=== PATIENT | male | born 1960 | race Caucasian/White ===

== ENCOUNTER 2020-08-15 12:29 | Day surgery (SDC) | payer MEDICAID ==
[2020-08-15] VITALS (11 sets, daily range): BP systolic 134–165; BP diastolic 75–98
[~2020-08-15] VITALS: Ht 177.8 cm; Wt 88.6 kg
[~2020-08-15 12:29] MED LIST: ASPI-612 PO; ATEN-169 PO; IND25C PO; LEVA15HF4 IH; LISI40TA4 PO; OMEP-84 PO; SERT-153 PO
[2020-08-15] MEDS ORDERED: nitroGLYCERIN 0.4mg SUBLingual tab SL PRN (13:05)
[2020-08-15] MEDS ORDERED: LORazepam 0.5 MG tablet PO PRN (13:05)
[2020-08-15] MEDS ORDERED: diphenhydrAMINE 25mg capsule PO PRN (13:05)
[2020-08-15] MEDS ORDERED: LOSA100T57 PO (13:10)
[2020-08-15] MEDS ORDERED: UMEC1DIS INH (13:10)
[2020-08-15] MEDS ORDERED: MELO-102 PO (13:10)
[2020-08-15] MEDS ORDERED: ATOR20TA PO (13:11)
[2020-08-15] MEDS ORDERED: AMLO10TA PO (13:11)
[2020-08-15] MEDS ORDERED: TIOT18CA3 PO (13:11)
[2020-08-15] MEDS ORDERED: ERGO500056 PO (13:14)
[2020-08-15] MEDS ORDERED: GABA300T25 PO (13:14)
[2020-08-15 13:41] LABS: BASOPHILS # (AUTO) 0.1 X10'3 (0-0.2); EOSINOPHILS % (AUTO) 0.7 % (0-6); HEMATOCRIT 46.6 % (42.0-52.0); HEMOGLOBIN 15.7 g/dl (14.0-17.9); LYMPHOCYTES # (AUTO) 1.3 X10'3 (1.1-4.8); LYMPHOCYTES % (AUTO) 21.6 % (21-51); MEAN CORPUSCULAR HEMOGLOBIN 30.8 PG (27.0-31.0); MEAN CORPUSCULAR HGB CONC 33.6 g/dL (33.0-36.5); MEAN CORPUSCULAR VOLUME 91.8 FL (78-98); MONOCYTES # (AUTO) 0.4 X10'3 (0-0.9); MONOCYTES % (AUTO) 6.9 % (2-12); NEUTROPHILS # (AUTO) 4.3 X10'3 (1.8-7.7); NEUTROPHILS % (AUTO) 69.8 % (42-75); PLATELET COUNT 137 X10'3 (140-440); RED BLOOD COUNT 5.08 X10'6 (4.70-6.10); RED CELL DISTRIBUTION WIDTH 16.7 % (11.5-14.5); WHITE BLOOD COUNT 6.1 X10'3 (4.5-11.0)
[2020-08-15 13:49] LABS: ANION GAP 11 (8-16); BLOOD UREA NITROGEN 19 MG/DL (7-18); BUN/CREATININE RATIO 16.2 (5.4-32.0); CALCIUM 9.2 MG/DL (8.5-10.1); CHLORIDE 101 MMOL/L (99-107); CREATININE 1.17 MG/DL (0.60-1.10); GLUCOSE 98 MG/DL (70-104); SODIUM 137 MMOL/L (135-145); TOTAL CARBON DIOXIDE 24.8 MMOL/L (24-32); eGFR 64 ML/MIN
[2020-08-15 13:50] LABS: POTASSIUM 4.6 MMOL/L (3.5-5.1)
[2020-08-15 13:53] LABS: PARTIAL THROMBOPLASTIN TIME 26 SECONDS (22-32)
[2020-08-15] MEDS ORDERED: midazolam 2 mg/2 ml injection ONE ×3 (17:48→18:06)
[2020-08-15] MEDS ORDERED: fentaNYL/PF 50MCG/1 ML 2ML syringe ONE ×2 (17:48→18:07)
[2020-08-15] MEDS ORDERED: iohexol 350MG/ML 100ml bottle IV ONE (17:48)
[2020-08-15] MEDS ORDERED: LIDOcaine 1% (10mg/ml)w/preservative injection 20ml MDV ONE (17:48)
[2020-08-15] MEDS ORDERED: iohexol 350 MG/ML 50ML vial IV ONE (17:48)
--- NOTE | 2020-08-15 17:50 | NUR ---
Problems reprioritized. Patient report given, questions answered & plan of care reviewed with Joslyn BOYCE. Addendum: 08/16/20 at 1034 by Korin Silva RN late entry
[2020-08-15] MEDS ORDERED: proCHLORperazine 10 MG/2 ml inj ONE (18:06)
[2020-08-15] MEDS ORDERED: hydrALAZINE 20mg/ml inj. IV ONE (18:19)
--- NOTE | 2020-08-15 20:50 | NUR ---
Patient in room . I have received report from CARLI Jorgensen and had the opportunity to ask questions and assume patient care.
[2020-08-15] MEDS ORDERED: HYDROcodone/acetaminophen 10/325mg tab PO PRN (20:55)
[2020-08-15] MEDS ORDERED: OXAZEpam 15mg capsule PO PRN (20:55)
[2020-08-15] MEDS ORDERED: ondansetron/PF 4mg/2ml inj IV PRN (20:55)
[2020-08-15] MEDS ORDERED: proCHLORperazine 10 MG/2 ml inj IV PRN (20:55)
[2020-08-15] MEDS ORDERED: HYDROcodone/acetaminophen 5mg/325mg tablet PO PRN (20:55)
--- NOTE | 2020-08-15 20:56 | NUR ---
Joslyn states sister Terrell is unable to pick patient up until AM. Will place diet order and fax med orders to pharmacy. Came back from equipment operator/laborer at 1830, has angioseal on right groin, no complaints of pain, must lay flat until midnight. Patient is currently sleeping and has eaten a half a sandwhich.
[2020-08-15] MEDS ORDERED: atorvastatin 20mg tablet PO SCH (21:00)
[2020-08-15] MEDS: normal saline 1,000 ML IV SCH ×2 (21:36→23:05)
[2020-08-16 01:49] VITALS: BP 176/98
[2020-08-16 01:50] VITALS: BP 176/98
--- NOTE | 2020-08-16 01:50 | NUR ---
Patient anxious and BP 176/98. Will administer anxiety medications and reassess.
[2020-08-16 02:55] VITALS: BP 158/58
[2020-08-16] MEDS: ipratropium 0.5 MG/2.5ML nebule IH SCH ×2 (03:00→08:34)
--- NOTE | 2020-08-16 06:37 | NUR ---
Problems reprioritized. Patient report given, questions answered & plan of care reviewed with CARLI Liu.
[2020-08-16 07:00] VITALS: BP 165/109
[2020-08-16] MEDS ORDERED: pantoprazole 40mg Tablet.DR PO SCH (07:30)
[2020-08-16 07:36] VITALS: BP_SYST 165
[2020-08-16] MEDS ORDERED: gabapentin 300mg capsule PO SCH (08:00)
[2020-08-16] MEDS ORDERED: aspirin 81mg tablet.DR PO SCH (08:00)
[2020-08-16] MEDS ORDERED: amLODIPine 5mg tablet PO SCH (08:00)
[2020-08-16] MEDS ORDERED: losartan 50mg tablet PO SCH (08:00)
[2020-08-16] MEDS ORDERED: sertraline 50mg tablet PO SCH (08:00)
[2020-08-19] MEDS ORDERED: ALBU18HF2 INH (13:03)
[2020-09-08] MEDS ORDERED: ergocalciferol (vit D) capsule 1,250 MCG (50,000 UNITS) CAPSULE PO SCH (08:00)
== END 2020-08-16 10:36 | disposition home or self-care (01) ==
LOC: SSTAY O 12:29 → UNDOADMOB 21:46 → PCU 3S 21:46 → UNDODISOB 08-16 10:36 → SSTAY O 08-16 10:36
PROVIDERS: ATTEND Internal Medicine Cardiovascular Disease
DX: I25.119 Atherosclerotic heart disease of native coronary artery with unspecified angina pectoris (principal); R06.09 Other forms of dyspnea; I10 Essential (primary) hypertension; I45.10 Unspecified right bundle-branch block; F32.9 Major depressive disorder, single episode, unspecified; J44.9 Chronic obstructive pulmonary disease, unspecified; F17.210 Nicotine dependence, cigarettes, uncomplicated; Z79.01 Long term (current) use of anticoagulants; Z79.899 Other long term (current) drug therapy; Z72.89 Other problems related to lifestyle; Z79.82 Long term (current) use of aspirin
CPT/HCPCS: 36415; 71046; 80048; 85025; 85610; 85730; 93005; 93458; 94640; 94760; 99152; 99153; C1760; C1769; J0360; J0780; J1644; J2001; J2250; J3010; J7030; Q0163; Q9967; A4620; A6258

== ENCOUNTER 2020-08-22 10:30 | Inpatient (IN) | payer MEDICAID ==
[2020-08-19 12:22] LABS: BASOPHILS # (AUTO) 0.1 X10'3 (0-0.2); BASOPHILS % (AUTO) 0.7 % (0-1); EOSINOPHILS # (AUTO) 0.1 X10'3 (0-0.9); EOSINOPHILS % (AUTO) 0.6 % (0-6); LYMPHOCYTES # (AUTO) 1.4 X10'3 (1.1-4.8); LYMPHOCYTES % (AUTO) 15.7 % (21-51); MEAN CORPUSCULAR HEMOGLOBIN 31.2 PG (27.0-31.0); MEAN CORPUSCULAR HGB CONC 33.9 g/dL (33.0-36.5); MEAN CORPUSCULAR VOLUME 91.8 FL (78-98); MEAN PLATELET VOLUME 8.5 FL (7.4-10.4); MONOCYTES # (AUTO) 0.8 X10'3 (0-0.9); MONOCYTES % (AUTO) 9.8 % (2-12); NEUTROPHILS # (AUTO) 6.3 X10'3 (1.8-7.7); NEUTROPHILS % (AUTO) 73.2 % (42-75); PRE OP HEMATOCRIT 47.1 % (42.0-52.0); PRE OP PLATELET COUNT 139 X10'3 (140-440); RED BLOOD COUNT 5.14 X10'6 (4.70-6.10); RED CELL DISTRIBUTION WIDTH 17.4 % (11.5-14.5)
[2020-08-19 12:39] LABS: PRE OP PROTIME 10.7 SECONDS (9.0-12.0)
[2020-08-19 12:41] LABS: ALBUMIN 3.9 G/DL (3.4-5.0); ALBUMIN/GLOBULIN RATIO 0.9 (1.1-1.5); ALKALINE PHOSPHATASE 115 IU/L (46-116); BLOOD UREA NITROGEN 15 MG/DL (7-18); BUN/CREATININE RATIO 12.6 (5.4-32.0); CALCIUM 8.9 MG/DL (8.5-10.1); CHLORIDE 103 MMOL/L (99-107); CREATININE 1.19 MG/DL (0.60-1.10); PRE OP ALT 28 U/L (30-65); PRE OP ANION GAP 9 (8-16); PRE OP AST 21 U/L (10-37); PRE OP BILIRUB, TOTAL 0.7 MG/DL (0.0-1.0); PRE OP GLUCOSE 104 MG/DL (70-104); PRE OP POTASSIUM 5.4 MMOL/L (3.4-5.1); PRE OP SODIUM 138 MMOL/L (135-145); TOTAL CARBON DIOXIDE 26.4 MMOL/L (24-32); TOTAL PROTEIN 8.1 G/DL (6.4-8.2); eGFR 63 ML/MIN
[~2020-08-22] VITALS: Ht 177.8 cm; Wt 89.7 kg
[~2020-08-22 10:30] MED LIST changes: +ALBU18HF2 INH; -ATEN-169 PO; +ATOR20TA PO; -IND25C PO; -LEVA15HF4 IH; -LISI40TA4 PO; +LOSA100T57 PO; +MELO-102 PO; +TIOT18CA3 PO; +UMEC1DIS INH; +albuterol 2.5 MG/3 ML nebule NEB ONE; +ceFAZolin 2gm in dextrose, iso 50 ML IV ONE; +famotidine 20mg tablet PO ONE; +ringers solution, lacted 1,000 ML IV SCH
[2020-08-22 12:10] VITALS: BP 181/109
[2020-08-22] MEDS ORDERED: meperidine/PF 25mg/ml syringe IV ONE (13:35)
[2020-08-22] MEDS ORDERED: diazepam 5mg tablet PO ONE (13:35)
[2020-08-22] MEDS ORDERED: LIDOcaine 1% (10mg/ml) 2ml vial ONE (15:49)
[2020-08-22] MEDS ORDERED: labetalol 20mg/4ml (5mg/ml) syringe IV PRN (16:30)
[2020-08-22] MEDS ORDERED: morphine 4 MG/ML inj SYRINge IV PRN (16:30)
[2020-08-22] MEDS ORDERED: ringers solution, lacted 1,000 ML IV SCH ×3 (16:30→22:05)
[2020-08-22] MEDS ORDERED: fentaNYL/PF 50MCG/1 ML 2ML syringe IV PRN ×2 (16:30)
[2020-08-22] MEDS ORDERED: ondansetron/PF 4mg/2ml inj IV PRN ×2 (16:30→22:05)
[2020-08-22] MEDS ORDERED: morphine 2 MG/ML inj. syringe IV PRN (16:30)
[2020-08-22] MEDS ORDERED: hydrALAZINE 20mg/ml inj. IV PRN (16:30)
[2020-08-22] MEDS ORDERED: MIDAZolam 5mg/5ml vial ONE ×2 (16:35→21:59)
[2020-08-22] MEDS ORDERED: fentaNYL /PF 50mcg/ml 5ml ampule ONE (16:35)
[2020-08-22] MEDS ORDERED: rocuronium 10mg/ml inj IV ONE ×5 (16:38→22:43)
[2020-08-22] MEDS ORDERED: ondansetron/PF 4mg/2ml inj ONE (16:38)
[2020-08-22] MEDS ORDERED: LIDOcaine 2% (20mg/ml) 5ml vial ONE (16:38)
[2020-08-22] MEDS ORDERED: propofol inj 20 ML IV ONE (16:38)
[2020-08-22 17:03] LABS: ISTAT ANION GAP 11 (8-12); ISTAT BUN 9 mg/dL (6-19); ISTAT CL 102 mmol/L (99-107); ISTAT CREATININE 0.8 mg/dL (0.8-1.3); ISTAT GLUCOSE 84 mg/dL (70-104); ISTAT Hct 47 %PCV (42-52); ISTAT IONIZED CALCIUM 1.16 mmol/L (1.03-1.32); ISTAT K 4.2 mmol/L (3.5-5.1); ISTAT NA 136 mmol/L (135-145); ISTAT TOTAL CO2 23 mmol/L (24-32); ISTAT eGFR > 90 ML/MIN; POC BUN/CREATININE RATIO 11.3 (5.4-32.0)
[2020-08-22] MEDS ORDERED: albumin (Human) 5% 250ml 250 ML IV ONE ×14 (18:27→22:13)
[2020-08-22] MEDS ORDERED: sugammadex 200mg/2ml injection IV ONE (18:49)
[2020-08-22] MEDS ORDERED: fentaNYL/PF 50MCG/1 ML 2ML syringe ONE ×3 (19:22→23:38)
[2020-08-22] MEDS ORDERED: ePHEDrine 50MG/ML INJ. ONE (19:30)
[2020-08-22] MEDS ORDERED: albumin (Human) 5% 250ml 750 ML IV ONE (20:35)
[2020-08-22 23:14] LABS: ISTAT ANION GAP 9 (8-12); ISTAT BUN 8 mg/dL (6-19); ISTAT CL 107 mmol/L (99-107); ISTAT CREATININE 0.8 mg/dL (0.8-1.3); ISTAT GLUCOSE 149 mg/dL (70-104); ISTAT HGB 10.2 g/dl (14.0-18.0); ISTAT Hct 30 %PCV (42-52); ISTAT IONIZED CALCIUM 0.99 mmol/L (1.03-1.32); ISTAT K 4.1 mmol/L (3.5-5.1); ISTAT NA 137 mmol/L (135-145); ISTAT TOTAL CO2 21 mmol/L (24-32); ISTAT eGFR > 90 ML/MIN
[2020-08-23] VITALS (23 sets, daily range): BP systolic 90–211; BP diastolic 53–109
[2020-08-23] MEDS ORDERED: rocuronium 10mg/ml inj IV ONE ×2 (01:12→03:16)
[2020-08-23] MEDS ORDERED: phenylephrine 10mg/ml inj. ONE (01:18)
[2020-08-23] MEDS ORDERED: fentaNYL/PF 50MCG/1 ML 2ML syringe ONE ×2 (02:28→03:06)
[2020-08-23] MEDS ORDERED: ceFAZolin 1000mg inj ONE ×2 (02:52)
--- NOTE | 2020-08-23 03:54 | NUR ---
Patient arrived to unit from OR at 0354 with SUPERINTENDENT MENAGERIE and anesthesia MD. Patient arrived via BVM with ETT 7.5 (25 at lip). Patient placed on ventilator SIMV, 60% FIO2, TV 500, RR 20, PEEP 5. Strict orders to not suction patient beyond end of ETT as patient has anastamosis site. Patient on levophed drip at 0.15 mcg/kg/min. Patient has chest tube x 2 to right mid axillary x 2 that are y sited to water seal per order with air leak noted with 200 mL of blood in chamber. Patient is diaphoretic upon arrival. Patient BP is 240/110. Levophed stopped and patient given 100 mcg Fentanyl bolus per Dr. Bell order followed by a 10 mg Morphine IV push along with a Fentanyl drip, Versed drip. Patient goal SBP to be 120-140, no less than 100-[address] Bell. Patient has a right radial arterial line, a right IJ triple lumen with CVP reading, and a temperature latham in place. Patient two person skin assessment deferred at this time due to instability post-op. 0500 -- Currently patient is able to open his eyes. Updated that he is in the ICU. Fentanyl is running at 100 mcg, Versed at 4 mg, and Levo at 0.15 mcg. Chest tube current has 450 mL of blood in the chamber. Air leak still noted. Patient remains diaphoretic. Calcium low and replaced, Mg to be replaced.
[2020-08-23] MEDS ORDERED: morphine 4 MG/ML inj SYRINge IV PRN ×3 (04:00→04:55)
[2020-08-23] MEDS ORDERED: HYDROcodone/acetaminophen 10/325mg tab PO PRN ×2 (04:00)
[2020-08-23] MEDS ORDERED: ondansetron/PF 4mg/2ml inj IV PRN ×2 (04:00→04:55)
[2020-08-23] MEDS: potassium Cl 20mEq in D5-NS 1,000 ML IV SCH ×2 (04:00→16:30)
[2020-08-23] MEDS ORDERED: naloxone 0.4 mg/ml inj IV PRN (04:00)
[2020-08-23] MEDS ORDERED: CADD PCA waste documentation MC PRN (04:00)
[2020-08-23] MEDS ORDERED: albuterol 2.5 MG/3 ML nebule NEB PRN (04:00)
[2020-08-23] MEDS ORDERED: metoclopramide 5 mg/ml inj IV PRN (04:00)
--- NOTE | 2020-08-23 04:00 | NUR ---
Received from OR TO ROOM 2035 via ICU BED, accompanied by Anesthesiologist and report given by Anesthesiolgist. PT INTUBATED AND PLACED ON VENT AND MONITOR, S/P THORASCOPIC ATTEMPTED WEDGE RESECTION, RIGHT UPPER LOBECTOMY, PULMONARY ARTERY REPAIR, RIGHT MAIN STEM BRONCHUS REPAIR AND OMENTAL PATCH, CHEST TUBES, FONTENOT, RIGHT WRIST ARTLINE, RIGHT NECK CVL, GENERAL ANESTH, VERSED AND FENTANYL DRIPS STARTED, NOREPI TURNED OFF , PT IS DIAPHORETIC, HYPERTENSIVE, RIGHT CHEST DRESSINGS WITH 2 CHEST TUBE EXIT SITES CDI, ATRIUM HAS 300CC PINK SEROUS FLUID PRESENT, RT IN TO CLARIFY SUCTION ORDERS, WILL CONTINUE TO ASSESS, PT'S AWESOME NURSE HIRO AT BEDSIDE.
[2020-08-23] MEDS ORDERED: morphine 4 MG/ML inj SYRINge ONE (04:09)
[2020-08-23] MEDS ORDERED: morphine 10mg/ml inj. IV ONE (04:15)
[2020-08-23 04:25] LABS: ABG BASE EXCESS -9.2 mmol/L (-2.0-2.0); ABG HCO3 18.2 mmol/L (22.0-26.0); ABG PCO2 (T) 45.3 mmHg (35.0-48.0); ABG PO2 (T) 94.4 mmHg (75.0-100.0); FCOHb 0.8 % (0.0-3.9); FMetHb 0.2 % (0.0-1.5); PEEP 5 cm H2O; RESPIRATORY RATE 16 b/min; TIDAL VOLUME 500 mL; TOTAL HEMOGLOBIN 11.9 G/dl (14.0-18.0)
[2020-08-23 04:32] LABS: BASOPHILS # (AUTO) 0.1 X10'3 (0-0.2); BASOPHILS % (AUTO) 0.7 % (0-1); EOSINOPHILS % (AUTO) 0.1 % (0-6); HEMATOCRIT 34.4 % (42.0-52.0); HEMOGLOBIN 11.5 g/dl (14.0-17.9); LYMPHOCYTES # (AUTO) 1.4 X10'3 (1.1-4.8); LYMPHOCYTES % (AUTO) 8.1 % (21-51); MEAN CORPUSCULAR HEMOGLOBIN 30.8 PG (27.0-31.0); MEAN CORPUSCULAR HGB CONC 33.4 g/dL (33.0-36.5); MEAN CORPUSCULAR VOLUME 92.2 FL (78-98); MEAN PLATELET VOLUME 8.9 FL (7.4-10.4); MONOCYTES # (AUTO) 1.8 X10'3 (0-0.9); MONOCYTES % (AUTO) 10.3 % (2-12); NEUTROPHILS % (AUTO) 80.8 % (42-75); PLATELET COUNT 206 X10'3 (140-440); RED BLOOD COUNT 3.73 X10'6 (4.70-6.10); RED CELL DISTRIBUTION WIDTH 16.6 % (11.5-14.5); WHITE BLOOD COUNT 17.3 X10'3 (4.5-11.0)
[2020-08-23 04:44] LABS: ALBUMIN 4.2 G/DL (3.4-5.0); ANION GAP 7 (8-16); BLOOD UREA NITROGEN 9 MG/DL (7-18); BUN/CREATININE RATIO 8.1 (5.4-32.0); CALCIUM 6.8 MG/DL (8.5-10.1); CHLORIDE 103 MMOL/L (99-107); CREATININE 1.11 MG/DL (0.60-1.10); GLUCOSE 198 MG/DL (70-104); MAGNESIUM 1.4 MG/DL (1.5-2.4); SODIUM 134 MMOL/L (135-145); TOTAL CARBON DIOXIDE 24.4 MMOL/L (24-32); eGFR 68 ML/MIN
--- NOTE | 2020-08-23 04:45 | NUR ---
PT APPEARS CALM, RESPONDING TO VERBAL STIMULI, BELONGINGS IN PTS ROOM, PT'S RN AT BEDSIDE WITH LOADING MANAGER, PT STABLE AT THIS TIME.
[2020-08-23 04:46] LABS: POTASSIUM 6.2 MMOL/L (3.5-5.1)
[2020-08-23] MEDS ORDERED: ipratropium/albuterol 3ml nebule NEB PRN (04:55)
[2020-08-23] MEDS ORDERED: midazolam 100mg in NS 100ml 100 ML IV PRN (04:55)
[2020-08-23] MEDS ORDERED: FENTANYL-0.9 % NACL/PF 100 ML IV PRN (04:55)
[2020-08-23] MEDS ORDERED: morphine 2 MG/ML inj. syringe IV PRN (04:55)
[2020-08-23] MEDS ORDERED: normal saline 1000ml 1,000 ML IV SCH (04:55)
[2020-08-23] MEDS ORDERED: potassium Cl 20 mEq SR tablet PO PRN ×2 (04:55)
[2020-08-23] MEDS ORDERED: LIDOcaine 2% 10ml TOPICAL JELLY (Urojet) TP ONE (04:55)
[2020-08-23] MEDS: K, MAG and/or Phos replacement - Verify level? MC SCH ×2 (04:55→08:00)
[2020-08-23] MEDS ORDERED: acetaminophen 325mg tablet PO PRN ×2 (04:55)
[2020-08-23] MEDS ORDERED: calcium chloride 100 MG/1 ML inj IV ONE ×2 (05:02→05:10)
[2020-08-23] MEDS ORDERED: insulin Lispro (HumaLOG) vial - multi-dose SQ SCH (05:10)
[2020-08-23] MEDS ORDERED: dextrose 50%-water 50ml dispensing syringe IV PRN ×2 (05:10)
[2020-08-23] MEDS ORDERED: MESSAGE TO PHARMACY PO ONE (05:10)
[2020-08-23] MEDS ORDERED: dextrose ORAL solution 15 GM/59 ML bottle PO PRN ×2 (05:10)
[2020-08-23] MEDS ORDERED: glucagon, human recombinant 1mg kit SUBCUT PRN (05:10)
[2020-08-23] MEDS: midazolam 100mg in NS 100ml 100 ML IV SCH ×2 (05:14→19:14)
[2020-08-23] MEDS: NORepinephrine 8mg/ 250ml NS 250 ML IV SCH ×4 (05:15→23:19)
[2020-08-23] MEDS: FENTANYL-0.9 % NACL/PF 100 ML IV PRN ×5 (05:28→22:32)
[2020-08-23] MEDS: magnesium 4gm in 100ml NS 100 ML IV PRN (05:40)
[2020-08-23 05:42] LABS: HEMOGLOBIN A1C 5.5 % (4.5-6.2)
[2020-08-23] MEDS ORDERED: vancomycin/NS 1 GM ADD-VANTAGE 250 ML IV ONE (07:20)
[2020-08-23] MEDS ORDERED: albuterol 2.5 MG/3 ML nebule CONTNEB ONE (07:20)
[2020-08-23] MEDS ORDERED: sodium bicarbonate (8.4%) inj. 150 MEQ in dextrose 5%-water 1,000 ML IV SCH (07:20)
[2020-08-23] MEDS ORDERED: insulin regular, human 10 units/0.1 ml syringe IV ONE (07:20)
[2020-08-23] MEDS ORDERED: dextrose 50%-water 50ml dispensing syringe IV ONE (07:20)
[2020-08-23 07:42] LABS: HEMATOCRIT 32.1 % (42.0-52.0); HEMOGLOBIN 10.8 g/dl (14.0-17.9); MEAN CORPUSCULAR HEMOGLOBIN 31.3 PG (27.0-31.0); MEAN CORPUSCULAR HGB CONC 33.8 g/dL (33.0-36.5); MEAN CORPUSCULAR VOLUME 92.7 FL (78-98); MEAN PLATELET VOLUME 8.7 FL (7.4-10.4); PLATELET COUNT 264 X10'3 (140-440); RED BLOOD COUNT 3.46 X10'6 (4.70-6.10); RED CELL DISTRIBUTION WIDTH 16.5 % (11.5-14.5); WHITE BLOOD COUNT 23.5 X10'3 (4.5-11.0)
[2020-08-23 07:54] LABS: PARTIAL THROMBOPLASTIN TIME 31 SECONDS (22-32)
[2020-08-23] MEDS ORDERED: ceFAZolin/D5W- 1GM premix 50 ML IV SCH (08:00)
[2020-08-23] MEDS: gabapentin 300mg capsule PO SCH ×2 (08:00→20:00)
--- NOTE | 2020-08-23 08:00 | NUR ---
update dr coronel with increasing levophed demand, cvp, current labs, and chest tube output. ordered to give 500cc 5% albumin and repeat x1 if CVP below 10 and wean fio2 as tolerated
[2020-08-23] MEDS ORDERED: albumin (Human) 5% 250ml 250 ML IV ONE ×5 (08:05→15:50)
[2020-08-23] MEDS ORDERED: albumin (Human) 5% 250ml 500 ML IV ONE (08:08)
[2020-08-23] MEDS: vancomycin/NS 1 GM ADD-VANTAGE 250 ML IV SCH ×2 (09:01→20:41)
[2020-08-23] MEDS: piperacillin/tazo 3.375gm/50ml 50 ML IV SCH ×2 (10:12→16:32)
[2020-08-23] MEDS: pantoprazole 40 MG vial IV SCH (10:17)
--- NOTE | 2020-08-23 11:23 | NUR ---
Initial: Patient is intubated with acute respiratory failure, and sedated s/p right lung mass resection, has right chest tube. NPO and has no OG tube. Will monitor for placement of OG tube and possible TF during intubation if consult received. Recommend: 1. TF if prolonged intubation 2. When extubated, advance diet as medically indicated to regular 3. Weight per rx Addendum: 08/23/20 at [address] Amended: Links added.
[2020-08-23 11:34] LABS: ANION GAP 11 (8-16); BLOOD UREA NITROGEN 11 MG/DL (7-18); BUN/CREATININE RATIO 8.6 (5.4-32.0); CALCIUM 7.3 MG/DL (8.5-10.1); CHLORIDE 109 MMOL/L (99-107); CREATININE 1.28 MG/DL (0.60-1.10); GLUCOSE 200 MG/DL (70-104); PHOSPHORUS 3.4 MG/DL (2.3-4.5); POTASSIUM 4.4 MMOL/L (3.5-5.1); SODIUM 140 MMOL/L (135-145); TOTAL CARBON DIOXIDE 20.2 MMOL/L (24-32); eGFR 58 ML/MIN
--- NOTE | 2020-08-23 13:00 | NUR ---
turned pt with left side down, dropped BP 63/41 (NIBP corrated) all other VS same. increased levophed and turned NS to 1200cc/hr for approx. 10 minutes, placed on back with legs elevated head flat. slow return of BP to over 120 systolic (approx 9 mins when reviewing monitor data)
--- NOTE | 2020-08-23 13:30 | NUR ---
dr coronel at bedside updated.
[2020-08-23 13:34] LABS: HEMATOCRIT 23.7 % (42.0-52.0); HEMOGLOBIN 7.9 g/dl (14.0-17.9); MEAN CORPUSCULAR HEMOGLOBIN 30.9 PG (27.0-31.0); MEAN CORPUSCULAR HGB CONC 33.2 g/dL (33.0-36.5); MEAN PLATELET VOLUME 8.6 FL (7.4-10.4); PLATELET COUNT 172 X10'3 (140-440); RED BLOOD COUNT 2.55 X10'6 (4.70-6.10); RED CELL DISTRIBUTION WIDTH 16.4 % (11.5-14.5); WHITE BLOOD COUNT 13.9 X10'3 (4.5-11.0)
--- NOTE | 2020-08-23 13:51 | NUR ---
dr coronel notified of drop in hemogram, order to recheck in 4 hours
[2020-08-23 14:44] LABS: ABG BASE EXCESS -9.5 mmol/L (-2.0-2.0); ABG HCO3 16.9 mmol/L (22.0-26.0); ABG OXYGEN SATURATION 96.1 % (94-97); ABG PCO2 (T) 38.9 mmHg (35.0-48.0); ABG PO2 (T) 102.7 mmHg (75.0-100.0); FCOHb 0.8 % (0.0-3.9); FMetHb 0.4 % (0.0-1.5); FO2Hb 94.9 % (94-97); PEEP 5 cm H2O; RESPIRATORY RATE 20 b/min; TIDAL VOLUME 500 mL; TOTAL HEMOGLOBIN 7.7 G/dl (14.0-18.0)
--- NOTE | 2020-08-23 15:00 | NUR ---
DROPPED BP AGAIN LOW [address] BRAMBILA NOTIFIED AND RETURNED TO BEDSIDE 500CC 5% ALBUMIN, CXR, 2U PRBC, TROP, AND FLOWTRAK ORDERED
[2020-08-23 15:07] LABS: TROPONIN I 0.09 NG/ML (0.0-0.05)
[2020-08-23] MEDS ORDERED: iohexol 300mg/ml 100ml inj. ONE (17:40)
[2020-08-23 20:00] LABS: HEMATOCRIT 28.8 % (42.0-52.0); HEMOGLOBIN 9.9 g/dl (14.0-17.9); MEAN CORPUSCULAR HEMOGLOBIN 31.6 PG (27.0-31.0); MEAN CORPUSCULAR HGB CONC 34.4 g/dL (33.0-36.5); MEAN PLATELET VOLUME 8.5 FL (7.4-10.4); PLATELET COUNT 102 X10'3 (140-440); RED BLOOD COUNT 3.13 X10'6 (4.70-6.10); RED CELL DISTRIBUTION WIDTH 15.5 % (11.5-14.5); WHITE BLOOD COUNT 10.3 X10'3 (4.5-11.0)
[2020-08-23] MEDS: sodium bicarbonate (8.4%) inj. 150 MEQ in dextrose 5%-water 1,000 ML IV SCH (20:07)
[2020-08-23] MEDS: vasopressin inj. 40 UNIT in normal saline 50ml IV soln 38 ML IV SCH (20:09)
[2020-08-23] MEDS: insulin glargine (Lantus) pen - multi-dose SQ SCH (20:45)
--- NOTE | 2020-08-23 21:04 | NUR ---
RN came onto shift and patient assessment performed. Patient BP extremely labile. Patient is awake, able to follow commands, and very tense (legs are extended). Patient versed drip increased to 6 mg/hr at this time and RN will reassess. Patient updated on plan of care. Patient abdomen is much more distended and firm compared to when patient arrived from OR this AM. Patient urine output is good at this time. 2044 -- RN spoke with Dr. Darden. Patient BP was 130 SBP and then dropped to 70's with no notice. Patient levophed increased to 0.65 at this time and RN had to continue to climb. SVV noted to be [address] Bell notified of updated labs Hgb 9.9, platelets 102, lactic acid 0.9. Orders to give additional 2 units PRBC, 1 10 pack of platelets, CT Chest, Abd/pelvis with and without contrast when patient stable. Rectal tylenol ordered for temperature of 38 as well as jung cultures. RN to update Dr. Bell when CT results come back. Currently patient BP 113/61. Patient HR remains 74 throughout
[2020-08-23] MEDS ORDERED: iohexol 350MG/ML 100ml bottle IV ONE (21:21)
[2020-08-23] MEDS: acetaminophen 650mg rectal suppository RC PRN (21:42)
[2020-08-23 22:08] LABS: BASOPHILS # (AUTO) 0.1 X10'3 (0-0.2); BASOPHILS % (AUTO) 0.5 % (0-1); EOSINOPHILS % (AUTO) 0.2 % (0-6); HEMATOCRIT 29.2 % (42.0-52.0); HEMOGLOBIN 9.7 g/dl (14.0-17.9); LYMPHOCYTES # (AUTO) 1.7 X10'3 (1.1-4.8); LYMPHOCYTES % (AUTO) 14.5 % (21-51); MEAN CORPUSCULAR HGB CONC 33.4 g/dL (33.0-36.5); MEAN CORPUSCULAR VOLUME 92.8 FL (78-98); MEAN PLATELET VOLUME 8.9 FL (7.4-10.4); MONOCYTES # (AUTO) 1.3 X10'3 (0-0.9); MONOCYTES % (AUTO) 11.2 % (2-12); NEUTROPHILS # (AUTO) 8.5 X10'3 (1.8-7.7); NEUTROPHILS % (AUTO) 73.6 % (42-75); PLATELET COUNT 105 X10'3 (140-440); RED BLOOD COUNT 3.14 X10'6 (4.70-6.10); WHITE BLOOD COUNT 11.6 X10'3 (4.5-11.0)
[2020-08-23 22:08] LABS: CLARITY,URINE CLEAR (Clear); COLOR,URINE YELLOW (Yellow); GLUCOSE, URINE NEGATIVE (Neg); KETONES,URINE NEGATIVE (Neg); LEUKOCYTE ESTERASE ,URINE TRACE (Neg); NITRITES, URINE NEGATIVE (Neg); OCCULT BLOOD,URINE MODERATE (Neg); PROTEIN,URINE NEGATIVE (Neg); UROBILINOGEN,URINE 0.2 E.U/dL (0.2-1.0)
[2020-08-23 22:11] LABS: UA COLLECTION TYPE FOLEY CATH
[2020-08-23 22:21] LABS: BACTERIA,URINE FEW /HPF (Neg); WBC,URINE 0-4 /HPF (0-4)
[2020-08-23 22:24] LABS: SQUAMOUS EPITHELIAL CELL,UR FEW /LPF (FEW)
--- NOTE | 2020-08-23 23:44 | NUR ---
Patient remains critically unstable at this time. RN increased patient sedation for CT and movement as patient seems to do better with BP when sedated. Patient BP is very labile with any movement. patient chest tube output has been monitored every hour. Chest tube atrium changed this shift and air leak still noted. Levo has been titrated to maintain SBP 120-140 although difficult at times. Patient finishing up 2 units of PRBC and 1 ten pack of [address]. CT notified approximately 15 minutes. Patient tolerated transfusions well. Patient abdomen remains round, distended, and firm. patient has distal pulses to all four peripheral extemities 2+ and palpable.
[2020-08-23] MEDS ORDERED: epiNEPHrine 0.1mg/ml 10ml syringe ONE (23:50)
[2020-08-24] VITALS (25 sets, daily range): BP systolic 91–142; BP diastolic 56–76
[2020-08-24] MEDS: midazolam 100mg in NS 100ml 100 ML IV SCH ×5 (01:05→23:25)
--- NOTE | 2020-08-24 01:08 | NUR ---
Patient returned to ICU from CT. Patient tolerated transport well. Patient currently on 250 mcg of Fentanyl, 18 mg of Versed, and 0.5 mcg of Levo.
[2020-08-24] MEDS: piperacillin/tazo 3.375gm/50ml 50 ML IV SCH ×4 (01:12→23:52)
[2020-08-24] MEDS: FENTANYL-0.9 % NACL/PF 100 ML IV PRN ×6 (02:24→21:43)
[2020-08-24 02:38] LABS: ABG BASE EXCESS -6.6 mmol/L (-2.0-2.0); ABG HCO3 19.5 mmol/L (22.0-26.0); ABG OXYGEN SATURATION 95.4 % (94-97); ABG PCO2 (T) 41.9 mmHg (35.0-48.0); ABG PO2 (T) 86.3 mmHg (75.0-100.0); FCOHb 0.5 % (0.0-3.9); FMetHb 0.2 % (0.0-1.5); FO2Hb 94.7 % (94-97); PATIENT TEMPERATURE 37.4; PEEP 5 cm H2O; RESPIRATORY RATE 20 b/min; TIDAL VOLUME 500 mL; TOTAL HEMOGLOBIN 11.5 G/dl (14.0-18.0)
[2020-08-24 03:13] LABS: MEAN PLATELET VOLUME 8.7 FL (7.4-10.4); MONOCYTES # (AUTO) 0.6 X10'3 (0-0.9); MONOCYTES % (AUTO) 10.4 % (2-12); PLATELET COUNT 87 X10'3 (140-440)
[2020-08-24 03:17] LABS: BASOPHILS % (AUTO) 0.4 % (0-1); EOSINOPHILS % (AUTO) 0.3 % (0-6); HEMATOCRIT 31.6 % (42.0-52.0); HEMOGLOBIN 10.8 g/dl (14.0-17.9); LYMPHOCYTES # (AUTO) 0.8 X10'3 (1.1-4.8); MEAN CORPUSCULAR HEMOGLOBIN 31.5 PG (27.0-31.0); MEAN CORPUSCULAR HGB CONC 34.2 g/dL (33.0-36.5); MEAN CORPUSCULAR VOLUME 91.9 FL (78-98); NEUTROPHILS # (AUTO) 4.8 X10'3 (1.8-7.7); NEUTROPHILS % (AUTO) 76.9 % (42-75); RED BLOOD COUNT 3.44 X10'6 (4.70-6.10); RED CELL DISTRIBUTION WIDTH 16.1 % (11.5-14.5); WHITE BLOOD COUNT 6.2 X10'3 (4.5-11.0)
[2020-08-24 03:27] LABS: ALANINE AMINOTRANSFERASE 37 U/L (12-78); ALBUMIN 3.4 G/DL (3.4-5.0); ALBUMIN/GLOBULIN RATIO 1.8 (1.1-1.5); ALKALINE PHOSPHATASE 41 IU/L (46-116); ANION GAP 8 (8-16); ASPARTATE AMINO TRANSFERASE 90 U/L (10-37); BILIRUBIN,TOTAL 0.9 MG/DL (0.1-1.0); BLOOD UREA NITROGEN 10 MG/DL (7-18); BUN/CREATININE RATIO 10.3 (5.4-32.0); CALCIUM 7.3 MG/DL (8.5-10.1); CHLORIDE 109 MMOL/L (99-107); CREATININE 0.97 MG/DL (0.60-1.10); GLUCOSE 139 MG/DL (70-104); PHOSPHORUS 2.8 MG/DL (2.3-4.5); POTASSIUM 4.4 MMOL/L (3.5-5.1); SODIUM 140 MMOL/L (135-145); TOTAL CARBON DIOXIDE 23.1 MMOL/L (24-32); TOTAL PROTEIN 5.3 G/DL (6.4-8.2); eGFR 79 ML/MIN
[2020-08-24] MEDS: NORepinephrine 8mg/ 250ml NS 250 ML IV SCH ×3 (04:23→23:48)
[2020-08-24] MEDS: potassium Cl 20mEq in D5-NS 1,000 ML IV SCH ×2 (05:00→17:13)
--- NOTE | 2020-08-24 06:30 | NUR ---
Received patient report from CARLI Camarillo and assumed pt care. Pt in bed, opens eyes to voice, able to nod head for simple yes and no questions. All VS WNL, no apparent distress noted. Will continue to monitor.
[2020-08-24] MEDS: pantoprazole 40 MG vial IV SCH (07:06)
[2020-08-24] MEDS: nicotine 14mg patch - 24hr TD SCH ×3 (07:06→10:55)
[2020-08-24] MEDS: vancomycin/NS 1 GM ADD-VANTAGE 250 ML IV SCH ×2 (07:06→20:19)
[2020-08-24] MEDS: K, MAG and/or Phos replacement - Verify level? MC SCH (08:00)
[2020-08-24] MEDS: gabapentin 300mg capsule PO SCH ×2 (08:00→20:00)
[2020-08-24 09:35] LABS: BASOPHILS # (AUTO) 0.1 X10'3 (0-0.2); BASOPHILS % (AUTO) 0.9 % (0-1); EOSINOPHILS # (AUTO) 0.1 X10'3 (0-0.9); EOSINOPHILS % (AUTO) 0.7 % (0-6); HEMATOCRIT 31.2 % (42.0-52.0); HEMOGLOBIN 10.7 g/dl (14.0-17.9); LYMPHOCYTES # (AUTO) 0.5 X10'3 (1.1-4.8); LYMPHOCYTES % (AUTO) 5.7 % (21-51); MEAN CORPUSCULAR HEMOGLOBIN 31.2 PG (27.0-31.0); MEAN CORPUSCULAR HGB CONC 34.3 g/dL (33.0-36.5); MEAN PLATELET VOLUME 8.7 FL (7.4-10.4); MONOCYTES # (AUTO) 0.8 X10'3 (0-0.9); MONOCYTES % (AUTO) 9.2 % (2-12); NEUTROPHILS % (AUTO) 83.5 % (42-75); PLATELET COUNT 98 X10'3 (140-440); RED BLOOD COUNT 3.43 X10'6 (4.70-6.10); RED CELL DISTRIBUTION WIDTH 16.2 % (11.5-14.5); WHITE BLOOD COUNT 8.4 X10'3 (4.5-11.0)
[2020-08-24] MEDS: vasopressin inj. 40 UNIT in normal saline 50ml IV soln 38 ML IV SCH (09:41)
[2020-08-24] MEDS: mineral oil/petrolatum ophthal oint EACHEYE SCH ×3 (09:44→20:39)
--- NOTE | 2020-08-24 10:10 | NUR ---
Dr. Rocha at bedside for rounds, no new orders at this time.
--- NOTE | 2020-08-24 10:45 | NUR ---
Dr. Andrew plata, RN spoke with MD, update on current labs and VS given to MD. stated he will be in later today. No new orders at this time. Will continue to monitor.
[2020-08-24] MEDS ORDERED: furosemide inj 1,000 MG in normal saline 250ml IV soln 150 ML IV SCH (13:30)
[2020-08-24 15:50] LABS: EOSINOPHILS # (AUTO) 0.1 X10'3 (0-0.9); HEMATOCRIT 30.4 % (42.0-52.0); LYMPHOCYTES # (AUTO) 0.5 X10'3 (1.1-4.8); MEAN CORPUSCULAR HEMOGLOBIN 30.5 PG (27.0-31.0); MEAN PLATELET VOLUME 8.9 FL (7.4-10.4); PLATELET COUNT 95 X10'3 (140-440)
[2020-08-24 15:53] LABS: BASOPHILS % (AUTO) 0.2 % (0-1); EOSINOPHILS % (AUTO) 0.7 % (0-6); HEMOGLOBIN 10.2 g/dl (14.0-17.9); LYMPHOCYTES % (AUTO) 5.8 % (21-51); MEAN CORPUSCULAR HGB CONC 33.7 g/dL (33.0-36.5); MEAN CORPUSCULAR VOLUME 90.7 FL (78-98); MONOCYTES % (AUTO) 11.3 % (2-12); NEUTROPHILS # (AUTO) 7.6 X10'3 (1.8-7.7); RED BLOOD COUNT 3.35 X10'6 (4.70-6.10); RED CELL DISTRIBUTION WIDTH 16.2 % (11.5-14.5); WHITE BLOOD COUNT 9.3 X10'3 (4.5-11.0)
[2020-08-24 16:20] LABS: ANION GAP 6 (8-16); BLOOD UREA NITROGEN 8 MG/DL (7-18); BUN/CREATININE RATIO 10.8 (5.4-32.0); CALCIUM 7.4 MG/DL (8.5-10.1); CHLORIDE 106 MMOL/L (99-107); CREATININE 0.74 MG/DL (0.60-1.10); GLUCOSE 138 MG/DL (70-104); PHOSPHORUS 2.1 MG/DL (2.3-4.5); POTASSIUM 3.9 MMOL/L (3.5-5.1); SODIUM 137 MMOL/L (135-145); TOTAL CARBON DIOXIDE 24.7 MMOL/L (24-32); eGFR > 90 ML/MIN
[2020-08-24] MEDS: sodium bicarbonate (8.4%) inj. 150 MEQ in dextrose 5%-water 1,000 ML IV SCH (16:49)
--- NOTE | 2020-08-24 19:12 | NUR ---
Report received. Patient is on Fentanyl drip at 250, Versed drip at 20, Lasix drip at 5, Vaso at 0.02, Bicarb at 50, and antibiotics. Vanco trough due at 1930 and CMP with hemoglobin due q6h. Patient is able to be aroused with stimulus due to sedation, but is appriopriate. Patient lungs are clear, abdomen is much softer this evening, not as distended. Lima is noted with yellow clear output. Pulses are 2+ and palpable to all four extremities. Chest tube noted to right side to 20 of suction. No air leak noted this evening.
[2020-08-24] MEDS ORDERED: VANCOMYCIN LEVEL IV ONE (19:30)
--- NOTE | 2020-08-24 19:43 | NUR ---
In the last hour patient BP has remained stable on levophed. Patient HR has been very irregular with drops to the high 40's and ups to the low 90's. Strips printed off monitor for review. CMP due q6h drawn early to monitor for electrolytes. RN to call MD with update once labs return. operations supervisor chemical cleaning aware. Addendum: 08/24/20 at 2058 by Rabia Kwon RN Barbara Manuel at bedside to examine patient. Labs have been drawn and sent. Addendum: 08/24/20 at 2126 by Rabia Kwon RN Patient Mg to be replaced at 1.7. RN spoke with Barbara Manuel first and 2g Mg to be given and then recheck Mg level with AM labs prior to giving a total of 6g of Mg per protocol. Message sent to pharmacy for phos replacement of 2.2. Ionized calcium noted to be 1.10.
[2020-08-24 19:45] LABS: BASOPHILS # (AUTO) 0.1 X10'3 (0-0.2); BASOPHILS % (AUTO) 0.6 % (0-1); EOSINOPHILS # (AUTO) 0.1 X10'3 (0-0.9); EOSINOPHILS % (AUTO) 0.9 % (0-6); HEMATOCRIT 31.1 % (42.0-52.0); HEMOGLOBIN 10.7 g/dl (14.0-17.9); LYMPHOCYTES # (AUTO) 0.7 X10'3 (1.1-4.8); LYMPHOCYTES % (AUTO) 6.7 % (21-51); MEAN CORPUSCULAR HEMOGLOBIN 31.1 PG (27.0-31.0); MEAN CORPUSCULAR HGB CONC 34.3 g/dL (33.0-36.5); MEAN CORPUSCULAR VOLUME 90.5 FL (78-98); MEAN PLATELET VOLUME 8.4 FL (7.4-10.4); MONOCYTES # (AUTO) 1.1 X10'3 (0-0.9); MONOCYTES % (AUTO) 10.6 % (2-12); NEUTROPHILS # (AUTO) 8.4 X10'3 (1.8-7.7); NEUTROPHILS % (AUTO) 81.2 % (42-75); PLATELET COUNT 103 X10'3 (140-440); RED BLOOD COUNT 3.44 X10'6 (4.70-6.10); RED CELL DISTRIBUTION WIDTH 16.3 % (11.5-14.5); WHITE BLOOD COUNT 10.4 X10'3 (4.5-11.0)
[2020-08-24 20:23] LABS: ALBUMIN 2.9 G/DL (3.4-5.0); ANION GAP 5 (8-16); BLOOD UREA NITROGEN 9 MG/DL (7-18); BUN/CREATININE RATIO 11.4 (5.4-32.0); CALCIUM 7.3 MG/DL (8.5-10.1); CHLORIDE 104 MMOL/L (99-107); CREATININE 0.79 MG/DL (0.60-1.10); GLUCOSE 139 MG/DL (70-104); PHOSPHORUS 2.2 MG/DL (2.3-4.5); POTASSIUM 3.6 MMOL/L (3.5-5.1); SODIUM 136 MMOL/L (135-145); TOTAL CARBON DIOXIDE 27.2 MMOL/L (24-32); eGFR > 90 ML/MIN
[2020-08-24] MEDS: insulin glargine (Lantus) pen - multi-dose SQ SCH (20:36)
[2020-08-24 21:01] LABS: MAGNESIUM 1.7 MG/DL (1.5-2.4)
[2020-08-24] MEDS ORDERED: sodium phosphate inj. 30 MMOL in dextrose 5%-water 250 ML IV PRN (21:05)
[2020-08-24] MEDS ORDERED: Neutra Phos packet PO PRN (21:05)
[2020-08-24] MEDS ORDERED: sodium phosphate inj. 15 MMOL in dextrose 5%-water 250 ML IV PRN (21:05)
[2020-08-24] MEDS: magnesium 2GM in 50ml NS 50 ML IV PRN (21:31)
[2020-08-25] VITALS (23 sets, daily range): BP systolic 110–147; BP diastolic 56–80
[2020-08-25] MEDS: midazolam 100mg in NS 100ml 100 ML IV SCH ×4 (00:43→14:02)
[2020-08-25] MEDS: mineral oil/petrolatum ophthal oint EACHEYE SCH ×4 (01:41→20:45)
[2020-08-25] MEDS: FENTANYL-0.9 % NACL/PF 100 ML IV PRN ×6 (01:41→22:46)
[2020-08-25 02:55] LABS: BASOPHILS % (AUTO) 0.4 % (0-1); EOSINOPHILS # (AUTO) 0.2 X10'3 (0-0.9); EOSINOPHILS % (AUTO) 1.2 % (0-6); HEMATOCRIT 33.8 % (42.0-52.0); HEMOGLOBIN 11.3 g/dl (14.0-17.9); LYMPHOCYTES # (AUTO) 1.2 X10'3 (1.1-4.8); LYMPHOCYTES % (AUTO) 9.1 % (21-51); MEAN CORPUSCULAR HEMOGLOBIN 30.1 PG (27.0-31.0); MEAN CORPUSCULAR HGB CONC 33.5 g/dL (33.0-36.5); MEAN CORPUSCULAR VOLUME 89.9 FL (78-98); MEAN PLATELET VOLUME 8.6 FL (7.4-10.4); MONOCYTES # (AUTO) 1.4 X10'3 (0-0.9); MONOCYTES % (AUTO) 10.5 % (2-12); NEUTROPHILS # (AUTO) 10.8 X10'3 (1.8-7.7); NEUTROPHILS % (AUTO) 78.8 % (42-75); PLATELET COUNT 125 X10'3 (140-440); RED BLOOD COUNT 3.76 X10'6 (4.70-6.10); RED CELL DISTRIBUTION WIDTH 16.3 % (11.5-14.5); WHITE BLOOD COUNT 13.7 X10'3 (4.5-11.0)
[2020-08-25 03:05] LABS: ABG BASE EXCESS 1.8 mmol/L (-2.0-2.0); ABG HCO3 26.4 mmol/L (22.0-26.0); ABG OXYGEN SATURATION 92.3 % (94-97); ABG PCO2 (T) 43.4 mmHg (35.0-48.0); ABG PO2 (T) 67.4 mmHg (75.0-100.0); FCOHb 0.3 % (0.0-3.9); FMetHb 0.3 % (0.0-1.5); FO2Hb 91.7 % (94-97); PATIENT TEMPERATURE 38.1; PEEP 5 cm H2O; TIDAL VOLUME 500 mL; TOTAL HEMOGLOBIN 11.6 G/dl (14.0-18.0)
[2020-08-25 03:11] LABS: ALANINE AMINOTRANSFERASE 33 U/L (12-78); ALBUMIN 2.9 G/DL (3.4-5.0); ALKALINE PHOSPHATASE 53 IU/L (46-116); ANION GAP 6 (8-16); ASPARTATE AMINO TRANSFERASE 65 U/L (10-37); BILIRUBIN,TOTAL 0.8 MG/DL (0.1-1.0); BLOOD UREA NITROGEN 8 MG/DL (7-18); BUN/CREATININE RATIO 9.8 (5.4-32.0); CALCIUM 7.6 MG/DL (8.5-10.1); CHLORIDE 99 MMOL/L (99-107); CREATININE 0.82 MG/DL (0.60-1.10); GLUCOSE 142 MG/DL (70-104); MAGNESIUM 1.8 MG/DL (1.5-2.4); PHOSPHORUS 2.3 MG/DL (2.3-4.5); SODIUM 134 MMOL/L (135-145); TOTAL PROTEIN 5.7 G/DL (6.4-8.2); eGFR > 90 ML/MIN
--- NOTE | 2020-08-25 03:17 | NUR ---
Patient turned in bed and RN noticed large amount of fluids that had leaked from central line in neck onto patient bed linens. RN assessed line and only port that draws blood is the brown/distal port that is currently running electrolytes and measuring CVP. Pressors, sedation swapped to that port. Other two ports flush flush well but no blood return. RN will attempt to start a peripheral IV for additional access and hamzah notify daytime RN. During turn patient went into irregular heart rhythm. Strip printed. Patient was able to return to a regular rhythm on his own. Patient was only turned to the left thermal cutting tracer machine operator per the nursing order. Addendum: 08/25/20 at 0352 by Rabia Kwon RN Now that patient is sitting up in bed all ports give good blood return and flush well. Patient also has 18g to right AC at this time. Patient Mg is 1.8. Patient will get additional 2g of IV Mg per Barbara Manuel orders earlier in evening.
[2020-08-25] MEDS: acetaminophen 650mg rectal suppository RC PRN (03:24)
[2020-08-25] MEDS: magnesium 2GM in 50ml NS 50 ML IV PRN ×2 (04:10→23:10)
[2020-08-25] MEDS: potassium Cl 40MEQ/250ML bag 270 ML IV PRN ×4 (04:11→23:10)
[2020-08-25] MEDS: NORepinephrine 8mg/ 250ml NS 250 ML IV SCH ×2 (07:12→15:10)
[2020-08-25] MEDS: pantoprazole 40 MG vial IV SCH (07:52)
[2020-08-25] MEDS: vancomycin/NS 1 GM ADD-VANTAGE 250 ML IV SCH (07:53)
[2020-08-25] MEDS: piperacillin/tazo 3.375gm/50ml 50 ML IV SCH ×3 (07:53→23:10)
[2020-08-25] MEDS: nicotine 14mg patch - 24hr TD SCH (07:54)
[2020-08-25] MEDS: K, MAG and/or Phos replacement - Verify level? MC SCH (08:00)
[2020-08-25 09:40] LABS: BASOPHILS # (AUTO) 0.1 X10'3 (0-0.2); BASOPHILS % (AUTO) 0.4 % (0-1); EOSINOPHILS # (AUTO) 0.1 X10'3 (0-0.9); HEMOGLOBIN 10.4 g/dl (14.0-17.9); LYMPHOCYTES # (AUTO) 0.9 X10'3 (1.1-4.8); LYMPHOCYTES % (AUTO) 8.1 % (21-51); MEAN CORPUSCULAR HEMOGLOBIN 30.4 PG (27.0-31.0); MEAN CORPUSCULAR HGB CONC 33.7 g/dL (33.0-36.5); MEAN CORPUSCULAR VOLUME 90.1 FL (78-98); MEAN PLATELET VOLUME 8.5 FL (7.4-10.4); MONOCYTES # (AUTO) 1.2 X10'3 (0-0.9); MONOCYTES % (AUTO) 9.9 % (2-12); NEUTROPHILS # (AUTO) 9.4 X10'3 (1.8-7.7); NEUTROPHILS % (AUTO) 80.6 % (42-75); PLATELET COUNT 111 X10'3 (140-440); RED BLOOD COUNT 3.44 X10'6 (4.70-6.10); RED CELL DISTRIBUTION WIDTH 16.5 % (11.5-14.5); WHITE BLOOD COUNT 11.7 X10'3 (4.5-11.0)
[2020-08-25 09:55] LABS: ALBUMIN 2.6 G/DL (3.4-5.0); ANION GAP 6 (8-16); BLOOD UREA NITROGEN 9 MG/DL (7-18); BUN/CREATININE RATIO 11.1 (5.4-32.0); CALCIUM 7.4 MG/DL (8.5-10.1); CHLORIDE 100 MMOL/L (99-107); CREATININE 0.81 MG/DL (0.60-1.10); GLUCOSE 135 MG/DL (70-104); MAGNESIUM 1.9 MG/DL (1.5-2.4); PHOSPHORUS 2.8 MG/DL (2.3-4.5); POTASSIUM 3.7 MMOL/L (3.5-5.1); SODIUM 136 MMOL/L (135-145); TOTAL CARBON DIOXIDE 29.7 MMOL/L (24-32); eGFR > 90 ML/MIN
[2020-08-25] MEDS: magnesium 4gm in 100ml NS 100 ML IV PRN (12:16)
--- NOTE | 2020-08-25 14:46 | NUR ---
Dr. Morales at bedside. Report given to MD regarding labs, vital signs, and mentation. New orders to titrate Versed and Start propofol, attemt to keep patient as lightly sedated as possible. Also, new order to keep Mg >2.5 and KL+>4.0. Increased Lasix gtt to 7.5mg per hour and change CBC draw from q6h to q12h. Will continue to monitor patient.
[2020-08-25] MEDS ORDERED: furosemide inj 1,000 MG in normal saline 250ml IV soln 150 ML IV SCH ×2 (15:30→22:21)
--- NOTE | 2020-08-25 15:32 | NUR ---
TPN consult. Patient is intubated with acute respiratory failure, and sedation s/p right lung mass resection, has right chest tube. NPO and has no OG tube and unable to place OG tube d/t concerns for bleeding after complex surgery per Biological Photographer at rounds. TPN recs d/w clinical pharmacists. Recommend: 1. Continuous TPN using Climinix E 5/15 with 100 ml 20% intralipids at 110 ml/hr; will provide total volume 2640 ml/day, 2036 calories, 126 g protein, and 2.88 mg/kg/min dextrose loading. 2. TG and Prealbumin q saturday and , daily wts 3. When extubated, advance diet as medically indicated to regular Addendum: 08/25/20 at [address] Amended: Links added.
[2020-08-25] MEDS ORDERED: magnesium 4gm in 100ml NS 100 ML IV PRN (16:15)
[2020-08-25] MEDS ORDERED: magnesium 2GM in 50ml NS 50 ML IV PRN (16:15)
[2020-08-25] MEDS ORDERED: Dextrose 10%-water IV solution 1,000 ML IV PRN (16:15)
[2020-08-25] MEDS ORDERED: magnesium Cl slow-release 64mg tablet PO PRN (16:15)
[2020-08-25 17:16] LABS: ALANINE AMINOTRANSFERASE 31 U/L (12-78); ALBUMIN 2.5 G/DL (3.4-5.0); ALBUMIN/GLOBULIN RATIO 0.8 (1.1-1.5); ALKALINE PHOSPHATASE 58 IU/L (46-116); ANION GAP 8 (8-16); ASPARTATE AMINO TRANSFERASE 47 U/L (10-37); BILIRUBIN,TOTAL 0.8 MG/DL (0.1-1.0); BLOOD UREA NITROGEN 10 MG/DL (7-18); BUN/CREATININE RATIO 11.6 (5.4-32.0); CALCIUM 7.9 MG/DL (8.5-10.1); CHLORIDE 98 MMOL/L (99-107); CREATININE 0.86 MG/DL (0.60-1.10); GLUCOSE 118 MG/DL (70-104); MAGNESIUM 3.1 MG/DL (1.5-2.4); POTASSIUM 3.3 MMOL/L (3.5-5.1); PREALBUMIN 9.5 MG/DL (19-36); SODIUM 135 MMOL/L (135-145); TOTAL CARBON DIOXIDE 29.4 MMOL/L (24-32); TOTAL PROTEIN 5.5 G/DL (6.4-8.2); TRIGLYCERIDES 218 MG/DL (20-135); eGFR > 90 ML/MIN
--- NOTE | 2020-08-25 19:33 | NUR ---
Report received from off going RN. Mr. Javier barrett is being titrated down and he will be switched to propofol tonight per report. Patient nena is currently running at 10 mg/hr. Patient wakes up at this time, follows commands and then goes back to sleep. Patient has been updated with events, day, etc. Patient remains on fentanyl at 250 mcg/hr and is curently getting electrolyte replacements. Patient remains on lasix drip at 7.5, vasopressin at 0.02.
[2020-08-25] MEDS: propofol 1000mg/100ml bottle 100 ML IV SCH (20:30)
[2020-08-25] MEDS: VANCOmycin 1250MG/NS 250ml Bag 250 ML IV SCH (20:45)
[2020-08-25] MEDS: insulin glargine (Lantus) pen - multi-dose SQ SCH (20:50)
--- NOTE | 2020-08-25 21:40 | NUR ---
RN spoke with Dr. Morales via telephone regarding patient. Orders received to turn lasix drip down to 6 mg/hr and Vasopressin down to 0.01. Updated provided that patient is off Versed drip and now on propofol drip. Plan to bronch in morning.
[2020-08-25] MEDS: vasopressin inj. 40 UNIT in normal saline 50ml IV soln 38 ML IV SCH (22:13)
[2020-08-25 22:41] LABS: ALANINE AMINOTRANSFERASE 31 U/L (12-78); ALBUMIN 2.5 G/DL (3.4-5.0); ALBUMIN/GLOBULIN RATIO 0.8 (1.1-1.5); ALKALINE PHOSPHATASE 65 IU/L (46-116); ANION GAP 6 (8-16); ASPARTATE AMINO TRANSFERASE 42 U/L (10-37); BLOOD UREA NITROGEN 10 MG/DL (7-18); BUN/CREATININE RATIO 10.5 (5.4-32.0); CALCIUM 7.8 MG/DL (8.5-10.1); CHLORIDE 98 MMOL/L (99-107); CREATININE 0.95 MG/DL (0.60-1.10); GLUCOSE 116 MG/DL (70-104); MAGNESIUM 2.2 MG/DL (1.5-2.4); POTASSIUM 3.3 MMOL/L (3.5-5.1); SODIUM 134 MMOL/L (135-145); TOTAL CARBON DIOXIDE 29.9 MMOL/L (24-32); TOTAL PROTEIN 5.8 G/DL (6.4-8.2); eGFR 81 ML/MIN
[2020-08-26] VITALS (25 sets, daily range): BP systolic 81–146; BP diastolic 62–99
[2020-08-26] MEDS: mineral oil/petrolatum ophthal oint EACHEYE SCH ×4 (01:03→20:04)
[2020-08-26] MEDS: NORepinephrine 8mg/ 250ml NS 250 ML IV SCH ×2 (01:04→09:30)
[2020-08-26] MEDS: FENTANYL-0.9 % NACL/PF 100 ML IV PRN ×6 (02:46→22:12)
[2020-08-26 03:12] LABS: BASOPHILS # (AUTO) 0.1 X10'3 (0-0.2); BASOPHILS % (AUTO) 0.4 % (0-1); EOSINOPHILS # (AUTO) 0.1 X10'3 (0-0.9); HEMATOCRIT 32.8 % (42.0-52.0); LYMPHOCYTES # (AUTO) 1.1 X10'3 (1.1-4.8); LYMPHOCYTES % (AUTO) 7.9 % (21-51); MEAN CORPUSCULAR HEMOGLOBIN 30.2 PG (27.0-31.0); MEAN CORPUSCULAR HGB CONC 33.4 g/dL (33.0-36.5); MEAN CORPUSCULAR VOLUME 90.4 FL (78-98); MONOCYTES # (AUTO) 1.3 X10'3 (0-0.9); MONOCYTES % (AUTO) 9.9 % (2-12); NEUTROPHILS % (AUTO) 80.8 % (42-75); PLATELET COUNT 128 X10'3 (140-440); RED BLOOD COUNT 3.62 X10'6 (4.70-6.10); RED CELL DISTRIBUTION WIDTH 16.5 % (11.5-14.5); WHITE BLOOD COUNT 13.6 X10'3 (4.5-11.0)
[2020-08-26 03:15] LABS: ALANINE AMINOTRANSFERASE 30 U/L (12-78); ALBUMIN 2.6 G/DL (3.4-5.0); ALBUMIN/GLOBULIN RATIO 0.7 (1.1-1.5); ALKALINE PHOSPHATASE 71 IU/L (46-116); ANION GAP 4 (8-16); ASPARTATE AMINO TRANSFERASE 44 U/L (10-37); BILIRUBIN,TOTAL 0.9 MG/DL (0.1-1.0); BLOOD UREA NITROGEN 11 MG/DL (7-18); BUN/CREATININE RATIO 11.2 (5.4-32.0); CALCIUM 8.1 MG/DL (8.5-10.1); CHLORIDE 97 MMOL/L (99-107); CREATININE 0.98 MG/DL (0.60-1.10); GLUCOSE 109 MG/DL (70-104); MAGNESIUM 2.4 MG/DL (1.5-2.4); PHOSPHORUS 3.3 MG/DL (2.3-4.5); POTASSIUM 3.6 MMOL/L (3.5-5.1); SODIUM 131 MMOL/L (135-145); TOTAL CARBON DIOXIDE 29.6 MMOL/L (24-32); TOTAL PROTEIN 6.2 G/DL (6.4-8.2); TRIGLYCERIDES 247 MG/DL (20-135); eGFR 78 ML/MIN
[2020-08-26 03:57] LABS: ABG BASE EXCESS 2.2 mmol/L (-2.0-2.0); ABG HCO3 25.3 mmol/L (22.0-26.0); ABG PCO2 (T) 35.6 mmHg (35.0-48.0); ABG PO2 (T) 73.2 mmHg (75.0-100.0); FCOHb 1.2 % (0.0-3.9); FMetHb 0.3 % (0.0-1.5); FO2Hb 92.6 % (94-97); PATIENT TEMPERATURE 38.1; PEEP 5 cm H2O; RESPIRATORY RATE 20 b/min; TIDAL VOLUME 500 mL; TOTAL HEMOGLOBIN 11.5 G/dl (14.0-18.0)
[2020-08-26] MEDS: magnesium 2GM in 50ml NS 50 ML IV PRN (04:10)
[2020-08-26] MEDS: potassium Cl 40MEQ/250ML bag 270 ML IV PRN ×2 (05:09→20:04)
[2020-08-26] MEDS: pantoprazole 40 MG vial IV SCH (07:45)
[2020-08-26] MEDS: piperacillin/tazo 3.375gm/50ml 50 ML IV SCH ×2 (07:45→16:00)
[2020-08-26] MEDS: VANCOmycin 1250MG/NS 250ml Bag 250 ML IV SCH ×2 (07:52→20:04)
[2020-08-26] MEDS ORDERED: [UNRECOGNIZED DRUG - REMARK] IV SCH ×5 (08:00)
[2020-08-26] MEDS: K, MAG and/or Phos replacement - Verify level? MC SCH (08:00)
[2020-08-26] MEDS: nicotine 14mg patch - 24hr TD SCH (08:00)
[2020-08-26] MEDS: propofol 1000mg/100ml bottle 100 ML IV SCH ×2 (09:29→18:33)
[2020-08-26 09:57] LABS: BASOPHILS # (AUTO) 0.2 X10'3 (0-0.2); BASOPHILS % (AUTO) 1.3 % (0-1); EOSINOPHILS # (AUTO) 0.1 X10'3 (0-0.9); EOSINOPHILS % (AUTO) 0.8 % (0-6); HEMATOCRIT 33.7 % (42.0-52.0); HEMOGLOBIN 11.4 g/dl (14.0-17.9); LYMPHOCYTES # (AUTO) 1.3 X10'3 (1.1-4.8); LYMPHOCYTES % (AUTO) 7.8 % (21-51); MEAN CORPUSCULAR HEMOGLOBIN 30.8 PG (27.0-31.0); MEAN CORPUSCULAR VOLUME 90.6 FL (78-98); MEAN PLATELET VOLUME 8.6 FL (7.4-10.4); MONOCYTES # (AUTO) 1.7 X10'3 (0-0.9); MONOCYTES % (AUTO) 10.4 % (2-12); NEUTROPHILS # (AUTO) 13.3 X10'3 (1.8-7.7); NEUTROPHILS % (AUTO) 79.7 % (42-75); PLATELET COUNT 160 X10'3 (140-440); RED BLOOD COUNT 3.71 X10'6 (4.70-6.10); RED CELL DISTRIBUTION WIDTH 16.3 % (11.5-14.5); WHITE BLOOD COUNT 16.6 X10'3 (4.5-11.0)
[2020-08-26 10:05] LABS: ALBUMIN 2.6 G/DL (3.4-5.0); ANION GAP 9 (8-16); BLOOD UREA NITROGEN 12 MG/DL (7-18); BUN/CREATININE RATIO 11.7 (5.4-32.0); CHLORIDE 96 MMOL/L (99-107); CREATININE 1.03 MG/DL (0.60-1.10); GLUCOSE 115 MG/DL (70-104); MAGNESIUM 2.4 MG/DL (1.5-2.4); PHOSPHORUS 4.1 MG/DL (2.3-4.5); POTASSIUM 3.8 MMOL/L (3.5-5.1); SODIUM 133 MMOL/L (135-145); TOTAL CARBON DIOXIDE 27.7 MMOL/L (24-32); eGFR 74 ML/MIN
--- NOTE | 2020-08-26 13:52 | NUR ---
Reassessment: Clinimix 5/20% now back in stock and recommend to change formula from 12/17 to 12/22. D/w pharmacy. Patient is intubated with acute respiratory failure, and sedation s/p right lung mass resection, has right chest tube. NPO and has no OG tube and unable to place OG tube d/t concerns for bleeding after complex surgery per Special Loan Officer at rounds. TPN recs d/w clinical pharmacists. Recommend: 1. Continuous TPN using Climinix E 12/22 with 100 ml 20% intralipids at 110 ml/hr; will provide total volume 2640 ml/day, 2463 calories, 126 g protein, and 3.86 mg/kg/min dextrose loading. 2. TG and Prealbumin q saturday and , daily wts 3. When extubated, advance diet as medically indicated to regular Addendum: 08/26/20 at [address] Amended: Links added.
[2020-08-26 17:53] LABS: BASOPHILS # (AUTO) 0.1 X10'3 (0-0.2); BASOPHILS % (AUTO) 0.4 % (0-1); EOSINOPHILS # (AUTO) 0.1 X10'3 (0-0.9); HEMATOCRIT 35.5 % (42.0-52.0); HEMOGLOBIN 12.1 g/dl (14.0-17.9); LYMPHOCYTES # (AUTO) 1.2 X10'3 (1.1-4.8); LYMPHOCYTES % (AUTO) 9.3 % (21-51); MEAN CORPUSCULAR HEMOGLOBIN 30.7 PG (27.0-31.0); MEAN CORPUSCULAR HGB CONC 34.1 g/dL (33.0-36.5); MEAN CORPUSCULAR VOLUME 89.9 FL (78-98); MEAN PLATELET VOLUME 8.1 FL (7.4-10.4); MONOCYTES # (AUTO) 1.6 X10'3 (0-0.9); MONOCYTES % (AUTO) 12.8 % (2-12); NEUTROPHILS # (AUTO) 9.9 X10'3 (1.8-7.7); NEUTROPHILS % (AUTO) 76.5 % (42-75); PLATELET COUNT 140 X10'3 (140-440); RED BLOOD COUNT 3.94 X10'6 (4.70-6.10); WHITE BLOOD COUNT 12.9 X10'3 (4.5-11.0)
[2020-08-26 18:10] LABS: ALANINE AMINOTRANSFERASE 29 U/L (12-78); ALBUMIN 2.5 G/DL (3.4-5.0); ALBUMIN/GLOBULIN RATIO 0.6 (1.1-1.5); ALKALINE PHOSPHATASE 79 IU/L (46-116); ANION GAP 7 (8-16); ASPARTATE AMINO TRANSFERASE 39 U/L (10-37); BILIRUBIN,TOTAL 0.8 MG/DL (0.1-1.0); BLOOD UREA NITROGEN 13 MG/DL (7-18); BUN/CREATININE RATIO 13.3 (5.4-32.0); CALCIUM 8.3 MG/DL (8.5-10.1); CHLORIDE 96 MMOL/L (99-107); CREATININE 0.98 MG/DL (0.60-1.10); GLUCOSE 119 MG/DL (70-104); MAGNESIUM 2.1 MG/DL (1.5-2.4); PHOSPHORUS 4.4 MG/DL (2.3-4.5); POTASSIUM 3.2 MMOL/L (3.5-5.1); SODIUM 134 MMOL/L (135-145); TOTAL CARBON DIOXIDE 30.7 MMOL/L (24-32); TOTAL PROTEIN 6.5 G/DL (6.4-8.2); eGFR 78 ML/MIN
--- NOTE | 2020-08-26 18:10 | NUR ---
Dr Morales is at bedside to perform Bronchoscopy. Received verbal order to [facility]us PT with 100mcg of Fentanyl. PT tolerated well, VS remain stable.
[2020-08-26 19:15] LABS: TOTAL CELLS COUNTED 100
[2020-08-26 19:16] LABS: PLATELET ESTIMATE NORMAL
[2020-08-26] MEDS: magnesium 4gm in 100ml NS 100 ML IV PRN (20:03)
[2020-08-26] MEDS: insulin glargine (Lantus) pen - multi-dose SQ SCH (20:58)
[2020-08-26] MEDS ORDERED: [UNRECOGNIZED DRUG - REMARK] IV SCH ×5 (21:00)
[2020-08-26] MEDS: midazolam 100mg in NS 100ml 100 ML IV SCH (22:05)
[2020-08-27] VITALS (24 sets, daily range): BP systolic 87–123; BP diastolic 58–88
[2020-08-27] MEDS: piperacillin/tazo 3.375gm/50ml 50 ML IV SCH ×3 (00:18→17:50)
[2020-08-27] MEDS: propofol 1000mg/100ml bottle 100 ML IV SCH ×3 (00:20→23:16)
[2020-08-27 00:21] LABS: ALBUMIN 2.4 G/DL (3.4-5.0); ANION GAP 6 (8-16); BLOOD UREA NITROGEN 13 MG/DL (7-18); BUN/CREATININE RATIO 13.4 (5.4-32.0); CALCIUM 8.1 MG/DL (8.5-10.1); CHLORIDE 98 MMOL/L (99-107); CREATININE 0.97 MG/DL (0.60-1.10); GLUCOSE 129 MG/DL (70-104); MAGNESIUM 3.2 MG/DL (1.5-2.4); PHOSPHORUS 4.1 MG/DL (2.3-4.5); POTASSIUM 3.5 MMOL/L (3.5-5.1); SODIUM 135 MMOL/L (135-145); TOTAL CARBON DIOXIDE 30.7 MMOL/L (24-32); eGFR 79 ML/MIN
[2020-08-27] MEDS: potassium Cl 40MEQ/250ML bag 270 ML IV PRN ×2 (01:59→22:55)
[2020-08-27] MEDS: mineral oil/petrolatum ophthal oint EACHEYE SCH ×4 (02:04→20:18)
[2020-08-27] MEDS: FENTANYL-0.9 % NACL/PF 100 ML IV PRN ×6 (02:31→21:57)
[2020-08-27] MEDS: NORepinephrine 8mg/ 250ml NS 250 ML IV SCH ×2 (02:32→11:57)
[2020-08-27 02:45] LABS: BASOPHILS # (AUTO) 0.1 X10'3 (0-0.2); BASOPHILS % (AUTO) 0.8 % (0-1); EOSINOPHILS # (AUTO) 0.1 X10'3 (0-0.9); EOSINOPHILS % (AUTO) 0.9 % (0-6); HEMOGLOBIN 11.4 g/dl (14.0-17.9); LYMPHOCYTES # (AUTO) 1.2 X10'3 (1.1-4.8); LYMPHOCYTES % (AUTO) 10.1 % (21-51); MEAN CORPUSCULAR HEMOGLOBIN 30.1 PG (27.0-31.0); MEAN CORPUSCULAR HGB CONC 33.4 g/dL (33.0-36.5); MEAN CORPUSCULAR VOLUME 89.9 FL (78-98); MEAN PLATELET VOLUME 8.8 FL (7.4-10.4); MONOCYTES # (AUTO) 1.7 X10'3 (0-0.9); MONOCYTES % (AUTO) 14.1 % (2-12); NEUTROPHILS # (AUTO) 9.2 X10'3 (1.8-7.7); NEUTROPHILS % (AUTO) 74.1 % (42-75); PLATELET COUNT 151 X10'3 (140-440); RED BLOOD COUNT 3.78 X10'6 (4.70-6.10); RED CELL DISTRIBUTION WIDTH 15.6 % (11.5-14.5); WHITE BLOOD COUNT 12.3 X10'3 (4.5-11.0)
[2020-08-27 03:01] LABS: ALANINE AMINOTRANSFERASE 25 U/L (12-78); ALBUMIN 2.3 G/DL (3.4-5.0); ALBUMIN/GLOBULIN RATIO 0.5 (1.1-1.5); ALKALINE PHOSPHATASE 76 IU/L (46-116); ANION GAP 8 (8-16); ASPARTATE AMINO TRANSFERASE 30 U/L (10-37); BILIRUBIN,TOTAL 0.7 MG/DL (0.1-1.0); BLOOD UREA NITROGEN 13 MG/DL (7-18); BUN/CREATININE RATIO 14.1 (5.4-32.0); CALCIUM 8.1 MG/DL (8.5-10.1); CHLORIDE 98 MMOL/L (99-107); CREATININE 0.92 MG/DL (0.60-1.10); GLUCOSE 128 MG/DL (70-104); MAGNESIUM 2.9 MG/DL (1.5-2.4); PHOSPHORUS 4.3 MG/DL (2.3-4.5); POTASSIUM 3.4 MMOL/L (3.5-5.1); SODIUM 135 MMOL/L (135-145); TOTAL CARBON DIOXIDE 29.1 MMOL/L (24-32); TOTAL PROTEIN 6.5 G/DL (6.4-8.2); eGFR 84 ML/MIN
[2020-08-27 03:03] LABS: VANCOMYCIN,TROUGH 22.9 UG/ML (6.0-14.0)
--- NOTE | 2020-08-27 03:04 | NUR ---
Critical Lab Vanco 22.9 per Graham, [facility] lab Sowmya BOYCE, informed Brenda BOYCE, primary nurse
[2020-08-27 03:55] LABS: ABG BASE EXCESS 0.9 mmol/L (-2.0-2.0); ABG HCO3 25.4 mmol/L (22.0-26.0); ABG OXYGEN SATURATION 95.6 % (94-97); ABG PCO2 (T) 42.1 mmHg (35.0-48.0); ABG PO2 (T) 84.1 mmHg (75.0-100.0); FCOHb 0.6 % (0.0-3.9); PATIENT TEMPERATURE 37.9; PEEP 5 cm H2O; RESPIRATORY RATE 18 b/min; TIDAL VOLUME 500 mL; TOTAL HEMOGLOBIN 11.9 G/dl (14.0-18.0)
--- NOTE | 2020-08-27 06:32 | NUR ---
Patient in room ICU 2038. I have received report from Sulma Wylie RN and had the opportunity to ask questions and assume patient care. Plan for bronchoscopy procedure with Dr. Morales today.
[2020-08-27 06:36] LABS: ALBUMIN 2.3 G/DL (3.4-5.0); ANION GAP 5 (8-16); BLOOD UREA NITROGEN 12 MG/DL (7-18); BUN/CREATININE RATIO 12.9 (5.4-32.0); CALCIUM 8.2 MG/DL (8.5-10.1); CHLORIDE 100 MMOL/L (99-107); CREATININE 0.93 MG/DL (0.60-1.10); GLUCOSE 146 MG/DL (70-104); MAGNESIUM 2.5 MG/DL (1.5-2.4); PHOSPHORUS 3.8 MG/DL (2.3-4.5); POTASSIUM 3.6 MMOL/L (3.5-5.1); SODIUM 136 MMOL/L (135-145); TOTAL CARBON DIOXIDE 30.8 MMOL/L (24-32); eGFR 83 ML/MIN
[2020-08-27] MEDS ORDERED: VANCOMYCIN LEVEL IV ONE ×2 (07:30→19:30)
[2020-08-27] MEDS: K, MAG and/or Phos replacement - Verify level? MC SCH (08:00)
[2020-08-27] MEDS: VANCOmycin 1250MG/NS 250ml Bag 250 ML IV SCH ×2 (09:23→21:57)
[2020-08-27] MEDS: nicotine 14mg patch - 24hr TD SCH (09:24)
[2020-08-27] MEDS: pantoprazole 40 MG vial IV SCH (09:24)
[2020-08-27] MEDS ORDERED: LIDOCAINE 4% (40MG/ML) topical solution 50ml **BRONCH ONLY ONE (11:37)
[2020-08-27] MEDS ORDERED: lidocaine 2% viscous 15 ML cup ***bronch room only MM ONE (11:37)
[2020-08-27] MEDS ORDERED: epiNEPHrine 1 MG/ML 1 ml ampule **BRONCH ONLY ONE (11:37)
--- NOTE | 2020-08-27 12:30 | NUR ---
Dr. Maxwell used a small bronchoscope, with RT at bedside, to remove four large plugs from patient bronchi. Culture ordered and samples sent to lab. Procedure ended at 1225. Patient tolerated well and maintained VS during procedure.
--- NOTE | 2020-08-27 18:27 | NUR ---
Problems reprioritized. Patient report given, questions answered & plan of care reviewed with Sulma Wylie RN.
[2020-08-27] MEDS: insulin glargine (Lantus) pen - multi-dose SQ SCH (20:05)
[2020-08-27] MEDS: [UNRECOGNIZED DRUG - REMARK] IV SCH ×5 (20:18)
[2020-08-27 21:49] LABS: ANION GAP 5 (8-16); BLOOD UREA NITROGEN 15 MG/DL (7-18); BUN/CREATININE RATIO 19.2 (5.4-32.0); CALCIUM 8.4 MG/DL (8.5-10.1); CHLORIDE 101 MMOL/L (99-107); CREATININE 0.78 MG/DL (0.60-1.10); GLUCOSE 152 MG/DL (70-104); SODIUM 137 MMOL/L (135-145); TOTAL CARBON DIOXIDE 30.6 MMOL/L (24-32); VANCOMYCIN,TROUGH 16.2 UG/ML (6.0-14.0); eGFR > 90 ML/MIN
[2020-08-27] MEDS: vasopressin inj. 40 UNIT in normal saline 50ml IV soln 38 ML IV SCH (21:57)
[2020-08-28] VITALS (24 sets, daily range): BP systolic 83–125; BP diastolic 50–75
[2020-08-28] MEDS: piperacillin/tazo 3.375gm/50ml 50 ML IV SCH ×3 (00:04→15:53)
[2020-08-28] MEDS: mineral oil/petrolatum ophthal oint EACHEYE SCH ×4 (02:19→19:52)
[2020-08-28] MEDS: FENTANYL-0.9 % NACL/PF 100 ML IV PRN ×5 (03:10→19:52)
[2020-08-28 03:23] LABS: ABG BASE EXCESS 2.1 mmol/L (-2.0-2.0); ABG HCO3 27.2 mmol/L (22.0-26.0); ABG OXYGEN SATURATION 96.9 % (94-97); ABG PCO2 (T) 43.8 mmHg (35.0-48.0); ABG PO2 (T) 89.5 mmHg (75.0-100.0); FCOHb 0.4 % (0.0-3.9); FMetHb 0.2 % (0.0-1.5); FO2Hb 96.3 % (94-97); PATIENT TEMPERATURE 36.7; PEEP 5 cm H2O; RESPIRATORY RATE 18 b/min; TIDAL VOLUME 500 mL; TOTAL HEMOGLOBIN 10.3 G/dl (14.0-18.0)
[2020-08-28 03:28] LABS: BASOPHILS # (AUTO) 0.1 X10'3 (0-0.2); BASOPHILS % (AUTO) 0.7 % (0-1); EOSINOPHILS # (AUTO) 0.2 X10'3 (0-0.9); HEMATOCRIT 28.7 % (42.0-52.0); HEMOGLOBIN 9.6 g/dl (14.0-17.9); LYMPHOCYTES # (AUTO) 0.9 X10'3 (1.1-4.8); MEAN CORPUSCULAR HEMOGLOBIN 30.5 PG (27.0-31.0); MEAN CORPUSCULAR HGB CONC 33.5 g/dL (33.0-36.5); MEAN PLATELET VOLUME 8.8 FL (7.4-10.4); MONOCYTES # (AUTO) 1.1 X10'3 (0-0.9); MONOCYTES % (AUTO) 12.2 % (2-12); NEUTROPHILS # (AUTO) 6.6 X10'3 (1.8-7.7); NEUTROPHILS % (AUTO) 75.1 % (42-75); PLATELET COUNT 127 X10'3 (140-440); RED BLOOD COUNT 3.15 X10'6 (4.70-6.10); RED CELL DISTRIBUTION WIDTH 15.8 % (11.5-14.5); WHITE BLOOD COUNT 8.8 X10'3 (4.5-11.0)
[2020-08-28 03:29] LABS: ALANINE AMINOTRANSFERASE 23 U/L (12-78); ALBUMIN 1.9 G/DL (3.4-5.0); ALBUMIN/GLOBULIN RATIO 0.5 (1.1-1.5); ALKALINE PHOSPHATASE 67 IU/L (46-116); ANION GAP 6 (8-16); ASPARTATE AMINO TRANSFERASE 32 U/L (10-37); BILIRUBIN,TOTAL 0.6 MG/DL (0.1-1.0); BLOOD UREA NITROGEN 16 MG/DL (7-18); BUN/CREATININE RATIO 20.5 (5.4-32.0); CALCIUM 8.3 MG/DL (8.5-10.1); CHLORIDE 101 MMOL/L (99-107); CREATININE 0.78 MG/DL (0.60-1.10); GLUCOSE 156 MG/DL (70-104); MAGNESIUM 2.1 MG/DL (1.5-2.4); PHOSPHORUS 3.4 MG/DL (2.3-4.5); POTASSIUM 3.6 MMOL/L (3.5-5.1); SODIUM 136 MMOL/L (135-145); TOTAL CARBON DIOXIDE 29.4 MMOL/L (24-32); TOTAL PROTEIN 5.9 G/DL (6.4-8.2); eGFR > 90 ML/MIN
[2020-08-28] MEDS: propofol 1000mg/100ml bottle 100 ML IV SCH ×4 (04:00→16:25)
--- NOTE | 2020-08-28 07:04 | NUR ---
Patient in room ICU 2038. I have received report from Yana BOYCE and had the opportunity to ask questions and assume patient care.
[2020-08-28] MEDS: pantoprazole 40 MG vial IV SCH (07:39)
[2020-08-28] MEDS: nicotine 14mg patch - 24hr TD SCH (07:39)
[2020-08-28] MEDS: VANCOmycin 1250MG/NS 250ml Bag 250 ML IV SCH ×2 (07:39→20:05)
[2020-08-28] MEDS: K, MAG and/or Phos replacement - Verify level? MC SCH (08:00)
[2020-08-28] MEDS: potassium Cl 40MEQ/250ML bag 270 ML IV PRN (10:17)
--- NOTE | 2020-08-28 11:34 | NUR ---
Tried weaning parameters, patient became tachypneic in the 30's tachycardic in 115 and above and dropped sats to 86%, patients legs became modeled. Informed Dr. Maxwell
[2020-08-28] MEDS: magnesium 2GM in 50ml NS 50 ML IV PRN (12:35)
[2020-08-28] MEDS: dexmedetomidine/D5W 100mL 100 ML IV SCH ×2 (12:49→22:38)
[2020-08-28] MEDS: [UNRECOGNIZED DRUG - REMARK] IV SCH ×5 (15:56)
[2020-08-28] MEDS ORDERED: dexamethasone 4mg/ml inj IV SCH (16:00)
[2020-08-28] MEDS: dexamethasone inj 8 MG in normal saline 50ml IV soln 50 ML IV SCH ×2 (16:20→23:09)
[2020-08-28] MEDS ORDERED: tPA-cathflo 2 MG/2 ml IV flush IVF ONE (18:45)
[2020-08-28] MEDS: NORepinephrine 8mg/ 250ml NS 250 ML IV SCH (20:06)
[2020-08-28] MEDS: insulin glargine (Lantus) pen - multi-dose SQ SCH (20:59)
[2020-08-29] VITALS (23 sets, daily range): BP systolic 96–151; BP diastolic 57–85
[2020-08-29] MEDS: FENTANYL-0.9 % NACL/PF 100 ML IV PRN ×2 (00:05→02:14)
[2020-08-29] MEDS: propofol 1000mg/100ml bottle 100 ML IV SCH ×4 (00:06→12:11)
[2020-08-29] MEDS: piperacillin/tazo 3.375gm/50ml 50 ML IV SCH ×4 (00:14→23:14)
[2020-08-29] MEDS: mineral oil/petrolatum ophthal oint EACHEYE SCH ×4 (02:11→19:21)
[2020-08-29 02:55] LABS: BASOPHILS # (AUTO) 0.1 X10'3 (0-0.2); BASOPHILS % (AUTO) 0.6 % (0-1); EOSINOPHILS % (AUTO) 0.2 % (0-6); HEMATOCRIT 28.7 % (42.0-52.0); HEMOGLOBIN 9.4 g/dl (14.0-17.9); LYMPHOCYTES # (AUTO) 0.5 X10'3 (1.1-4.8); LYMPHOCYTES % (AUTO) 4.7 % (21-51); MEAN CORPUSCULAR HEMOGLOBIN 29.9 PG (27.0-31.0); MEAN CORPUSCULAR HGB CONC 32.6 g/dL (33.0-36.5); MEAN CORPUSCULAR VOLUME 91.7 FL (78-98); MEAN PLATELET VOLUME 9.7 FL (7.4-10.4); MONOCYTES # (AUTO) 0.5 X10'3 (0-0.9); MONOCYTES % (AUTO) 4.6 % (2-12); NEUTROPHILS # (AUTO) 10.2 X10'3 (1.8-7.7); NEUTROPHILS % (AUTO) 89.9 % (42-75); PLATELET COUNT 160 X10'3 (140-440); RED BLOOD COUNT 3.13 X10'6 (4.70-6.10); RED CELL DISTRIBUTION WIDTH 16.2 % (11.5-14.5); WHITE BLOOD COUNT 11.4 X10'3 (4.5-11.0)
[2020-08-29 03:13] LABS: MAGNESIUM 2.5 MG/DL (1.5-2.4); PHOSPHORUS 4.2 MG/DL (2.3-4.5); PREALBUMIN 10.6 MG/DL (19-36)
[2020-08-29 03:42] LABS: ABG BASE EXCESS -1.4 mmol/L (-2.0-2.0); ABG HCO3 23.6 mmol/L (22.0-26.0); ABG OXYGEN SATURATION 96.5 % (94-97); ABG PCO2 (T) 39.1 mmHg (35.0-48.0); ABG PO2 (T) 82.8 mmHg (75.0-100.0); FCOHb 0.4 % (0.0-3.9); FMetHb 0.1 % (0.0-1.5); PATIENT TEMPERATURE 36.1; PEEP 5 cm H2O; RESPIRATORY RATE 18 b/min; TIDAL VOLUME 500 mL; TOTAL HEMOGLOBIN 9.6 G/dl (14.0-18.0)
[2020-08-29 06:00] LABS: ANION GAP 8 (8-16); BLOOD UREA NITROGEN 21 MG/DL (7-18); BUN/CREATININE RATIO 22.1 (5.4-32.0); CALCIUM 8.3 MG/DL (8.5-10.1); CHLORIDE 102 MMOL/L (99-107); CREATININE 0.95 MG/DL (0.60-1.10); GLUCOSE 263 MG/DL (70-104); POTASSIUM 4.6 MMOL/L (3.5-5.1); SODIUM 135 MMOL/L (135-145); TOTAL CARBON DIOXIDE 25.3 MMOL/L (24-32); eGFR 81 ML/MIN
--- NOTE | 2020-08-29 06:30 | NUR ---
Patient in room ICU 2038. I have received report and had the opportunity to ask questions and assume patient care.
[2020-08-29] MEDS: K, MAG and/or Phos replacement - Verify level? MC SCH (08:00)
[2020-08-29] MEDS: dexamethasone inj 8 MG in normal saline 50ml IV soln 50 ML IV SCH ×3 (08:28→23:14)
[2020-08-29] MEDS: pantoprazole 40 MG vial IV SCH (08:28)
[2020-08-29] MEDS ORDERED: insulin regular, human U-100 3ml vial - multi-dose SQ SCH (09:10)
--- NOTE | 2020-08-29 09:37 | NUR ---
Dr. Morales returned call. He stated that he is okay with Dr Rocha's plan to extubate pt.
[2020-08-29] MEDS: dexmedetomidine/D5W 100mL 100 ML IV SCH (09:51)
[2020-08-29] MEDS ORDERED: naloxone 0.4 mg/ml inj IV PRN (10:20)
[2020-08-29] MEDS ORDERED: CADD PCA waste documentation MC PRN (10:20)
[2020-08-29] MEDS: [UNRECOGNIZED DRUG - REMARK] IV SCH ×5 (10:57)
[2020-08-29] MEDS: HYDROmorphone/NS 1 mg/ml CADD 50 ML IV SCH ×8 (11:00→23:00)
--- NOTE | 2020-08-29 11:10 | NUR ---
F/u: Pt tolerating TPN at goal MAP 79 this AM pending possible extubation today per MD. No BM yet this admit 7 days; to start opioid antagonist today per public relations consultant since receiving fentanyl. PO diet to be advancement following BSS and surgeon recs upon extubation per MD. Will continue to monitor. Recommend: 1. Continuous TPN using Climinix E / with 100 ml 20% intralipids at 110 ml/hr; will provide total volume 2640 ml/day, 2463 calories, 126 g protein, and 3.86 mg/kg/min dextrose loading. 2. TG and Prealbumin q saturday and , daily wts 3. When extubated, advance diet as medically indicated to regular 4. routine bowel care; opioid antagonist per MD Addendum: 08/29/20 at [address] Amended: Links added.
[2020-08-29] MEDS ORDERED: racepinephrine 11.25mg/0.5ml nebule IH PRN (11:30)
[2020-08-29] MEDS ORDERED: furosemide 40mg/4ml inj IV ONE (11:45)
[2020-08-29] MEDS: methylnaltrexone br 12mg/0.6ml inj***SubQ only SQ SCH (11:50)
[2020-08-29] MEDS: NORepinephrine 8mg/ 250ml NS 250 ML IV SCH (13:56)
--- NOTE | 2020-08-29 14:30 | NUR ---
right IJ central line discontinued, tpn discontinued, latham catheter discontinued.
[2020-08-29] MEDS: ipratropium/albuterol 3ml nebule NEB SCH ×3 (15:21→23:14)
--- NOTE | 2020-08-29 18:20 | NUR ---
Problems reprioritized. Patient report given, questions answered & plan of care reviewed.
--- NOTE | 2020-08-29 18:33 | NUR ---
Patient in room ICU 2038. I have received report from CARLI Toledo and had the opportunity to ask questions and assume patient care.
[2020-08-29] MEDS: docusate sodium 100mg/10ml UD cup PO SCH (19:21)
[2020-08-29] MEDS: budesonide 0.5mg/2ml UD nebule IH SCH (20:01)
[2020-08-29] MEDS: insulin glargine (Lantus) pen - multi-dose SQ SCH (21:00)
[2020-08-30] VITALS (24 sets, daily range): BP systolic 114–162; BP diastolic 69–97
[2020-08-30] MEDS: HYDROmorphone/NS 1 mg/ml CADD 50 ML IV SCH ×10 (01:00→23:00)
[2020-08-30] MEDS: mineral oil/petrolatum ophthal oint EACHEYE SCH ×4 (01:08→20:00)
[2020-08-30] MEDS ORDERED: traZODone 50mg tablet PO ONE (01:20)
[2020-08-30] MEDS: ipratropium/albuterol 3ml nebule NEB SCH ×6 (02:58→23:48)
--- NOTE | 2020-08-30 04:22 | NUR ---
Pt unable to urinate since Lima was dc'd during day shift. Bladder scan revealed bladder to have approx 667mL of urine retention. Frozen Foods Manager to be notified. Addendum: 08/30/20 at 0441 by Didi Brooks RN Frozen Foods Manager ordered straight cath. Straight cath outputted 950mL.
--- NOTE | 2020-08-30 06:16 | NUR ---
Problems reprioritized. Patient report given, questions answered & plan of care reviewed with CARLI Toledo.
[2020-08-30 06:21] LABS: BASOPHILS % (AUTO) 0.2 % (0-1); EOSINOPHILS % (AUTO) 0 % (0-6); HEMATOCRIT 27.5 % (42.0-52.0); HEMOGLOBIN 9.3 g/dl (14.0-17.9); LYMPHOCYTES # (AUTO) 0.6 X10'3 (1.1-4.8); LYMPHOCYTES % (AUTO) 6.1 % (21-51); MEAN CORPUSCULAR HEMOGLOBIN 30.5 PG (27.0-31.0); MEAN CORPUSCULAR HGB CONC 33.8 g/dL (33.0-36.5); MEAN CORPUSCULAR VOLUME 90.2 FL (78-98); MEAN PLATELET VOLUME 9.2 FL (7.4-10.4); MONOCYTES # (AUTO) 0.8 X10'3 (0-0.9); MONOCYTES % (AUTO) 7.6 % (2-12); NEUTROPHILS # (AUTO) 8.5 X10'3 (1.8-7.7); NEUTROPHILS % (AUTO) 86.1 % (42-75); PLATELET COUNT 186 X10'3 (140-440); RED BLOOD COUNT 3.04 X10'6 (4.70-6.10); RED CELL DISTRIBUTION WIDTH 15.9 % (11.5-14.5); WHITE BLOOD COUNT 9.9 X10'3 (4.5-11.0)
[2020-08-30 06:22] LABS: MAGNESIUM 2.1 MG/DL (1.5-2.4); PHOSPHORUS 4.6 MG/DL (2.3-4.5)
--- NOTE | 2020-08-30 06:30 | NUR ---
Patient in room ICU 2038. I have received report from CARLI Ramos and had the opportunity to ask questions and assume patient care.
[2020-08-30 06:59] LABS: ALANINE AMINOTRANSFERASE 41 U/L (12-78); ALBUMIN 2.4 G/DL (3.4-5.0); ALBUMIN/GLOBULIN RATIO 0.5 (1.1-1.5); ALKALINE PHOSPHATASE 91 IU/L (46-116); ANION GAP 12 (8-16); ASPARTATE AMINO TRANSFERASE 46 U/L (10-37); BILIRUBIN,TOTAL 0.5 MG/DL (0.1-1.0); BLOOD UREA NITROGEN 22 MG/DL (7-18); CALCIUM 8.7 MG/DL (8.5-10.1); CHLORIDE 102 MMOL/L (99-107); GLUCOSE 137 MG/DL (70-104); POTASSIUM 3.9 MMOL/L (3.5-5.1); SODIUM 139 MMOL/L (135-145); TOTAL PROTEIN 6.8 G/DL (6.4-8.2); eGFR 76 ML/MIN
[2020-08-30] MEDS: NORepinephrine 8mg/ 250ml NS 250 ML IV SCH (07:15)
[2020-08-30] MEDS: docusate sodium 100mg/10ml UD cup PO SCH ×2 (07:52→20:59)
[2020-08-30] MEDS: pantoprazole 40 MG vial IV SCH (07:52)
[2020-08-30] MEDS: dexamethasone inj 8 MG in normal saline 50ml IV soln 50 ML IV SCH (07:52)
[2020-08-30] MEDS: piperacillin/tazo 3.375gm/50ml 50 ML IV SCH ×2 (07:52→18:46)
[2020-08-30] MEDS: K, MAG and/or Phos replacement - Verify level? MC SCH (08:00)
[2020-08-30] MEDS: budesonide 0.5mg/2ml UD nebule IH SCH ×2 (08:29→20:11)
[2020-08-30] MEDS ORDERED: ketorolac tromethamine 15mg/ml inj. IV ONE (10:50)
[2020-08-30] MEDS ORDERED: furosemide 40mg/4ml inj IV ONE (10:50)
--- NOTE | 2020-08-30 10:54 | NUR ---
F/u 08/30: Pt advanced to clear liquids s/p extubation yesterday w/ TPN weaned and okay to advance to regular as tolerated per ENTERPRISE ACCOUNT EXECUTIVE recs today. First BM yesterday this admit following relistor. Lasix to start today per marketing services vice president. Noted pt hand tremors but simply weakness post-extubation per RN receiving assistance but no need for adaptive wear at this time. Will monitor for diet advancement and additional protein needs post-op. Recommend: 1. advance diet as medically indicated to regular per ENTERPRISE ACCOUNT EXECUTIVE/MD 2. monitor for ONS needs; consider adaptive wear if tremors continue 3. routine bowel care; opioid antagonist per MD 4. weekly wts Addendum: 08/30/20 at [address] Amended: Links added.
--- NOTE | 2020-08-30 15:21 | NUR ---
CADD will not allow for dose change despite [place]. Pharmacy called, spoke with Molly Mcneal. He said he will speak with Pharm director to determine problem with CADD pump.
[2020-08-30] MEDS ORDERED: dexamethasone 4mg/ml inj IV SCH (16:00)
--- NOTE | 2020-08-30 17:52 | NUR ---
Dr. Morales rounded on pt, CT to H20 seal, diet advanced to regular. Pt undergoing straight catheterization.
--- NOTE | 2020-08-30 18:30 | NUR ---
1700 cadd setting check not done by the day shift RN
--- NOTE | 2020-08-30 18:30 | NUR ---
Patient in room ICU 2038. I have received report from CARLI Toledo and had the opportunity to ask questions and assume patient care.
--- NOTE | 2020-08-30 20:45 | NUR ---
Decadron 1600 dose not given by day shift RN. Spoke to job Everett; will give dose now and she will retime the dose for me.
[2020-08-30] MEDS: enoxaparin 40mg/0.4ml syringe SUBCUT SCH (21:00)
[2020-08-30] MEDS: insulin glargine (Lantus) pen - multi-dose SQ SCH (21:00)
[2020-08-30] MEDS: dexamethasone 4mg/ml inj IV SCH (21:00)
[2020-08-31] VITALS (20 sets, daily range): BP systolic 105–167; BP diastolic 70–103
[2020-08-31] MEDS: NORepinephrine 8mg/ 250ml NS 250 ML IV SCH ×2 (00:18→17:53)
[2020-08-31] MEDS: mineral oil/petrolatum ophthal oint EACHEYE SCH ×2 (00:19→08:00)
[2020-08-31] MEDS: piperacillin/tazo 3.375gm/50ml 50 ML IV SCH ×3 (00:19→15:58)
[2020-08-31] MEDS: HYDROmorphone/NS 1 mg/ml CADD 50 ML IV SCH ×4 (01:00→06:55)
[2020-08-31] MEDS: ipratropium/albuterol 3ml nebule NEB SCH ×5 (03:13→19:27)
[2020-08-31] MEDS: dexamethasone 4mg/ml inj IV SCH ×3 (05:35→22:25)
[2020-08-31 06:16] LABS: BASOPHILS % (AUTO) 0.1 % (0-1); EOSINOPHILS % (AUTO) 0 % (0-6); HEMOGLOBIN 9.8 g/dl (14.0-17.9); LYMPHOCYTES # (AUTO) 0.6 X10'3 (1.1-4.8); LYMPHOCYTES % (AUTO) 6.1 % (21-51); MEAN CORPUSCULAR HEMOGLOBIN 30.2 PG (27.0-31.0); MEAN CORPUSCULAR HGB CONC 33.7 g/dL (33.0-36.5); MEAN CORPUSCULAR VOLUME 89.7 FL (78-98); MEAN PLATELET VOLUME 8.9 FL (7.4-10.4); MONOCYTES # (AUTO) 0.9 X10'3 (0-0.9); MONOCYTES % (AUTO) 8.3 % (2-12); NEUTROPHILS # (AUTO) 8.9 X10'3 (1.8-7.7); NEUTROPHILS % (AUTO) 85.5 % (42-75); PLATELET COUNT 237 X10'3 (140-440); RED BLOOD COUNT 3.23 X10'6 (4.70-6.10); RED CELL DISTRIBUTION WIDTH 15.9 % (11.5-14.5); WHITE BLOOD COUNT 10.4 X10'3 (4.5-11.0)
--- NOTE | 2020-08-31 06:25 | NUR ---
Problems reprioritized. Patient report given, questions answered & plan of care reviewed with CARLI Liu.
[2020-08-31 06:36] LABS: ALANINE AMINOTRANSFERASE 48 U/L (12-78); ALBUMIN 2.5 G/DL (3.4-5.0); ALBUMIN/GLOBULIN RATIO 0.5 (1.1-1.5); ALKALINE PHOSPHATASE 94 IU/L (46-116); ANION GAP 9 (8-16); ASPARTATE AMINO TRANSFERASE 37 U/L (10-37); BILIRUBIN,TOTAL 0.6 MG/DL (0.1-1.0); BLOOD UREA NITROGEN 24 MG/DL (7-18); BUN/CREATININE RATIO 26.1 (5.4-32.0); CALCIUM 8.8 MG/DL (8.5-10.1); CHLORIDE 103 MMOL/L (99-107); CREATININE 0.92 MG/DL (0.60-1.10); GLUCOSE 106 MG/DL (70-104); MAGNESIUM 2.3 MG/DL (1.5-2.4); PHOSPHORUS 4.7 MG/DL (2.3-4.5); SODIUM 139 MMOL/L (135-145); TOTAL CARBON DIOXIDE 27.2 MMOL/L (24-32); TOTAL PROTEIN 7.1 G/DL (6.4-8.2); eGFR 84 ML/MIN
[2020-08-31] MEDS: budesonide 0.5mg/2ml UD nebule IH SCH ×2 (07:29→19:27)
[2020-08-31] MEDS: K, MAG and/or Phos replacement - Verify level? MC SCH (08:00)
[2020-08-31] MEDS: methylnaltrexone br 12mg/0.6ml inj***SubQ only SQ SCH (08:00)
[2020-08-31] MEDS: pantoprazole 40 MG vial IV SCH (08:11)
[2020-08-31] MEDS: docusate sodium 100mg/10ml UD cup PO SCH ×2 (08:11→20:00)
--- NOTE | 2020-08-31 08:59 | NUR ---
Dr. Wagner at bedside, new order to D/C Dilaudid CADD and start Dilaudid 1mg IV q2PRN for severe pain. Patient c/o constant severe pain.
[2020-08-31] MEDS ORDERED: ALBUTEROL INHALER 1 PUFF/90 MCG INHALER IH PRN (09:40)
[2020-08-31] MEDS: HYDROmorphone 1 mg/ml syringe IV PRN ×3 (09:44→18:10)
[2020-08-31] MEDS ORDERED: LORazepam 1 MG tablet PO PRN (10:55)
--- NOTE | 2020-08-31 12:01 | NUR ---
F/u 08/31: Pt poor PO intake advanced to regular diet and requiring lots of encouragement w/ significant tremors continuing possibly w/d from unknown substance per MD. JAVIER d/w dietary to send adaptive wear w/ meals to aid PO and recommends Yoav ONS BIDBD/Ensure Enlive WL for wound healing needs post-op; may be able to tolerate liquid PO better. MD notified. Will send chopped meats as well for ease of PO intake. Recommend: 1. continue regular diet per ASSISTANT LOAN PROCESSOR/MD; adaptive wear and chopped meats w/ meals w/ tremors; encourage PO 2. Yoav shake BIDBD and Ensure Enlive WL for wound healing needs post-op 3. routine bowel care; opioid antagonist per MD 4. weekly wts Addendum: 08/31/20 at [address] Amended: Links added.
[2020-08-31] MEDS: LORazepam 2 mg/ml vial IV PRN ×2 (12:03→18:08)
[2020-08-31] MEDS: lactose-reduced food (Ensure Enlive) - 237ml bottle PO SCH (12:30)
[2020-08-31] MEDS: aspirin 81mg tablet.DR PO SCH (13:05)
[2020-08-31] MEDS: atorvastatin 20mg tablet PO SCH (13:06)
[2020-08-31] MEDS: losartan 50mg tablet PO SCH (13:06)
[2020-08-31] MEDS ORDERED: amiodarone 150mg/dext, iso-os 100 ML IV ONE (14:20)
--- NOTE | 2020-08-31 14:20 | NUR ---
Patient sitting in chair at bedside. Heart Rate in 130's. BP 138/102. Denies chest pain. New telephone order from Dr. Wagner for Amiodarone gtt. Will continue to monitor
[2020-08-31] MEDS: amiodarone/D5 360MG/200ML BAG 200 ML IV SCH ×2 (14:31→19:20)
[2020-08-31] MEDS: JUVEN Shake w/Arg/Glut/Ca2+Bmb (Juven 19.3gm) pkt 240ml PO SCH (17:30)
--- NOTE | 2020-08-31 18:00 | NUR ---
Patient c/o pressure in chest. EKG performed, Ativan and Dilaudid given. Patient states he feels better.
--- NOTE | 2020-08-31 18:30 | NUR ---
Spoke with patients sister, Terrell. per sister, patient is a daily drinker, unsure of amount. Relayed this information to night nurse CARLI Han.
[2020-08-31] MEDS: HYDROcodone/acetaminophen 10/325mg tab PO PRN (20:06)
[2020-08-31] MEDS: enoxaparin 40mg/0.4ml syringe SUBCUT SCH (20:07)
[2020-08-31] MEDS: insulin glargine (Lantus) pen - multi-dose SQ SCH (21:00)
[2020-09-01] VITALS (24 sets, daily range): BP systolic 93–138; BP diastolic 63–93
[2020-09-01] MEDS: LORazepam 2 mg/ml vial IV PRN (00:01)
[2020-09-01] MEDS: piperacillin/tazo 3.375gm/50ml 50 ML IV SCH ×4 (00:01→23:15)
[2020-09-01] MEDS: ipratropium/albuterol 3ml nebule NEB SCH ×7 (00:03→23:15)
[2020-09-01] MEDS: amiodarone/D5 360MG/200ML BAG 200 ML IV SCH ×5 (02:28→22:04)
[2020-09-01] MEDS: HYDROmorphone 1 mg/ml syringe IV PRN ×3 (03:16→12:28)
[2020-09-01] MEDS: HYDROcodone/acetaminophen 10/325mg tab PO PRN ×5 (05:46→23:14)
[2020-09-01] MEDS: dexamethasone 4mg/ml inj IV SCH ×3 (05:47→21:02)
[2020-09-01 06:19] LABS: BASOPHILS % (AUTO) 0.1 % (0-1); EOSINOPHILS # (AUTO) 0.1 X10'3 (0-0.9); EOSINOPHILS % (AUTO) 0.6 % (0-6); HEMATOCRIT 27.8 % (42.0-52.0); HEMOGLOBIN 9.4 g/dl (14.0-17.9); LYMPHOCYTES # (AUTO) 0.8 X10'3 (1.1-4.8); LYMPHOCYTES % (AUTO) 10.3 % (21-51); MEAN CORPUSCULAR HEMOGLOBIN 30.1 PG (27.0-31.0); MEAN CORPUSCULAR HGB CONC 33.7 g/dL (33.0-36.5); MEAN CORPUSCULAR VOLUME 89.2 FL (78-98); MEAN PLATELET VOLUME 8.7 FL (7.4-10.4); MONOCYTES # (AUTO) 0.6 X10'3 (0-0.9); MONOCYTES % (AUTO) 7.3 % (2-12); NEUTROPHILS # (AUTO) 6.7 X10'3 (1.8-7.7); NEUTROPHILS % (AUTO) 81.7 % (42-75); PLATELET COUNT 242 X10'3 (140-440); RED BLOOD COUNT 3.12 X10'6 (4.70-6.10); RED CELL DISTRIBUTION WIDTH 15.9 % (11.5-14.5); WHITE BLOOD COUNT 8.3 X10'3 (4.5-11.0)
--- NOTE | 2020-09-01 06:30 | NUR ---
Problems reprioritized. Patient report given, questions answered & plan of care reviewed with DEEPIKA BOYCE.
[2020-09-01 06:46] LABS: ALANINE AMINOTRANSFERASE 45 U/L (12-78); ALBUMIN 2.3 G/DL (3.4-5.0); ALBUMIN/GLOBULIN RATIO 0.6 (1.1-1.5); ALKALINE PHOSPHATASE 92 IU/L (46-116); ANION GAP 9 (8-16); ASPARTATE AMINO TRANSFERASE 32 U/L (10-37); BILIRUBIN,TOTAL 0.6 MG/DL (0.1-1.0); BLOOD UREA NITROGEN 23 MG/DL (7-18); BUN/CREATININE RATIO 28.8 (5.4-32.0); CALCIUM 8.5 MG/DL (8.5-10.1); CHLORIDE 104 MMOL/L (99-107); GLUCOSE 96 MG/DL (70-104); PHOSPHORUS 4.5 MG/DL (2.3-4.5); POTASSIUM 3.5 MMOL/L (3.5-5.1); PREALBUMIN 16.3 MG/DL (19-36); SODIUM 139 MMOL/L (135-145); TOTAL CARBON DIOXIDE 26.2 MMOL/L (24-32); TOTAL PROTEIN 6.2 G/DL (6.4-8.2); eGFR > 90 ML/MIN
[2020-09-01] MEDS: JUVEN Shake w/Arg/Glut/Ca2+Bmb (Juven 19.3gm) pkt 240ml PO SCH ×2 (07:30→17:54)
[2020-09-01] MEDS: docusate sodium 100mg/10ml UD cup PO SCH ×2 (07:53→19:05)
[2020-09-01] MEDS: K, MAG and/or Phos replacement - Verify level? MC SCH (07:53)
[2020-09-01] MEDS: budesonide 0.5mg/2ml UD nebule IH SCH ×2 (07:55→19:59)
[2020-09-01] MEDS ORDERED: non-formulary drug (Meloxicam 1 TAB) PO SCH (08:00)
[2020-09-01] MEDS: VILANTEROL TR IH SCH (08:00)
[2020-09-01] MEDS: UMECLIDINIUM BRM IH SCH (08:00)
[2020-09-01] MEDS ORDERED: non-formulary drug (Tiotropium Bromide (Spiriva) 1 PUFF) PO SCH (08:00)
[2020-09-01] MEDS: losartan 50mg tablet PO SCH (08:00)
[2020-09-01] MEDS: pantoprazole 40 MG vial IV SCH (11:02)
[2020-09-01] MEDS: aspirin 81mg tablet.DR PO SCH (11:04)
[2020-09-01] MEDS: sertraline 50mg tablet PO SCH (11:05)
[2020-09-01] MEDS: atorvastatin 20mg tablet PO SCH (11:05)
[2020-09-01] MEDS: NORepinephrine 8mg/ 250ml NS 250 ML IV SCH (11:12)
[2020-09-01] MEDS: lactose-reduced food (Ensure Enlive) - 237ml bottle PO SCH (12:30)
[2020-09-01] MEDS: magnesium 4gm in 100ml NS 100 ML IV PRN (12:35)
--- NOTE | 2020-09-01 15:00 | NUR ---
Chest tubes DC'd by Dr coronel without complication
[2020-09-01] MEDS ORDERED: gabapentin 400mg capsule PO ONE (15:05)
--- NOTE | 2020-09-01 18:52 | NUR ---
Patient in room ICU 2038. I have received report from Freeman BOYCE and had the opportunity to ask questions and assume patient care.
[2020-09-01] MEDS: enoxaparin 40mg/0.4ml syringe SUBCUT SCH (19:05)
[2020-09-01] MEDS: insulin glargine (Lantus) pen - multi-dose SQ SCH (19:13)
[2020-09-01] MEDS: gabapentin 400mg capsule PO SCH (20:06)
[2020-09-02] VITALS (19 sets, daily range): BP systolic 105–153; BP diastolic 53–85
--- NOTE | 2020-09-02 02:08 | NUR ---
SNR and heart rate 60 SCHEDULING MANAGER Mar was notified about heart rate of 60s and keeping low, patient still in sinus rhythm, got order to decrease Amiodarone to 0.5mg/min. Will continue to monitor patient.
[2020-09-02] MEDS: ipratropium/albuterol 3ml nebule NEB SCH ×6 (03:00→23:22)
[2020-09-02] MEDS: NORepinephrine 8mg/ 250ml NS 250 ML IV SCH (04:31)
[2020-09-02] MEDS: amiodarone/D5 360MG/200ML BAG 200 ML IV SCH ×2 (04:37→05:16)
[2020-09-02] MEDS: dexamethasone 4mg/ml inj IV SCH ×3 (05:04→23:06)
--- NOTE | 2020-09-02 06:00 | NUR ---
Patient in room ICU 2038. I have received report from Socorro BOYCE and had the opportunity to ask questions and assume patient care.
[2020-09-02 06:10] LABS: BASOPHILS % (AUTO) 0.1 % (0-1); EOSINOPHILS % (AUTO) 0.2 % (0-6); HEMATOCRIT 29.3 % (42.0-52.0); HEMOGLOBIN 9.8 g/dl (14.0-17.9); LYMPHOCYTES # (AUTO) 0.8 X10'3 (1.1-4.8); MEAN CORPUSCULAR HGB CONC 33.5 g/dL (33.0-36.5); MEAN CORPUSCULAR VOLUME 89.7 FL (78-98); MEAN PLATELET VOLUME 8.8 FL (7.4-10.4); MONOCYTES # (AUTO) 0.6 X10'3 (0-0.9); MONOCYTES % (AUTO) 5.8 % (2-12); NEUTROPHILS # (AUTO) 9.5 X10'3 (1.8-7.7); NEUTROPHILS % (AUTO) 86.9 % (42-75); PLATELET COUNT 306 X10'3 (140-440); RED BLOOD COUNT 3.27 X10'6 (4.70-6.10); WHITE BLOOD COUNT 10.9 X10'3 (4.5-11.0)
--- NOTE | 2020-09-02 06:19 | NUR ---
Problems reprioritized. Patient report given, questions answered & plan of care reviewed with Alexa BOYCE.
[2020-09-02 06:22] LABS: ALANINE AMINOTRANSFERASE 41 U/L (12-78); ALBUMIN 2.6 G/DL (3.4-5.0); ALBUMIN/GLOBULIN RATIO 0.6 (1.1-1.5); ALKALINE PHOSPHATASE 98 IU/L (46-116); ANION GAP 8 (8-16); ASPARTATE AMINO TRANSFERASE 25 U/L (10-37); BILIRUBIN,TOTAL 0.5 MG/DL (0.1-1.0); BLOOD UREA NITROGEN 22 MG/DL (7-18); BUN/CREATININE RATIO 21.2 (5.4-32.0); CALCIUM 8.4 MG/DL (8.5-10.1); CHLORIDE 104 MMOL/L (99-107); CREATININE 1.04 MG/DL (0.60-1.10); GLUCOSE 116 MG/DL (70-104); MAGNESIUM 2.7 MG/DL (1.5-2.4); PHOSPHORUS 4.5 MG/DL (2.3-4.5); POTASSIUM 4.2 MMOL/L (3.5-5.1); SODIUM 138 MMOL/L (135-145); TOTAL CARBON DIOXIDE 26.3 MMOL/L (24-32); TOTAL PROTEIN 6.9 G/DL (6.4-8.2); TRIGLYCERIDES 114 MG/DL (20-135); eGFR 73 ML/MIN
[2020-09-02] MEDS: budesonide 0.5mg/2ml UD nebule IH SCH ×2 (07:23→19:39)
[2020-09-02] MEDS: methylnaltrexone br 12mg/0.6ml inj***SubQ only SQ SCH (08:00)
[2020-09-02] MEDS: VILANTEROL TR IH SCH (08:00)
[2020-09-02] MEDS: docusate sodium 100mg/10ml UD cup PO SCH ×2 (08:00→20:00)
[2020-09-02] MEDS: K, MAG and/or Phos replacement - Verify level? MC SCH (08:00)
[2020-09-02] MEDS: UMECLIDINIUM BRM IH SCH (08:00)
[2020-09-02] MEDS: sertraline 50mg tablet PO SCH (08:11)
[2020-09-02] MEDS: piperacillin/tazo 3.375gm/50ml 50 ML IV SCH ×3 (08:11→23:06)
[2020-09-02] MEDS: losartan 50mg tablet PO SCH (08:12)
[2020-09-02] MEDS: aspirin 81mg tablet.DR PO SCH (08:12)
[2020-09-02] MEDS: gabapentin 400mg capsule PO SCH ×3 (08:12→21:25)
[2020-09-02] MEDS: atorvastatin 20mg tablet PO SCH (08:12)
[2020-09-02] MEDS: JUVEN Shake w/Arg/Glut/Ca2+Bmb (Juven 19.3gm) pkt 240ml PO SCH ×2 (08:24→18:00)
[2020-09-02] MEDS ORDERED: pantoprazole 40mg Tablet.DR PO ONE (08:45)
[2020-09-02] MEDS ORDERED: amiodarone 200mg tablet PO ONE (08:45)
[2020-09-02] MEDS: HYDROcodone/acetaminophen 10/325mg tab PO PRN ×2 (09:23→21:38)
--- NOTE | 2020-09-02 11:08 | NUR ---
Reassessment: Pt with average 50% PO intake of meals and 100% PO intake of Ensure Enlive WL and Yoav ONS though down to 25% PO intake of Yoav shake this morning. Pt not fully meeting estimated nutrient needs at this time. Pt pending transfer to the floors right now. LBM 09/01 with routine bowel care available however pt refusing at times. Will continue to follow closely and monitor need for further nutrition intervention. Recommend: 1. continue regular diet per ACCOUNT MANAGER FOREST SERVICE; adaptive wear and chopped meats w/ meals w/ tremors; encourage PO 2. Yoav shake BIDBD and Ensure Enlive WL for wound healing needs post-op 3. routine bowel care; opioid antagonist per MD 4. weekly scaled wts Addendum: 09/02/20 at [address] Amended: Links added.
[2020-09-02] MEDS: lactose-reduced food (Ensure Enlive) - 237ml bottle PO SCH (13:14)
--- NOTE | 2020-09-02 16:33 | NUR ---
Problems reprioritized. Patient report given, questions answered & plan of care reviewed with Jojo BOYCE.
[2020-09-02] MEDS ORDERED: pneumococcal 23-VAL P-sac vacc 25 mcg/0.5ml vial IMVAC ONE (16:40)
--- NOTE | 2020-09-02 18:06 | NUR ---
Problems reprioritized. Patient report given, questions answered & plan of care reviewed with NOC shift.
[2020-09-02] MEDS: FLU VACC QS2020-21(6MOS UP)/PF 60 MCG/0.5 ML SYRINGE IMVAC ONE ×2 (18:45→21:41)
[2020-09-02] MEDS: insulin glargine (Lantus) pen - multi-dose SQ SCH (19:57)
[2020-09-02] MEDS: amiodarone 200mg tablet PO SCH (21:25)
[2020-09-02] MEDS: enoxaparin 40mg/0.4ml syringe SUBCUT SCH (21:29)
[2020-09-03] MEDS: ipratropium/albuterol 3ml nebule NEB SCH ×2 (03:13→07:33)
[2020-09-03 04:01] VITALS: BP 143/83
[2020-09-03] MEDS: dexamethasone 4mg/ml inj IV SCH (05:07)
[2020-09-03 06:27] LABS: BASOPHILS % (AUTO) 0.3 % (0-1); EOSINOPHILS % (AUTO) 0.2 % (0-6); HEMATOCRIT 26.8 % (42.0-52.0); LYMPHOCYTES # (AUTO) 0.7 X10'3 (1.1-4.8); LYMPHOCYTES % (AUTO) 6.7 % (21-51); MEAN CORPUSCULAR HGB CONC 33.7 g/dL (33.0-36.5); MEAN PLATELET VOLUME 9.1 FL (7.4-10.4); MONOCYTES # (AUTO) 0.8 X10'3 (0-0.9); MONOCYTES % (AUTO) 6.9 % (2-12); NEUTROPHILS # (AUTO) 9.6 X10'3 (1.8-7.7); NEUTROPHILS % (AUTO) 85.9 % (42-75); PLATELET COUNT 285 X10'3 (140-440); RED BLOOD COUNT 3.01 X10'6 (4.70-6.10); RED CELL DISTRIBUTION WIDTH 16.3 % (11.5-14.5); WHITE BLOOD COUNT 11.2 X10'3 (4.5-11.0)
--- NOTE | 2020-09-03 06:30 | NUR ---
Patient in room PCU 3012. I have received report from Christa BOYCE and had the opportunity to ask questions and assume patient care.
[2020-09-03 07:00] VITALS: BP 155/91
[2020-09-03 07:01] LABS: ALANINE AMINOTRANSFERASE 36 U/L (12-78); ALBUMIN 2.5 G/DL (3.4-5.0); ALBUMIN/GLOBULIN RATIO 0.6 (1.1-1.5); ALKALINE PHOSPHATASE 92 IU/L (46-116); ANION GAP 9 (8-16); ASPARTATE AMINO TRANSFERASE 20 U/L (10-37); BILIRUBIN,TOTAL 0.5 MG/DL (0.1-1.0); BLOOD UREA NITROGEN 22 MG/DL (7-18); BUN/CREATININE RATIO 21.6 (5.4-32.0); CALCIUM 8.1 MG/DL (8.5-10.1); CHLORIDE 106 MMOL/L (99-107); CREATININE 1.02 MG/DL (0.60-1.10); GLUCOSE 103 MG/DL (70-104); MAGNESIUM 2.2 MG/DL (1.5-2.4); PHOSPHORUS 4.2 MG/DL (2.3-4.5); POTASSIUM 4.2 MMOL/L (3.5-5.1); SODIUM 139 MMOL/L (135-145); TOTAL CARBON DIOXIDE 23.7 MMOL/L (24-32); TOTAL PROTEIN 6.4 G/DL (6.4-8.2); eGFR 75 ML/MIN
[2020-09-03] MEDS ORDERED: pantoprazole 40mg Tablet.DR PO SCH (07:30)
[2020-09-03] MEDS: budesonide 0.5mg/2ml UD nebule IH SCH (07:33)
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
[2020-09-03] MEDS: amiodarone 200mg tablet PO SCH (08:02)
[2020-09-03] MEDS ORDERED: PRED20TA PO (20:56)
== END 2020-09-03 08:20 | disposition left against medical advice (07) | DRG 136 ==
LOC: EDSTATUS 10:30 → PAS IN 11:47 → ICU 2S 08-23 04:02 → PCU 3S 09-02 17:31
PROVIDERS: ADMIT Surgery; ATTEND Surgery
PROC: 0BBC0ZZ Excision of Right Upper Lung Lobe, Open Approach (ICD-10-PCS; 2020-08-22)
PROC: 0BNK0ZZ Release Right Lung, Open Approach (ICD-10-PCS; 2020-08-22)
PROC: 8E0WXCZ Robotic Assisted Procedure of Trunk Region (ICD-10-PCS; 2020-08-22)
PROC: 0W9930Z Drainage of Right Pleural Cavity with Drainage Device, Percutaneous Approach (ICD-10-PCS; 2020-08-22)
PROC: 30233R1 Transfusion of Nonautologous Platelets into Peripheral Vein, Percutaneous Approach (ICD-10-PCS; 2020-08-23)
PROC: 30233N1 Transfusion of Nonautologous Red Blood Cells into Peripheral Vein, Percutaneous Approach (ICD-10-PCS; 2020-08-23)
PROC: 0B9F8ZZ Drainage of Right Lower Lung Lobe, Via Natural or Artificial Opening Endoscopic (ICD-10-PCS; principal; 2020-08-26)
PROC: 0BC78ZZ Extirpation of Matter from Left Main Bronchus, Via Natural or Artificial Opening Endoscopic (ICD-10-PCS; 2020-08-27)
DX: C34.11 Malignant neoplasm of upper lobe, right bronchus or lung (principal); J96.01 Acute respiratory failure with hypoxia; E78.5 Hyperlipidemia, unspecified; F17.290 Nicotine dependence, other tobacco product, uncomplicated; I10 Essential (primary) hypertension; I48.91 Unspecified atrial fibrillation; J18.9 Pneumonia, unspecified organism; J44.0 Chronic obstructive pulmonary disease with (acute) lower respiratory infection; J81.1 Chronic pulmonary edema; K21.9 Gastro-esophageal reflux disease without esophagitis; E87.5 Hyperkalemia; Z20.822 Contact with and (suspected) exposure to COVID-19; J98.11 Atelectasis; K66.0 Peritoneal adhesions (postprocedural) (postinfection); Z85.118 Personal history of other malignant neoplasm of bronchus and lung; Z90.2 Acquired absence of lung [part of]
CPT/HCPCS: 31628; 31645; 36415; 36430; 36600; 71045; 71250; 71275; 74177; 76010; 76937; 80047; 80048; 80053; 80069; 80202; 81001; 82330; 82803; 82948; 83036; 83605; 83735; 84100; 84134; 84443; 84478; 84484; 85007; 85018; 85025; 85027; 85610; 85730; 86885; 86900; 86901; 86920; 87040; 87070; 87081; 87088; 87635; 92508; 92616; 93005; 93306; 94002; 94003; 94640; 94667; 94668; 94760; 94799; 97110; 97116; 97161; 97530; A4618; A6258; A6449; A7000; A7048; A7526; C1758; C9113; C9399; G0378; J0171; J0690; J1100; J1170; J1644; J1650; J1815; J1885; J1940; J2001; J2060; J2175; J2212; J2250; J2270; J2370; J2405; J2543; J2704; J2997; J3010; J3370; J3475; J3480; J3490; J7030; J7040; J7050; J7060; J7120; J7626; P9016; P9035; P9045; Q2039; Q9967

== ENCOUNTER 2020-09-03 19:37 | Inpatient (IN) | payer MEDICAID ==
[~2020-09-03] VITALS: Ht 177.8 cm; Wt 86.2 kg
[~2020-09-03 19:37] MED LIST changes: -albuterol 2.5 MG/3 ML nebule NEB ONE; -ceFAZolin 2gm in dextrose, iso 50 ML IV ONE; -famotidine 20mg tablet PO ONE; -ringers solution, lacted 1,000 ML IV SCH
[2020-09-03] MEDS ORDERED: albuterol 2.5 MG/3 ML nebule CONTNEB PRN (20:05)
[2020-09-03] MEDS ORDERED: methylPREDNISolone sod succ 125mg/2ml vial IV ONE (20:05)
[2020-09-03 20:17] LABS: BASOPHILS % (AUTO) 0.2 % (0-1); EOSINOPHILS # (AUTO) 0.1 X10'3 (0-0.9); EOSINOPHILS % (AUTO) 0.7 % (0-6); HEMATOCRIT 29.3 % (42.0-52.0); HEMOGLOBIN 9.8 g/dl (14.0-17.9); LYMPHOCYTES # (AUTO) 1.1 X10'3 (1.1-4.8); LYMPHOCYTES % (AUTO) 8.6 % (21-51); MEAN CORPUSCULAR HEMOGLOBIN 29.7 PG (27.0-31.0); MEAN CORPUSCULAR HGB CONC 33.6 g/dL (33.0-36.5); MEAN CORPUSCULAR VOLUME 88.2 FL (78-98); MEAN PLATELET VOLUME 7.7 FL (7.4-10.4); MONOCYTES # (AUTO) 1.2 X10'3 (0-0.9); MONOCYTES % (AUTO) 9.1 % (2-12); NEUTROPHILS # (AUTO) 10.5 X10'3 (1.8-7.7); NEUTROPHILS % (AUTO) 81.4 % (42-75); PLATELET COUNT 372 X10'3 (140-440); RED BLOOD COUNT 3.32 X10'6 (4.70-6.10); RED CELL DISTRIBUTION WIDTH 16.2 % (11.5-14.5); WHITE BLOOD COUNT 12.8 X10'3 (4.5-11.0)
[2020-09-03 20:30] LABS: PARTIAL THROMBOPLASTIN TIME 25 SECONDS (22-32)
[2020-09-03 20:34] LABS: ALANINE AMINOTRANSFERASE 38 U/L (12-78); ALBUMIN 2.6 G/DL (3.4-5.0); ALBUMIN/GLOBULIN RATIO 0.6 (1.1-1.5); ALKALINE PHOSPHATASE 103 IU/L (46-116); ANION GAP 10 (8-16); ASPARTATE AMINO TRANSFERASE 26 U/L (10-37); BILIRUBIN,TOTAL 0.4 MG/DL (0.1-1.0); BLOOD UREA NITROGEN 23 MG/DL (7-18); BUN/CREATININE RATIO 22.5 (5.4-32.0); CALCIUM 8.4 MG/DL (8.5-10.1); CHLORIDE 106 MMOL/L (99-107); CREATININE 1.02 MG/DL (0.60-1.10); GLUCOSE 96 MG/DL (70-104); POTASSIUM 3.7 MMOL/L (3.5-5.1); SODIUM 139 MMOL/L (135-145); TOTAL CARBON DIOXIDE 22.9 MMOL/L (24-32); TOTAL PROTEIN 6.7 G/DL (6.4-8.2); eGFR 75 ML/MIN
[2020-09-03] MEDS ORDERED: furosemide 10 MG/1 ML 10ml inj IV ONE (20:55)
[2020-09-03] MEDS ORDERED: PRED20TA PO (20:56)
[2020-09-03] MEDS ORDERED: diltiazem 5mg/ml 5ml inj. IV ONE (21:30)
[2020-09-03] MEDS ORDERED: acetaminophen 325mg tablet PO PRN (22:45)
[2020-09-03] MEDS ORDERED: ondansetron/PF 4mg/2ml inj IV PRN (22:45)
[2020-09-03] MEDS ORDERED: ipratropium/albuterol 3ml nebule NEB PRN (22:45)
[2020-09-04] MEDS: ipratropium/albuterol 3ml nebule IH SCH ×5 (02:09→19:15)
--- NOTE | 2020-09-04 05:19 | NUR ---
Pt. woke up at this AM around 0500 c/o R sided sharp CWP, near the proximity of his surg incission. Pt. states that pain is non-radiating and denies any other symptoms at this time. ZAYRA Manuel made aware and N.O. obtained for morphine sul 4mg IV now, norco 5/325mg 1 tab PO q4h PRN for mod pain and norco 10/325mg 1 tab PO q4h PRN for severe pain.
[2020-09-04] MEDS ORDERED: HYDROcodone/acetaminophen 5mg/325mg tablet PO PRN (05:20)
[2020-09-04] MEDS ORDERED: morphine 4 MG/ML inj SYRINge IV ONE (05:20)
--- NOTE | 2020-09-04 05:26 | NUR ---
Morphine sulfate 4mg IV given. Pt.'d monitored rhythm remains in a-fib at controlled rate. VS otherwise WNL.
[2020-09-04] MEDS: HYDROcodone/acetaminophen 10/325mg tab PO PRN ×3 (05:31→19:44)
[2020-09-04 07:29] LABS: BASOPHILS % (AUTO) 0.1 % (0-1); EOSINOPHILS % (AUTO) 0.1 % (0-6); HEMATOCRIT 30.1 % (42.0-52.0); HEMOGLOBIN 9.9 g/dl (14.0-17.9); LYMPHOCYTES # (AUTO) 0.6 X10'3 (1.1-4.8); LYMPHOCYTES % (AUTO) 3.4 % (21-51); MEAN CORPUSCULAR HEMOGLOBIN 29.3 PG (27.0-31.0); MEAN CORPUSCULAR HGB CONC 32.8 g/dL (33.0-36.5); MEAN CORPUSCULAR VOLUME 89.4 FL (78-98); MEAN PLATELET VOLUME 8.6 FL (7.4-10.4); MONOCYTES % (AUTO) 6.3 % (2-12); NEUTROPHILS # (AUTO) 14.7 X10'3 (1.8-7.7); NEUTROPHILS % (AUTO) 90.1 % (42-75); PLATELET COUNT 408 X10'3 (140-440); RED BLOOD COUNT 3.37 X10'6 (4.70-6.10); RED CELL DISTRIBUTION WIDTH 16.3 % (11.5-14.5); WHITE BLOOD COUNT 16.4 X10'3 (4.5-11.0)
[2020-09-04 07:49] LABS: ALANINE AMINOTRANSFERASE 37 U/L (12-78); ALBUMIN 2.7 G/DL (3.4-5.0); ALBUMIN/GLOBULIN RATIO 0.6 (1.1-1.5); ALKALINE PHOSPHATASE 104 IU/L (46-116); ANION GAP 10 (8-16); ASPARTATE AMINO TRANSFERASE 21 U/L (10-37); BILIRUBIN,TOTAL 0.6 MG/DL (0.1-1.0); BLOOD UREA NITROGEN 25 MG/DL (7-18); BUN/CREATININE RATIO 25.5 (5.4-32.0); CALCIUM 8.5 MG/DL (8.5-10.1); CHLORIDE 105 MMOL/L (99-107); CREATININE 0.98 MG/DL (0.60-1.10); GLUCOSE 123 MG/DL (70-104); POTASSIUM 4.9 MMOL/L (3.5-5.1); SODIUM 139 MMOL/L (135-145); TOTAL CARBON DIOXIDE 23.9 MMOL/L (24-32); eGFR 78 ML/MIN
[2020-09-04] MEDS ORDERED: non-formulary drug (Umeclidinium Brm/Vilanterol Tr (Anoro Ellipta 62.5-25 Mcg INH) 1 PUFF) INH SCH (08:00)
[2020-09-04] MEDS ORDERED: predniSONE 20 mg tablet PO SCH (08:00)
[2020-09-04] MEDS ORDERED: non-formulary drug (Tiotropium Bromide (Spiriva) 1 PUFF) PO SCH (08:00)
[2020-09-04] MEDS: losartan 50mg tablet PO SCH (08:05)
[2020-09-04] MEDS: pantoprazole 40mg Tablet.DR PO SCH (08:05)
[2020-09-04] MEDS: ibuprofen 200mg tablet PO SCH ×2 (08:06→15:59)
[2020-09-04] MEDS: atorvastatin 20mg tablet PO SCH (08:06)
[2020-09-04] MEDS: aspirin 81mg tablet.DR PO SCH (08:06)
[2020-09-04] MEDS: sertraline 50mg tablet PO SCH (08:06)
--- NOTE | 2020-09-04 08:25 | NUR ---
Patient in room ED 14. I have received report from CARLI Ibarra and had the opportunity to ask questions and awaiting pt's arrival to PCU> .
[2020-09-04 08:35] VITALS: BP 123/85
--- NOTE | 2020-09-04 08:35 | NUR ---
Patient arrived from ED, ambulated self to bed with standby assistance. Alert and oriented to room, BLL, SRx2, CL within reach, non skid socks on. MRSA swab collected. 2 RN skin check complete. First set of vitals complete Temp 98.7 BP 123/85 HR 110 R 22 Pain 8/10 on right side of chest from surgery.
[2020-09-04] MEDS: ipratropium 0.5 MG/2.5ML nebule IH SCH ×4 (09:50→19:16)
[2020-09-04 10:48] LABS: URINE AMPHETAMINE SCREEN NEGATIVE (Neg); URINE BARBITUATE SCREEN NEGATIVE (Neg); URINE BENZODIAZEPINES SCREEN POSITIVE (Neg); URINE CANNABINOID SCREEN POSITIVE (Neg); URINE COCAINE SCREEN NEGATIVE (Neg); URINE METHADONE SCREEN NEGATIVE (Neg); URINE OPIATE SCREEN POSITIVE (Neg); URINE PHENCYCLIDINE SCREEN NEGATIVE (Neg)
[2020-09-04 11:00] VITALS: BP 119/86
[2020-09-04] MEDS: azithromycin/NS 500mg/250ml 250 ML IV SCH (12:10)
[2020-09-04] MEDS: amiodarone 200mg tablet PO SCH ×2 (12:11→20:39)
[2020-09-04] MEDS: dexamethasone 4mg/ml inj IV SCH ×3 (12:11→20:40)
[2020-09-04 15:00] VITALS: BP 146/74
--- NOTE | 2020-09-04 15:43 | NUR ---
Paged Respiratory per pt's request. Freeman Engel Rm [id number] Pt requesting breathing tx. Thank you :) [id number]
[2020-09-04] MEDS: gabapentin 400mg capsule PO SCH (15:59)
[2020-09-04] MEDS: cefepime 1GM/NS ADD-VANTAGE 100 ML IV SCH (16:01)
--- NOTE | 2020-09-04 18:12 | NUR ---
Problems reprioritized. Patient report given, questions answered & plan of care reviewed with CARLI Farfan. Pt sitting up in bedside chair resting comfortably. All pt needs met at this time.
--- NOTE | 2020-09-04 18:30 | NUR ---
Patient in room PCU 3012. I have received report from OUSMANE and had the opportunity to ask questions and assume patient care.
[2020-09-04 19:00] VITALS: BP 156/87
[2020-09-04] MEDS: lactobacillus rhamnosus 10,000 MMU CELLS/CAPSULE PO SCH (20:39)
[2020-09-04] MEDS: enoxaparin 40mg/0.4ml syringe SQ SCH (20:40)
[2020-09-04 22:00] VITALS: BP 140/90
[2020-09-05] MEDS: cefepime 1GM/NS ADD-VANTAGE 100 ML IV SCH ×3 (00:16→15:27)
[2020-09-05] MEDS: ibuprofen 200mg tablet PO SCH ×4 (00:16→23:31)
[2020-09-05] MEDS: gabapentin 400mg capsule PO SCH ×4 (00:16→23:31)
[2020-09-05] MEDS: ipratropium 0.5 MG/2.5ML nebule IH SCH ×2 (00:16→02:52)
[2020-09-05 02:00] VITALS: BP 121/73
[2020-09-05] MEDS: dexamethasone 4mg/ml inj IV SCH ×4 (02:03→20:01)
[2020-09-05] MEDS: HYDROcodone/acetaminophen 10/325mg tab PO PRN ×4 (02:12→19:57)
[2020-09-05] MEDS: ipratropium/albuterol 3ml nebule IH SCH ×4 (02:53→21:13)
--- NOTE | 2020-09-05 06:07 | NUR ---
Problems reprioritized. Patient report given, questions answered & plan of care reviewed with OUSMANE.
--- NOTE | 2020-09-05 06:20 | NUR ---
Patient in room PCU 3012. I have received report from CARLI Farfan and had the opportunity to ask questions and assume patient care.
[2020-09-05 06:56] LABS: BASOPHILS % (AUTO) 0.1 % (0-1); EOSINOPHILS % (AUTO) 0 % (0-6); HEMATOCRIT 33.3 % (42.0-52.0); HEMOGLOBIN 10.8 g/dl (14.0-17.9); LYMPHOCYTES # (AUTO) 0.8 X10'3 (1.1-4.8); LYMPHOCYTES % (AUTO) 3.7 % (21-51); MEAN CORPUSCULAR HEMOGLOBIN 29.2 PG (27.0-31.0); MEAN CORPUSCULAR HGB CONC 32.5 g/dL (33.0-36.5); MEAN CORPUSCULAR VOLUME 89.8 FL (78-98); MEAN PLATELET VOLUME 9.1 FL (7.4-10.4); MONOCYTES # (AUTO) 1.2 X10'3 (0-0.9); MONOCYTES % (AUTO) 5.3 % (2-12); NEUTROPHILS # (AUTO) 19.8 X10'3 (1.8-7.7); NEUTROPHILS % (AUTO) 90.9 % (42-75); PLATELET COUNT 577 X10'3 (140-440); RED BLOOD COUNT 3.71 X10'6 (4.70-6.10); RED CELL DISTRIBUTION WIDTH 16.2 % (11.5-14.5); WHITE BLOOD COUNT 21.8 X10'3 (4.5-11.0)
[2020-09-05 07:00] VITALS: BP 149/78
[2020-09-05 07:32] LABS: ALANINE AMINOTRANSFERASE 40 U/L (12-78); ALBUMIN 2.9 G/DL (3.4-5.0); ALBUMIN/GLOBULIN RATIO 0.6 (1.1-1.5); ALKALINE PHOSPHATASE 114 IU/L (46-116); ANION GAP 11 (8-16); ASPARTATE AMINO TRANSFERASE 22 U/L (10-37); BILIRUBIN,TOTAL 0.6 MG/DL (0.1-1.0); BLOOD UREA NITROGEN 28 MG/DL (7-18); BUN/CREATININE RATIO 27.2 (5.4-32.0); CALCIUM 8.8 MG/DL (8.5-10.1); CHLORIDE 105 MMOL/L (99-107); CREATININE 1.03 MG/DL (0.60-1.10); GLUCOSE 123 MG/DL (70-104); MAGNESIUM 2.3 MG/DL (1.5-2.4); PHOSPHORUS 5.2 MG/DL (2.3-4.5); POTASSIUM 4.2 MMOL/L (3.5-5.1); SODIUM 139 MMOL/L (135-145); TOTAL PROTEIN 7.7 G/DL (6.4-8.2); eGFR 74 ML/MIN
[2020-09-05] MEDS: azithromycin/NS 500mg/250ml 250 ML IV SCH (07:55)
[2020-09-05] MEDS: lactobacillus rhamnosus 10,000 MMU CELLS/CAPSULE PO SCH ×2 (07:56→19:57)
[2020-09-05] MEDS: pantoprazole 40mg Tablet.DR PO SCH (07:56)
[2020-09-05] MEDS: losartan 50mg tablet PO SCH (07:56)
[2020-09-05] MEDS: aspirin 81mg tablet.DR PO SCH (07:57)
[2020-09-05] MEDS: atorvastatin 20mg tablet PO SCH (07:57)
[2020-09-05] MEDS: sertraline 50mg tablet PO SCH (07:57)
[2020-09-05] MEDS: amiodarone 200mg tablet PO SCH ×2 (07:57→19:57)
[2020-09-05 11:00] VITALS: BP 125/71
[2020-09-05 15:00] VITALS: BP 135/85
[2020-09-05] MEDS: benzocaine/menthol oral lozeng 1 EACH BOX MM PRN ×3 (15:21→23:31)
[2020-09-05] MEDS ORDERED: ondansetron 4mg rapidly disintigrating tab PO PRN (16:00)
[2020-09-05] MEDS ORDERED: iohexol 300mg/ml 100ml inj. ONE (16:28)
[2020-09-05 18:00] VITALS: BP 136/110
--- NOTE | 2020-09-05 18:48 | NUR ---
Problems reprioritized. Patient report given, questions answered & plan of care reviewed with CARLI Gordillo. Pt sitting up in bedside chair. All pt needs met at this time.
--- NOTE | 2020-09-05 19:15 | NUR ---
Patient in room PCU 3012. I have received report from CARLI Swain and had the opportunity to ask questions and assume patient care. Patient sitting up in recliner, denies any needs at this time.
[2020-09-05] MEDS: enoxaparin 40mg/0.4ml syringe SQ SCH (19:58)
[2020-09-05 22:00] VITALS: BP 147/55
[2020-09-05] MEDS: vancomycin/NS 1 GM ADD-VANTAGE 250 ML IV SCH (23:25)
[2020-09-06] MEDS: HYDROcodone/acetaminophen 10/325mg tab PO PRN ×5 (01:34→21:31)
[2020-09-06] MEDS: benzocaine/menthol oral lozeng 1 EACH BOX MM PRN ×4 (01:37→16:43)
[2020-09-06] MEDS: piperacillin/tazo 3.375gm/50ml 50 ML IV SCH ×4 (01:38→23:58)
[2020-09-06 02:00] VITALS: BP 138/80
[2020-09-06] MEDS: ipratropium/albuterol 3ml nebule IH SCH ×4 (02:28→19:52)
--- NOTE | 2020-09-06 06:04 | NUR ---
Problems reprioritized. Patient report given, questions answered & plan of care reviewed with CARLI Liu.
--- NOTE | 2020-09-06 06:25 | NUR ---
Patient in room PCU 3012. I have received report from Duy BOYCE and had the opportunity to ask questions and assume patient care.
[2020-09-06 07:00] VITALS: BP 146/90
[2020-09-06] MEDS: vancomycin/NS 1 GM ADD-VANTAGE 250 ML IV SCH ×2 (07:11→18:59)
[2020-09-06] MEDS: amiodarone 200mg tablet PO SCH ×2 (07:11→21:31)
[2020-09-06] MEDS: losartan 50mg tablet PO SCH (07:12)
[2020-09-06] MEDS: pantoprazole 40mg Tablet.DR PO SCH (07:12)
[2020-09-06] MEDS: magnesium hydroxide 30ml (MOM) UD suspension PO SCH ×2 (07:12→20:00)
[2020-09-06] MEDS: lactobacillus rhamnosus 10,000 MMU CELLS/CAPSULE PO SCH ×2 (07:12→21:31)
[2020-09-06] MEDS: aspirin 81mg tablet.DR PO SCH (07:12)
[2020-09-06] MEDS: atorvastatin 20mg tablet PO SCH (07:12)
[2020-09-06] MEDS: ibuprofen 200mg tablet PO SCH ×3 (07:12→23:59)
[2020-09-06] MEDS: gabapentin 400mg capsule PO SCH ×3 (07:12→23:59)
[2020-09-06] MEDS: sertraline 50mg tablet PO SCH (07:13)
[2020-09-06 07:22] LABS: BASOPHILS % (AUTO) 0.2 % (0-1); EOSINOPHILS % (AUTO) 0 % (0-6); HEMATOCRIT 31.8 % (42.0-52.0); HEMOGLOBIN 10.3 g/dl (14.0-17.9); LYMPHOCYTES # (AUTO) 0.7 X10'3 (1.1-4.8); LYMPHOCYTES % (AUTO) 4.8 % (21-51); MEAN CORPUSCULAR HEMOGLOBIN 29.3 PG (27.0-31.0); MEAN CORPUSCULAR HGB CONC 32.4 g/dL (33.0-36.5); MEAN CORPUSCULAR VOLUME 90.3 FL (78-98); MEAN PLATELET VOLUME 8.8 FL (7.4-10.4); MONOCYTES # (AUTO) 1.1 X10'3 (0-0.9); MONOCYTES % (AUTO) 7.2 % (2-12); NEUTROPHILS # (AUTO) 13.4 X10'3 (1.8-7.7); NEUTROPHILS % (AUTO) 87.8 % (42-75); PLATELET COUNT 388 X10'3 (140-440); RED BLOOD COUNT 3.52 X10'6 (4.70-6.10); RED CELL DISTRIBUTION WIDTH 16.6 % (11.5-14.5); WHITE BLOOD COUNT 15.2 X10'3 (4.5-11.0)
[2020-09-06 07:42] LABS: ALANINE AMINOTRANSFERASE 35 U/L (12-78); ALBUMIN 2.6 G/DL (3.4-5.0); ALBUMIN/GLOBULIN RATIO 0.6 (1.1-1.5); ALKALINE PHOSPHATASE 99 IU/L (46-116); ANION GAP 10 (8-16); ASPARTATE AMINO TRANSFERASE 18 U/L (10-37); BILIRUBIN,TOTAL 0.4 MG/DL (0.1-1.0); BLOOD UREA NITROGEN 28 MG/DL (7-18); BUN/CREATININE RATIO 27.7 (5.4-32.0); CALCIUM 8.4 MG/DL (8.5-10.1); CHLORIDE 106 MMOL/L (99-107); CREATININE 1.01 MG/DL (0.60-1.10); GLUCOSE 97 MG/DL (70-104); MAGNESIUM 2.1 MG/DL (1.5-2.4); POTASSIUM 4.3 MMOL/L (3.5-5.1); SODIUM 139 MMOL/L (135-145); TOTAL CARBON DIOXIDE 22.9 MMOL/L (24-32); TOTAL PROTEIN 6.7 G/DL (6.4-8.2); eGFR 76 ML/MIN
[2020-09-06] MEDS: diltiazem CD 180mg cap (once-daily) PO SCH ×2 (09:24→21:31)
[2020-09-06] MEDS: LORazepam 0.5 MG tablet PO PRN ×2 (09:26→21:31)
[2020-09-06 11:00] VITALS: BP 113/68
[2020-09-06 11:42] LABS: ABG BASE EXCESS -6.1 mmol/L (-2.0-2.0); ABG HCO3 16.4 mmol/L (22.0-26.0); ABG OXYGEN SATURATION 93.4 % (94-97); ABG PCO2 (T) 23.8 mmHg (35.0-48.0); ABG PO2 (T) 67.5 mmHg (75.0-100.0); ALLEN'S TEST POSITIVE; FLOW 1 L/min; FMetHb 0.2 % (0.0-1.5); FO2Hb 93.2 % (94-97); TOTAL HEMOGLOBIN 10.7 G/dl (14.0-18.0)
[2020-09-06 15:00] VITALS: BP 101/66
[2020-09-06 18:00] VITALS: BP 108/72
--- NOTE | 2020-09-06 18:25 | NUR ---
Problems reprioritized. Patient report given, questions answered & plan of care reviewed with Calin BOYCE.
[2020-09-06] MEDS: acetylcysteine 200 MG/ml 4ml vial INH SCH (19:52)
[2020-09-06] MEDS: enoxaparin 40mg/0.4ml syringe SQ SCH (21:30)
[2020-09-06 22:00] VITALS: BP 117/63
--- NOTE | 2020-09-06 23:45 | NUR ---
reported to CARLI Medina.
--- NOTE | 2020-09-06 23:50 | NUR ---
Patient in room PCU 3012. I have received report from CARLI Zavala and had the opportunity to ask questions and assume patient care.
[2020-09-07 02:00] VITALS: BP 110/63
[2020-09-07] MEDS: benzocaine/menthol oral lozeng 1 EACH BOX MM PRN ×4 (02:46→19:27)
[2020-09-07] MEDS: HYDROcodone/acetaminophen 10/325mg tab PO PRN ×4 (02:47→19:26)
[2020-09-07] MEDS: ipratropium/albuterol 3ml nebule IH SCH ×4 (03:02→20:17)
--- NOTE | 2020-09-07 06:27 | NUR ---
Patient in room PCU 3012. I have received report from CARLI Medina and had the opportunity to ask questions and assume patient care. Pt sitting up in bedside chair.
--- NOTE | 2020-09-07 06:30 | NUR ---
Problems reprioritized. Patient report given, questions answered & plan of care reviewed with CARLI Swain.
[2020-09-07 07:00] VITALS: BP 119/75
[2020-09-07] MEDS ORDERED: VANCOMYCIN LEVEL IV ONE (07:30)
[2020-09-07 08:04] LABS: ANION GAP 9 (8-16); BASOPHILS % (AUTO) 0.1 % (0-1); BLOOD UREA NITROGEN 22 MG/DL (7-18); BUN/CREATININE RATIO 22.4 (5.4-32.0); CHLORIDE 104 MMOL/L (99-107); CREATININE 0.98 MG/DL (0.60-1.10); EOSINOPHILS # (AUTO) 0.2 X10'3 (0-0.9); EOSINOPHILS % (AUTO) 1.4 % (0-6); GLUCOSE 88 MG/DL (70-104); HEMATOCRIT 32.5 % (42.0-52.0); HEMOGLOBIN 10.6 g/dl (14.0-17.9); LYMPHOCYTES # (AUTO) 0.9 X10'3 (1.1-4.8); LYMPHOCYTES % (AUTO) 6.9 % (21-51); MEAN CORPUSCULAR HEMOGLOBIN 29.5 PG (27.0-31.0); MEAN CORPUSCULAR HGB CONC 32.6 g/dL (33.0-36.5); MEAN CORPUSCULAR VOLUME 90.3 FL (78-98); MEAN PLATELET VOLUME 8.6 FL (7.4-10.4); NEUTROPHILS # (AUTO) 10.6 X10'3 (1.8-7.7); NEUTROPHILS % (AUTO) 83.6 % (42-75); PLATELET COUNT 397 X10'3 (140-440); POTASSIUM 4.1 MMOL/L (3.5-5.1); RED BLOOD COUNT 3.61 X10'6 (4.70-6.10); RED CELL DISTRIBUTION WIDTH 16.1 % (11.5-14.5); SODIUM 136 MMOL/L (135-145); TOTAL CARBON DIOXIDE 23.4 MMOL/L (24-32); WHITE BLOOD COUNT 12.6 X10'3 (4.5-11.0)
[2020-09-07 08:05] LABS: ALANINE AMINOTRANSFERASE 34 U/L (12-78); ALBUMIN 2.5 G/DL (3.4-5.0); ALBUMIN/GLOBULIN RATIO 0.6 (1.1-1.5); ALKALINE PHOSPHATASE 106 IU/L (46-116); ASPARTATE AMINO TRANSFERASE 14 U/L (10-37); BILIRUBIN,TOTAL 0.6 MG/DL (0.1-1.0); CALCIUM 8.2 MG/DL (8.5-10.1); MAGNESIUM 1.9 MG/DL (1.5-2.4); PHOSPHORUS 3.7 MG/DL (2.3-4.5); TOTAL PROTEIN 6.7 G/DL (6.4-8.2); VANCOMYCIN,TROUGH 13.7 UG/ML (6.0-14.0); eGFR 78 ML/MIN
[2020-09-07] MEDS: diltiazem CD 180mg cap (once-daily) PO SCH ×2 (08:14→19:27)
[2020-09-07] MEDS: aspirin 81mg tablet.DR PO SCH (08:14)
[2020-09-07] MEDS: gabapentin 400mg capsule PO SCH ×2 (08:14→16:47)
[2020-09-07] MEDS: pantoprazole 40mg Tablet.DR PO SCH (08:15)
[2020-09-07] MEDS: losartan 50mg tablet PO SCH (08:15)
[2020-09-07] MEDS: magnesium hydroxide 30ml (MOM) UD suspension PO SCH ×2 (08:15→19:41)
[2020-09-07] MEDS: ibuprofen 200mg tablet PO SCH ×2 (08:15→16:47)
[2020-09-07] MEDS: amiodarone 200mg tablet PO SCH ×2 (08:15→19:26)
[2020-09-07] MEDS: atorvastatin 20mg tablet PO SCH (08:15)
[2020-09-07] MEDS: lactobacillus rhamnosus 10,000 MMU CELLS/CAPSULE PO SCH ×2 (08:15→19:26)
[2020-09-07] MEDS: sertraline 50mg tablet PO SCH (08:15)
[2020-09-07] MEDS: vancomycin/NS 1 GM ADD-VANTAGE 250 ML IV SCH (08:16)
[2020-09-07] MEDS: piperacillin/tazo 3.375gm/50ml 50 ML IV SCH ×2 (08:16→16:47)
[2020-09-07] MEDS: acetylcysteine 200 MG/ml 4ml vial INH SCH ×2 (08:41→20:17)
[2020-09-07 11:00] VITALS: BP 117/62
--- NOTE | 2020-09-07 11:14 | NUR ---
Initial: Pt admit with COPD exacerbation and A.fib with RVR. Pt on a regular diet with documented average 75-100% PO intake meeting estimated nutrient needs. LBM 09/06. No nutrition intervention warranted at this time. Will continue to follow. Recommendations: 1) Continue regular diet 2) Monitor need for additional protein 3) Bowel care per rx 4) Scaled weights per rx Addendum: 09/07/20 at [address] Amended: Links added.
[2020-09-07 15:00] VITALS: BP 102/47
[2020-09-07 18:00] VITALS: BP 129/69
--- NOTE | 2020-09-07 18:26 | NUR ---
Problems reprioritized. Patient report given, questions answered & plan of care reviewed with CARLI Medina. Pt sitting up in chair, resting comfortably at change of shift.
--- NOTE | 2020-09-07 18:26 | NUR ---
Patient in room PCU 3012. I have received report from CARLI Swain and had the opportunity to ask questions and assume patient care.
[2020-09-07] MEDS: enoxaparin 40mg/0.4ml syringe SQ SCH (19:25)
[2020-09-07] MEDS: VANCOmycin 1250MG/NS 250ml Bag 250 ML IV SCH (21:52)
[2020-09-07 22:00] VITALS: BP 116/69
[2020-09-08] MEDS: piperacillin/tazo 3.375gm/50ml 50 ML IV SCH ×4 (00:11→23:51)
[2020-09-08] MEDS: ibuprofen 200mg tablet PO SCH ×4 (00:12→23:46)
[2020-09-08] MEDS: gabapentin 400mg capsule PO SCH ×4 (00:12→23:46)
[2020-09-08] MEDS: HYDROcodone/acetaminophen 10/325mg tab PO PRN ×5 (00:51→20:20)
[2020-09-08 02:00] VITALS: BP 113/65
[2020-09-08] MEDS: ipratropium/albuterol 3ml nebule IH SCH ×4 (04:03→20:43)
--- NOTE | 2020-09-08 06:10 | NUR ---
Patient in room PCU 3012. I have received report from Carol BOYCE and had the opportunity to ask questions and assume patient care.
--- NOTE | 2020-09-08 06:14 | NUR ---
Problems reprioritized. Patient report given, questions answered & plan of care reviewed with CARLI Swain.
[2020-09-08 06:55] LABS: BASOPHILS % (AUTO) 0.2 % (0-1); EOSINOPHILS # (AUTO) 0.2 X10'3 (0-0.9); EOSINOPHILS % (AUTO) 1.5 % (0-6); HEMATOCRIT 30.6 % (42.0-52.0); HEMOGLOBIN 10.1 g/dl (14.0-17.9); LYMPHOCYTES # (AUTO) 0.5 X10'3 (1.1-4.8); LYMPHOCYTES % (AUTO) 4.9 % (21-51); MEAN CORPUSCULAR HEMOGLOBIN 29.2 PG (27.0-31.0); MEAN CORPUSCULAR HGB CONC 33.1 g/dL (33.0-36.5); MEAN CORPUSCULAR VOLUME 88.4 FL (78-98); MEAN PLATELET VOLUME 8.6 FL (7.4-10.4); MONOCYTES # (AUTO) 0.7 X10'3 (0-0.9); MONOCYTES % (AUTO) 6.5 % (2-12); NEUTROPHILS # (AUTO) 9.8 X10'3 (1.8-7.7); NEUTROPHILS % (AUTO) 86.9 % (42-75); PLATELET COUNT 377 X10'3 (140-440); RED BLOOD COUNT 3.46 X10'6 (4.70-6.10); WHITE BLOOD COUNT 11.3 X10'3 (4.5-11.0)
[2020-09-08 07:00] VITALS: BP 122/64
[2020-09-08 07:09] LABS: ALANINE AMINOTRANSFERASE 28 U/L (12-78); ALBUMIN 2.3 G/DL (3.4-5.0); ALBUMIN/GLOBULIN RATIO 0.6 (1.1-1.5); ALKALINE PHOSPHATASE 105 IU/L (46-116); ANION GAP 10 (8-16); ASPARTATE AMINO TRANSFERASE 14 U/L (10-37); BILIRUBIN,TOTAL 0.7 MG/DL (0.1-1.0); BLOOD UREA NITROGEN 15 MG/DL (7-18); BUN/CREATININE RATIO 16.5 (5.4-32.0); CALCIUM 8.2 MG/DL (8.5-10.1); CHLORIDE 105 MMOL/L (99-107); CREATININE 0.91 MG/DL (0.60-1.10); GLUCOSE 101 MG/DL (70-104); MAGNESIUM 1.9 MG/DL (1.5-2.4); PHOSPHORUS 3.2 MG/DL (2.3-4.5); POTASSIUM 4.2 MMOL/L (3.5-5.1); SODIUM 138 MMOL/L (135-145); TOTAL CARBON DIOXIDE 23.1 MMOL/L (24-32); TOTAL PROTEIN 6.4 G/DL (6.4-8.2); eGFR 85 ML/MIN
[2020-09-08] MEDS: VANCOmycin 1250MG/NS 250ml Bag 250 ML IV SCH ×2 (07:44→20:14)
[2020-09-08] MEDS: benzocaine/menthol oral lozeng 1 EACH BOX MM PRN ×4 (07:46→20:18)
[2020-09-08] MEDS: lactobacillus rhamnosus 10,000 MMU CELLS/CAPSULE PO SCH ×2 (07:49→20:18)
[2020-09-08] MEDS: diltiazem CD 180mg cap (once-daily) PO SCH ×2 (07:49→20:13)
[2020-09-08] MEDS: pantoprazole 40mg Tablet.DR PO SCH (07:50)
[2020-09-08] MEDS: aspirin 81mg tablet.DR PO SCH (07:50)
[2020-09-08] MEDS: losartan 50mg tablet PO SCH (07:50)
[2020-09-08] MEDS: atorvastatin 20mg tablet PO SCH (07:50)
[2020-09-08] MEDS: amiodarone 200mg tablet PO SCH ×2 (07:50→20:13)
[2020-09-08] MEDS: sertraline 50mg tablet PO SCH (07:50)
[2020-09-08] MEDS: magnesium hydroxide 30ml (MOM) UD suspension PO SCH ×2 (07:51→20:18)
[2020-09-08] MEDS: acetylcysteine 200 MG/ml 4ml vial INH SCH ×3 (08:46→20:44)
[2020-09-08 11:00] VITALS: BP 90/56
[2020-09-08 15:00] VITALS: BP 119/76
--- NOTE | 2020-09-08 17:51 | NUR ---
Charge Nurse Debbie Solo, noticed NO notes on patient. Called Dr. Jimenez who told Charge He had signed off on patient over two days ago. A group page was sent out to hospitalist to notify MDs. Will continue to monitor.
[2020-09-08 18:00] VITALS: BP 105/66
--- NOTE | 2020-09-08 18:08 | NUR ---
Problems reprioritized. Patient report given, questions answered & plan of care reviewed with Hugh BOYCE.
--- NOTE | 2020-09-08 18:30 | NUR ---
Patient in room PCU 3012. I have received report from Brynn BOYCE and had the opportunity to ask questions and assume patient care.
[2020-09-08] MEDS ORDERED: morphine 2 MG/ML inj. syringe IV PRN (19:20)
[2020-09-08] MEDS: enoxaparin 40mg/0.4ml syringe SQ SCH (20:13)
--- NOTE | 2020-09-08 21:18 | NUR ---
Notified PAGER ID: [phone] MESSAGE: FYI: Freeman Herrera in [id number] was social security assessor group, on days Dr Jimenez informed staff that social security assessor group signed off on pt 2 days & no hospitalist picked him up. Dr. Lopez to assume care tomorrow. I just wanted you to be aware. [facility] 1954
[2020-09-08 22:00] VITALS: BP 110/67
[2020-09-09 02:00] VITALS: BP 104/62
[2020-09-09] MEDS: ipratropium/albuterol 3ml nebule IH SCH ×4 (02:50→21:08)
--- NOTE | 2020-09-09 06:48 | NUR ---
Problems reprioritized. Patient report given, questions answered & plan of care reviewed with Sandra BOYCE.
[2020-09-09 07:00] VITALS: BP 114/69
[2020-09-09] MEDS: acetylcysteine 200 MG/ml 4ml vial INH SCH (07:15)
[2020-09-09] MEDS ORDERED: VANCOMYCIN LEVEL IV ONE (07:30)
[2020-09-09] MEDS: magnesium hydroxide 30ml (MOM) UD suspension PO SCH ×2 (08:00→19:24)
[2020-09-09 09:12] LABS: BASOPHILS # (AUTO) 0.1 X10'3 (0-0.2); BASOPHILS % (AUTO) 0.7 % (0-1); EOSINOPHILS # (AUTO) 0.2 X10'3 (0-0.9); EOSINOPHILS % (AUTO) 1.7 % (0-6); HEMATOCRIT 30.3 % (42.0-52.0); HEMOGLOBIN 10.1 g/dl (14.0-17.9); LYMPHOCYTES # (AUTO) 0.6 X10'3 (1.1-4.8); LYMPHOCYTES % (AUTO) 4.5 % (21-51); MEAN CORPUSCULAR HEMOGLOBIN 29.2 PG (27.0-31.0); MEAN CORPUSCULAR HGB CONC 33.1 g/dL (33.0-36.5); MEAN CORPUSCULAR VOLUME 88.1 FL (78-98); MEAN PLATELET VOLUME 8.5 FL (7.4-10.4); MONOCYTES # (AUTO) 1.2 X10'3 (0-0.9); MONOCYTES % (AUTO) 8.7 % (2-12); NEUTROPHILS # (AUTO) 11.1 X10'3 (1.8-7.7); NEUTROPHILS % (AUTO) 84.4 % (42-75); PLATELET COUNT 347 X10'3 (140-440); RED BLOOD COUNT 3.44 X10'6 (4.70-6.10); WHITE BLOOD COUNT 13.2 X10'3 (4.5-11.0)
[2020-09-09] MEDS: VANCOmycin 1250MG/NS 250ml Bag 250 ML IV SCH ×2 (09:17→19:11)
[2020-09-09] MEDS: piperacillin/tazo 3.375gm/50ml 50 ML IV SCH ×3 (09:17→23:13)
[2020-09-09] MEDS: ibuprofen 200mg tablet PO SCH ×3 (09:18→23:13)
[2020-09-09] MEDS: losartan 50mg tablet PO SCH (09:18)
[2020-09-09] MEDS: gabapentin 400mg capsule PO SCH ×3 (09:18→23:13)
[2020-09-09] MEDS: diltiazem CD 180mg cap (once-daily) PO SCH ×2 (09:18→19:12)
[2020-09-09] MEDS: sertraline 50mg tablet PO SCH (09:19)
[2020-09-09] MEDS: amiodarone 200mg tablet PO SCH ×2 (09:19→19:14)
[2020-09-09] MEDS: aspirin 81mg tablet.DR PO SCH (09:19)
[2020-09-09] MEDS: lactobacillus rhamnosus 10,000 MMU CELLS/CAPSULE PO SCH ×2 (09:19→19:14)
[2020-09-09] MEDS: pantoprazole 40mg Tablet.DR PO SCH (09:19)
[2020-09-09] MEDS: atorvastatin 20mg tablet PO SCH (09:19)
[2020-09-09] MEDS: HYDROcodone/acetaminophen 10/325mg tab PO PRN ×3 (09:20→23:13)
[2020-09-09 09:26] LABS: ALANINE AMINOTRANSFERASE 24 U/L (12-78); ALBUMIN 2.2 G/DL (3.4-5.0); ALBUMIN/GLOBULIN RATIO 0.5 (1.1-1.5); ALKALINE PHOSPHATASE 118 IU/L (46-116); ANION GAP 12 (8-16); ASPARTATE AMINO TRANSFERASE 12 U/L (10-37); BILIRUBIN,TOTAL 0.6 MG/DL (0.1-1.0); BLOOD UREA NITROGEN 14 MG/DL (7-18); BUN/CREATININE RATIO 15.1 (5.4-32.0); CALCIUM 8.3 MG/DL (8.5-10.1); CHLORIDE 102 MMOL/L (99-107); CREATININE 0.93 MG/DL (0.60-1.10); GLUCOSE 105 MG/DL (70-104); POTASSIUM 3.8 MMOL/L (3.5-5.1); SODIUM 136 MMOL/L (135-145); TOTAL CARBON DIOXIDE 22.3 MMOL/L (24-32); TOTAL PROTEIN 6.9 G/DL (6.4-8.2); eGFR 83 ML/MIN
[2020-09-09 11:30] VITALS: BP 112/59
--- NOTE | 2020-09-09 14:29 | NUR ---
Nutrition consult received d/t patient refusing breakfast however was eating 100% prior and enjoying prior meals, no nutrition problem at this time. Addendum: 09/09/20 at [address] Amended: Links added.
[2020-09-09 15:00] VITALS: BP 96/61
--- NOTE | 2020-09-09 16:55 | NUR ---
PAGER ID: [phone] MESSAGE: Freeman Herrera [id number] Pt. upset. He said the doctor told him he could go home today. I am unaware of a discharge. Please update me on situation. Thank you Sandra [phone]
--- NOTE | 2020-09-09 17:10 | NUR ---
PAGER ID: [phone] MESSAGE: Freeman Herrera 3012b Pt. very upset. States doctor told him he could leave today and now he is not leaving. Unaware of a plan to discharge. Please call me to update on situation. Thank you, Sandra [phone]
[2020-09-09 18:00] VITALS: BP 110/58
--- NOTE | 2020-09-09 18:21 | NUR ---
Harmeet returned page by telephone. States he spoke to Andrew today and Andrew did not like the results of current CXR and so discharge was not the plan at this moment. Relayed this information to pt.
--- NOTE | 2020-09-09 18:22 | NUR ---
Gave report to Gloria BOYCE.
--- NOTE | 2020-09-09 18:30 | NUR ---
Patient in room PCU 3012. I have received report from Sandra BOYCE and had the opportunity to ask questions and assume patient care.
[2020-09-09] MEDS: enoxaparin 40mg/0.4ml syringe SQ SCH (19:12)
[2020-09-09 22:00] VITALS: BP 114/64
[2020-09-10 02:00] VITALS: BP 112/56
[2020-09-10] MEDS: ipratropium/albuterol 3ml nebule IH SCH ×4 (03:01→21:01)
[2020-09-10] MEDS: HYDROcodone/acetaminophen 10/325mg tab PO PRN ×5 (03:05→22:39)
--- NOTE | 2020-09-10 06:30 | NUR ---
Problems reprioritized. Patient report given, questions answered & plan of care reviewed with Brynn BOYCE.
[2020-09-10 06:37] LABS: BASOPHILS # (AUTO) 0.1 X10'3 (0-0.2); BASOPHILS % (AUTO) 0.7 % (0-1); EOSINOPHILS # (AUTO) 0.2 X10'3 (0-0.9); EOSINOPHILS % (AUTO) 2.2 % (0-6); HEMATOCRIT 25.9 % (42.0-52.0); HEMOGLOBIN 8.7 g/dl (14.0-17.9); LYMPHOCYTES # (AUTO) 0.8 X10'3 (1.1-4.8); LYMPHOCYTES % (AUTO) 8.6 % (21-51); MEAN CORPUSCULAR HEMOGLOBIN 29.3 PG (27.0-31.0); MEAN CORPUSCULAR HGB CONC 33.8 g/dL (33.0-36.5); MEAN CORPUSCULAR VOLUME 86.7 FL (78-98); MEAN PLATELET VOLUME 8.7 FL (7.4-10.4); MONOCYTES # (AUTO) 0.9 X10'3 (0-0.9); NEUTROPHILS % (AUTO) 78.5 % (42-75); PLATELET COUNT 318 X10'3 (140-440); RED BLOOD COUNT 2.98 X10'6 (4.70-6.10); RED CELL DISTRIBUTION WIDTH 16.2 % (11.5-14.5); WHITE BLOOD COUNT 8.9 X10'3 (4.5-11.0)
--- NOTE | 2020-09-10 06:43 | NUR ---
Patient in room PCU 3012. I have received report from Yaakov BOYCE and had the opportunity to ask questions and assume patient care.
[2020-09-10 06:53] LABS: ALANINE AMINOTRANSFERASE 19 U/L (12-78); ALBUMIN/GLOBULIN RATIO 0.5 (1.1-1.5); ALKALINE PHOSPHATASE 103 IU/L (46-116); ANION GAP 9 (8-16); ASPARTATE AMINO TRANSFERASE 12 U/L (10-37); BILIRUBIN,TOTAL 0.4 MG/DL (0.1-1.0); BLOOD UREA NITROGEN 16 MG/DL (7-18); BUN/CREATININE RATIO 14.2 (5.4-32.0); CALCIUM 8.1 MG/DL (8.5-10.1); CHLORIDE 103 MMOL/L (99-107); CREATININE 1.13 MG/DL (0.60-1.10); GLUCOSE 106 MG/DL (70-104); MAGNESIUM 2.1 MG/DL (1.5-2.4); PHOSPHORUS 3.3 MG/DL (2.3-4.5); POTASSIUM 3.6 MMOL/L (3.5-5.1); SODIUM 136 MMOL/L (135-145); TOTAL CARBON DIOXIDE 24.4 MMOL/L (24-32); TOTAL PROTEIN 6.2 G/DL (6.4-8.2); eGFR 66 ML/MIN
[2020-09-10 07:00] VITALS: BP 103/62
[2020-09-10] MEDS: gabapentin 400mg capsule PO SCH ×3 (07:37→23:45)
[2020-09-10] MEDS: sertraline 50mg tablet PO SCH (07:37)
[2020-09-10] MEDS: diltiazem CD 180mg cap (once-daily) PO SCH ×3 (07:37→20:22)
[2020-09-10] MEDS: VANCOmycin 1250MG/NS 250ml Bag 250 ML IV SCH ×2 (07:37→20:24)
[2020-09-10] MEDS: amiodarone 200mg tablet PO SCH ×2 (07:37→20:22)
[2020-09-10] MEDS: losartan 50mg tablet PO SCH (07:37)
[2020-09-10] MEDS: ibuprofen 200mg tablet PO SCH ×3 (07:37→23:45)
[2020-09-10] MEDS: atorvastatin 20mg tablet PO SCH (07:38)
[2020-09-10] MEDS: pantoprazole 40mg Tablet.DR PO SCH (07:38)
[2020-09-10] MEDS: aspirin 81mg tablet.DR PO SCH (07:38)
[2020-09-10] MEDS: lactobacillus rhamnosus 10,000 MMU CELLS/CAPSULE PO SCH ×2 (07:38→20:22)
[2020-09-10] MEDS: magnesium hydroxide 30ml (MOM) UD suspension PO SCH ×3 (08:00→20:23)
--- NOTE | 2020-09-10 09:11 | NUR ---
Please send more chloraseptic drops for patient
[2020-09-10] MEDS: piperacillin/tazo 3.375gm/50ml 50 ML IV SCH ×3 (09:12→23:47)
[2020-09-10] MEDS: benzocaine/menthol oral lozeng 1 EACH BOX MM PRN ×4 (09:56→23:33)
[2020-09-10 11:00] VITALS: BP 112/76
--- NOTE | 2020-09-10 13:03 | NUR ---
Dr. Ga at bedside with patient and nurse. Chest X ray did not show improvement but the opposite. Debate on CT with contrast will be thought. Sputum sample is needed. Will continue to monitor.
[2020-09-10 15:00] VITALS: BP 104/57
--- NOTE | 2020-09-10 18:04 | NUR ---
Problems reprioritized. Patient report given, questions answered & plan of care reviewed with Kojo BOYCE.
[2020-09-10] MEDS: enoxaparin 40mg/0.4ml syringe SQ SCH (20:23)
[2020-09-11] MEDS: ipratropium/albuterol 3ml nebule IH SCH ×4 (02:48→20:37)
[2020-09-11 06:00] VITALS: BP 124/74
--- NOTE | 2020-09-11 06:44 | NUR ---
Problems reprioritized. Patient report given, questions answered & plan of care reviewed with Rach Cowart. Addendum: 09/11/20 at 0646 by Gloria Cardoso RN Problems reprioritized. Patient report given, questions answered & plan of care reviewed with Dixie COWART.
--- NOTE | 2020-09-11 06:45 | NUR ---
Patient in room PCU 3012. I have received report from Gloria BOYCE and had the opportunity to ask questions and assume patient care.
--- NOTE | 2020-09-11 06:54 | NUR ---
Patient in room PCU 3012. I have received report from Gloria BOYCE and had the opportunity to ask questions and assume patient care.
[2020-09-11 06:59] LABS: BASOPHILS % (AUTO) 0.6 % (0-1); EOSINOPHILS # (AUTO) 0.2 X10'3 (0-0.9); EOSINOPHILS % (AUTO) 2.8 % (0-6); HEMATOCRIT 26.1 % (42.0-52.0); HEMOGLOBIN 8.8 g/dl (14.0-17.9); LYMPHOCYTES # (AUTO) 0.7 X10'3 (1.1-4.8); LYMPHOCYTES % (AUTO) 8.1 % (21-51); MEAN CORPUSCULAR HEMOGLOBIN 29.3 PG (27.0-31.0); MEAN CORPUSCULAR HGB CONC 33.7 g/dL (33.0-36.5); MEAN PLATELET VOLUME 8.6 FL (7.4-10.4); MONOCYTES # (AUTO) 0.8 X10'3 (0-0.9); MONOCYTES % (AUTO) 9.5 % (2-12); NEUTROPHILS # (AUTO) 6.4 X10'3 (1.8-7.7); PLATELET COUNT 332 X10'3 (140-440); RED CELL DISTRIBUTION WIDTH 16.3 % (11.5-14.5); WHITE BLOOD COUNT 8.1 X10'3 (4.5-11.0)
[2020-09-11 07:19] LABS: ALANINE AMINOTRANSFERASE 20 U/L (12-78); ALBUMIN/GLOBULIN RATIO 0.5 (1.1-1.5); ALKALINE PHOSPHATASE 111 IU/L (46-116); ANION GAP 11 (8-16); ASPARTATE AMINO TRANSFERASE 13 U/L (10-37); BILIRUBIN,TOTAL 0.4 MG/DL (0.1-1.0); BLOOD UREA NITROGEN 13 MG/DL (7-18); BUN/CREATININE RATIO 11.4 (5.4-32.0); CALCIUM 8.3 MG/DL (8.5-10.1); CHLORIDE 105 MMOL/L (99-107); CREATININE 1.14 MG/DL (0.60-1.10); GLUCOSE 90 MG/DL (70-104); PHOSPHORUS 3.7 MG/DL (2.3-4.5); POTASSIUM 4.1 MMOL/L (3.5-5.1); SODIUM 139 MMOL/L (135-145); TOTAL CARBON DIOXIDE 23.3 MMOL/L (24-32); TOTAL PROTEIN 6.4 G/DL (6.4-8.2); eGFR 66 ML/MIN
[2020-09-11] MEDS: ibuprofen 200mg tablet PO SCH ×3 (07:51→23:54)
[2020-09-11] MEDS: diltiazem CD 180mg cap (once-daily) PO SCH ×2 (07:51→19:23)
[2020-09-11] MEDS: VANCOmycin 1250MG/NS 250ml Bag 250 ML IV SCH ×2 (07:51→19:23)
[2020-09-11] MEDS: lactobacillus rhamnosus 10,000 MMU CELLS/CAPSULE PO SCH ×2 (07:51→19:23)
[2020-09-11] MEDS: aspirin 81mg tablet.DR PO SCH (07:52)
[2020-09-11] MEDS: pantoprazole 40mg Tablet.DR PO SCH (07:52)
[2020-09-11] MEDS: atorvastatin 20mg tablet PO SCH (07:52)
[2020-09-11] MEDS: gabapentin 400mg capsule PO SCH ×3 (07:52→23:54)
[2020-09-11] MEDS: amiodarone 200mg tablet PO SCH ×2 (07:52→19:23)
[2020-09-11] MEDS: losartan 50mg tablet PO SCH (07:52)
[2020-09-11] MEDS: sertraline 50mg tablet PO SCH (07:53)
[2020-09-11] MEDS: magnesium hydroxide 30ml (MOM) UD suspension PO SCH ×2 (07:53→19:23)
[2020-09-11] MEDS: HYDROcodone/acetaminophen 10/325mg tab PO PRN ×3 (07:55→17:53)
[2020-09-11] MEDS: piperacillin/tazo 3.375gm/50ml 50 ML IV SCH ×3 (10:31→23:54)
[2020-09-11 11:00] VITALS: BP 113/66
[2020-09-11 15:00] VITALS: BP 102/59
[2020-09-11 18:00] VITALS: BP 113/59
[2020-09-11] MEDS: enoxaparin 40mg/0.4ml syringe SQ SCH (19:24)
[2020-09-11 22:00] VITALS: BP 106/45
[2020-09-12 02:00] VITALS: BP 105/66
[2020-09-12] MEDS: ipratropium/albuterol 3ml nebule IH SCH ×4 (02:56→21:11)
[2020-09-12 06:00] VITALS: BP 118/77
--- NOTE | 2020-09-12 06:11 | NUR ---
REPORT GIVEN TO CARLI HODGES.
--- NOTE | 2020-09-12 06:17 | NUR ---
Patient in room PCU 3012. I have received report from CARLI Villalta and had the opportunity to ask questions and assume patient care.
--- NOTE | 2020-09-12 06:20 | NUR ---
Patient in room PCU 3012. I have received report from Ambar BOYCE and had the opportunity to ask questions and assume patient care.
[2020-09-12 06:46] LABS: BASOPHILS # (AUTO) 0.1 X10'3 (0-0.2); BASOPHILS % (AUTO) 0.9 % (0-1); EOSINOPHILS # (AUTO) 0.1 X10'3 (0-0.9); HEMATOCRIT 28.5 % (42.0-52.0); HEMOGLOBIN 9.4 g/dl (14.0-17.9); LYMPHOCYTES # (AUTO) 0.6 X10'3 (1.1-4.8); MEAN CORPUSCULAR HEMOGLOBIN 28.7 PG (27.0-31.0); MEAN CORPUSCULAR HGB CONC 32.8 g/dL (33.0-36.5); MEAN CORPUSCULAR VOLUME 87.4 FL (78-98); MEAN PLATELET VOLUME 8.2 FL (7.4-10.4); MONOCYTES # (AUTO) 0.7 X10'3 (0-0.9); MONOCYTES % (AUTO) 11.4 % (2-12); NEUTROPHILS # (AUTO) 4.8 X10'3 (1.8-7.7); NEUTROPHILS % (AUTO) 75.7 % (42-75); PLATELET COUNT 289 X10'3 (140-440); RED BLOOD COUNT 3.26 X10'6 (4.70-6.10); RED CELL DISTRIBUTION WIDTH 16.5 % (11.5-14.5); WHITE BLOOD COUNT 6.3 X10'3 (4.5-11.0)
[2020-09-12 07:06] LABS: ALANINE AMINOTRANSFERASE 18 U/L (12-78); ALBUMIN/GLOBULIN RATIO 0.4 (1.1-1.5); ALKALINE PHOSPHATASE 118 IU/L (46-116); ANION GAP 12 (8-16); ASPARTATE AMINO TRANSFERASE 16 U/L (10-37); BILIRUBIN,TOTAL 0.4 MG/DL (0.1-1.0); BLOOD UREA NITROGEN 10 MG/DL (7-18); BUN/CREATININE RATIO 9.5 (5.4-32.0); CALCIUM 8.1 MG/DL (8.5-10.1); CHLORIDE 105 MMOL/L (99-107); CREATININE 1.05 MG/DL (0.60-1.10); GLUCOSE 95 MG/DL (70-104); MAGNESIUM 2.1 MG/DL (1.5-2.4); PHOSPHORUS 3.8 MG/DL (2.3-4.5); POTASSIUM 3.5 MMOL/L (3.5-5.1); SODIUM 139 MMOL/L (135-145); TOTAL CARBON DIOXIDE 22.5 MMOL/L (24-32); TOTAL PROTEIN 6.6 G/DL (6.4-8.2); eGFR 72 ML/MIN
[2020-09-12] MEDS: losartan 50mg tablet PO SCH (08:00)
[2020-09-12] MEDS: sertraline 50mg tablet PO SCH (09:06)
[2020-09-12] MEDS: lactobacillus rhamnosus 10,000 MMU CELLS/CAPSULE PO SCH ×2 (09:06→19:13)
[2020-09-12] MEDS: magnesium hydroxide 30ml (MOM) UD suspension PO SCH ×2 (09:06→19:13)
[2020-09-12] MEDS: pantoprazole 40mg Tablet.DR PO SCH (09:07)
[2020-09-12] MEDS: HYDROcodone/acetaminophen 10/325mg tab PO PRN ×3 (09:07→19:24)
[2020-09-12] MEDS: amiodarone 200mg tablet PO SCH ×2 (09:07→19:13)
[2020-09-12] MEDS: ibuprofen 200mg tablet PO SCH ×3 (09:08→23:52)
[2020-09-12] MEDS: gabapentin 400mg capsule PO SCH ×3 (09:08→23:52)
[2020-09-12] MEDS: atorvastatin 20mg tablet PO SCH (09:08)
[2020-09-12] MEDS: aspirin 81mg tablet.DR PO SCH (09:08)
[2020-09-12] MEDS: diltiazem CD 180mg cap (once-daily) PO SCH ×2 (09:09→19:13)
[2020-09-12] MEDS: VANCOmycin 1250MG/NS 250ml Bag 250 ML IV SCH ×2 (09:09→19:19)
[2020-09-12 11:00] VITALS: BP 118/74
[2020-09-12] MEDS: piperacillin/tazo 3.375gm/50ml 50 ML IV SCH ×3 (11:33→23:52)
--- NOTE | 2020-09-12 11:49 | NUR ---
Reassessment: Pt PO fluctuates up to 100% at times overall ~75% avg meals. Loculated PNA w/ large diaphragmatic hernia noted in CT per MD note. RD recommends ensure high protein ONS TIDWM for additional protein/kcal needs s/p recent R lobectomy 08/22; surgeon notified. LBM 09/11; receiving routine bowel care per EMR. Will continue to monitor for additional protein /kcal needs. Recommendations: 1) Continue regular diet 2) ensure high protein TIDWM 3) Bowel care per rx 4) weekly wts Addendum: 09/12/20 at [address] Amended: Links added.
[2020-09-12 15:00] VITALS: BP 116/63
[2020-09-12 18:00] VITALS: BP 103/67
--- NOTE | 2020-09-12 18:18 | NUR ---
Problems reprioritized. Patient report given, questions answered & plan of care reviewed with Juliana BOYCE. Patient stable at transfer of care.
--- NOTE | 2020-09-12 18:30 | NUR ---
Patient in room PCU 3012. I have received report from TRACIERN/FRANKORN and had the opportunity to ask questions and assume patient care.
[2020-09-12] MEDS: enoxaparin 40mg/0.4ml syringe SQ SCH (19:38)
[2020-09-12 22:00] VITALS: BP 94/67
[2020-09-13 02:00] VITALS: BP 102/68
[2020-09-13] MEDS: ipratropium/albuterol 3ml nebule IH SCH ×3 (02:44→14:13)
[2020-09-13 06:00] VITALS: BP 117/76
--- NOTE | 2020-09-13 06:30 | NUR ---
Problems reprioritized. Patient report given, questions answered & plan of care reviewed with CARLI HERBERT.
--- NOTE | 2020-09-13 06:33 | NUR ---
Patient in room PCU 3012. I have received report from Juliana and had the opportunity to ask questions and assume patient care.
[2020-09-13] MEDS: ibuprofen 200mg tablet PO SCH (07:19)
[2020-09-13] MEDS: lactobacillus rhamnosus 10,000 MMU CELLS/CAPSULE PO SCH (07:19)
[2020-09-13] MEDS: pantoprazole 40mg Tablet.DR PO SCH (07:19)
[2020-09-13] MEDS: diltiazem CD 180mg cap (once-daily) PO SCH (07:19)
[2020-09-13] MEDS: aspirin 81mg tablet.DR PO SCH (07:19)
[2020-09-13 07:21] LABS: BASOPHILS # (AUTO) 0.1 X10'3 (0-0.2); EOSINOPHILS # (AUTO) 0.1 X10'3 (0-0.9); EOSINOPHILS % (AUTO) 2.1 % (0-6); HEMATOCRIT 25.2 % (42.0-52.0); HEMOGLOBIN 8.3 g/dl (14.0-17.9); LYMPHOCYTES # (AUTO) 0.6 X10'3 (1.1-4.8); LYMPHOCYTES % (AUTO) 9.8 % (21-51); MEAN CORPUSCULAR HEMOGLOBIN 28.7 PG (27.0-31.0); MEAN PLATELET VOLUME 8.2 FL (7.4-10.4); MONOCYTES # (AUTO) 0.7 X10'3 (0-0.9); MONOCYTES % (AUTO) 11.3 % (2-12); NEUTROPHILS # (AUTO) 5.1 X10'3 (1.8-7.7); NEUTROPHILS % (AUTO) 75.8 % (42-75); PLATELET COUNT 262 X10'3 (140-440); RED BLOOD COUNT 2.89 X10'6 (4.70-6.10); RED CELL DISTRIBUTION WIDTH 16.6 % (11.5-14.5); WHITE BLOOD COUNT 6.7 X10'3 (4.5-11.0)
[2020-09-13] MEDS: atorvastatin 20mg tablet PO SCH (07:21)
[2020-09-13] MEDS: amiodarone 200mg tablet PO SCH (07:22)
[2020-09-13] MEDS: losartan 50mg tablet PO SCH (07:22)
[2020-09-13] MEDS: sertraline 50mg tablet PO SCH (07:22)
[2020-09-13] MEDS: VANCOmycin 1250MG/NS 250ml Bag 250 ML IV SCH (07:22)
[2020-09-13] MEDS: gabapentin 400mg capsule PO SCH (07:22)
[2020-09-13 07:46] LABS: ALANINE AMINOTRANSFERASE 19 U/L (12-78); ALBUMIN 1.9 G/DL (3.4-5.0); ALBUMIN/GLOBULIN RATIO 0.4 (1.1-1.5); ALKALINE PHOSPHATASE 118 IU/L (46-116); ANION GAP 10 (8-16); ASPARTATE AMINO TRANSFERASE 15 U/L (10-37); BILIRUBIN,TOTAL 0.3 MG/DL (0.1-1.0); BLOOD UREA NITROGEN 11 MG/DL (7-18); CALCIUM 8.5 MG/DL (8.5-10.1); CHLORIDE 106 MMOL/L (99-107); CREATININE 1.22 MG/DL (0.60-1.10); GLUCOSE 92 MG/DL (70-104); MAGNESIUM 2.1 MG/DL (1.5-2.4); PHOSPHORUS 4.3 MG/DL (2.3-4.5); POTASSIUM 3.7 MMOL/L (3.5-5.1); SODIUM 140 MMOL/L (135-145); TOTAL CARBON DIOXIDE 23.7 MMOL/L (24-32); TOTAL PROTEIN 6.4 G/DL (6.4-8.2); eGFR 61 ML/MIN
[2020-09-13] MEDS: magnesium hydroxide 30ml (MOM) UD suspension PO SCH (08:00)
[2020-09-13] MEDS: piperacillin/tazo 3.375gm/50ml 50 ML IV SCH (09:32)
[2020-09-13 11:00] VITALS: BP 128/67
--- NOTE | 2020-09-13 12:19 | NUR ---
O2 Sat at rest on room air:_93__% If below 89%: Recovery O2 Sat at rest on ___LPM:___%:_2__% via___nasal cannula (mask/nasal cannula, etc..) No further documentation is necessary. If O2 Sat did not drop below 89% on room air,ambulate patient on room air. O2 Sat while ambulating on room air:_87__% Recovery O2 Sat while ambulating on _95__LPM:2 Nasal cannula___% No further documentation is necessary. If patient does not drop below 89% while ambulating, he/she does not qualify for home O2.
[2020-09-13] MEDS ORDERED: GABA-534 PO (13:35)
[2020-09-13] MEDS ORDERED: LACT1CAP26 PO (13:35)
[2020-09-13] MEDS ORDERED: APIX5TAB3 PO (13:35)
[2020-09-13] MEDS ORDERED: DILT180C66 PO (13:35)
[2020-09-13] MEDS ORDERED: AMIO200T62 PO (13:35)
[2020-09-13] MEDS ORDERED: AMOX-419 PO (13:35)
[2020-09-13] MEDS ORDERED: apixaban 5mg tablet PO SCH (13:50)
--- NOTE | 2020-09-13 14:48 | NUR ---
PT REFUSED 1400 VN STATING HE WAS GOING HOME AND DID NOT NEED TX
--- NOTE | 2020-09-13 16:19 | NUR ---
Patient was picked up by his father. Patient had his home O2 from [place] with him. Patient was stable. I went over home discharge instructions with his sister Terrell who helps take care of him. All follow up appt needed were highlighted and given to patient along with medication to take once at home.
[2020-09-14] MEDS ORDERED: VANCOMYCIN LEVEL IV ONE (07:30)
[2020-09-14] MEDS ORDERED: DILT180C66 PO (09:57)
[2020-09-14] MEDS ORDERED: AMIO200T27 PO (09:57)
[2020-09-14] MEDS ORDERED: AMOX-115 PO (09:57)
[2020-09-14] MEDS ORDERED: APIX5TAB3 PO (09:57)
[2020-09-14] MEDS ORDERED: LOSA50TA64 PO (09:57)
[2020-09-14] MEDS ORDERED: GABA-534 PO (10:01)
== END 2020-09-13 16:02 | disposition home or self-care (01) | DRG 140 ==
LOC: ER 19:38 → ED HOLD 22:41 → PCU 3S 09-04 08:35
PROVIDERS: ADMIT Internal Medicine Critical Care Medicine; ATTEND Internal Medicine Critical Care Medicine
PROC: BW251ZZ Computerized Tomography (CT Scan) of Chest, Abdomen and Pelvis using Low Osmolar Contrast (ICD-10-PCS; principal; 2020-09-05)
DX: J44.0 Chronic obstructive pulmonary disease with (acute) lower respiratory infection (principal); J96.20 Acute and chronic respiratory failure, unspecified whether with hypoxia or hypercapnia; J44.1 Chronic obstructive pulmonary disease with (acute) exacerbation; J18.9 Pneumonia, unspecified organism; E78.5 Hyperlipidemia, unspecified; I48.0 Paroxysmal atrial fibrillation; D62 Acute posthemorrhagic anemia; J94.8 Other specified pleural conditions; F32.9 Major depressive disorder, single episode, unspecified; K44.9 Diaphragmatic hernia without obstruction or gangrene; Z87.891 Personal history of nicotine dependence; Z90.2 Acquired absence of lung [part of]; Z82.49 Family history of ischemic heart disease and other diseases of the circulatory system; Z79.899 Other long term (current) drug therapy; Z79.82 Long term (current) use of aspirin
CPT/HCPCS: 36415; 36600; 71045; 71046; 71250; 71260; 74177; 80053; 80202; 80305; 82803; 83735; 83880; 84100; 84145; 85018; 85025; 85610; 85730; 87070; 93005; 94640; 94664; 94667; 94668; 94760; 99285; A7015; G0378; J0456; J0692; J1100; J1650; J1940; J2270; J2543; J2930; J3370; J3490; J7512; Q9967

== ENCOUNTER 2020-09-14 05:15 | Inpatient (IN) | payer MEDICAID ==
[~2020-09-14] VITALS: Ht 172.7 cm; Wt 91.0 kg
[~2020-09-14 05:15] MED LIST changes: +AMIO200T62 PO; +AMOX-419 PO; +APIX5TAB3 PO; +DILT180C66 PO; +GABA-534 PO; +LACT1CAP26 PO; -MELO-102 PO
[2020-09-14] MEDS ORDERED: nitroGLYCERIN 1gm ointment UD TP ONE (05:30)
[2020-09-14] MEDS ORDERED: morphine 4 MG/ML inj SYRINge IV ONE (05:30)
[2020-09-14 05:46] LABS: BASOPHILS # (AUTO) 0.1 X10'3 (0-0.2); BASOPHILS % (AUTO) 0.6 % (0-1); EOSINOPHILS # (AUTO) 0.1 X10'3 (0-0.9); EOSINOPHILS % (AUTO) 0.4 % (0-6); HEMATOCRIT 29.6 % (42.0-52.0); HEMOGLOBIN 9.7 g/dl (14.0-17.9); LYMPHOCYTES # (AUTO) 1.1 X10'3 (1.1-4.8); LYMPHOCYTES % (AUTO) 7.1 % (21-51); MEAN CORPUSCULAR HEMOGLOBIN 28.5 PG (27.0-31.0); MEAN CORPUSCULAR HGB CONC 32.9 g/dL (33.0-36.5); MEAN CORPUSCULAR VOLUME 86.7 FL (78-98); MEAN PLATELET VOLUME 7.9 FL (7.4-10.4); MONOCYTES # (AUTO) 1.2 X10'3 (0-0.9); MONOCYTES % (AUTO) 7.8 % (2-12); NEUTROPHILS # (AUTO) 12.9 X10'3 (1.8-7.7); NEUTROPHILS % (AUTO) 84.1 % (42-75); RED BLOOD COUNT 3.42 X10'6 (4.70-6.10); RED CELL DISTRIBUTION WIDTH 16.7 % (11.5-14.5); WHITE BLOOD COUNT 15.3 X10'3 (4.5-11.0)
[2020-09-14 05:53] LABS: PLATELET COUNT 419 X10'3 (140-440)
[2020-09-14 05:58] LABS: ALANINE AMINOTRANSFERASE 21 U/L (12-78); ALBUMIN 2.3 G/DL (3.4-5.0); ALBUMIN/GLOBULIN RATIO 0.4 (1.1-1.5); ALKALINE PHOSPHATASE 151 IU/L (46-116); ANION GAP 12 (8-16); ASPARTATE AMINO TRANSFERASE 22 U/L (10-37); BILIRUBIN,TOTAL 0.5 MG/DL (0.1-1.0); BLOOD UREA NITROGEN 12 MG/DL (7-18); CALCIUM 8.8 MG/DL (8.5-10.1); CHLORIDE 104 MMOL/L (99-107); CREATININE 1.33 MG/DL (0.60-1.10); GLUCOSE 146 MG/DL (70-104); POTASSIUM 4.1 MMOL/L (3.5-5.1); SODIUM 138 MMOL/L (135-145); TOTAL CARBON DIOXIDE 21.6 MMOL/L (24-32); TOTAL PROTEIN 7.5 G/DL (6.4-8.2); eGFR 55 ML/MIN
[2020-09-14] MEDS ORDERED: iohexol 350MG/ML 100ml bottle IV ONE (06:05)
[2020-09-14 06:06] LABS: MAGNESIUM 1.8 MG/DL (1.5-2.4)
--- NOTE | 2020-09-14 06:24 | NUR ---
Pt out to CT
[2020-09-14] MEDS ORDERED: normal saline 1000ml 1,000 ML IV ONE (07:15)
[2020-09-14] MEDS ORDERED: normal saline 1000ml 1,000 ML IV SCH (07:50)
[2020-09-14] MEDS ORDERED: mag hydrox/Alum hydrox/simeth 30ml oral suspension PO PRN (07:50)
[2020-09-14] MEDS ORDERED: potassium Cl 20 mEq SR tablet PO PRN ×2 (07:50)
[2020-09-14] MEDS ORDERED: HYDROcodone/acetaminophen 10/325mg tab PO PRN (07:50)
[2020-09-14] MEDS ORDERED: ondansetron/PF 4mg/2ml inj IV PRN (07:50)
[2020-09-14] MEDS ORDERED: acetaminophen 325mg tablet PO PRN ×2 (07:50)
[2020-09-14] MEDS ORDERED: magnesium 2GM in 50ml NS 50 ML IV PRN (07:50)
[2020-09-14] MEDS ORDERED: magnesium Cl slow-release 64mg tablet PO PRN (07:50)
[2020-09-14] MEDS ORDERED: magnesium 4gm in 100ml NS 100 ML IV PRN (07:50)
[2020-09-14] MEDS ORDERED: HYDROmorphone inj. 0.5 MG/0.5 ML DISP.SYRIN IV PRN (07:50)
[2020-09-14] MEDS ORDERED: potassium Cl 40MEQ/1/2NS 520ml 520 ML IV PRN ×2 (07:50)
[2020-09-14] MEDS ORDERED: ipratropium/albuterol 3ml nebule NEB PRN (07:50)
[2020-09-14] MEDS ORDERED: magnesium hydroxide 30ml (MOM) UD suspension PO PRN (07:50)
[2020-09-14] MEDS ORDERED: bisacodyl 10mg suppository rectal RC PRN (07:50)
[2020-09-14] MEDS ORDERED: HYDROcodone/acetaminophen 5mg/325mg tablet PO PRN (07:50)
[2020-09-14] MEDS ORDERED: piperacillin/tazo 4.5gm/100ml 100 ML IV ONE ×2 (08:00→11:00)
[2020-09-14] MEDS: K and/or MAG REPLACEMENT MC SCH ×2 (08:00→20:00)
[2020-09-14] MEDS ORDERED: rocuronium 10mg/ml inj IV ONE ×3 (09:00→21:20)
[2020-09-14] MEDS ORDERED: etomidate 2mg/ml inj. ONE (09:00)
[2020-09-14] MEDS ORDERED: APIX5TAB3 PO (09:57)
[2020-09-14] MEDS ORDERED: DILT180C66 PO (09:57)
[2020-09-14] MEDS ORDERED: LOSA50TA64 PO (09:57)
[2020-09-14] MEDS ORDERED: AMOX-115 PO (09:57)
[2020-09-14] MEDS ORDERED: AMIO200T27 PO (09:57)
[2020-09-14] MEDS ORDERED: GABA-534 PO (10:01)
[2020-09-14] MEDS: cefepime 2g/NS 100ml ADVANTAGE 100 ML IV SCH ×2 (11:59→21:06)
--- NOTE | 2020-09-14 12:57 | NUR ---
Pt transferred to hospital bed for comfort. Pt is very anxious. Paged hospitalist for possible ativan order. Also page RT for breathing tx.
[2020-09-14] MEDS: ipratropium/albuterol 3ml nebule NEB SCH ×3 (13:13→22:41)
--- NOTE | 2020-09-14 13:14 | NUR ---
RT at bedside for breathing tx.
[2020-09-14] MEDS ORDERED: LORazepam 2 mg/ml vial IV STA ×2 (13:20→15:22)
--- NOTE | 2020-09-14 14:09 | NUR ---
Pt reports relief from ativan and is resting on hospital bed. Lights dimmed for patients comfort.
--- NOTE | 2020-09-14 15:22 | NUR ---
Pt has increased work of breathing. Dr. Ga aware and verbal order for 1mg of ativan IVP now and stat ABG.
--- NOTE | 2020-09-14 15:31 | NUR ---
RT at bedside for ABG
--- NOTE | 2020-09-14 15:34 | NUR ---
called ED to get report, Carin BOYCE said Dr Ga will decide weather pt goes to our floor on PCU or elsewhere. They will call me back.
--- NOTE | 2020-09-14 15:37 | NUR ---
Dr. Ga at bedside. Discussed with Dr. Joe condition and it was agreed to intubate. Pt educated on procedure and agrees to emergent intubation. RT at bedside. 1540-40 mg Etomidate IVP now by CARLI Liu
[2020-09-14] MEDS ORDERED: etomidate 2mg/ml inj. IV ONE (15:55)
[2020-09-14] MEDS ORDERED: propofol 1000mg/100ml bottle 100 ML IV ONE ×2 (15:55→19:19)
[2020-09-14 16:18] LABS: ABG BASE EXCESS -7.9 mmol/L (-2.0-2.0); ABG HCO3 20.8 mmol/L (22.0-26.0); ABG OXYGEN SATURATION 88.8 % (94-97); ABG PCO2 (T) 53.5 mmHg (35.0-48.0); ALLEN'S TEST POSITIVE; FCOHb 1.2 % (0.0-3.9); FMetHb 0.2 % (0.0-1.5); FO2Hb 87.6 % (94-97); PEEP 8 cm H2O; RESPIRATORY RATE 16 b/min; TIDAL VOLUME 450 mL; TOTAL HEMOGLOBIN 10.9 G/dl (14.0-18.0)
--- NOTE | 2020-09-14 17:08 | NUR ---
Spoke with patients Sister Terrell [phone] and updated her with plan of care.
--- NOTE | 2020-09-14 17:19 | NUR ---
Urine collected and sent to lab for utox. Echo at bedside.
[2020-09-14 17:20] LABS: ABG BASE EXCESS -10.2 mmol/L (-2.0-2.0); ABG HCO3 19.3 mmol/L (22.0-26.0); ABG OXYGEN SATURATION 97.5 % (94-97); ABG PCO2 (T) 61.2 mmHg (35.0-48.0); ABG PO2 (T) 134.7 mmHg (75.0-100.0); FCOHb 0.4 % (0.0-3.9); FMetHb 0.1 % (0.0-1.5); PEEP 15 cm H2O; RESPIRATORY RATE 18 b/min; TIDAL VOLUME 450 mL; TOTAL HEMOGLOBIN 10.4 G/dl (14.0-18.0)
[2020-09-14 17:45] LABS: URINE AMPHETAMINE SCREEN NEGATIVE (Neg); URINE BARBITUATE SCREEN NEGATIVE (Neg); URINE BENZODIAZEPINES SCREEN NEGATIVE (Neg); URINE CANNABINOID SCREEN POSITIVE (Neg); URINE COCAINE SCREEN NEGATIVE (Neg); URINE METHADONE SCREEN NEGATIVE (Neg); URINE OPIATE SCREEN POSITIVE (Neg); URINE PHENCYCLIDINE SCREEN NEGATIVE (Neg)
[2020-09-14] MEDS ORDERED: piperacillin/tazo 3.375gm/50ml 50 ML IV SCH (18:00)
--- NOTE | 2020-09-14 18:57 | NUR ---
Patient in ED, I have received report from Carin BOYCE and had the opportunity to ask questions and. Room is ready and awaiting for patient arrival.
[2020-09-14 19:45] VITALS: BP 112/62
--- NOTE | 2020-09-14 19:45 | NUR ---
PT arrived via hospital bed. PT transferred to ICU bed, placed on Ventilator and bedside monitor. PT has CVL to RT groin and A-Line to LT groin, both lines are transduced to pressure tubing and have been zeroed. VSS. PT is on 100% FiO2 and PEEP of 16. O2 sat is 100%. Lima in place draining to gravity. Bilat soft wrist restraints in place and secure. Bed is locked and low. Will continue to monitor.
[2020-09-14] MEDS ORDERED: NORepinephrine 8mg/ 250ml NS 250 ML IV ONE (19:54)
[2020-09-14] MEDS: NORepinephrine 8mg/ 250ml NS 250 ML IV PRN (19:55)
[2020-09-14 20:00] VITALS: BP 82/47
[2020-09-14] MEDS ORDERED: apixaban 5mg tablet PO SCH (20:00)
[2020-09-14] MEDS ORDERED: albumin (Human) 5% 250ml 250 ML IV ONE ×2 (20:05)
[2020-09-14] MEDS ORDERED: albumin (Human) 5% 250ml 500 ML IV ONE (20:07)
[2020-09-14] MEDS ORDERED: VECuronium br 10mg inj. IV ONE (20:20)
--- NOTE | 2020-09-14 20:45 | NUR ---
Dr Morales at bedside for bronchoscopy. PT receiving Propofol and Fentanyl, verbal order to bolus PT with 50mcg of Fentanyl. PT was coughing and received verbal order to give 100mg of Rocuronium, medications were given. PT tolerated procedure well. Dr Morales stated to keep the PT fully sedated and paralyze if needed throughout the night. Fentanyl increased to 250mcg and will change Propofol to versed when bottle runs dry. Will continue to monitor closely.
[2020-09-14 20:53] LABS: BASOPHILS # (AUTO) 0.1 X10'3 (0-0.2); BASOPHILS % (AUTO) 0.9 % (0-1); EOSINOPHILS % (AUTO) 0.2 % (0-6); HEMATOCRIT 24.5 % (42.0-52.0); HEMOGLOBIN 7.8 g/dl (14.0-17.9); LYMPHOCYTES # (AUTO) 0.7 X10'3 (1.1-4.8); LYMPHOCYTES % (AUTO) 4.7 % (21-51); MEAN CORPUSCULAR HEMOGLOBIN 27.8 PG (27.0-31.0); MEAN CORPUSCULAR HGB CONC 31.9 g/dL (33.0-36.5); MEAN CORPUSCULAR VOLUME 87.1 FL (78-98); MEAN PLATELET VOLUME 7.8 FL (7.4-10.4); MONOCYTES # (AUTO) 1.3 X10'3 (0-0.9); MONOCYTES % (AUTO) 8.6 % (2-12); NEUTROPHILS # (AUTO) 13.2 X10'3 (1.8-7.7); NEUTROPHILS % (AUTO) 85.6 % (42-75); PLATELET COUNT 302 X10'3 (140-440); RED BLOOD COUNT 2.81 X10'6 (4.70-6.10); WHITE BLOOD COUNT 15.4 X10'3 (4.5-11.0)
[2020-09-14 21:00] VITALS: BP 126/67
[2020-09-14] MEDS ORDERED: temazepam 15mg capsule PO PRN (21:00)
[2020-09-14] MEDS: FENTANYL-0.9 % NACL/PF 100 ML IV PRN ×2 (21:01→23:41)
[2020-09-14 21:07] LABS: ALANINE AMINOTRANSFERASE 27 U/L (12-78); ALBUMIN 2.2 G/DL (3.4-5.0); ALBUMIN/GLOBULIN RATIO 0.5 (1.1-1.5); ALKALINE PHOSPHATASE 138 IU/L (46-116); ANION GAP 10 (8-16); ASPARTATE AMINO TRANSFERASE 33 U/L (10-37); BILIRUBIN,TOTAL 0.3 MG/DL (0.1-1.0); BLOOD UREA NITROGEN 15 MG/DL (7-18); CHLORIDE 108 MMOL/L (99-107); CREATININE 1.15 MG/DL (0.60-1.10); GLUCOSE 116 MG/DL (70-104); MAGNESIUM 1.9 MG/DL (1.5-2.4); POTASSIUM 4.7 MMOL/L (3.5-5.1); SODIUM 139 MMOL/L (135-145); TOTAL CARBON DIOXIDE 21.4 MMOL/L (24-32); TOTAL PROTEIN 6.4 G/DL (6.4-8.2); eGFR 65 ML/MIN
[2020-09-14] MEDS: sertraline 50mg tablet PO SCH (21:07)
[2020-09-14] MEDS: vancomycin/NS 1 GM ADD-VANTAGE 250 ML IV SCH (21:07)
[2020-09-14] MEDS: lactobacillus rhamnosus 10,000 MMU CELLS/CAPSULE PO SCH (21:07)
[2020-09-14] MEDS: dextrose 5%-normal saline 1,000 ML IV SCH (21:16)
[2020-09-14 22:00] VITALS: BP 119/63
[2020-09-14] MEDS ORDERED: midazolam 2 mg/2 ml injection IV ONE (22:10)
[2020-09-14 22:38] LABS: ABG BASE EXCESS -6.6 mmol/L (-2.0-2.0); ABG HCO3 20.6 mmol/L (22.0-26.0); ABG OXYGEN SATURATION 94.9 % (94-97); ABG PCO2 (T) 48.5 mmHg (35.0-48.0); ABG PO2 (T) 88.7 mmHg (75.0-100.0); FCOHb 0.3 % (0.0-3.9); FMetHb 0.2 % (0.0-1.5); FO2Hb 94.4 % (94-97); PATIENT TEMPERATURE 36.5; PEEP 10 cm H2O; RESPIRATORY RATE 20 b/min; TIDAL VOLUME 450 mL
[2020-09-14] MEDS: midazolam 100mg in NS 100ml 100 ML IV PRN (23:43)
[2020-09-15] VITALS (27 sets, daily range): BP systolic 82–153; BP diastolic 45–69
[2020-09-15] MEDS: VECuronium br 10mg inj. IV PRN ×3 (00:32→23:08)
--- NOTE | 2020-09-15 00:36 | NUR ---
PRN Vecuronium given d/t pt being asynchronous with the ventilator and peak pressuring. PT is now in synch with ventilator and resting comfortably. Sedations is at max and VSS, Levophed is off and BP is stable at this time. Will continue to monitor closely.
[2020-09-15] MEDS: gabapentin 400mg capsule PO SCH ×2 (00:44→08:09)
[2020-09-15] MEDS: FENTANYL-0.9 % NACL/PF 100 ML IV PRN ×8 (02:46→22:56)
[2020-09-15 02:52] LABS: BASOPHILS # (AUTO) 0.1 X10'3 (0-0.2); BASOPHILS % (AUTO) 0.7 % (0-1); EOSINOPHILS # (AUTO) 0.1 X10'3 (0-0.9); EOSINOPHILS % (AUTO) 1.2 % (0-6); HEMATOCRIT 22.6 % (42.0-52.0); HEMOGLOBIN 7.5 g/dl (14.0-17.9); LYMPHOCYTES # (AUTO) 0.8 X10'3 (1.1-4.8); LYMPHOCYTES % (AUTO) 8.6 % (21-51); MEAN CORPUSCULAR HEMOGLOBIN 28.8 PG (27.0-31.0); MEAN CORPUSCULAR HGB CONC 33.1 g/dL (33.0-36.5); MEAN CORPUSCULAR VOLUME 86.9 FL (78-98); MEAN PLATELET VOLUME 7.9 FL (7.4-10.4); MONOCYTES # (AUTO) 0.9 X10'3 (0-0.9); MONOCYTES % (AUTO) 9.7 % (2-12); NEUTROPHILS # (AUTO) 7.2 X10'3 (1.8-7.7); NEUTROPHILS % (AUTO) 79.8 % (42-75); PLATELET COUNT 239 X10'3 (140-440); RED CELL DISTRIBUTION WIDTH 17.2 % (11.5-14.5); WHITE BLOOD COUNT 9.1 X10'3 (4.5-11.0)
[2020-09-15 03:09] LABS: ALANINE AMINOTRANSFERASE 28 U/L (12-78); ALBUMIN 2.1 G/DL (3.4-5.0); ALBUMIN/GLOBULIN RATIO 0.5 (1.1-1.5); ALKALINE PHOSPHATASE 149 IU/L (46-116); ANION GAP 9 (8-16); ASPARTATE AMINO TRANSFERASE 30 U/L (10-37); BILIRUBIN,TOTAL 0.3 MG/DL (0.1-1.0); BLOOD UREA NITROGEN 14 MG/DL (7-18); BUN/CREATININE RATIO 12.7 (5.4-32.0); CALCIUM 8.5 MG/DL (8.5-10.1); CHLORIDE 109 MMOL/L (99-107); GLUCOSE 104 MG/DL (70-104); POTASSIUM 4.8 MMOL/L (3.5-5.1); SODIUM 140 MMOL/L (135-145); TOTAL CARBON DIOXIDE 21.9 MMOL/L (24-32); TOTAL PROTEIN 6.2 G/DL (6.4-8.2); eGFR 69 ML/MIN
[2020-09-15 03:13] LABS: TRIGLYCERIDES 118 MG/DL (20-135)
[2020-09-15] MEDS: ipratropium/albuterol 3ml nebule NEB SCH ×6 (03:23→23:58)
[2020-09-15] MEDS: midazolam 100mg in NS 100ml 100 ML IV PRN ×5 (03:41→21:52)
--- NOTE | 2020-09-15 06:44 | NUR ---
Problems reprioritized. Patient report given, questions answered & plan of care reviewed with Alexa BOYCE.
[2020-09-15] MEDS ORDERED: aspirin 81mg tablet.DR PO SCH (08:00)
[2020-09-15] MEDS: K and/or MAG REPLACEMENT MC SCH ×2 (08:00→19:23)
[2020-09-15] MEDS ORDERED: diltiazem CD 180mg cap (once-daily) PO SCH (08:00)
[2020-09-15] MEDS ORDERED: losartan 50mg tablet PO SCH (08:00)
[2020-09-15] MEDS ORDERED: atorvastatin 20mg tablet PO SCH (08:00)
[2020-09-15] MEDS: cefepime 2g/NS 100ml ADVANTAGE 100 ML IV SCH ×2 (08:09→20:15)
[2020-09-15] MEDS: metroNIDAZOLE-Flagyl 500mg/NS 100 ML IV SCH ×2 (08:09→16:31)
[2020-09-15] MEDS: sertraline 50mg tablet PO SCH (08:10)
[2020-09-15] MEDS: lactobacillus rhamnosus 10,000 MMU CELLS/CAPSULE PO SCH (08:10)
--- NOTE | 2020-09-15 09:45 | NUR ---
Dr. Maxwell at bedside for broncoscopy. Patient tolerated well. Will continue to monitor
--- NOTE | 2020-09-15 10:15 | NUR ---
Dr. Morales at bedside. updated of patients condition. No new orders at this time. Will continue to monitor.
[2020-09-15] MEDS: vancomycin/NS 1 GM ADD-VANTAGE 250 ML IV SCH (11:00)
[2020-09-15] MEDS: dextrose 5%-normal saline 1,000 ML IV SCH ×2 (11:03→21:05)
--- NOTE | 2020-09-15 11:11 | NUR ---
Dr. Jimenez at bedside during rounds. New order to change Cardizem ER 180mg to Cardizem 60 mg TID. Nutrition consult added as well.
[2020-09-15] MEDS ORDERED: diltiazem 30mg tablet PO SCH (13:00)
[2020-09-15] MEDS ORDERED: midodrine 5mg tablet PO SCH (13:00)
[2020-09-15] MEDS ORDERED: midodrine tablet 2.5 MG TABLET PO SCH (13:00)
--- NOTE | 2020-09-15 13:18 | NUR ---
Tube feeding consult. Patient is intubated and sedated with respiratory failure, suspected post op infection, right hemothorax with empyema, sepsis, lung CA, COPD. Had previously left AMA and has returned. Per MD note a CT showed 2 small lesions in right upper lobe, a robotic converted to open right lobectomy was performed in May, on 08/22; right thoracotomy, right upper lobe sleeve, lobectomy with infrahilar release, node dissection, pneumolysis, and bronch, had fiberoptic bronchoscopy for secretions on 08/26, collapse of right side in upper lobes and therapeutic bronch on 08/27. See surgeon and MD progress notes. Recommend: 1. Continuous tube feeding using Vital AF at goal rate of 85 ml/hr, start at 30 ml/hr and advance as tolerated by 20 ml q 8 hours to goal rate of 85 ml/hr will provide: 2040 ml total volume, 2448 calories, 153 g protein, and 1654 ml water. 2. Additional water flush 125 ml q 4 hours 3. Daily weights 4. Prealbumin q saturday and Addendum: 09/15/20 at [address] Amended: Links added.
[2020-09-15 14:23] LABS: PREALBUMIN 11.8 MG/DL (19-36)
[2020-09-15] MEDS ORDERED: apixaban 5mg tablet OGT SCH (14:25)
[2020-09-15] MEDS ORDERED: aspirin 81mg tab.chew OGT SCH (14:25)
[2020-09-15] MEDS ORDERED: atorvastatin 20mg tablet OGT SCH (14:25)
[2020-09-15] MEDS ORDERED: mag hydrox/Alum hydrox/simeth 30ml oral suspension OGT PRN (14:26)
[2020-09-15] MEDS ORDERED: losartan 50mg tablet OGT SCH (14:26)
[2020-09-15] MEDS ORDERED: magnesium hydroxide 30ml (MOM) UD suspension OGT PRN (14:27)
[2020-09-15] MEDS ORDERED: POTASSIUM BICARB 20meq eff tab 20 MEQ TABLET.EFF PO PRN ×2 (14:28)
[2020-09-15] MEDS ORDERED: POTASSIUM BICARB 20meq eff tab 20 MEQ TABLET.EFF OGT PRN ×2 (14:28→14:29)
[2020-09-15] MEDS: gabapentin 400mg capsule OGT SCH (16:33)
--- NOTE | 2020-09-15 18:30 | NUR ---
Patient in room ICU 2044. I have received report from Alexa BOYCE and had the opportunity to ask questions and assume patient care.
[2020-09-15] MEDS ORDERED: VANCOMYCIN LEVEL IV ONE (20:30)
--- NOTE | 2020-09-15 21:00 | NUR ---
Dr Morales at bedside rounding. Updated on PT condition. Informed him that the OGT appeared to be out father than the previous night, verbal order received to D/C the OGT and place and NGT. Also verified if the Eliquis should be given, order received to D/C Eliquis and start Lovenox. Orders placed and will continue to monitor.
[2020-09-15] MEDS: diltiazem 30mg tablet OGT SCH (21:56)
[2020-09-15] MEDS: lactobacillus rhamnosus 10,000 MMU CELLS/CAPSULE OGT SCH (21:57)
[2020-09-15] MEDS: enoxaparin 100mg/ml syringe SUBCUT SCH (21:57)
[2020-09-15] MEDS: sertraline 50mg tablet OGT SCH (22:12)
[2020-09-15] MEDS ORDERED: vancomycin/NS 1 GM ADD-VANTAGE 250 ML IV SCH (23:00)
--- NOTE | 2020-09-15 23:15 | NUR ---
PRN Vecuronium given d/t pt being asynchronous with the ventilator and peak pressuring and O2 sats dropping. PT is now in synch with ventilator and resting comfortably and sats are back up to mid 90's. sedation continues to me at max, VSS, Levophed is off and BP is stable at this time. Will continue to monitor closely.
[2020-09-15 23:27] LABS: HEMATOCRIT 26.3 % (42.0-52.0); HEMOGLOBIN 8.6 g/dl (14.0-17.9); MEAN CORPUSCULAR HEMOGLOBIN 28.6 PG (27.0-31.0); MEAN CORPUSCULAR HGB CONC 32.9 g/dL (33.0-36.5); MEAN CORPUSCULAR VOLUME 87.1 FL (78-98); MEAN PLATELET VOLUME 7.5 FL (7.4-10.4); PLATELET COUNT 259 X10'3 (140-440); RED BLOOD COUNT 3.02 X10'6 (4.70-6.10); RED CELL DISTRIBUTION WIDTH 17.2 % (11.5-14.5); WHITE BLOOD COUNT 9.8 X10'3 (4.5-11.0)
[2020-09-16] VITALS (24 sets, daily range): BP systolic 91–171; BP diastolic 48–79
[2020-09-16] MEDS: gabapentin 400mg capsule OGT SCH ×3 (00:16→15:52)
[2020-09-16] MEDS: metroNIDAZOLE-Flagyl 500mg/NS 100 ML IV SCH ×3 (00:43→15:51)
[2020-09-16] MEDS: midazolam 100mg in NS 100ml 100 ML IV PRN ×5 (01:53→21:38)
[2020-09-16] MEDS: FENTANYL-0.9 % NACL/PF 100 ML IV PRN ×8 (01:53→22:12)
[2020-09-16 02:53] LABS: BASOPHILS # (AUTO) 0.1 X10'3 (0-0.2); BASOPHILS % (AUTO) 1.2 % (0-1); EOSINOPHILS # (AUTO) 0.1 X10'3 (0-0.9); EOSINOPHILS % (AUTO) 1.4 % (0-6); HEMATOCRIT 24.6 % (42.0-52.0); LYMPHOCYTES # (AUTO) 0.6 X10'3 (1.1-4.8); MEAN CORPUSCULAR HEMOGLOBIN 28.3 PG (27.0-31.0); MEAN CORPUSCULAR HGB CONC 32.4 g/dL (33.0-36.5); MEAN CORPUSCULAR VOLUME 87.3 FL (78-98); MEAN PLATELET VOLUME 7.9 FL (7.4-10.4); MONOCYTES # (AUTO) 0.5 X10'3 (0-0.9); MONOCYTES % (AUTO) 6.7 % (2-12); NEUTROPHILS # (AUTO) 6.7 X10'3 (1.8-7.7); NEUTROPHILS % (AUTO) 82.7 % (42-75); PLATELET COUNT 205 X10'3 (140-440); RED BLOOD COUNT 2.81 X10'6 (4.70-6.10); WHITE BLOOD COUNT 8.1 X10'3 (4.5-11.0)
[2020-09-16 03:13] LABS: ALANINE AMINOTRANSFERASE 32 U/L (12-78); ALBUMIN 1.8 G/DL (3.4-5.0); ALBUMIN/GLOBULIN RATIO 0.4 (1.1-1.5); ALKALINE PHOSPHATASE 140 IU/L (46-116); ANION GAP 9 (8-16); ASPARTATE AMINO TRANSFERASE 28 U/L (10-37); BILIRUBIN,TOTAL 0.3 MG/DL (0.1-1.0); BLOOD UREA NITROGEN 15 MG/DL (7-18); BUN/CREATININE RATIO 11.7 (5.4-32.0); CHLORIDE 110 MMOL/L (99-107); CREATININE 1.28 MG/DL (0.60-1.10); GLUCOSE 90 MG/DL (70-104); MAGNESIUM 1.9 MG/DL (1.5-2.4); POTASSIUM 4.3 MMOL/L (3.5-5.1); SODIUM 141 MMOL/L (135-145); TOTAL CARBON DIOXIDE 21.6 MMOL/L (24-32); TOTAL PROTEIN 6.2 G/DL (6.4-8.2); eGFR 58 ML/MIN
[2020-09-16] MEDS: mineral oil/petrolatum ophthal oint EACHEYE SCH ×4 (03:20→20:14)
[2020-09-16 03:33] LABS: ABG BASE EXCESS -8.1 mmol/L (-2.0-2.0); ABG HCO3 18.6 mmol/L (22.0-26.0); ABG OXYGEN SATURATION 94.4 % (94-97); ABG PCO2 (T) 45.4 mmHg (35.0-48.0); ABG PO2 (T) 88.2 mmHg (75.0-100.0); ALLEN'S TEST POSITIVE; FCOHb 0.3 % (0.0-3.9); FMetHb 0.2 % (0.0-1.5); FO2Hb 93.9 % (94-97); PATIENT TEMPERATURE 38.1; PEEP 10 cm H2O; RESPIRATORY RATE 22 b/min; TIDAL VOLUME 450 mL; TOTAL HEMOGLOBIN 9.8 G/dl (14.0-18.0)
[2020-09-16] MEDS: ipratropium/albuterol 3ml nebule NEB SCH ×6 (03:34→22:40)
--- NOTE | 2020-09-16 06:31 | NUR ---
Problems reprioritized. Patient report given, questions answered & plan of care reviewed with Re BOYCE.
[2020-09-16] MEDS: K and/or MAG REPLACEMENT MC SCH ×2 (07:11→20:00)
[2020-09-16] MEDS: dextrose 5%-normal saline 1,000 ML IV SCH ×2 (07:23→22:05)
[2020-09-16] MEDS: enoxaparin 100mg/ml syringe SUBCUT SCH ×2 (07:23→20:12)
[2020-09-16] MEDS: cefepime 2g/NS 100ml ADVANTAGE 100 ML IV SCH ×2 (07:29→20:10)
[2020-09-16] MEDS: sertraline 50mg tablet OGT SCH ×2 (08:00→20:00)
[2020-09-16] MEDS: lactobacillus rhamnosus 10,000 MMU CELLS/CAPSULE OGT SCH ×2 (08:00→20:00)
[2020-09-16] MEDS: diltiazem 30mg tablet OGT SCH ×3 (08:00→21:00)
[2020-09-16] MEDS: VECuronium br 10mg inj. IV PRN ×2 (09:06→14:16)
[2020-09-16] MEDS: VANCOMYCIN 750MG IV in NS 250 ML IV SCH (11:43)
[2020-09-16] MEDS ORDERED: propofol 1000mg/100ml bottle 100 ML IV SCH (13:15)
[2020-09-16] MEDS ORDERED: furosemide 40mg/4ml inj ONE (13:22)
[2020-09-16] MEDS ORDERED: furosemide 40mg/4ml inj IV ONE (13:25)
--- NOTE | 2020-09-16 14:19 | NUR ---
Malnutrition/Bayron Consult: Bayron 10, surgical wound to chest. Current weight is an emergency weight, not scaled. Last known scale weight 86.2 kg on standing scale 09/13/20; weight 08/15/20 88.6 kg; no significant wt change. Tube feeds not started yet d/t tube coiling and not able to use, pt pending IR placement of corpak. Pending transfer to [facility]. Pt does not currently meet criteria for malnutrition however has increased protein needs r/t being intubated and for wound healing. Recommend: 1. Continuous tube feeding using Vital AF at goal rate of 85 ml/hr, start at 30 ml/hr and advance as tolerated by 20 ml q 8 hours to goal rate of 85 ml/hr will provide: 2040 ml total volume, 2448 calories, 153 g protein, and 1654 ml water. 2. Additional water flush 125 ml q 4 hours 3. Daily weights 4. Prealbumin q saturday and Addendum: 09/16/20 at [address] Amended: Links added.
[2020-09-16 14:36] LABS: ABG BASE EXCESS -10.7 mmol/L (-2.0-2.0); ABG HCO3 20.2 mmol/L (22.0-26.0); ABG PCO2 (T) 73.1 mmHg (35.0-48.0); ABG PO2 (T) 86.6 mmHg (75.0-100.0); FMetHb 0.5 % (0.0-1.5); FO2Hb 92.5 % (94-97); PEEP 10 cm H2O; RESPIRATORY RATE 16 b/min; TIDAL VOLUME 350 mL
[2020-09-16 14:41] LABS: OXYGEN SATURATION (MIXED VEN) 66.5 % (60-80)
[2020-09-16] MEDS: acetylcysteine 200 MG/ml 4ml vial INH SCH ×3 (15:46→22:40)
[2020-09-16 16:15] LABS: ABG BASE EXCESS -8.4 mmol/L (-2.0-2.0); ABG HCO3 20.2 mmol/L (22.0-26.0); ABG OXYGEN SATURATION 98.3 % (94-97); ABG PCO2 (T) 55.8 mmHg (35.0-48.0); ABG PO2 (T) 139.9 mmHg (75.0-100.0); FCOHb 0.3 % (0.0-3.9); FMetHb 0.5 % (0.0-1.5); FO2Hb 97.5 % (94-97); PATIENT TEMPERATURE 36.6; PEEP 10 cm H2O; RESPIRATORY RATE 22 b/min; TIDAL VOLUME 350 mL
--- NOTE | 2020-09-16 17:57 | NUR ---
Dr. Morales did a bronchoscopy at bedside, pt was taken to CT chest, Dr. Gimenez placed two chest tubes to R-chest. Pt to be transferred to [facility]. Sister (Terrell) updated via phone. Culture results reported to Dr. Jimenez. Per case management [facility] to call us with bed. Dr. Morales will come to unit to sign discharge papers. Addendum: 09/16/20 at 1807 by Eb Sheffield RN Per Dr. Jimenez, was supposed to take pt to IR for NG tube placement, but right before transferring pt's O2 dropped to 70s on 100%. After talking to Joslyn, charge nurse, we held transfer due to pt being unstable.
--- NOTE | 2020-09-16 18:24 | NUR ---
Problems reprioritized. Patient report given, questions answered & plan of care reviewed with Alexa.
--- NOTE | 2020-09-16 18:30 | NUR ---
Patient in room ICU 2044. I have received report from Re BOYCE and had the opportunity to ask questions and assume patient care.
--- NOTE | 2020-09-16 19:45 | NUR ---
Spoke with Tomás from [facility] transfer center, updated her on pt status. Tomás requested Dr. Morales's phone number so the accepting MD could contact him, which I gave her. PT is doing well, tolerating vent and looking comfortable.
[2020-09-16 20:00] LABS: ABG BASE EXCESS -8.5 mmol/L (-2.0-2.0); ABG OXYGEN SATURATION 96.5 % (94-97); ABG PCO2 (T) 46.8 mmHg (35.0-48.0); ABG PO2 (T) 94.2 mmHg (75.0-100.0); FCOHb 0.3 % (0.0-3.9); FMetHb 0.2 % (0.0-1.5); PATIENT TEMPERATURE 36.6; PEEP 10 cm H2O; RESPIRATORY RATE 24 b/min; TIDAL VOLUME 350 mL; TOTAL HEMOGLOBIN 10.1 G/dl (14.0-18.0)
[2020-09-16] MEDS ORDERED: pantoprazole 40 MG vial IV SCH (20:00)
--- NOTE | 2020-09-16 20:05 | NUR ---
ABG completed per Dr. Morales's request who is currently at the bedside consulting with [facility] . [facility] is requesting that the pt's pH be greater than 7.3 prior to transport. Bao RT is at the bedside and adjusted the vent settings per JESSICA BRAY's request and will repeat an ABG at 2100. Bicarb drip also ordered by Andrew BRAY which will be started once it is available.
[2020-09-16] MEDS ORDERED: sodium bicarbonate (8.4%) inj. 150 MEQ in sodium chloride 0.45% 850 ML IV SCH (20:10)
[2020-09-16] MEDS: furosemide 40mg/4ml inj IV SCH (20:10)
[2020-09-16] MEDS ORDERED: sodium bicarbonate (8.4%) inj. 150 MEQ in sodium chloride 0.45% 1,000 ML IV SCH (20:19)
[2020-09-16 20:56] LABS: BASOPHILS # (AUTO) 0.1 X10'3 (0-0.2); BASOPHILS % (AUTO) 0.8 % (0-1); EOSINOPHILS % (AUTO) 0.6 % (0-6); HEMOGLOBIN 8.2 g/dl (14.0-17.9); LYMPHOCYTES # (AUTO) 0.6 X10'3 (1.1-4.8); LYMPHOCYTES % (AUTO) 7.5 % (21-51); MEAN CORPUSCULAR HEMOGLOBIN 28.5 PG (27.0-31.0); MEAN CORPUSCULAR HGB CONC 32.9 g/dL (33.0-36.5); MEAN CORPUSCULAR VOLUME 86.7 FL (78-98); MEAN PLATELET VOLUME 7.9 FL (7.4-10.4); MONOCYTES # (AUTO) 0.4 X10'3 (0-0.9); MONOCYTES % (AUTO) 5.7 % (2-12); NEUTROPHILS # (AUTO) 6.4 X10'3 (1.8-7.7); NEUTROPHILS % (AUTO) 85.4 % (42-75); PLATELET COUNT 190 X10'3 (140-440); RED BLOOD COUNT 2.89 X10'6 (4.70-6.10); RED CELL DISTRIBUTION WIDTH 16.9 % (11.5-14.5); WHITE BLOOD COUNT 7.5 X10'3 (4.5-11.0)
[2020-09-16 20:58] LABS: PARTIAL THROMBOPLASTIN TIME 33 SECONDS (22-32)
[2020-09-16 21:03] LABS: ALANINE AMINOTRANSFERASE 29 U/L (12-78); ALBUMIN 1.8 G/DL (3.4-5.0); ALBUMIN/GLOBULIN RATIO 0.4 (1.1-1.5); ALKALINE PHOSPHATASE 137 IU/L (46-116); ANION GAP 14 (8-16); ASPARTATE AMINO TRANSFERASE 22 U/L (10-37); BILIRUBIN,TOTAL 0.3 MG/DL (0.1-1.0); BLOOD UREA NITROGEN 18 MG/DL (7-18); BUN/CREATININE RATIO 12.7 (5.4-32.0); CALCIUM 8.6 MG/DL (8.5-10.1); CHLORIDE 108 MMOL/L (99-107); CREATININE 1.42 MG/DL (0.60-1.10); GLUCOSE 114 MG/DL (70-104); MAGNESIUM 1.8 MG/DL (1.5-2.4); PHOSPHORUS 5.5 MG/DL (2.3-4.5); POTASSIUM 4.1 MMOL/L (3.5-5.1); SODIUM 141 MMOL/L (135-145); TOTAL CARBON DIOXIDE 19.5 MMOL/L (24-32); TOTAL PROTEIN 6.3 G/DL (6.4-8.2); eGFR 51 ML/MIN
[2020-09-16 21:12] LABS: ABG BASE EXCESS -7.3 mmol/L (-2.0-2.0); ABG HCO3 18.2 mmol/L (22.0-26.0); ABG OXYGEN SATURATION 98.2 % (94-97); ABG PCO2 (T) 35.9 mmHg (35.0-48.0); ABG PO2 (T) 120.7 mmHg (75.0-100.0); ALLEN'S TEST POSITIVE; FCOHb 0.4 % (0.0-3.9); FMetHb 0.3 % (0.0-1.5); FO2Hb 97.5 % (94-97); PATIENT TEMPERATURE 36.6; PEEP 6 cm H2O; RESPIRATORY RATE 26 b/min; TIDAL VOLUME 400 mL; TOTAL HEMOGLOBIN 12.4 G/dl (14.0-18.0)
--- NOTE | 2020-09-16 21:55 | NUR ---
Spoke with transfer center regarding pt's improved ABG with a pH of 7.315 and received the bed assignment. [facility] transfer center contacted and they are looking for an aircraft. Pt continuing to do well, no sign of distress or discomfort.
--- NOTE | 2020-09-16 23:15 | NUR ---
[facility] dispatch informed us that [facility] out [facility] accepted the flight with an ETE of [id number]
[2020-09-17] VITALS: BP 117/62
--- NOTE | 2020-09-17 00:15 | NUR ---
Report called to [facility] SICU nurse Freeman and questions answered. Will call back once flight crew has left with the pt
[2020-09-17] MEDS: NORepinephrine 8mg/ 250ml NS 250 ML IV PRN (00:49)
[2020-09-17 01:00] VITALS: BP 112/59
[2020-09-17] MEDS: gabapentin 400mg capsule OGT SCH (01:01)
[2020-09-17] MEDS: VANCOMYCIN 750MG IV in NS 250 ML IV SCH (01:01)
[2020-09-17] MEDS: furosemide 40mg/4ml inj IV SCH (01:01)
--- NOTE | 2020-09-17 01:10 | NUR ---
Received call from dispatch that flight crew has landed at the airport and is loading into [facility] ambulance and will be en route to the hospital.
[2020-09-17 02:00] VITALS: BP 105/70
[2020-09-17] MEDS: metroNIDAZOLE-Flagyl 500mg/NS 100 ML IV SCH (02:00)
--- NOTE | 2020-09-17 02:25 | NUR ---
report given the [facility] nurse Orlando BOYCE and questions answered, transfer packets also given to flight team. [facility] transfer center notified of pt's departure and updated ETE called to [facility] CARLI Millard
[2020-09-17] MEDS: midazolam 100mg in NS 100ml 100 ML IV PRN (03:36)
[2020-09-17] MEDS: VECuronium br 10mg inj. IV PRN (03:37)
[2020-09-17] MEDS ORDERED: lansoprazole 15mg solutab OGT SCH (08:00)
[2020-09-17] MEDS ORDERED: VANCOMYCIN LEVEL IV ONE (22:30)
== END 2020-09-17 04:07 | disposition short-term general hospital (02) | DRG 720 ==
LOC: ER 05:15 → ED HOLD 07:49 → UNDOADMIN 07:49 → ED HOLD 16:36 → ICU 2S 19:25 → ED HOLD 19:25
PROVIDERS: ADMIT Family Medicine; ATTEND Family Medicine
PROC: 5A1945Z Respiratory Ventilation, 24-96 Consecutive Hours (ICD-10-PCS; principal; 2020-09-14)
PROC: 0BH18EZ Insertion of Endotracheal Airway into Trachea, Via Natural or Artificial Opening Endoscopic (ICD-10-PCS; 2020-09-14)
PROC: 0BJ08ZZ Inspection of Tracheobronchial Tree, Via Natural or Artificial Opening Endoscopic (ICD-10-PCS; 2020-09-16)
PROC: 0W9930Z Drainage of Right Pleural Cavity with Drainage Device, Percutaneous Approach (ICD-10-PCS; 2020-09-16)
DX: A41.9 Sepsis, unspecified organism (principal); C34.90 Malignant neoplasm of unspecified part of unspecified bronchus or lung; D64.9 Anemia, unspecified; E78.5 Hyperlipidemia, unspecified; E87.5 Hyperkalemia; F32.9 Major depressive disorder, single episode, unspecified; I12.9 Hypertensive chronic kidney disease with stage 1 through stage 4 chronic kidney disease, or unspecified chronic kidney disease; I48.0 Paroxysmal atrial fibrillation; J96.20 Acute and chronic respiratory failure, unspecified whether with hypoxia or hypercapnia; N17.9 Acute kidney failure, unspecified; N18.9 Chronic kidney disease, unspecified; R65.21 Severe sepsis with septic shock; G89.29 Other chronic pain; K21.9 Gastro-esophageal reflux disease without esophagitis; T81.32XA Disruption of internal operation (surgical) wound, not elsewhere classified, initial encounter; Y83.8 Other surgical procedures as the cause of abnormal reaction of the patient, or of later complication, without mention of misadventure at the time of the procedure; Z20.822 Contact with and (suspected) exposure to COVID-19; J44.9 Chronic obstructive pulmonary disease, unspecified; Y92.89 Other specified places as the place of occurrence of the external cause; Z85.118 Personal history of other malignant neoplasm of bronchus and lung; Z87.01 Personal history of pneumonia (recurrent); Z87.891 Personal history of nicotine dependence; Z90.2 Acquired absence of lung [part of]; Z79.899 Other long term (current) drug therapy; Z79.51 Long term (current) use of inhaled steroids
CPT/HCPCS: 31500; 31628; 31645; 36415; 36430; 36556; 36600; 49405; 71045; 71250; 71275; 74018; 80053; 80202; 80305; 82803; 82810; 82948; 83605; 83735; 83880; 84100; 84134; 84145; 84478; 84484; 85018; 85025; 85027; 85610; 85730; 86885; 86900; 86901; 86920; 87040; 87070; 87081; 87635; 93005; 93306; 94002; 94003; 94640; 94760; 94799; 99291; G0378; J0692; J1170; J1650; J1940; J2060; J2270; J2543; J2704; J3010; J3370; J3490; J7030; J7042; J7050; P9016; P9045; Q9967

== ENCOUNTER 2020-10-01 11:58 | Inpatient (IN) | payer MEDICAID ==
[~2020-10-01] VITALS: Ht 177.8 cm; Wt 79.4 kg
[~2020-10-01 11:58] MED LIST changes: +AMIO200T27 PO; -AMIO200T62 PO; +AMOX-115 PO; -AMOX-419 PO; -LACT1CAP26 PO; -LOSA100T57 PO; +LOSA50TA64 PO; -TIOT18CA3 PO
--- NOTE | 2020-10-01 18:20 | NUR ---
Patient transferred from [facility]. tayla Samuel/ankur. RN will assume care
[2020-10-01] MEDS ORDERED: amox tr/potassium clavulanate 500mg/125mg TAB PO SCH (20:00)
[2020-10-01 20:30] VITALS: BP 143/86
[2020-10-01] MEDS ORDERED: AMLO2.5T2 PO (21:23)
[2020-10-01] MEDS ORDERED: ACET-3080 PO (21:23)
[2020-10-01] MEDS ORDERED: FLUC100T PO ×2 (21:27→21:53)
[2020-10-01] MEDS ORDERED: ATR0.5NEB IH (21:32)
[2020-10-01] MEDS ORDERED: NALO4SPR BOTHNARES (21:34)
[2020-10-01] MEDS ORDERED: ONDA4TAB12 PO (21:35)
[2020-10-01] MEDS ORDERED: QUET25TA PO (21:43)
[2020-10-01] MEDS ORDERED: OXYC10SY PO (21:43)
[2020-10-01] MEDS ORDERED: SODI30SP3 BOTHNARES (21:44)
[2020-10-01] MEDS ORDERED: potassium Cl 40MEQ/1/2NS 520ml 520 ML IV PRN ×2 (21:50)
[2020-10-01] MEDS ORDERED: magnesium hydroxide 30ml (MOM) UD suspension PO PRN (21:50)
[2020-10-01] MEDS ORDERED: potassium Cl 20 mEq SR tablet PO PRN ×2 (21:50)
[2020-10-01] MEDS ORDERED: mag hydrox/Alum hydrox/simeth 30ml oral suspension PO PRN (21:50)
[2020-10-01] MEDS ORDERED: OXYcodone 10 MG/0.5 ML ORAL syringe PO PRN (21:55)
[2020-10-01 22:00] VITALS: BP 160/79
[2020-10-01] MEDS: ipratropium 0.5 MG/2.5ML nebule IH SCH (23:24)
[2020-10-02 02:00] VITALS: BP 148/82
[2020-10-02] MEDS: salt irrigation nasal spray 45 ML SPRAY NS SCH ×4 (02:00→20:38)
[2020-10-02] MEDS ORDERED: oxyCODONE IR 5mg (immed. release) tablet PO PRN ×2 (02:15)
[2020-10-02] MEDS: oxyCODONE SR 40mg (sust release) tab PO SCH ×4 (02:21→20:35)
[2020-10-02] MEDS: ipratropium 0.5 MG/2.5ML nebule IH SCH ×6 (03:19→23:43)
[2020-10-02 06:00] VITALS: BP 159/83
--- NOTE | 2020-10-02 06:21 | NUR ---
Problems reprioritized. Patient report given, questions answered & plan of care reviewed with Cata BOYCE.
[2020-10-02 06:33] LABS: BASOPHILS % (AUTO) 0.8 % (0-1); EOSINOPHILS # (AUTO) 0.1 X10'3 (0-0.9); EOSINOPHILS % (AUTO) 1.5 % (0-6); HEMATOCRIT 24.3 % (42.0-52.0); HEMOGLOBIN 8.2 g/dl (14.0-17.9); LYMPHOCYTES # (AUTO) 0.8 X10'3 (1.1-4.8); LYMPHOCYTES % (AUTO) 14.8 % (21-51); MEAN CORPUSCULAR HEMOGLOBIN 27.9 PG (27.0-31.0); MEAN CORPUSCULAR HGB CONC 33.8 g/dL (33.0-36.5); MEAN CORPUSCULAR VOLUME 82.8 FL (78-98); MEAN PLATELET VOLUME 7.5 FL (7.4-10.4); MONOCYTES # (AUTO) 0.6 X10'3 (0-0.9); MONOCYTES % (AUTO) 10.5 % (2-12); NEUTROPHILS # (AUTO) 3.8 X10'3 (1.8-7.7); NEUTROPHILS % (AUTO) 72.4 % (42-75); PLATELET COUNT 257 X10'3 (140-440); RED BLOOD COUNT 2.93 X10'6 (4.70-6.10); RED CELL DISTRIBUTION WIDTH 17.8 % (11.5-14.5); WHITE BLOOD COUNT 5.3 X10'3 (4.5-11.0)
[2020-10-02 06:37] LABS: ALANINE AMINOTRANSFERASE 17 U/L (12-78); ALBUMIN/GLOBULIN RATIO 0.4 (1.1-1.5); ALKALINE PHOSPHATASE 180 IU/L (46-116); ANION GAP 13 (8-16); ASPARTATE AMINO TRANSFERASE 18 U/L (10-37); BILIRUBIN,TOTAL 0.3 MG/DL (0.1-1.0); BLOOD UREA NITROGEN 14 MG/DL (7-18); BUN/CREATININE RATIO 11.3 (5.4-32.0); CHLORIDE 103 MMOL/L (99-107); CREATININE 1.24 MG/DL (0.60-1.10); GLUCOSE 96 MG/DL (70-104); POTASSIUM 3.9 MMOL/L (3.5-5.1); SODIUM 135 MMOL/L (135-145); TOTAL PROTEIN 6.7 G/DL (6.4-8.2); eGFR 60 ML/MIN
[2020-10-02] MEDS: amox tr/potassium clavulanate 500mg/125mg TAB PO SCH ×2 (07:41→20:35)
[2020-10-02] MEDS: sertraline 50mg tablet PO SCH ×2 (07:42→20:36)
[2020-10-02] MEDS: amLODIPine 5mg tablet PO SCH (07:43)
[2020-10-02] MEDS: amiodarone 200mg tablet PO SCH (07:43)
[2020-10-02] MEDS ORDERED: fluconazole 100mg tablet PO SCH (08:00)
[2020-10-02] MEDS: K and/or MAG REPLACEMENT MC SCH ×2 (08:00→20:00)
[2020-10-02] MEDS ORDERED: heparin, porcine 5000 units/ml vial SQ SCH (08:00)
[2020-10-02] MEDS ORDERED: albuterol 2.5 MG/3 ML nebule NEB PRN (09:05)
[2020-10-02 09:58] LABS: ABG BASE EXCESS -5.7 mmol/L (-2.0-2.0); ABG HCO3 18.5 mmol/L (22.0-26.0); ABG OXYGEN SATURATION 86.5 % (94-97); ABG PCO2 (T) 31.1 mmHg (35.0-48.0); ABG PO2 (T) 53.5 mmHg (75.0-100.0); ALLEN'S TEST POSITIVE; FCOHb 1.1 % (0.0-3.9); FLOW 3 L/min; FMetHb 0.2 % (0.0-1.5); FO2Hb 85.4 % (94-97); TOTAL HEMOGLOBIN 8.2 G/dl (14.0-18.0)
[2020-10-02 11:00] VITALS: BP 134/77
[2020-10-02 15:00] VITALS: BP 142/78
--- NOTE | 2020-10-02 18:30 | NUR ---
Patient in room MED 310. I have received report from HILARIO and had the opportunity to ask questions and assume patient care. ASSUMED CARE OF PT WITH RN STUDENT LYNNE Sepulveda
[2020-10-02] MEDS: ondansetron/PF 4mg/2ml inj IV PRN (18:31)
[2020-10-02] MEDS: budesonide 0.5mg/2ml UD nebule IH SCH (18:46)
[2020-10-02 19:00] VITALS: BP 137/82
[2020-10-02] MEDS: QUEtiapine 25mg tablet PO SCH (20:35)
[2020-10-02] MEDS: apixaban 5mg tablet PO SCH (20:36)
[2020-10-02 22:00] VITALS: BP 146/82
[2020-10-03] MEDS: ondansetron/PF 4mg/2ml inj IV PRN (00:47)
[2020-10-03] MEDS: oxyCODONE SR 40mg (sust release) tab PO SCH ×3 (02:13→13:04)
[2020-10-03] MEDS: salt irrigation nasal spray 45 ML SPRAY NS SCH ×4 (02:14→20:39)
--- NOTE | 2020-10-03 02:59 | NUR ---
Student documentation: I have reviewed and agree with all interventions, assessments performed and documented by LYNNE .
--- NOTE | 2020-10-03 02:59 | NUR ---
Student Medication Administration: For this medication-pass time frame, all medication were reviewed, dispensed, administered and documented per hospital policy by LYNNE .
[2020-10-03] MEDS: ipratropium 0.5 MG/2.5ML nebule IH SCH ×7 (03:01→23:00)
[2020-10-03 03:04] VITALS: BP 101/77
--- NOTE | 2020-10-03 06:29 | NUR ---
Problems reprioritized. Patient report given, questions answered & plan of care reviewed with KERMIT.
[2020-10-03 06:38] VITALS: BP 112/73
[2020-10-03 07:06] LABS: BASOPHILS % (AUTO) 0.8 % (0-1); HEMATOCRIT 23.9 % (42.0-52.0); HEMOGLOBIN 8.1 g/dl (14.0-17.9); LYMPHOCYTES # (AUTO) 0.7 X10'3 (1.1-4.8); LYMPHOCYTES % (AUTO) 14.1 % (21-51); MEAN CORPUSCULAR HEMOGLOBIN 28.4 PG (27.0-31.0); MEAN CORPUSCULAR VOLUME 83.3 FL (78-98); MEAN PLATELET VOLUME 7.4 FL (7.4-10.4); MONOCYTES # (AUTO) 0.5 X10'3 (0-0.9); MONOCYTES % (AUTO) 10.4 % (2-12); NEUTROPHILS # (AUTO) 3.7 X10'3 (1.8-7.7); NEUTROPHILS % (AUTO) 73.7 % (42-75); PLATELET COUNT 229 X10'3 (140-440); RED BLOOD COUNT 2.87 X10'6 (4.70-6.10); RED CELL DISTRIBUTION WIDTH 18.4 % (11.5-14.5)
[2020-10-03 07:21] LABS: ALANINE AMINOTRANSFERASE 18 U/L (12-78); ALBUMIN 2.1 G/DL (3.4-5.0); ALBUMIN/GLOBULIN RATIO 0.4 (1.1-1.5); ALKALINE PHOSPHATASE 180 IU/L (46-116); ANION GAP 10 (8-16); ASPARTATE AMINO TRANSFERASE 19 U/L (10-37); BILIRUBIN,TOTAL 0.3 MG/DL (0.1-1.0); BLOOD UREA NITROGEN 11 MG/DL (7-18); BUN/CREATININE RATIO 8.8 (5.4-32.0); CALCIUM 9.2 MG/DL (8.5-10.1); CHLORIDE 102 MMOL/L (99-107); CHOL/HDL RATIO 3.5 (0.00-4.99); CHOLESTEROL 149 MG/DL (0-200); CREATININE 1.25 MG/DL (0.60-1.10); GLUCOSE 89 MG/DL (70-104); HDL CHOLESTEROL 42 MG/DL (35-60); LDL CHOLESTEROL 74 MG/DL (50-100); POTASSIUM 4.1 MMOL/L (3.5-5.1); SODIUM 134 MMOL/L (135-145); TOTAL CARBON DIOXIDE 21.6 MMOL/L (24-32); TRIGLYCERIDES 175 MG/DL (20-135); eGFR 59 ML/MIN
[2020-10-03] MEDS: budesonide 0.5mg/2ml UD nebule IH SCH ×2 (07:30→20:03)
[2020-10-03] MEDS: K and/or MAG REPLACEMENT MC SCH ×2 (08:00→20:00)
[2020-10-03] MEDS: sertraline 50mg tablet PO SCH ×2 (08:24→20:34)
[2020-10-03] MEDS: amiodarone 200mg tablet PO SCH (08:24)
[2020-10-03] MEDS: apixaban 5mg tablet PO SCH ×2 (08:24→20:34)
[2020-10-03] MEDS: amLODIPine 5mg tablet PO SCH (08:24)
[2020-10-03] MEDS: fluconazole 100mg tablet PO SCH (08:25)
[2020-10-03] MEDS: amox tr/potassium clavulanate 500mg/125mg TAB PO SCH ×2 (08:29→20:35)
--- NOTE | 2020-10-03 11:52 | NUR ---
Page to Telma PAGER ID: [phone] MESSAGE: Pt 310 Freeman Herrera, per PT: okay to go home, recommends home health PT. FWW will desat to 80% when ambulating, recovers quickly. Thank you, Dixie JENKINS [phone]
[2020-10-03 12:01] VITALS: BP 145/81
[2020-10-03] MEDS ORDERED: APIX5TAB3 PO (12:04)
[2020-10-03] MEDS ORDERED: AMOX1TAB15 PO (12:04)
[2020-10-03] MEDS ORDERED: FLUC100T9 PO (12:04)
[2020-10-03] MEDS ORDERED: OXYC40TA48 PO ×2 (13:04→15:47)
[2020-10-03] MEDS ORDERED: ondansetron 4mg rapidly disintigrating tab PO PRN (15:05)
[2020-10-03 16:06] VITALS: BP 117/74
[2020-10-03] MEDS ORDERED: MORP60TA32 PO (16:30)
--- NOTE | 2020-10-03 16:55 | NUR ---
AT THIS TIME DC ORDERS ARE GOING TO BE CANCELED, PATIENT IS DESATING TO LOW 70"S AND RECOVERS AND THEN GOES BACK DOWN, PATIENT LETHRGIC BUT REPONSIVE, RT SEND A MESSAGE FOR STAT ABG, WILL CONITNUE TO MONITOR PATIENT FOR NEEDS.
[2020-10-03 17:13] LABS: ABG BASE EXCESS -5.9 mmol/L (-2.0-2.0); ABG HCO3 20.6 mmol/L (22.0-26.0); ABG PCO2 (T) 44.9 mmHg (35.0-48.0); ALLEN'S TEST POSITIVE; FCOHb 0.6 % (0.0-3.9); FLOW 6 L/min; FMetHb 0.3 % (0.0-1.5); FO2Hb 67.4 % (94-97); TOTAL HEMOGLOBIN 11.1 G/dl (14.0-18.0)
[2020-10-03 18:00] VITALS: BP 126/79
--- NOTE | 2020-10-03 18:35 | NUR ---
Patient in room MED 310. I have received report from Flavia, and had the opportunity to ask questions and assume patient care.
--- NOTE | 2020-10-03 18:36 | NUR ---
Dr. Hollis at the patient's bedside. Ordered to DC oxycontin 40mg, and ordered ms contin 30mg BID. No other orders were given at this time.
[2020-10-03 19:38] LABS: ABG BASE EXCESS -5.2 mmol/L (-2.0-2.0); ABG OXYGEN SATURATION 93.3 % (94-97); ABG PCO2 (T) 43.2 mmHg (35.0-48.0); FCOHb 0.6 % (0.0-3.9); FLOW 15 L/min; FMetHb 0.3 % (0.0-1.5); FO2Hb 92.5 % (94-97); PATIENT TEMPERATURE 36.6; TOTAL HEMOGLOBIN 8.8 G/dl (14.0-18.0)
[2020-10-03] MEDS: lactobacillus rhamnosus 10,000 MMU CELLS/CAPSULE PO SCH (20:34)
[2020-10-03] MEDS: morphine ER 30mg tablet PO SCH (20:35)
[2020-10-03] MEDS: QUEtiapine 25mg tablet PO SCH (20:35)
[2020-10-03 22:00] VITALS: BP 128/72
[2020-10-04] MEDS: salt irrigation nasal spray 45 ML SPRAY NS SCH ×4 (01:35→20:06)
[2020-10-04 02:00] VITALS: BP 150/78
[2020-10-04] MEDS: ipratropium 0.5 MG/2.5ML nebule IH SCH ×6 (03:33→23:44)
[2020-10-04 06:00] VITALS: BP 124/83
--- NOTE | 2020-10-04 06:20 | NUR ---
Problems reprioritized. Patient report given, questions answered & plan of care reviewed with Erica.
[2020-10-04] MEDS: budesonide 0.5mg/2ml UD nebule IH SCH ×2 (07:15→19:34)
[2020-10-04 07:29] LABS: BASOPHILS % (AUTO) 0.6 % (0-1); EOSINOPHILS % (AUTO) 0.7 % (0-6); HEMATOCRIT 25.5 % (42.0-52.0); HEMOGLOBIN 8.5 g/dl (14.0-17.9); LYMPHOCYTES # (AUTO) 0.6 X10'3 (1.1-4.8); LYMPHOCYTES % (AUTO) 10.2 % (21-51); MEAN CORPUSCULAR HGB CONC 33.2 g/dL (33.0-36.5); MEAN CORPUSCULAR VOLUME 84.5 FL (78-98); MEAN PLATELET VOLUME 7.4 FL (7.4-10.4); MONOCYTES # (AUTO) 0.6 X10'3 (0-0.9); MONOCYTES % (AUTO) 9.1 % (2-12); NEUTROPHILS % (AUTO) 79.4 % (42-75); PLATELET COUNT 220 X10'3 (140-440); RED BLOOD COUNT 3.02 X10'6 (4.70-6.10); RED CELL DISTRIBUTION WIDTH 18.3 % (11.5-14.5); WHITE BLOOD COUNT 6.2 X10'3 (4.5-11.0)
[2020-10-04] MEDS: morphine ER 30mg tablet PO SCH ×2 (08:00→20:00)
[2020-10-04] MEDS: K and/or MAG REPLACEMENT MC SCH ×2 (08:00→20:00)
[2020-10-04] MEDS: amox tr/potassium clavulanate 500mg/125mg TAB PO SCH ×2 (08:02→20:03)
[2020-10-04] MEDS: sertraline 50mg tablet PO SCH ×2 (08:02→20:06)
[2020-10-04] MEDS: apixaban 5mg tablet PO SCH ×2 (08:02→20:05)
[2020-10-04] MEDS: amiodarone 200mg tablet PO SCH (08:02)
[2020-10-04] MEDS: lactobacillus rhamnosus 10,000 MMU CELLS/CAPSULE PO SCH ×2 (08:02→20:06)
[2020-10-04] MEDS: amLODIPine 5mg tablet PO SCH (08:03)
[2020-10-04 08:14] LABS: ALANINE AMINOTRANSFERASE 18 U/L (12-78); ALBUMIN 2.3 G/DL (3.4-5.0); ALBUMIN/GLOBULIN RATIO 0.5 (1.1-1.5); ALKALINE PHOSPHATASE 197 IU/L (46-116); ANION GAP 10 (8-16); ASPARTATE AMINO TRANSFERASE 21 U/L (10-37); BILIRUBIN,TOTAL 0.4 MG/DL (0.1-1.0); BLOOD UREA NITROGEN 10 MG/DL (7-18); BUN/CREATININE RATIO 7.8 (5.4-32.0); CALCIUM 9.5 MG/DL (8.5-10.1); CHLORIDE 103 MMOL/L (99-107); CREATININE 1.29 MG/DL (0.60-1.10); GLUCOSE 89 MG/DL (70-104); POTASSIUM 4.1 MMOL/L (3.5-5.1); SODIUM 136 MMOL/L (135-145); TOTAL CARBON DIOXIDE 23.2 MMOL/L (24-32); TOTAL PROTEIN 7.3 G/DL (6.4-8.2); eGFR 57 ML/MIN
[2020-10-04] MEDS ORDERED: predniSONE 20 mg tablet PO SCH (08:30)
[2020-10-04] MEDS ORDERED: iohexol 300mg/ml 100ml inj. ONE (10:27)
[2020-10-04] MEDS: acetaminophen 325mg tablet PO PRN ×2 (12:21→20:05)
[2020-10-04 12:25] VITALS: BP 123/87
[2020-10-04] MEDS ORDERED: furosemide 40mg/4ml inj IV ONE (14:55)
--- NOTE | 2020-10-04 15:02 | NUR ---
Orders for one time dose of 40mg IV lasix put in per Dr. Morales.
[2020-10-04 15:38] VITALS: BP 131/78
[2020-10-04 18:00] VITALS: BP 123/74
--- NOTE | 2020-10-04 18:30 | NUR ---
Patient in room MED 310. I have received report from Erica, and had the opportunity to ask questions and assume patient care.
[2020-10-04] MEDS: QUEtiapine 25mg tablet PO SCH (20:05)
[2020-10-04 22:43] VITALS: BP 123/72
[2020-10-05] MEDS: gabapentin 400mg capsule PO SCH ×3 (01:11→16:58)
[2020-10-05] MEDS: salt irrigation nasal spray 45 ML SPRAY NS SCH ×4 (01:12→20:13)
[2020-10-05] MEDS: traMADol 50MG tablet PO PRN ×3 (01:25→17:01)
[2020-10-05] MEDS: ipratropium 0.5 MG/2.5ML nebule IH SCH ×6 (02:46→23:04)
[2020-10-05 03:00] VITALS: BP 131/101
[2020-10-05 06:00] VITALS: BP 122/72
--- NOTE | 2020-10-05 06:13 | NUR ---
Problems reprioritized. Patient report given, questions answered & plan of care reviewed with Erica.
[2020-10-05 06:23] LABS: BASOPHILS % (AUTO) 0.4 % (0-1); EOSINOPHILS % (AUTO) 0.2 % (0-6); HEMOGLOBIN 7.1 g/dl (14.0-17.9); LYMPHOCYTES # (AUTO) 0.6 X10'3 (1.1-4.8); LYMPHOCYTES % (AUTO) 8.6 % (21-51); MEAN CORPUSCULAR HEMOGLOBIN 27.6 PG (27.0-31.0); MEAN CORPUSCULAR HGB CONC 33.2 g/dL (33.0-36.5); MEAN CORPUSCULAR VOLUME 83.1 FL (78-98); MEAN PLATELET VOLUME 7.7 FL (7.4-10.4); MONOCYTES # (AUTO) 0.6 X10'3 (0-0.9); MONOCYTES % (AUTO) 8.8 % (2-12); NEUTROPHILS # (AUTO) 5.9 X10'3 (1.8-7.7); PLATELET COUNT 208 X10'3 (140-440); RED BLOOD COUNT 2.57 X10'6 (4.70-6.10); RED CELL DISTRIBUTION WIDTH 18.7 % (11.5-14.5); WHITE BLOOD COUNT 7.2 X10'3 (4.5-11.0)
[2020-10-05 06:31] LABS: ALANINE AMINOTRANSFERASE 17 U/L (12-78); ALBUMIN 2.2 G/DL (3.4-5.0); ALBUMIN/GLOBULIN RATIO 0.5 (1.1-1.5); ALKALINE PHOSPHATASE 179 IU/L (46-116); ANION GAP 8 (8-16); ASPARTATE AMINO TRANSFERASE 16 U/L (10-37); BILIRUBIN,TOTAL 0.3 MG/DL (0.1-1.0); BLOOD UREA NITROGEN 13 MG/DL (7-18); CALCIUM 9.1 MG/DL (8.5-10.1); CHLORIDE 101 MMOL/L (99-107); GLUCOSE 108 MG/DL (70-104); POTASSIUM 3.8 MMOL/L (3.5-5.1); SODIUM 136 MMOL/L (135-145); TOTAL CARBON DIOXIDE 26.7 MMOL/L (24-32); eGFR 57 ML/MIN
[2020-10-05 06:36] LABS: HEMATOCRIT 21.4 % (42.0-52.0)
--- NOTE | 2020-10-05 06:42 | NUR ---
PAGED DR ARAUJO: DEEPIKA HENDRIX RM# 310, morning labs revealed a Hgb of 7.1 (previous 8.5), and Hct 21.4 (previous 25.5). Pt in no distress at this time. No signs of bleeding observed upon assessment. Please call ext [phone] for any questions. - Leno BOYCE
[2020-10-05] MEDS: budesonide 0.5mg/2ml UD nebule IH SCH ×2 (07:15→20:15)
[2020-10-05] MEDS: K and/or MAG REPLACEMENT MC SCH ×2 (08:00→20:00)
[2020-10-05] MEDS ORDERED: furosemide 40mg/4ml inj IV ONE (08:10)
[2020-10-05] MEDS: HYDROchlorothiazide 25mg tablet PO SCH (08:26)
[2020-10-05] MEDS: amox tr/potassium clavulanate 500mg/125mg TAB PO SCH ×2 (08:26→19:57)
[2020-10-05] MEDS: lactobacillus rhamnosus 10,000 MMU CELLS/CAPSULE PO SCH ×2 (08:26→19:57)
[2020-10-05] MEDS: apixaban 5mg tablet PO SCH ×2 (08:26→19:57)
[2020-10-05] MEDS: sertraline 50mg tablet PO SCH ×2 (08:27→19:57)
[2020-10-05] MEDS: amLODIPine 5mg tablet PO SCH (08:27)
[2020-10-05] MEDS: amiodarone 200mg tablet PO SCH (08:27)
[2020-10-05 08:58] LABS: ANISOCYTOSIS 2+; PLATELET ESTIMATE NORMAL
[2020-10-05 08:59] LABS: HYPOCHROMASIA 1+
[2020-10-05] MEDS: fluconazole 100mg tablet PO SCH (09:36)
[2020-10-05 11:00] VITALS: BP 115/75
[2020-10-05 11:09] LABS: HEMATOCRIT 25.4 % (42.0-52.0); HEMOGLOBIN 8.4 g/dl (14.0-17.9); MEAN CORPUSCULAR HEMOGLOBIN 27.7 PG (27.0-31.0); MEAN CORPUSCULAR HGB CONC 33.2 g/dL (33.0-36.5); MEAN CORPUSCULAR VOLUME 83.6 FL (78-98); MEAN PLATELET VOLUME 7.2 FL (7.4-10.4); PLATELET COUNT 293 X10'3 (140-440); RED BLOOD COUNT 3.03 X10'6 (4.70-6.10); RED CELL DISTRIBUTION WIDTH 18.2 % (11.5-14.5); WHITE BLOOD COUNT 10.1 X10'3 (4.5-11.0)
[2020-10-05 18:00] VITALS: BP 123/78
--- NOTE | 2020-10-05 19:00 | NUR ---
report from Laura BOYCE
[2020-10-05] MEDS: furosemide 40mg/4ml inj IV SCH (19:58)
[2020-10-05] MEDS: QUEtiapine 25mg tablet PO SCH (20:00)
[2020-10-05 22:00] VITALS: BP 129/79
[2020-10-06] MEDS: gabapentin 400mg capsule PO SCH ×2 (00:26→08:37)
[2020-10-06] MEDS: traMADol 50MG tablet PO PRN (00:26)
[2020-10-06 02:00] VITALS: BP 118/70
[2020-10-06] MEDS: salt irrigation nasal spray 45 ML SPRAY NS SCH ×2 (02:00→08:40)
[2020-10-06] MEDS: ipratropium 0.5 MG/2.5ML nebule IH SCH ×3 (03:18→11:47)
[2020-10-06 06:00] VITALS: BP 120/76
--- NOTE | 2020-10-06 06:18 | NUR ---
report given to Colette romo RN
[2020-10-06 06:35] LABS: BASOPHILS % (AUTO) 0.6 % (0-1); EOSINOPHILS # (AUTO) 0.1 X10'3 (0-0.9); EOSINOPHILS % (AUTO) 1.6 % (0-6); HEMATOCRIT 23.3 % (42.0-52.0); LYMPHOCYTES # (AUTO) 0.8 X10'3 (1.1-4.8); LYMPHOCYTES % (AUTO) 13.1 % (21-51); MEAN CORPUSCULAR HEMOGLOBIN 27.9 PG (27.0-31.0); MEAN CORPUSCULAR HGB CONC 34.2 g/dL (33.0-36.5); MEAN CORPUSCULAR VOLUME 81.6 FL (78-98); MEAN PLATELET VOLUME 7.5 FL (7.4-10.4); MONOCYTES # (AUTO) 0.6 X10'3 (0-0.9); MONOCYTES % (AUTO) 9.5 % (2-12); NEUTROPHILS # (AUTO) 4.6 X10'3 (1.8-7.7); NEUTROPHILS % (AUTO) 75.2 % (42-75); PLATELET COUNT 254 X10'3 (140-440); RED BLOOD COUNT 2.85 X10'6 (4.70-6.10); RED CELL DISTRIBUTION WIDTH 18.5 % (11.5-14.5); WHITE BLOOD COUNT 6.1 X10'3 (4.5-11.0)
[2020-10-06 06:46] LABS: ALANINE AMINOTRANSFERASE 17 U/L (12-78); ALBUMIN 2.2 G/DL (3.4-5.0); ALBUMIN/GLOBULIN RATIO 0.4 (1.1-1.5); ALKALINE PHOSPHATASE 183 IU/L (46-116); ANION GAP 9 (8-16); ASPARTATE AMINO TRANSFERASE 22 U/L (10-37); BILIRUBIN,TOTAL 0.3 MG/DL (0.1-1.0); BLOOD UREA NITROGEN 13 MG/DL (7-18); BUN/CREATININE RATIO 9.7 (5.4-32.0); CALCIUM 9.3 MG/DL (8.5-10.1); CHLORIDE 99 MMOL/L (99-107); CREATININE 1.34 MG/DL (0.60-1.10); GLUCOSE 98 MG/DL (70-104); POTASSIUM 3.4 MMOL/L (3.5-5.1); SODIUM 136 MMOL/L (135-145); TOTAL CARBON DIOXIDE 28.3 MMOL/L (24-32); TOTAL PROTEIN 7.3 G/DL (6.4-8.2); eGFR 55 ML/MIN
[2020-10-06] MEDS: budesonide 0.5mg/2ml UD nebule IH SCH (07:30)
[2020-10-06 08:00] VITALS: BP 129/71
[2020-10-06] MEDS: amiodarone 200mg tablet PO SCH (08:37)
[2020-10-06] MEDS: amLODIPine 5mg tablet PO SCH (08:38)
[2020-10-06] MEDS: HYDROchlorothiazide 25mg tablet PO SCH (08:38)
[2020-10-06] MEDS: apixaban 5mg tablet PO SCH (08:38)
[2020-10-06] MEDS: amox tr/potassium clavulanate 500mg/125mg TAB PO SCH (08:38)
[2020-10-06] MEDS: sertraline 50mg tablet PO SCH (08:38)
[2020-10-06] MEDS: furosemide 40mg/4ml inj IV SCH (08:39)
[2020-10-06] MEDS: lactobacillus rhamnosus 10,000 MMU CELLS/CAPSULE PO SCH (08:39)
[2020-10-06] MEDS: K and/or MAG REPLACEMENT MC SCH (08:39)
[2020-10-06] MEDS ORDERED: MORP30TA60 PO (09:19)
[2020-10-06 11:00] VITALS: BP 121/69
[2020-10-06] MEDS ORDERED: GABA-534 PO (12:27)
[2020-10-06] MEDS ORDERED: PRED20TA PO (12:27)
[2020-10-06] MEDS ORDERED: FURO40TA4 PO (12:27)
--- NOTE | 2020-10-06 12:33 | NUR ---
O2 Sat at rest on room air: 86% If below 89%: Recovery O2 Sat at rest on 4LPM: 94% via nasal cannula. No further documentation is necessary.
--- NOTE | 2020-10-06 14:20 | NUR ---
DISCHARGE INSTRUCTIONS GIVEN TO PAYIENT AND TO SISTER, BOTH VERBALIZED UNDERSTANDING. DISCHARGED HOME BY WHEELCHAIR WITH SISTER, WITH PORTABLE O2 AT 4L PER NASAL CANNULA WITH O2 SATURATION AT 88, DR ROBINS AWARE OF O2 SAT IN THE HIGH 80'S. PATIENT APPEARS IN NO ACUTE DISTRESS.
--- NOTE | 2020-10-06 15:56 | NUR ---
I have reviewed and agree with all medications administered and interventions performed by [facility] Student, Nirali Perez.
== END 2020-10-06 14:30 | disposition home health service (06) | DRG 133 ==
LOC: MED 3N 20:20
PROVIDERS: ADMIT Family Medicine; ATTEND Surgery
PROC: 5A0945A Assistance with Respiratory Ventilation, 24-96 Consecutive Hours, High Flow/Velocity Cannula (ICD-10-PCS; principal; 2020-10-03)
DX: J96.21 Acute and chronic respiratory failure with hypoxia (principal); E78.5 Hyperlipidemia, unspecified; F32.9 Major depressive disorder, single episode, unspecified; J44.9 Chronic obstructive pulmonary disease, unspecified; Z79.899 Other long term (current) drug therapy; Z85.118 Personal history of other malignant neoplasm of bronchus and lung; I25.10 Atherosclerotic heart disease of native coronary artery without angina pectoris; K44.9 Diaphragmatic hernia without obstruction or gangrene; Z79.01 Long term (current) use of anticoagulants; I48.91 Unspecified atrial fibrillation
CPT/HCPCS: 36415; 36600; 71045; 71250; 71260; 80053; 80061; 82803; 82948; 85008; 85018; 85025; 85027; 94640; 94760; 97116; 97161; 97530; 97535; G0378; J1644; J1940; J2405; J7512; J7626; Q9967

== ENCOUNTER 2021-06-05 12:46 | Emergency (ER) | payer MEDICAID ==
[~2021-06-05] VITALS: Ht 172.7 cm; Wt 65.0 kg
[~2021-06-05 12:46] MED LIST changes: -ALBU18HF2 INH; +AMLO2.5T2 PO; -AMOX-115 PO; +AMOX1TAB15 PO; -ASPI-612 PO; -ATOR20TA PO; +ATR0.5NEB IH; -DILT180C66 PO; +FLUC100T9 PO; +FURO40TA4 PO; -LOSA50TA64 PO; +MORP30TA60 PO; +NALO4SPR BOTHNARES; -OMEP-84 PO; +ONDA4TAB12 PO; +OXYC10SY PO; +PRED20TA PO; +QUET25TA PO; +SODI30SP3 BOTHNARES; -UMEC1DIS INH
--- NOTE | 2021-06-05 13:09 | NUR ---
CALL SISTER IF WE NEED ANY INFO
[2021-06-05] MEDS: HYDROcodone/acetaminophen 5mg/325mg tablet PO ONE ×2 (13:13→15:29)
[2021-06-05 13:21] LABS: BASOPHILS # (AUTO) 0.1 X10'3 (0-0.2); BASOPHILS % (AUTO) 1.1 % (0-1); EOSINOPHILS % (AUTO) 0 % (0-6); HEMATOCRIT 41.4 % (42.0-52.0); HEMOGLOBIN 13.9 g/dl (14.0-17.9); LYMPHOCYTES # (AUTO) 0.3 X10'3 (1.1-4.8); LYMPHOCYTES % (AUTO) 2.8 % (21-51); MEAN CORPUSCULAR HEMOGLOBIN 26.1 PG (27.0-31.0); MEAN CORPUSCULAR HGB CONC 33.6 g/dL (33.0-36.5); MEAN CORPUSCULAR VOLUME 77.6 FL (78-98); MEAN PLATELET VOLUME 8.4 FL (7.4-10.4); MONOCYTES # (AUTO) 0.5 X10'3 (0-0.9); MONOCYTES % (AUTO) 5.4 % (2-12); NEUTROPHILS # (AUTO) 8.7 X10'3 (1.8-7.7); NEUTROPHILS % (AUTO) 90.7 % (42-75); PLATELET COUNT 150 X10'3 (140-440); RED BLOOD COUNT 5.33 X10'6 (4.70-6.10); RED CELL DISTRIBUTION WIDTH 19.8 % (11.5-14.5); WHITE BLOOD COUNT 9.6 X10'3 (4.5-11.0)
[2021-06-05 13:36] LABS: ALANINE AMINOTRANSFERASE 29 U/L (12-78); ALBUMIN 3.4 G/DL (3.4-5.0); ALBUMIN/GLOBULIN RATIO 0.7 (1.1-1.5); ALKALINE PHOSPHATASE 142 IU/L (46-116); ANION GAP 15 (8-16); ASPARTATE AMINO TRANSFERASE 27 U/L (10-37); BILIRUBIN,TOTAL 0.9 MG/DL (0.1-1.0); BLOOD UREA NITROGEN 15 MG/DL (7-18); BUN/CREATININE RATIO 11.4 (5.4-32.0); CALCIUM 9.4 MG/DL (8.5-10.1); CHLORIDE 99 MMOL/L (99-107); CREATININE 1.32 MG/DL (0.60-1.10); GLUCOSE 229 MG/DL (70-104); POTASSIUM 4.1 MMOL/L (3.5-5.1); SODIUM 135 MMOL/L (135-145); TOTAL CARBON DIOXIDE 21.1 MMOL/L (24-32); TOTAL PROTEIN 8.5 G/DL (6.4-8.2); eGFR 55 ML/MIN
[2021-06-05 13:38] LABS: PARTIAL THROMBOPLASTIN TIME 31 SECONDS (22-32)
[2021-06-05 13:41] LABS: MAGNESIUM 1.7 MG/DL (1.5-2.4)
[2021-06-05 13:51] LABS: ANISOCYTOSIS 1+; ELLIPTOCYTES FEW; MICROCYTOSIS 1+; PLATELET ESTIMATE NORMAL
[2021-06-05] MEDS ORDERED: normal saline 1000ML IV soln IV ONE (14:20)
[2021-06-05] MEDS ORDERED: iohexol 350MG/ML 100ml bottle IV ONE (14:39)
[2021-06-05] MEDS ORDERED: CefTRIAXone/D5W-Rocephin 1gm 50 ML IV ONE (15:55)
[2021-06-05] MEDS ORDERED: azithromycin/NS 500mg/250ml 250 ML IV ONE (15:55)
[2021-06-05] MEDS ORDERED: AZIT-21 PO (16:13)
[2021-06-05] MEDS ORDERED: AMOX-422 PO (16:13)
[2021-06-05 17:00] VITALS: BP 135/92
[2021-06-05] MEDS ORDERED: HYDR-3973 PO (17:48)
[2021-06-05] MEDS ORDERED: QUET25TA36 PO (17:48)
[2021-06-05] MEDS ORDERED: LOSA50TA64 PO (17:48)
[2021-06-05] MEDS ORDERED: SERT-434 PO (17:48)
[2021-06-05] MEDS ORDERED: ERGO500056 PO (17:48)
[2021-06-05] MEDS ORDERED: OMEP-50 PO (17:48)
[2021-06-05] MEDS ORDERED: TIOT4MIS3 INH (17:48)
[2021-06-05] MEDS ORDERED: DOCU100C40 PO (17:51)
[2021-06-05] MEDS ORDERED: ASPI-611 PO (17:51)
[2021-06-05] MEDS ORDERED: GABA-534 PO (17:52)
== END 2021-06-05 19:17 | disposition home or self-care (01) ==
LOC: ER 12:46
DX: J18.9 Pneumonia, unspecified organism (principal); I10 Essential (primary) hypertension; J44.9 Chronic obstructive pulmonary disease, unspecified; I48.91 Unspecified atrial fibrillation; Z79.899 Other long term (current) drug therapy; Z20.822 Contact with and (suspected) exposure to COVID-19
CPT/HCPCS: 36415; 71045; 71275; 80053; 83605; 83735; 83880; 84145; 84484; 85008; 85025; 85610; 85730; 87040; 87635; 93005; 96361; 96365; 96367; 99285; C9803; J0456; J0696; J7030; Q9967

== ENCOUNTER 2021-10-18 08:33 | Inpatient (IN) | payer MEDICAID ==
[~2021-10-18] VITALS: Ht 177.8 cm; Wt 81.8 kg
[~2021-10-18 08:33] MED LIST changes: -AMIO200T27 PO; -AMLO2.5T2 PO; -AMOX1TAB15 PO; -APIX5TAB3 PO; +ASPI-611 PO; -ATR0.5NEB IH; +DOCU100C40 PO; +ERGO500056 PO; -FLUC100T9 PO; -FURO40TA4 PO; +HYDR-3973 PO; +LOSA50TA64 PO; -MORP30TA60 PO; -NALO4SPR BOTHNARES; +OMEP20CA16 PO; -OXYC10SY PO; -PRED20TA PO; -QUET25TA PO; +QUET25TA36 PO; -SERT-153 PO; +SERT-434 PO; -SODI30SP3 BOTHNARES; +TIOT4MIS3 INH
[2021-10-18 09:08] LABS: BASOPHILS % (AUTO) 0.2 % (0-1); EOSINOPHILS % (AUTO) 0.2 % (0-6); HEMATOCRIT 35.1 % (42.0-52.0); HEMOGLOBIN 11.6 g/dl (14.0-17.9); LYMPHOCYTES # (AUTO) 0.8 X10'3 (1.1-4.8); LYMPHOCYTES % (AUTO) 7.4 % (21-51); MEAN CORPUSCULAR HGB CONC 33.1 g/dL (33.0-36.5); MEAN CORPUSCULAR VOLUME 75.5 FL (78-98); MEAN PLATELET VOLUME 8.2 FL (7.4-10.4); MONOCYTES # (AUTO) 0.7 X10'3 (0-0.9); MONOCYTES % (AUTO) 6.6 % (2-12); NEUTROPHILS # (AUTO) 8.7 X10'3 (1.8-7.7); NEUTROPHILS % (AUTO) 85.6 % (42-75); PLATELET COUNT 244 X10'3 (140-440); RED BLOOD COUNT 4.65 X10'6 (4.70-6.10); RED CELL DISTRIBUTION WIDTH 16.7 % (11.5-14.5); WHITE BLOOD COUNT 10.2 X10'3 (4.5-11.0)
[2021-10-18 09:12] LABS: D-DIMER 1.59 MG/L FEU (0-0.50)
[2021-10-18 09:22] LABS: ALANINE AMINOTRANSFERASE 18 U/L (12-78); ALBUMIN 2.5 G/DL (3.4-5.0); ALBUMIN/GLOBULIN RATIO 0.4 (1.1-1.5); ALKALINE PHOSPHATASE 112 IU/L (46-116); ANION GAP 12 (8-16); ASPARTATE AMINO TRANSFERASE 24 U/L (10-37); BILIRUBIN,TOTAL 0.6 MG/DL (0.1-1.0); BLOOD UREA NITROGEN 13 MG/DL (7-18); BUN/CREATININE RATIO 14.9 (5.4-32.0); CALCIUM 9.2 MG/DL (8.5-10.1); CHLORIDE 100 MMOL/L (99-107); CREATININE 0.87 MG/DL (0.60-1.10); GLUCOSE 111 MG/DL (70-104); SODIUM 135 MMOL/L (135-145); TOTAL CARBON DIOXIDE 23.2 MMOL/L (24-32); TOTAL PROTEIN 8.2 G/DL (6.4-8.2); eGFR 90 ML/MIN
[2021-10-18] MEDS ORDERED: iohexol 350MG/ML 100ml bottle IV ONE (10:01)
[2021-10-18] MEDS ORDERED: methylPREDNISolone sod succ 125mg/2ml vial IV ONE (14:55)
[2021-10-18] MEDS ORDERED: albuterol 2.5 MG/3 ML nebule NEB ONE (14:55)
[2021-10-18] MEDS ORDERED: cefTRIAXone 1g/NS 100ml IVPB 100 ML IV ONE (14:55)
[2021-10-18] MEDS ORDERED: azithromycin/NS 500mg/250ml 250 ML IV ONE (14:55)
[2021-10-18] MEDS ORDERED: morphine 4 MG/ML inj SYRINge IV ONE (15:50)
[2021-10-18] MEDS ORDERED: ondansetron/PF 4mg/2ml inj IV ONE (15:50)
[2021-10-18] MEDS ORDERED: magnesium Cl slow-release 64mg tablet PO PRN (16:20)
[2021-10-18] MEDS ORDERED: acetaminophen 650mg rectal suppository RC PRN (16:20)
[2021-10-18] MEDS ORDERED: cefTRIAXone 1g/NS 100ml IVPB 100 ML IV SCH (16:20)
[2021-10-18] MEDS ORDERED: potassium CL 10mEq/100ml bag 100 ML IV PRN (16:20)
[2021-10-18] MEDS ORDERED: morphine 2 MG/ML inj. syringe IV PRN (16:20)
[2021-10-18] MEDS ORDERED: magnesium 4gm in 100ml NS 100 ML IV PRN (16:20)
[2021-10-18] MEDS ORDERED: ipratropium/albuterol 3ml nebule NEB PRN ×2 (16:20)
[2021-10-18] MEDS ORDERED: magnesium 2GM in 50ml NS 50 ML IV PRN (16:20)
[2021-10-18] MEDS ORDERED: ondansetron/PF 4mg/2ml inj IV PRN (16:20)
[2021-10-18] MEDS ORDERED: potassium Cl 20 mEq SR tablet PO PRN ×2 (16:20)
[2021-10-18] MEDS ORDERED: acetaminophen 325mg tablet PO PRN (16:20)
[2021-10-18] MEDS: normal saline 1000ml 1,000 ML IV SCH (16:38)
[2021-10-18] MEDS ORDERED: NITR0.4T48 SL (16:46)
[2021-10-18] MEDS ORDERED: LOSA100T57 PO (16:46)
[2021-10-18] MEDS ORDERED: GABA300C PO (16:46)
[2021-10-18] MEDS ORDERED: MELO-102 PO (16:46)
[2021-10-18] MEDS ORDERED: AMLO5TAB16 PO (16:46)
[2021-10-18 16:50] LABS: MAGNESIUM 1.9 MG/DL (1.5-2.4); POTASSIUM 4.1 MMOL/L (3.5-5.1)
[2021-10-18] MEDS ORDERED: nitroGLYCERIN 0.4mg SUBLingual tab SL SCH (17:30)
[2021-10-18] MEDS: HYDROcodone/acetaminophen 5mg/325mg tablet PO PRN (17:50)
[2021-10-18] MEDS: enoxaparin 40mg/0.4ml syringe SUBCUT SCH (17:51)
[2021-10-18] MEDS: amox tr/potassium clavulanate 500mg/125mg TAB PO SCH (17:52)
--- NOTE | 2021-10-18 18:39 | NUR ---
ASSUMED CARE OF PATIENT FROM ANGELA BOYCE. A+OX4. C/O LLE PAIN, FEMUR FX. PAIN 03/14. APPEARS UNCOMFORTABLE. WILL GIVE MORPHINE 1 MG IVP.
--- NOTE | 2021-10-18 21:11 | NUR ---
PATIENT RESTING IN ROOM, NO C/O. AWAITING ROOM AND ORDERS.
--- NOTE | 2021-10-18 22:22 | NUR ---
PATIENT RESTING IN ROOM, NO C/O. AWAITING ROOM AND ORDERS.
[2021-10-19 01:00] VITALS: BP 132/85
[2021-10-19] MEDS: gabapentin 300mg capsule PO SCH ×3 (01:01→20:11)
[2021-10-19] MEDS: QUEtiapine 25mg tablet PO SCH ×2 (01:01→20:11)
[2021-10-19 02:00] VITALS: BP 129/79
[2021-10-19] MEDS: normal saline 1000ml 1,000 ML IV SCH ×3 (02:20→22:20)
[2021-10-19 06:00] VITALS: BP 120/80
[2021-10-19 06:38] LABS: ALBUMIN 2.3 G/DL (3.4-5.0); ANION GAP 10 (8-16); BLOOD UREA NITROGEN 17 MG/DL (7-18); BUN/CREATININE RATIO 20.5 (5.4-32.0); CALCIUM 9.2 MG/DL (8.5-10.1); CHLORIDE 105 MMOL/L (99-107); CREATININE 0.83 MG/DL (0.60-1.10); GLUCOSE 136 MG/DL (70-104); MAGNESIUM 2.2 MG/DL (1.5-2.4); SODIUM 140 MMOL/L (135-145); TOTAL CARBON DIOXIDE 25.5 MMOL/L (24-32); eGFR > 90 ML/MIN
[2021-10-19 06:45] LABS: BASOPHILS % (AUTO) 0 % (0-1); EOSINOPHILS % (AUTO) 0 % (0-6); HEMATOCRIT 33.5 % (42.0-52.0); HEMOGLOBIN 10.9 g/dl (14.0-17.9); LYMPHOCYTES # (AUTO) 0.5 X10'3 (1.1-4.8); MEAN CORPUSCULAR HEMOGLOBIN 24.9 PG (27.0-31.0); MEAN CORPUSCULAR HGB CONC 32.6 g/dL (33.0-36.5); MEAN CORPUSCULAR VOLUME 76.6 FL (78-98); MEAN PLATELET VOLUME 8.3 FL (7.4-10.4); MONOCYTES # (AUTO) 0.3 X10'3 (0-0.9); MONOCYTES % (AUTO) 3.4 % (2-12); NEUTROPHILS # (AUTO) 7.5 X10'3 (1.8-7.7); NEUTROPHILS % (AUTO) 90.6 % (42-75); PLATELET COUNT 235 X10'3 (140-440); RED BLOOD COUNT 4.37 X10'6 (4.70-6.10); RED CELL DISTRIBUTION WIDTH 17.1 % (11.5-14.5); WHITE BLOOD COUNT 8.3 X10'3 (4.5-11.0)
[2021-10-19] MEDS: K and/or MAG REPLACEMENT MC SCH ×2 (08:00→19:38)
[2021-10-19] MEDS ORDERED: non-formulary drug (Meloxicam 1 TAB) PO SCH (08:00)
[2021-10-19] MEDS ORDERED: cefTRIAXone 1g/NS 100ml IVPB 100 ML IV SCH (08:00)
[2021-10-19] MEDS: docusate sod 100mg capsule PO SCH ×3 (08:00→20:11)
[2021-10-19] MEDS: azithromycin/NS 500mg/250ml 250 ML IV SCH (08:30)
[2021-10-19] MEDS: losartan 50mg tablet PO SCH (08:40)
[2021-10-19] MEDS: amox tr/potassium clavulanate 500mg/125mg TAB PO SCH ×2 (08:41→18:29)
[2021-10-19] MEDS: aspirin 81mg, enteric-coated 1 TAB TABLET.DR PO SCH (08:42)
[2021-10-19] MEDS: HYDROcodone/acetaminophen 10/325mg tab PO PRN ×2 (08:43→20:12)
[2021-10-19] MEDS: amLODIPine 5mg tablet PO SCH (08:44)
[2021-10-19] MEDS: pantoprazole 40mg Tablet.DR PO SCH (08:44)
[2021-10-19] MEDS: enoxaparin 40mg/0.4ml syringe SUBCUT SCH (08:45)
[2021-10-19 11:00] VITALS: BP 117/80
[2021-10-19 15:00] VITALS: BP 110/69
[2021-10-19] MEDS: HYDROcodone/acetaminophen 5mg/325mg tablet PO PRN (15:10)
[2021-10-20 02:17] VITALS: BP 110/69
[2021-10-20 06:00] VITALS: BP 128/79
[2021-10-20 07:14] LABS: BASOPHILS % (AUTO) 0.2 % (0-1); EOSINOPHILS % (AUTO) 0.5 % (0-6); HEMATOCRIT 29.7 % (42.0-52.0); HEMOGLOBIN 9.6 g/dl (14.0-17.9); LYMPHOCYTES # (AUTO) 0.8 X10'3 (1.1-4.8); LYMPHOCYTES % (AUTO) 11.4 % (21-51); MEAN CORPUSCULAR HEMOGLOBIN 24.9 PG (27.0-31.0); MEAN CORPUSCULAR HGB CONC 32.5 g/dL (33.0-36.5); MEAN CORPUSCULAR VOLUME 76.8 FL (78-98); MEAN PLATELET VOLUME 7.9 FL (7.4-10.4); MONOCYTES # (AUTO) 0.4 X10'3 (0-0.9); MONOCYTES % (AUTO) 6.4 % (2-12); NEUTROPHILS # (AUTO) 5.4 X10'3 (1.8-7.7); NEUTROPHILS % (AUTO) 81.5 % (42-75); PLATELET COUNT 234 X10'3 (140-440); RED BLOOD COUNT 3.87 X10'6 (4.70-6.10); RED CELL DISTRIBUTION WIDTH 17.1 % (11.5-14.5); WHITE BLOOD COUNT 6.6 X10'3 (4.5-11.0)
[2021-10-20 07:24] LABS: ALBUMIN 2.1 G/DL (3.4-5.0); ANION GAP 11 (8-16); BLOOD UREA NITROGEN 21 MG/DL (7-18); BUN/CREATININE RATIO 23.1 (5.4-32.0); CALCIUM 8.8 MG/DL (8.5-10.1); CHLORIDE 107 MMOL/L (99-107); CREATININE 0.91 MG/DL (0.60-1.10); GLUCOSE 92 MG/DL (70-104); MAGNESIUM 1.9 MG/DL (1.5-2.4); POTASSIUM 4.3 MMOL/L (3.5-5.1); SODIUM 141 MMOL/L (135-145); TOTAL CARBON DIOXIDE 23.5 MMOL/L (24-32); eGFR 85 ML/MIN
[2021-10-20] MEDS: docusate sod 100mg capsule PO SCH (08:00)
[2021-10-20] MEDS ORDERED: fluconazole 100mg tablet PO SCH (08:00)
[2021-10-20] MEDS: K and/or MAG REPLACEMENT MC SCH (08:00)
[2021-10-20] MEDS: azithromycin/NS 500mg/250ml 250 ML IV SCH (08:36)
[2021-10-20] MEDS: HYDROcodone/acetaminophen 10/325mg tab PO PRN (08:40)
[2021-10-20] MEDS: aspirin 81mg, enteric-coated 1 TAB TABLET.DR PO SCH (08:46)
[2021-10-20] MEDS: amox tr/potassium clavulanate 500mg/125mg TAB PO SCH (08:46)
[2021-10-20] MEDS: gabapentin 300mg capsule PO SCH (08:46)
[2021-10-20] MEDS: pantoprazole 40mg Tablet.DR PO SCH (08:46)
[2021-10-20] MEDS: amLODIPine 5mg tablet PO SCH (08:47)
[2021-10-20] MEDS: losartan 50mg tablet PO SCH (08:47)
[2021-10-20] MEDS: enoxaparin 40mg/0.4ml syringe SUBCUT SCH (08:49)
[2021-10-20 11:00] VITALS: BP 112/72
[2021-10-20] MEDS ORDERED: LEVO500T90 PO ×2 (11:40)
--- NOTE | 2021-10-20 13:13 | NUR ---
Patient discharged to home at this time with all personal belongings. Patient's family member has oxygen for his transport. Discharge instructions reviewed with patient and he verbalized his understanding and had no complaints or concerns at this time.
== END 2021-10-20 13:15 | disposition home or self-care (01) | DRG 140 ==
LOC: ER 08:33 → ED HOLD 16:24 → PCU 3S 10-19 00:38
PROVIDERS: ADMIT Internal Medicine; ATTEND Internal Medicine
PROC: B32T1ZZ Computerized Tomography (CT Scan) of Left Pulmonary Artery using Low Osmolar Contrast (ICD-10-PCS; principal; 2021-10-18)
PROC: B3201ZZ Computerized Tomography (CT Scan) of Thoracic Aorta using Low Osmolar Contrast (ICD-10-PCS; 2021-10-18)
PROC: B32S1ZZ Computerized Tomography (CT Scan) of Right Pulmonary Artery using Low Osmolar Contrast (ICD-10-PCS; 2021-10-18)
DX: J44.0 Chronic obstructive pulmonary disease with (acute) lower respiratory infection (principal); J96.10 Chronic respiratory failure, unspecified whether with hypoxia or hypercapnia; J18.9 Pneumonia, unspecified organism; F32.A Depression, unspecified; G89.4 Chronic pain syndrome; I10 Essential (primary) hypertension; I48.91 Unspecified atrial fibrillation; K21.9 Gastro-esophageal reflux disease without esophagitis; Z85.118 Personal history of other malignant neoplasm of bronchus and lung; Z87.01 Personal history of pneumonia (recurrent); Z87.891 Personal history of nicotine dependence; Z90.2 Acquired absence of lung [part of]; Z82.49 Family history of ischemic heart disease and other diseases of the circulatory system
CPT/HCPCS: 36415; 71045; 71275; 80048; 80053; 82948; 83605; 83735; 83880; 84132; 84145; 84484; 85025; 85379; 87040; 93005; 94640; 94760; 96365; 96368; 96375; 99285; G0378; J0456; J0696; J1650; J2270; J2405; J2930; J7030; Q9967

== ENCOUNTER 2021-10-23 06:26 | Inpatient (IN) | payer MEDICAID ==
[~2021-10-23] VITALS: Ht 177.8 cm; Wt 82.0 kg
[~2021-10-23 06:26] MED LIST changes: +AMLO5TAB16 PO; -DOCU100C40 PO; -ERGO500056 PO; -GABA-534 PO; +GABA300C PO; +LEVO500T90 PO; +LOSA100T57 PO; -LOSA50TA64 PO; +NITR0.4T48 SL; -ONDA4TAB12 PO; -SERT-434 PO
[2021-10-23] MEDS ORDERED: normal saline 1000ml 1,000 ML IV ONE (06:45)
[2021-10-23] MEDS ORDERED: acetaminophen 325mg tablet PO ONE (07:25)
[2021-10-23 07:37] LABS: BASOPHILS % (AUTO) 0.2 % (0-1); EOSINOPHILS # (AUTO) 0.1 X10'3 (0-0.9); EOSINOPHILS % (AUTO) 0.4 % (0-6); HEMATOCRIT 32.8 % (42.0-52.0); HEMOGLOBIN 10.7 g/dl (14.0-17.9); LYMPHOCYTES # (AUTO) 0.7 X10'3 (1.1-4.8); LYMPHOCYTES % (AUTO) 5.5 % (21-51); MEAN CORPUSCULAR HEMOGLOBIN 24.3 PG (27.0-31.0); MEAN CORPUSCULAR HGB CONC 32.5 g/dL (33.0-36.5); MEAN CORPUSCULAR VOLUME 74.8 FL (78-98); MONOCYTES # (AUTO) 0.7 X10'3 (0-0.9); MONOCYTES % (AUTO) 5.7 % (2-12); NEUTROPHILS # (AUTO) 10.8 X10'3 (1.8-7.7); NEUTROPHILS % (AUTO) 88.2 % (42-75); PLATELET COUNT 315 X10'3 (140-440); RED BLOOD COUNT 4.38 X10'6 (4.70-6.10); RED CELL DISTRIBUTION WIDTH 16.8 % (11.5-14.5); WHITE BLOOD COUNT 12.3 X10'3 (4.5-11.0)
[2021-10-23 07:44] LABS: ALANINE AMINOTRANSFERASE 22 U/L (12-78); ALBUMIN 2.3 G/DL (3.4-5.0); ALBUMIN/GLOBULIN RATIO 0.4 (1.1-1.5); ALKALINE PHOSPHATASE 147 IU/L (46-116); ANION GAP 15 (8-16); ASPARTATE AMINO TRANSFERASE 23 U/L (10-37); BILIRUBIN,TOTAL 0.6 MG/DL (0.1-1.0); BLOOD UREA NITROGEN 8 MG/DL (7-18); BUN/CREATININE RATIO 9.5 (5.4-32.0); CALCIUM 8.9 MG/DL (8.5-10.1); CHLORIDE 100 MMOL/L (99-107); CREATININE 0.84 MG/DL (0.60-1.10); GLUCOSE 119 MG/DL (70-104); POTASSIUM 3.7 MMOL/L (3.5-5.1); SODIUM 137 MMOL/L (135-145); TOTAL PROTEIN 7.5 G/DL (6.4-8.2); eGFR > 90 ML/MIN
[2021-10-23] MEDS ORDERED: ondansetron 4mg rapidly disintigrating tab PO ONE (08:00)
[2021-10-23] MEDS ORDERED: azithromycin/NS 500mg/250ml 250 ML IV ONE (08:15)
[2021-10-23] MEDS ORDERED: cefTRIAXone 1g/NS 100ml IVPB 100 ML IV ONE (08:15)
[2021-10-23] MEDS ORDERED: ipratropium/albuterol 3ml nebule NEB ONE (08:20)
[2021-10-23 08:46] LABS: CLARITY,URINE CLEAR (Clear); COLOR,URINE YELLOW (Yellow); GLUCOSE, URINE NEGATIVE (Neg); KETONES,URINE NEGATIVE (Neg); LEUKOCYTE ESTERASE ,URINE NEGATIVE (Neg); NITRITES, URINE NEGATIVE (Neg); OCCULT BLOOD,URINE TRACE-INTACT (Neg); PH,URINE 6.5 (4.8-8.0); PROTEIN,URINE NEGATIVE (Neg); UROBILINOGEN,URINE 0.2 E.U/dL (0.2-1.0)
[2021-10-23 08:49] LABS: UA COLLECTION TYPE NON-SPECIFIED
[2021-10-23 09:03] LABS: BACTERIA,URINE NONE SEEN /HPF (Neg); MUCUS STRANDS NONE SEEN /LPF (Neg); RBC,URINE 0-2 /HPF (0-2); SQUAMOUS EPITHELIAL CELL,UR FEW /LPF (FEW); WBC,URINE NONE SEEN /HPF (0-4)
[2021-10-23] MEDS ORDERED: ipratropium/albuterol 3ml nebule NEB PRN (09:15)
[2021-10-23] MEDS ORDERED: morphine 2 MG/ML inj. syringe IV PRN (09:15)
[2021-10-23] MEDS ORDERED: ondansetron 4mg rapidly disintigrating tab PO PRN (09:15)
[2021-10-23] MEDS ORDERED: bisacodyl 10mg suppository rectal RC PRN (09:15)
[2021-10-23] MEDS ORDERED: potassium Cl 20 mEq SR tablet PO PRN ×2 (09:15)
[2021-10-23] MEDS ORDERED: magnesium Cl slow-release 64mg tablet PO PRN (09:15)
[2021-10-23] MEDS ORDERED: magnesium 4gm in 100ml NS 100 ML IV PRN (09:15)
[2021-10-23] MEDS ORDERED: metoclopramide 5 mg/ml inj IV PRN (09:15)
[2021-10-23] MEDS ORDERED: HYDROcodone/acetaminophen 5mg/325mg tablet PO PRN (09:15)
[2021-10-23] MEDS ORDERED: potassium CL 10mEq/100ml bag 100 ML IV PRN (09:15)
[2021-10-23] MEDS ORDERED: mag hydrox/Alum hydrox/simeth 30ml oral suspension PO PRN (09:15)
[2021-10-23] MEDS ORDERED: ondansetron/PF 4mg/2ml inj IV PRN (09:15)
[2021-10-23] MEDS ORDERED: acetaminophen 325mg tablet PO PRN ×2 (09:15)
[2021-10-23] MEDS ORDERED: magnesium hydroxide 30ml (MOM) UD suspension PO PRN (09:15)
[2021-10-23] MEDS ORDERED: magnesium 2GM in 50ml NS 50 ML IV PRN (09:15)
[2021-10-23] MEDS ORDERED: VANCOmycin 2,000MG in NS 500ml IV soln IV ONE (09:45)
[2021-10-23 10:01] LABS: MAGNESIUM 1.7 MG/DL (1.5-2.4); POTASSIUM 4.1 MMOL/L (3.5-5.1)
[2021-10-23] MEDS: normal saline 1000ml 1,000 ML IV SCH ×2 (10:05→15:50)
[2021-10-23] MEDS: morphine 2 MG/ML inj. syringe IV PRN ×3 (10:05→22:23)
[2021-10-23] MEDS: ipratropium/albuterol 3ml nebule NEB SCH ×4 (11:32→23:25)
[2021-10-23 13:00] VITALS: BP 108/72
--- NOTE | 2021-10-23 13:10 | NUR ---
Received patient from ER by 1300. No apparent distress noted, oriented to surrounding, safety maintained.
[2021-10-23] MEDS: HYDROcodone/acetaminophen 10/325mg tab PO PRN (13:48)
[2021-10-23] MEDS: piperacillin/tazo 3.375gm/50ml 50 ML IV SCH (15:45)
[2021-10-23] MEDS ORDERED: pneumococcal 23-VAL P-sac vacc 25 mcg/0.5ml vial IMVAC ONE (16:35)
--- NOTE | 2021-10-23 16:45 | NUR ---
Can pt Javier Millard in Rm 3018-B have something for anxiety please? Dickson/RN PCU 5483. He is very anxious
[2021-10-23 17:00] VITALS: BP 114/85
[2021-10-23] MEDS: LORazepam 1 MG tablet PO PRN (17:15)
[2021-10-23 18:00] VITALS: BP 120/72
[2021-10-23] MEDS ORDERED: HYDROcodone/acetaminophen 10/325mg tab PO PRN (18:40)
[2021-10-23] MEDS ORDERED: nitroGLYCERIN 0.4mg SUBLingual tab SL PRN (18:40)
[2021-10-23] MEDS: K and/or MAG REPLACEMENT MC SCH (20:00)
[2021-10-23] MEDS: docusate sod 100mg capsule PO SCH (20:43)
[2021-10-23] MEDS: QUEtiapine 25mg tablet PO SCH (20:43)
[2021-10-23] MEDS: temazepam 15mg capsule PO PRN (20:43)
[2021-10-23] MEDS: gabapentin 300mg capsule PO SCH (20:43)
[2021-10-23] MEDS: heparin, porcine 5000 units/ml vial SQ SCH (20:43)
[2021-10-23 22:00] VITALS: BP 108/77
[2021-10-23] MEDS: VANCOmycin 1250MG/NS 250ml Bag 250 ML IV SCH (22:23)
[2021-10-24] MEDS: piperacillin/tazo 3.375gm/50ml 50 ML IV SCH ×2 (00:59→08:00)
[2021-10-24 02:00] VITALS: BP 113/78
[2021-10-24] MEDS: ipratropium/albuterol 3ml nebule NEB SCH ×6 (03:30→23:58)
[2021-10-24] MEDS: normal saline 1000ml 1,000 ML IV SCH ×2 (04:29→15:15)
[2021-10-24 05:40] LABS: BASOPHILS % (AUTO) 0.2 % (0-1); EOSINOPHILS # (AUTO) 0.1 X10'3 (0-0.9); HEMATOCRIT 26.6 % (42.0-52.0); HEMOGLOBIN 8.9 g/dl (14.0-17.9); LYMPHOCYTES # (AUTO) 0.7 X10'3 (1.1-4.8); LYMPHOCYTES % (AUTO) 7.8 % (21-51); MEAN CORPUSCULAR HEMOGLOBIN 25.3 PG (27.0-31.0); MEAN CORPUSCULAR HGB CONC 33.2 g/dL (33.0-36.5); MEAN PLATELET VOLUME 7.7 FL (7.4-10.4); MONOCYTES # (AUTO) 0.5 X10'3 (0-0.9); MONOCYTES % (AUTO) 5.5 % (2-12); NEUTROPHILS # (AUTO) 7.3 X10'3 (1.8-7.7); NEUTROPHILS % (AUTO) 85.5 % (42-75); PLATELET COUNT 253 X10'3 (140-440); RED CELL DISTRIBUTION WIDTH 16.9 % (11.5-14.5); WHITE BLOOD COUNT 8.5 X10'3 (4.5-11.0)
[2021-10-24 05:54] LABS: ALANINE AMINOTRANSFERASE 16 U/L (12-78); ALBUMIN/GLOBULIN RATIO 0.4 (1.1-1.5); ALKALINE PHOSPHATASE 114 IU/L (46-116); ANION GAP 14 (8-16); ASPARTATE AMINO TRANSFERASE 15 U/L (10-37); BILIRUBIN,TOTAL 0.4 MG/DL (0.1-1.0); BLOOD UREA NITROGEN 9 MG/DL (7-18); BUN/CREATININE RATIO 9.5 (5.4-32.0); CALCIUM 8.7 MG/DL (8.5-10.1); CHLORIDE 105 MMOL/L (99-107); CREATININE 0.95 MG/DL (0.60-1.10); GLUCOSE 99 MG/DL (70-104); MAGNESIUM 1.8 MG/DL (1.5-2.4); POTASSIUM 4.1 MMOL/L (3.5-5.1); SODIUM 142 MMOL/L (135-145); TOTAL CARBON DIOXIDE 23.1 MMOL/L (24-32); TOTAL PROTEIN 6.5 G/DL (6.4-8.2); eGFR 81 ML/MIN
[2021-10-24 06:00] VITALS: BP 125/87
[2021-10-24] MEDS: K and/or MAG REPLACEMENT MC SCH ×2 (08:00→20:00)
[2021-10-24] MEDS: Tiotropium Br/Olodaterol HCl (Stiolto Respimat Inhal Spray) PO SCH (08:00)
[2021-10-24] MEDS: aspirin 81mg, enteric-coated 1 TAB TABLET.DR PO SCH (08:35)
[2021-10-24] MEDS: docusate sod 100mg capsule PO SCH ×2 (08:35→18:48)
[2021-10-24] MEDS: gabapentin 300mg capsule PO SCH ×2 (08:35→18:48)
[2021-10-24] MEDS: pantoprazole 40mg Tablet.DR PO SCH (08:35)
[2021-10-24] MEDS: heparin, porcine 5000 units/ml vial SQ SCH ×2 (08:36→18:49)
[2021-10-24] MEDS: amLODIPine 5mg tablet PO SCH (08:40)
[2021-10-24] MEDS: losartan 50mg tablet PO SCH (08:41)
[2021-10-24] MEDS: HYDROcodone/acetaminophen 10/325mg tab PO PRN ×2 (08:52→13:01)
[2021-10-24 11:00] VITALS: BP 121/80
[2021-10-24] MEDS: VANCOmycin 1250MG/NS 250ml Bag 250 ML IV SCH ×2 (11:33→22:46)
[2021-10-24] MEDS: LORazepam 1 MG tablet PO PRN ×2 (13:13→18:48)
--- NOTE | 2021-10-24 13:29 | NUR ---
Malnutrition consult: Pt admitted w/ PNA per EMR. Pt reports 2-13 lb wt loss and decreased appetite per RN malnutrition screen. Pt current bedscale wt 82kg, w/ standing scale wt 86kg September 2020 per EMR. Pt has no edema and no muscle weakness per physical assessment. Pt has dysphagia per MD note and seen by FISH SKINNING MACHINE FEEDER today 10/24, recommended mechanical chopped foods and thin liquids. Pt currently on SB6/Regular diet and ate 88% of first meal. Pt does not currently meet minimum two criteria for malnutrition. Will continue to follow. Addendum: 10/24/21 at [address] Amended: Links added. Addendum: 10/24/21 at [address] I have reviewed assessment by chemist intern
[2021-10-24 15:00] VITALS: BP 119/85
[2021-10-24] MEDS: cefepime 1GM in D5W 50mL 50 ML IV SCH (17:25)
[2021-10-24] MEDS: morphine 2 MG/ML inj. syringe IV PRN (18:49)
[2021-10-24] MEDS: QUEtiapine 25mg tablet PO SCH (21:48)
[2021-10-24] MEDS ORDERED: VANCOMYCIN LEVEL IV ONE (22:30)
[2021-10-25] MEDS: morphine 2 MG/ML inj. syringe IV PRN ×4 (00:03→20:08)
[2021-10-25 00:09] LABS: ABG BASE EXCESS -5.7 mmol/L (-2.0-2.0); ABG HCO3 18.3 mmol/L (22.0-26.0); ABG OXYGEN SATURATION 90.9 % (94-97); ABG PCO2 (T) 30.5 mmHg (35.0-48.0); ABG PO2 (T) 60.1 mmHg (75.0-100.0); ALLEN'S TEST POSITIVE; FCOHb 0.3 % (0.0-3.9); FLOW 15 L/min; FMetHb 0.4 % (0.0-1.5); FO2Hb 90.3 % (94-97); PATIENT TEMPERATURE 36.6
[2021-10-25] MEDS: cefepime 1GM in D5W 50mL 50 ML IV SCH ×3 (00:42→16:14)
[2021-10-25 00:46] LABS: BASOPHILS % (AUTO) 0.4 % (0-1); EOSINOPHILS # (AUTO) 0.1 X10'3 (0-0.9); EOSINOPHILS % (AUTO) 1.4 % (0-6); HEMATOCRIT 27.6 % (42.0-52.0); HEMOGLOBIN 9.3 g/dl (14.0-17.9); LYMPHOCYTES # (AUTO) 0.9 X10'3 (1.1-4.8); LYMPHOCYTES % (AUTO) 10.2 % (21-51); MEAN CORPUSCULAR HEMOGLOBIN 25.4 PG (27.0-31.0); MEAN CORPUSCULAR HGB CONC 33.6 g/dL (33.0-36.5); MEAN CORPUSCULAR VOLUME 75.5 FL (78-98); MEAN PLATELET VOLUME 7.7 FL (7.4-10.4); MONOCYTES # (AUTO) 0.6 X10'3 (0-0.9); MONOCYTES % (AUTO) 6.7 % (2-12); NEUTROPHILS # (AUTO) 6.9 X10'3 (1.8-7.7); NEUTROPHILS % (AUTO) 81.3 % (42-75); PLATELET COUNT 278 X10'3 (140-440); RED BLOOD COUNT 3.65 X10'6 (4.70-6.10); RED CELL DISTRIBUTION WIDTH 16.4 % (11.5-14.5); WHITE BLOOD COUNT 8.5 X10'3 (4.5-11.0)
[2021-10-25 00:50] LABS: ALBUMIN 2.1 G/DL (3.4-5.0); ANION GAP 16 (8-16); BLOOD UREA NITROGEN 7 MG/DL (7-18); CALCIUM 8.7 MG/DL (8.5-10.1); CHLORIDE 103 MMOL/L (99-107); GLUCOSE 137 MG/DL (70-104); SODIUM 139 MMOL/L (135-145); TOTAL CARBON DIOXIDE 20.5 MMOL/L (24-32); eGFR 76 ML/MIN
[2021-10-25] MEDS: normal saline 1000ml 1,000 ML IV SCH ×2 (01:15→11:40)
[2021-10-25 01:57] VITALS: BP 98/69
[2021-10-25 02:00] VITALS: BP 112/71
[2021-10-25 02:40] LABS: ABG BASE EXCESS -3.8 mmol/L (-2.0-2.0); ABG HCO3 20.4 mmol/L (22.0-26.0); ABG OXYGEN SATURATION 97.2 % (94-97); ABG PCO2 (T) 33.3 mmHg (35.0-48.0); ABG PO2 (T) 101.4 mmHg (75.0-100.0); FCOHb 0.3 % (0.0-3.9); FMetHb 0.1 % (0.0-1.5); FO2Hb 96.8 % (94-97); PATIENT TEMPERATURE 36.6; RESPIRATORY RATE 10 b/min; TOTAL HEMOGLOBIN 9.3 G/dl (14.0-18.0)
[2021-10-25] MEDS: ipratropium/albuterol 3ml nebule NEB SCH ×6 (03:01→23:53)
[2021-10-25 06:00] VITALS: BP 117/80
--- NOTE | 2021-10-25 06:10 | NUR ---
Patient in room PCU 3018. I have received report from Wil BOYCE and had the opportunity to ask questions and assume patient care.
[2021-10-25 06:24] LABS: BASOPHILS % (AUTO) 0.3 % (0-1); EOSINOPHILS # (AUTO) 0.1 X10'3 (0-0.9); EOSINOPHILS % (AUTO) 1.6 % (0-6); HEMATOCRIT 26.8 % (42.0-52.0); HEMOGLOBIN 8.5 g/dl (14.0-17.9); LYMPHOCYTES # (AUTO) 0.7 X10'3 (1.1-4.8); LYMPHOCYTES % (AUTO) 7.9 % (21-51); MEAN CORPUSCULAR HGB CONC 31.7 g/dL (33.0-36.5); MEAN CORPUSCULAR VOLUME 75.6 FL (78-98); MEAN PLATELET VOLUME 7.7 FL (7.4-10.4); MONOCYTES # (AUTO) 0.6 X10'3 (0-0.9); MONOCYTES % (AUTO) 7.1 % (2-12); NEUTROPHILS # (AUTO) 6.9 X10'3 (1.8-7.7); NEUTROPHILS % (AUTO) 83.1 % (42-75); PLATELET COUNT 288 X10'3 (140-440); RED BLOOD COUNT 3.54 X10'6 (4.70-6.10); RED CELL DISTRIBUTION WIDTH 17.1 % (11.5-14.5); WHITE BLOOD COUNT 8.3 X10'3 (4.5-11.0)
[2021-10-25 06:39] LABS: ALANINE AMINOTRANSFERASE 14 U/L (12-78); ALBUMIN 1.9 G/DL (3.4-5.0); ALBUMIN/GLOBULIN RATIO 0.4 (1.1-1.5); ALKALINE PHOSPHATASE 111 IU/L (46-116); ANION GAP 12 (8-16); ASPARTATE AMINO TRANSFERASE 17 U/L (10-37); BILIRUBIN,TOTAL 0.6 MG/DL (0.1-1.0); BLOOD UREA NITROGEN 7 MG/DL (7-18); BUN/CREATININE RATIO 7.8 (5.4-32.0); CALCIUM 8.5 MG/DL (8.5-10.1); CHLORIDE 105 MMOL/L (99-107); GLUCOSE 88 MG/DL (70-104); MAGNESIUM 1.8 MG/DL (1.5-2.4); POTASSIUM 4.1 MMOL/L (3.5-5.1); SODIUM 140 MMOL/L (135-145); TOTAL CARBON DIOXIDE 23.3 MMOL/L (24-32); TOTAL PROTEIN 6.5 G/DL (6.4-8.2); eGFR 86 ML/MIN
[2021-10-25] MEDS: gabapentin 300mg capsule PO SCH ×2 (07:59→20:05)
[2021-10-25] MEDS: docusate sod 100mg capsule PO SCH ×2 (07:59→20:05)
[2021-10-25] MEDS: aspirin 81mg, enteric-coated 1 TAB TABLET.DR PO SCH (07:59)
[2021-10-25] MEDS: K and/or MAG REPLACEMENT MC SCH ×2 (08:00→18:46)
[2021-10-25] MEDS: Tiotropium Br/Olodaterol HCl (Stiolto Respimat Inhal Spray) PO SCH (08:00)
[2021-10-25] MEDS: pantoprazole 40mg Tablet.DR PO SCH (08:00)
[2021-10-25] MEDS: amLODIPine 5mg tablet PO SCH (08:00)
[2021-10-25] MEDS: heparin, porcine 5000 units/ml vial SQ SCH ×2 (08:02→20:10)
[2021-10-25] MEDS: losartan 50mg tablet PO SCH (08:03)
[2021-10-25] MEDS: levoFLOXACIN-Levaquin 500mg/D5 100 ML IV SCH (08:03)
[2021-10-25 11:00] VITALS: BP 145/75
[2021-10-25] MEDS: VANCOmycin 1250MG/NS 250ml Bag 250 ML IV SCH ×2 (12:30→23:03)
[2021-10-25] MEDS: LORazepam 1 MG tablet PO PRN ×2 (13:05→17:19)
[2021-10-25] MEDS ORDERED: methylPREDNISolone sod succ 125mg/2ml vial IV ONE (15:55)
[2021-10-25 18:00] VITALS: BP 128/90
--- NOTE | 2021-10-25 18:26 | NUR ---
Problems reprioritized. Patient report given, questions answered & plan of care reviewed with Chi RN.
[2021-10-25] MEDS: QUEtiapine 25mg tablet PO SCH (20:06)
[2021-10-25] MEDS: methylPREDNISolone sod succ 125mg/2ml vial IV SCH (20:06)
[2021-10-25 22:00] VITALS: BP 108/78
[2021-10-26] MEDS: cefepime 1GM in NS 100mL IVPB IV SCH ×3 (00:09→16:19)
[2021-10-26] MEDS: methylPREDNISolone sod succ 125mg/2ml vial IV SCH ×4 (01:49→19:50)
[2021-10-26 02:00] VITALS: BP 112/76
[2021-10-26] MEDS: ipratropium/albuterol 3ml nebule NEB SCH ×6 (03:31→23:02)
[2021-10-26] MEDS: normal saline 1000ml 1,000 ML IV SCH ×2 (04:24→16:08)
[2021-10-26 05:53] LABS: BASOPHILS % (AUTO) 0.1 % (0-1); EOSINOPHILS % (AUTO) 0.1 % (0-6); HEMATOCRIT 28.2 % (42.0-52.0); HEMOGLOBIN 9.3 g/dl (14.0-17.9); LYMPHOCYTES # (AUTO) 0.4 X10'3 (1.1-4.8); LYMPHOCYTES % (AUTO) 5.8 % (21-51); MEAN CORPUSCULAR HEMOGLOBIN 25.4 PG (27.0-31.0); MEAN CORPUSCULAR VOLUME 76.9 FL (78-98); MEAN PLATELET VOLUME 7.8 FL (7.4-10.4); MONOCYTES # (AUTO) 0.1 X10'3 (0-0.9); MONOCYTES % (AUTO) 1.3 % (2-12); NEUTROPHILS # (AUTO) 6.1 X10'3 (1.8-7.7); NEUTROPHILS % (AUTO) 92.7 % (42-75); PLATELET COUNT 293 X10'3 (140-440); RED BLOOD COUNT 3.66 X10'6 (4.70-6.10); RED CELL DISTRIBUTION WIDTH 16.9 % (11.5-14.5); WHITE BLOOD COUNT 6.6 X10'3 (4.5-11.0)
[2021-10-26 06:00] VITALS: BP 109/78
[2021-10-26 06:20] LABS: ALANINE AMINOTRANSFERASE 14 U/L (12-78); ALBUMIN/GLOBULIN RATIO 0.4 (1.1-1.5); ALKALINE PHOSPHATASE 123 IU/L (46-116); ANION GAP 19 (8-16); ASPARTATE AMINO TRANSFERASE 17 U/L (10-37); BILIRUBIN,TOTAL 0.5 MG/DL (0.1-1.0); BLOOD UREA NITROGEN 17 MG/DL (7-18); BUN/CREATININE RATIO 18.7 (5.4-32.0); CALCIUM 9.2 MG/DL (8.5-10.1); CHLORIDE 104 MMOL/L (99-107); CREATININE 0.91 MG/DL (0.60-1.10); GLUCOSE 142 MG/DL (70-104); MAGNESIUM 2.1 MG/DL (1.5-2.4); POTASSIUM 3.9 MMOL/L (3.5-5.1); SODIUM 141 MMOL/L (135-145); TOTAL CARBON DIOXIDE 18.5 MMOL/L (24-32); TOTAL PROTEIN 7.2 G/DL (6.4-8.2); eGFR 85 ML/MIN
[2021-10-26] MEDS: K and/or MAG REPLACEMENT MC SCH ×2 (08:00→18:43)
[2021-10-26] MEDS: pantoprazole 40mg Tablet.DR PO SCH (08:34)
[2021-10-26] MEDS: aspirin 81mg, enteric-coated 1 TAB TABLET.DR PO SCH (08:34)
[2021-10-26] MEDS: docusate sod 100mg capsule PO SCH ×2 (08:34→19:50)
[2021-10-26] MEDS: gabapentin 300mg capsule PO SCH ×2 (08:35→19:49)
[2021-10-26] MEDS: levoFLOXACIN-Levaquin 500mg/D5 100 ML IV SCH (08:36)
[2021-10-26] MEDS: heparin, porcine 5000 units/ml vial SQ SCH ×2 (08:36→19:52)
[2021-10-26] MEDS: losartan 50mg tablet PO SCH (08:38)
[2021-10-26] MEDS: amLODIPine 5mg tablet PO SCH (08:39)
[2021-10-26] MEDS: HYDROcodone/acetaminophen 10/325mg tab PO PRN (08:53)
[2021-10-26] MEDS ORDERED: albuterol 2.5 MG/3 ML nebule NEB PRN (09:35)
[2021-10-26] MEDS: VANCOmycin 1250MG/NS 250ml Bag 250 ML IV SCH ×2 (11:22→23:07)
[2021-10-26] MEDS: morphine 2 MG/ML inj. syringe IV PRN ×2 (11:52→19:54)
[2021-10-26 12:29] VITALS: BP 124/89
[2021-10-26 15:00] VITALS: BP 110/75
--- NOTE | 2021-10-26 15:49 | NUR ---
1500 SVN TRIAGED. THERAPIST UNAVAILABLE. DOING NEW VENTILATOR SET UPS
[2021-10-26 18:00] VITALS: BP 115/78
[2021-10-26] MEDS: LORazepam 1 MG tablet PO PRN (19:13)
[2021-10-26 22:00] VITALS: BP 123/79
[2021-10-26] MEDS: QUEtiapine 25mg tablet PO SCH (22:12)
[2021-10-27] MEDS: cefepime 1GM in NS 100mL IVPB IV SCH ×3 (00:25→15:38)
[2021-10-27] MEDS: methylPREDNISolone sod succ 125mg/2ml vial IV SCH ×4 (02:12→20:17)
[2021-10-27] MEDS: HYDROcodone/acetaminophen 10/325mg tab PO PRN ×3 (02:28→16:44)
[2021-10-27] MEDS: ipratropium/albuterol 3ml nebule NEB SCH ×6 (02:39→23:06)
[2021-10-27] MEDS: LORazepam 1 MG tablet PO PRN ×2 (04:25→20:16)
[2021-10-27 05:35] LABS: BASOPHILS % (AUTO) 0.1 % (0-1); EOSINOPHILS % (AUTO) 0 % (0-6); HEMATOCRIT 27.6 % (42.0-52.0); HEMOGLOBIN 8.8 g/dl (14.0-17.9); LYMPHOCYTES # (AUTO) 0.3 X10'3 (1.1-4.8); LYMPHOCYTES % (AUTO) 3.5 % (21-51); MEAN CORPUSCULAR HEMOGLOBIN 24.2 PG (27.0-31.0); MEAN CORPUSCULAR HGB CONC 31.9 g/dL (33.0-36.5); MEAN CORPUSCULAR VOLUME 75.7 FL (78-98); MEAN PLATELET VOLUME 7.7 FL (7.4-10.4); MONOCYTES # (AUTO) 0.2 X10'3 (0-0.9); NEUTROPHILS # (AUTO) 9.3 X10'3 (1.8-7.7); NEUTROPHILS % (AUTO) 94.4 % (42-75); PLATELET COUNT 283 X10'3 (140-440); RED BLOOD COUNT 3.64 X10'6 (4.70-6.10); RED CELL DISTRIBUTION WIDTH 16.9 % (11.5-14.5); WHITE BLOOD COUNT 9.8 X10'3 (4.5-11.0)
[2021-10-27] MEDS ORDERED: LIDOcaine 2% 10ml TOPICAL JELLY (Urojet) MM ONE (05:35)
[2021-10-27 05:51] LABS: ALANINE AMINOTRANSFERASE 15 U/L (12-78); ALBUMIN/GLOBULIN RATIO 0.5 (1.1-1.5); ALKALINE PHOSPHATASE 106 IU/L (46-116); ANION GAP 14 (8-16); ASPARTATE AMINO TRANSFERASE 18 U/L (10-37); BILIRUBIN,TOTAL 0.3 MG/DL (0.1-1.0); BLOOD UREA NITROGEN 28 MG/DL (7-18); CALCIUM 8.8 MG/DL (8.5-10.1); CHLORIDE 106 MMOL/L (99-107); GLUCOSE 166 MG/DL (70-104); MAGNESIUM 2.2 MG/DL (1.5-2.4); POTASSIUM 3.9 MMOL/L (3.5-5.1); SODIUM 140 MMOL/L (135-145); TOTAL CARBON DIOXIDE 20.2 MMOL/L (24-32); TOTAL PROTEIN 6.4 G/DL (6.4-8.2); eGFR 76 ML/MIN
[2021-10-27 06:00] VITALS: BP 119/78
[2021-10-27] MEDS: K and/or MAG REPLACEMENT MC SCH ×2 (08:00→20:00)
[2021-10-27] MEDS: docusate sod 100mg capsule PO SCH ×2 (08:00→20:16)
[2021-10-27] MEDS: lactobacillus rhamnosus 10,000 MMU CELLS/CAPSULE PO SCH ×2 (08:00→20:16)
[2021-10-27] MEDS: pantoprazole 40mg Tablet.DR PO SCH (08:43)
[2021-10-27] MEDS: normal saline 1000ml 1,000 ML IV SCH (08:43)
[2021-10-27] MEDS: aspirin 81mg, enteric-coated 1 TAB TABLET.DR PO SCH (08:43)
[2021-10-27] MEDS: losartan 50mg tablet PO SCH (08:44)
[2021-10-27] MEDS: amLODIPine 5mg tablet PO SCH (08:45)
[2021-10-27] MEDS: gabapentin 300mg capsule PO SCH ×2 (08:45→20:15)
[2021-10-27] MEDS: heparin, porcine 5000 units/ml vial SQ SCH ×2 (08:46→20:21)
[2021-10-27] MEDS: levoFLOXACIN-Levaquin 500mg/D5 100 ML IV SCH (08:47)
[2021-10-27] MEDS: morphine 2 MG/ML inj. syringe IV PRN (09:41)
[2021-10-27 11:01] VITALS: BP 122/77
[2021-10-27] MEDS: VANCOmycin 1250MG/NS 250ml Bag 250 ML IV SCH ×2 (12:22→23:02)
[2021-10-27 15:00] VITALS: BP 135/61
[2021-10-27 19:00] VITALS: BP 123/79
[2021-10-27] MEDS: QUEtiapine 25mg tablet PO SCH (20:16)
[2021-10-28] VITALS (11 sets, daily range): BP systolic 123–175; BP diastolic 76–105
[2021-10-28] MEDS: LORazepam 1 MG tablet PO PRN ×2 (01:39→16:36)
[2021-10-28] MEDS: methylPREDNISolone sod succ 125mg/2ml vial IV SCH ×3 (02:28→14:00)
[2021-10-28] MEDS: cefepime 1GM in NS 100mL IVPB IV SCH ×3 (02:29→16:13)
[2021-10-28] MEDS: normal saline 1000ml 1,000 ML IV SCH ×2 (02:30→11:41)
[2021-10-28] MEDS: ipratropium/albuterol 3ml nebule NEB SCH ×6 (03:43→23:44)
[2021-10-28] MEDS: K and/or MAG REPLACEMENT MC SCH ×2 (08:00→20:00)
[2021-10-28] MEDS: gabapentin 300mg capsule PO SCH ×2 (08:05→20:39)
[2021-10-28] MEDS: lactobacillus rhamnosus 10,000 MMU CELLS/CAPSULE PO SCH ×2 (08:05→20:38)
[2021-10-28] MEDS: aspirin 81mg, enteric-coated 1 TAB TABLET.DR PO SCH (08:06)
[2021-10-28] MEDS: heparin, porcine 5000 units/ml vial SQ SCH ×2 (08:06→20:41)
[2021-10-28] MEDS: amLODIPine 5mg tablet PO SCH (08:08)
[2021-10-28] MEDS: pantoprazole 40mg Tablet.DR PO SCH (08:08)
[2021-10-28] MEDS: losartan 50mg tablet PO SCH (08:09)
[2021-10-28] MEDS: docusate sod 100mg capsule PO SCH ×2 (08:09→20:39)
[2021-10-28] MEDS: levoFLOXACIN-Levaquin 500mg/D5 100 ML IV SCH (08:10)
[2021-10-28 08:42] LABS: BASOPHILS % (AUTO) 0.1 % (0-1); EOSINOPHILS % (AUTO) 0 % (0-6); HEMATOCRIT 24.7 % (42.0-52.0); HEMOGLOBIN 8.1 g/dl (14.0-17.9); LYMPHOCYTES # (AUTO) 0.4 X10'3 (1.1-4.8); LYMPHOCYTES % (AUTO) 4.2 % (21-51); MEAN CORPUSCULAR HGB CONC 32.7 g/dL (33.0-36.5); MEAN CORPUSCULAR VOLUME 76.4 FL (78-98); MEAN PLATELET VOLUME 7.7 FL (7.4-10.4); MONOCYTES # (AUTO) 0.2 X10'3 (0-0.9); MONOCYTES % (AUTO) 2.6 % (2-12); NEUTROPHILS # (AUTO) 8.1 X10'3 (1.8-7.7); NEUTROPHILS % (AUTO) 93.1 % (42-75); PLATELET COUNT 256 X10'3 (140-440); RED BLOOD COUNT 3.23 X10'6 (4.70-6.10); RED CELL DISTRIBUTION WIDTH 16.4 % (11.5-14.5); WHITE BLOOD COUNT 8.7 X10'3 (4.5-11.0)
[2021-10-28 09:11] LABS: ALANINE AMINOTRANSFERASE 21 U/L (12-78); ALBUMIN/GLOBULIN RATIO 0.5 (1.1-1.5); ALKALINE PHOSPHATASE 92 IU/L (46-116); ANION GAP 11 (8-16); ASPARTATE AMINO TRANSFERASE 20 U/L (10-37); BILIRUBIN,TOTAL 0.2 MG/DL (0.1-1.0); BLOOD UREA NITROGEN 28 MG/DL (7-18); BUN/CREATININE RATIO 28.9 (5.4-32.0); CALCIUM 8.7 MG/DL (8.5-10.1); CHLORIDE 109 MMOL/L (99-107); CREATININE 0.97 MG/DL (0.60-1.10); GLUCOSE 129 MG/DL (70-104); POTASSIUM 4.4 MMOL/L (3.5-5.1); SODIUM 142 MMOL/L (135-145); TOTAL CARBON DIOXIDE 21.6 MMOL/L (24-32); TOTAL PROTEIN 6.2 G/DL (6.4-8.2); eGFR 79 ML/MIN
[2021-10-28] MEDS: Tiotropium Br/Olodaterol HCl (Stiolto Respimat Inhal Spray) PO SCH (09:50)
[2021-10-28] MEDS ORDERED: HYDROmorphone inj. 0.5 MG/0.5 ML DISP.SYRIN IV PRN (10:10)
[2021-10-28] MEDS ORDERED: iohexol 300mg/ml 100ml inj. ONE (10:29)
[2021-10-28] MEDS: HYDROcodone/acetaminophen 10/325mg tab PO PRN (12:08)
[2021-10-28 12:19] LABS: % IRON SATURATION 37 % (11-46); IRON 67 UG/DL (53-167); TOTAL IRON BINDING CAPACITY 183 UG/DL (259-388)
[2021-10-28] MEDS: VANCOmycin 1250MG/NS 250ml Bag 250 ML IV SCH ×2 (12:50→22:57)
--- NOTE | 2021-10-28 12:57 | NUR ---
Initial: Pt admit for PNA and acute respiratory failure with hypoxemia. Per EMR pt with h/o lung CA and esophageal stricture. Pt s/p BSS with ST recs mechanical soft chopped food (SB6) with thin liquids. Per documentation PO intake appears to be declining, most recently down to 0-25% PO intake not meeting estimated nutrient needs. Pt gets SOB when eating and needs to eat slowly per ST recs. Per EMR pt on BiPAP vs HFNC. Respiratory status likely impacting PO intake. Recommend Ensure Enlive TIDWM to optimize PO intake, to be sent pending physician approval in EMR. LBM 10/25, receiving routine bowel care. Will continue to follow closely. Recommendations: 1) Continue SB6 diet with thin liquids per ST recs 2) Ensure Enlive TIDWM, pending physician approval in EMR 3) Routine bowel care 4) Weekly scaled weights Addendum: 10/28/21 at [address] Amended: Links added.
[2021-10-28] MEDS: lactose-reduced food (Ensure Enlive) - 237ml bottle PO SCH ×2 (13:00→18:00)
[2021-10-28] MEDS ORDERED: oxyCODONE/APAP 10/325mg tablet PO PRN (19:00)
[2021-10-28] MEDS: QUEtiapine 25mg tablet PO SCH (20:39)
[2021-10-28] MEDS: HYDROmorphone 1 mg/ml syringe IV PRN (21:32)
[2021-10-29] MEDS: cefepime 1GM in NS 100mL IVPB IV SCH ×3 (00:37→16:00)
[2021-10-29] MEDS: normal saline 1000ml 1,000 ML IV SCH ×2 (01:20→08:42)
[2021-10-29] MEDS: HYDROcodone/acetaminophen 10/325mg tab PO PRN (01:40)
[2021-10-29 02:00] VITALS: BP 119/80
[2021-10-29] MEDS: ipratropium/albuterol 3ml nebule NEB SCH ×5 (03:33→20:57)
[2021-10-29 06:00] VITALS: BP 125/91
--- NOTE | 2021-10-29 06:34 | NUR ---
Problems reprioritized. Patient report given, questions answered & plan of care reviewed with CARLI Wong.
[2021-10-29 07:28] LABS: BASOPHILS % (AUTO) 0.1 % (0-1); EOSINOPHILS % (AUTO) 0.1 % (0-6); HEMATOCRIT 25.6 % (42.0-52.0); HEMOGLOBIN 8.3 g/dl (14.0-17.9); LYMPHOCYTES # (AUTO) 0.7 X10'3 (1.1-4.8); LYMPHOCYTES % (AUTO) 12.2 % (21-51); MEAN CORPUSCULAR HEMOGLOBIN 24.7 PG (27.0-31.0); MEAN CORPUSCULAR HGB CONC 32.6 g/dL (33.0-36.5); MEAN CORPUSCULAR VOLUME 75.8 FL (78-98); MEAN PLATELET VOLUME 7.6 FL (7.4-10.4); MONOCYTES # (AUTO) 0.5 X10'3 (0-0.9); MONOCYTES % (AUTO) 7.8 % (2-12); NEUTROPHILS # (AUTO) 4.9 X10'3 (1.8-7.7); NEUTROPHILS % (AUTO) 79.8 % (42-75); PLATELET COUNT 236 X10'3 (140-440); RED BLOOD COUNT 3.38 X10'6 (4.70-6.10); RED CELL DISTRIBUTION WIDTH 16.6 % (11.5-14.5); WHITE BLOOD COUNT 6.1 X10'3 (4.5-11.0)
[2021-10-29 07:41] LABS: ALANINE AMINOTRANSFERASE 34 U/L (12-78); ALBUMIN/GLOBULIN RATIO 0.6 (1.1-1.5); ALKALINE PHOSPHATASE 97 IU/L (46-116); ANION GAP 12 (8-16); ASPARTATE AMINO TRANSFERASE 31 U/L (10-37); BILIRUBIN,TOTAL 0.2 MG/DL (0.1-1.0); BLOOD UREA NITROGEN 27 MG/DL (7-18); BUN/CREATININE RATIO 28.7 (5.4-32.0); CALCIUM 8.4 MG/DL (8.5-10.1); CHLORIDE 107 MMOL/L (99-107); CREATININE 0.94 MG/DL (0.60-1.10); GLUCOSE 89 MG/DL (70-104); POTASSIUM 3.6 MMOL/L (3.5-5.1); SODIUM 142 MMOL/L (135-145); TOTAL CARBON DIOXIDE 22.6 MMOL/L (24-32); TOTAL PROTEIN 5.6 G/DL (6.4-8.2); eGFR 82 ML/MIN
[2021-10-29] MEDS: Tiotropium Br/Olodaterol HCl (Stiolto Respimat Inhal Spray) PO SCH (08:00)
[2021-10-29] MEDS: K and/or MAG REPLACEMENT MC SCH ×2 (08:00→20:00)
[2021-10-29] MEDS: pantoprazole 40mg Tablet.DR PO SCH (08:28)
[2021-10-29] MEDS: aspirin 81mg, enteric-coated 1 TAB TABLET.DR PO SCH (08:29)
[2021-10-29] MEDS: lactobacillus rhamnosus 10,000 MMU CELLS/CAPSULE PO SCH ×2 (08:29→19:26)
[2021-10-29] MEDS: losartan 50mg tablet PO SCH (08:30)
[2021-10-29] MEDS: amLODIPine 5mg tablet PO SCH (08:31)
[2021-10-29] MEDS: predniSONE 20 mg tablet PO SCH (08:31)
[2021-10-29] MEDS: docusate sod 100mg capsule PO SCH ×2 (08:32→19:26)
[2021-10-29] MEDS: gabapentin 300mg capsule PO SCH ×2 (08:32→19:26)
[2021-10-29] MEDS: lactose-reduced food (Ensure Enlive) - 237ml bottle PO SCH ×3 (08:35→18:00)
[2021-10-29] MEDS: HYDROmorphone 1 mg/ml syringe IV PRN ×4 (08:40→23:19)
[2021-10-29] MEDS: heparin, porcine 5000 units/ml vial SQ SCH ×2 (08:47→19:27)
[2021-10-29] MEDS ORDERED: SERT-434 PO (10:26)
[2021-10-29 11:00] VITALS: BP 119/72
[2021-10-29] MEDS: levoFLOXACIN 500mg tablet PO SCH (11:18)
[2021-10-29] MEDS: LORazepam 1 MG tablet PO PRN (11:18)
[2021-10-29] MEDS: VANCOmycin 1250MG/NS 250ml Bag 250 ML IV SCH ×2 (11:19→23:27)
[2021-10-29 15:00] VITALS: BP 122/83
[2021-10-29 18:00] VITALS: BP 139/79
[2021-10-29] MEDS: QUEtiapine 25mg tablet PO SCH (21:00)
[2021-10-29 22:00] VITALS: BP 131/80
[2021-10-30] MEDS: ipratropium/albuterol 3ml nebule NEB SCH ×7 (00:06→23:32)
[2021-10-30] MEDS: oxyCODONE/APAP 10/325mg tablet PO PRN ×6 (00:31→20:12)
[2021-10-30] MEDS: cefepime 1GM in NS 100mL IVPB IV SCH ×3 (01:14→16:37)
[2021-10-30 02:00] VITALS: BP 153/85
[2021-10-30] MEDS: normal saline 1000ml 1,000 ML IV SCH ×2 (05:57→20:14)
[2021-10-30 06:00] VITALS: BP_SYST 151
--- NOTE | 2021-10-30 06:35 | NUR ---
Problems reprioritized. Patient report given, questions answered & plan of care reviewed with CARLI Wong.
[2021-10-30 07:46] LABS: BASOPHILS % (AUTO) 0.1 % (0-1); EOSINOPHILS % (AUTO) 0.2 % (0-6); HEMATOCRIT 30.9 % (42.0-52.0); HEMOGLOBIN 10.2 g/dl (14.0-17.9); LYMPHOCYTES % (AUTO) 11.7 % (21-51); MEAN CORPUSCULAR HEMOGLOBIN 24.9 PG (27.0-31.0); MEAN CORPUSCULAR HGB CONC 32.9 g/dL (33.0-36.5); MEAN CORPUSCULAR VOLUME 75.6 FL (78-98); MEAN PLATELET VOLUME 7.6 FL (7.4-10.4); MONOCYTES # (AUTO) 0.5 X10'3 (0-0.9); MONOCYTES % (AUTO) 5.6 % (2-12); NEUTROPHILS # (AUTO) 6.9 X10'3 (1.8-7.7); NEUTROPHILS % (AUTO) 82.4 % (42-75); PLATELET COUNT 296 X10'3 (140-440); RED BLOOD COUNT 4.09 X10'6 (4.70-6.10); RED CELL DISTRIBUTION WIDTH 16.7 % (11.5-14.5); WHITE BLOOD COUNT 8.3 X10'3 (4.5-11.0)
[2021-10-30] MEDS: docusate sod 100mg capsule PO SCH ×2 (08:00→20:11)
[2021-10-30] MEDS: K and/or MAG REPLACEMENT MC SCH ×2 (08:00→20:00)
[2021-10-30 08:03] LABS: ALANINE AMINOTRANSFERASE 41 U/L (12-78); ALBUMIN 2.4 G/DL (3.4-5.0); ALBUMIN/GLOBULIN RATIO 0.6 (1.1-1.5); ALKALINE PHOSPHATASE 112 IU/L (46-116); ANION GAP 8 (8-16); ASPARTATE AMINO TRANSFERASE 29 U/L (10-37); BILIRUBIN,TOTAL 0.4 MG/DL (0.1-1.0); BLOOD UREA NITROGEN 21 MG/DL (7-18); BUN/CREATININE RATIO 26.9 (5.4-32.0); CALCIUM 8.6 MG/DL (8.5-10.1); CHLORIDE 107 MMOL/L (99-107); CREATININE 0.78 MG/DL (0.60-1.10); GLUCOSE 117 MG/DL (70-104); POTASSIUM 3.5 MMOL/L (3.5-5.1); SODIUM 140 MMOL/L (135-145); TOTAL CARBON DIOXIDE 24.6 MMOL/L (24-32); TOTAL PROTEIN 6.7 G/DL (6.4-8.2); eGFR > 90 ML/MIN
[2021-10-30] MEDS: aspirin 81mg, enteric-coated 1 TAB TABLET.DR PO SCH (08:11)
[2021-10-30] MEDS: losartan 50mg tablet PO SCH (08:12)
[2021-10-30] MEDS: lactobacillus rhamnosus 10,000 MMU CELLS/CAPSULE PO SCH ×2 (08:12→20:11)
[2021-10-30] MEDS: gabapentin 300mg capsule PO SCH ×2 (08:13→20:10)
[2021-10-30] MEDS: predniSONE 20 mg tablet PO SCH (08:13)
[2021-10-30] MEDS: pantoprazole 40mg Tablet.DR PO SCH (08:13)
[2021-10-30] MEDS: amLODIPine 5mg tablet PO SCH (08:15)
[2021-10-30] MEDS: Tiotropium Br/Olodaterol HCl (Stiolto Respimat Inhal Spray) PO SCH (08:16)
[2021-10-30] MEDS: heparin, porcine 5000 units/ml vial SQ SCH ×2 (08:18→20:12)
[2021-10-30] MEDS: lactose-reduced food (Ensure Enlive) - 237ml bottle PO SCH ×3 (08:23→18:02)
[2021-10-30] MEDS: LORazepam 1 MG tablet PO PRN (09:40)
[2021-10-30] MEDS: levoFLOXACIN 500mg tablet PO SCH (10:46)
[2021-10-30] MEDS: VANCOmycin 1250MG/NS 250ml Bag 250 ML IV SCH ×2 (10:47→23:00)
[2021-10-30 11:00] VITALS: BP 119/74
[2021-10-30 18:00] VITALS: BP 119/74
--- NOTE | 2021-10-30 18:08 | NUR ---
Patient in room PCU 3018. I have received report from CARLI Wong and had the opportunity to ask questions and assume patient care.
[2021-10-30] MEDS: QUEtiapine 25mg tablet PO SCH (20:10)
[2021-10-30] MEDS: temazepam 15mg capsule PO PRN (20:12)
[2021-10-30 22:00] VITALS: BP 137/86
[2021-10-30] MEDS ORDERED: VANCOMYCIN LEVEL IV ONE (22:30)
--- NOTE | 2021-10-30 23:27 | NUR ---
PAGER ID: [phone] MESSAGE: Sent to Dr. Hollis, Vanco trough drawn at 2230, critical result-24.8, pharmacist informed. Vanco dose of 2300 held.
[2021-10-31] MEDS: cefepime 1GM in NS 100mL IVPB IV SCH ×2 (00:59→09:01)
[2021-10-31 02:00] VITALS: BP 150/82
[2021-10-31] MEDS: oxyCODONE/APAP 10/325mg tablet PO PRN (02:28)
[2021-10-31] MEDS: LORazepam 1 MG tablet PO PRN ×2 (02:29→11:48)
[2021-10-31] MEDS: ipratropium/albuterol 3ml nebule NEB SCH ×4 (03:51→14:15)
[2021-10-31 06:00] VITALS: BP 143/83
--- NOTE | 2021-10-31 06:50 | NUR ---
Problems reprioritized. Patient report given, questions answered & plan of care reviewed with CARLI Wong.
[2021-10-31] MEDS: K and/or MAG REPLACEMENT MC SCH (08:00)
[2021-10-31] MEDS: losartan 50mg tablet PO SCH (08:52)
[2021-10-31] MEDS: predniSONE 20 mg tablet PO SCH (08:52)
[2021-10-31] MEDS: gabapentin 300mg capsule PO SCH (08:53)
[2021-10-31] MEDS: lactose-reduced food (Ensure Enlive) - 237ml bottle PO SCH (08:53)
[2021-10-31] MEDS: aspirin 81mg, enteric-coated 1 TAB TABLET.DR PO SCH (08:54)
[2021-10-31] MEDS: amLODIPine 5mg tablet PO SCH (08:54)
[2021-10-31] MEDS: docusate sod 100mg capsule PO SCH (08:54)
[2021-10-31] MEDS: pantoprazole 40mg Tablet.DR PO SCH (08:55)
[2021-10-31] MEDS: lactobacillus rhamnosus 10,000 MMU CELLS/CAPSULE PO SCH (08:55)
[2021-10-31] MEDS: heparin, porcine 5000 units/ml vial SQ SCH (09:02)
[2021-10-31] MEDS: Tiotropium Br/Olodaterol HCl (Stiolto Respimat Inhal Spray) PO SCH (09:39)
--- NOTE | 2021-10-31 09:58 | NUR ---
Reassessment: Pt is tolerating mechanical chopped food and thin liquids per COOK CASHIER FOOD PREP 10/27, w/ improvement in PO now avg 93% since last nutrition assessment 10/28. Pt is also receiving Ensure Enlive TIDWM w/ 100% PO last 4 ONS currently meeting estimated nutrient needs. Noted pt diet was cancelled in the EMR, spoke w/ RN to reorder diet. LBM 10/30, receiving routine Colace per EMR. No nutrition intervention implemented at this time. Will continue to follow. Recommendations: 1) Continue SB6 diet with thin liquids per ST recs 2) Ensure Enlive TIDWM 3) Routine bowel care 4) Weekly scaled weights Addendum: 10/31/21 at [address] Amended: Links added. Addendum: 10/31/21 at [address] I have reviewed and agree with note by Air Deodorizer Servicer. JAVIER Weeks
[2021-10-31] MEDS: normal saline 1000ml 1,000 ML IV SCH (10:32)
[2021-10-31 11:00] VITALS: BP 136/83
[2021-10-31 11:01] LABS: BASOPHILS % (AUTO) 0.1 % (0-1); EOSINOPHILS % (AUTO) 0.5 % (0-6); HEMATOCRIT 30.9 % (42.0-52.0); LYMPHOCYTES # (AUTO) 1.2 X10'3 (1.1-4.8); LYMPHOCYTES % (AUTO) 15.4 % (21-51); MEAN CORPUSCULAR HEMOGLOBIN 24.8 PG (27.0-31.0); MEAN CORPUSCULAR HGB CONC 32.3 g/dL (33.0-36.5); MEAN CORPUSCULAR VOLUME 76.6 FL (78-98); MEAN PLATELET VOLUME 7.9 FL (7.4-10.4); MONOCYTES # (AUTO) 0.5 X10'3 (0-0.9); NEUTROPHILS # (AUTO) 6.2 X10'3 (1.8-7.7); PLATELET COUNT 275 X10'3 (140-440); RED BLOOD COUNT 4.03 X10'6 (4.70-6.10); RED CELL DISTRIBUTION WIDTH 16.8 % (11.5-14.5); WHITE BLOOD COUNT 7.9 X10'3 (4.5-11.0)
[2021-10-31 11:11] LABS: ALANINE AMINOTRANSFERASE 47 U/L (12-78); ALBUMIN 2.5 G/DL (3.4-5.0); ALBUMIN/GLOBULIN RATIO 0.6 (1.1-1.5); ALKALINE PHOSPHATASE 107 IU/L (46-116); ANION GAP 11 (8-16); ASPARTATE AMINO TRANSFERASE 32 U/L (10-37); BILIRUBIN,TOTAL 0.3 MG/DL (0.1-1.0); BLOOD UREA NITROGEN 20 MG/DL (7-18); BUN/CREATININE RATIO 21.1 (5.4-32.0); CHLORIDE 104 MMOL/L (99-107); CREATININE 0.95 MG/DL (0.60-1.10); GLUCOSE 107 MG/DL (70-104); POTASSIUM 3.8 MMOL/L (3.5-5.1); SODIUM 142 MMOL/L (135-145); TOTAL CARBON DIOXIDE 27.3 MMOL/L (24-32); TOTAL PROTEIN 6.6 G/DL (6.4-8.2); eGFR 81 ML/MIN
[2021-10-31] MEDS: levoFLOXACIN 500mg tablet PO SCH (11:47)
[2021-10-31] MEDS: VANCOmycin 1250MG/NS 250ml Bag 250 ML IV SCH (11:47)
[2021-10-31] MEDS ORDERED: LINE600T14 PO (11:48)
--- NOTE | 2021-10-31 11:49 | NUR ---
O2 Sat at rest on room air:_69__% If below 89%: Recovery O2 Sat at rest on LPM:__96_%:___% via ____high Flow (mask/nasal cannula, etc..) No further documentation is necessary. If O2 Sat did not drop below 89% on room air,ambulate patient on room air. O2 Sat while ambulating on room air:___% Recovery O2 Sat while ambulating on LPM:___% No further documentation is necessary. If patient does not drop below 89% while ambulating, he/she does not qualify for home O2. Addendum: 10/31/21 at 1258 by Judith Kwon RN O2 Sat at rest on room air:_69__% If below 89%: Recovery O2 Sat at rest on LPM:__96_%:___% via ____high Flow nasal cannula (mask/nasal cannula, etc..)
[2021-11-01] MEDS ORDERED: vancomycin/NS 1 GM ADD-VANTAGE 250 ML IV SCH (08:00)
[2021-11-02] MEDS ORDERED: VANCOMYCIN LEVEL IV ONE (19:30)
== END 2021-10-31 15:56 | disposition home health service (06) | DRG 137 ==
LOC: ER 06:27 → ED HOLD 09:22 → PCU 3S 12:48 → UNDODISIN 10-30 16:10
PROVIDERS: ADMIT Family Medicine; ATTEND Family Medicine
PROC: 5A0935A Assistance with Respiratory Ventilation, Less than 24 Consecutive Hours, High Flow/Velocity Cannula (ICD-10-PCS; principal; 2021-10-23)
PROC: 5A0935A Assistance with Respiratory Ventilation, Less than 24 Consecutive Hours, High Flow/Velocity Cannula (ICD-10-PCS; 2021-10-24)
PROC: 5A0935A Assistance with Respiratory Ventilation, Less than 24 Consecutive Hours, High Flow/Velocity Cannula (ICD-10-PCS; 2021-10-25)
PROC: 5A09357 Assistance with Respiratory Ventilation, Less than 24 Consecutive Hours, Continuous Positive Airway Pressure (ICD-10-PCS; 2021-10-25)
PROC: 5A0935A Assistance with Respiratory Ventilation, Less than 24 Consecutive Hours, High Flow/Velocity Cannula (ICD-10-PCS; 2021-10-26)
PROC: 5A09357 Assistance with Respiratory Ventilation, Less than 24 Consecutive Hours, Continuous Positive Airway Pressure (ICD-10-PCS; 2021-10-26)
PROC: 5A0935A Assistance with Respiratory Ventilation, Less than 24 Consecutive Hours, High Flow/Velocity Cannula (ICD-10-PCS; 2021-10-27)
PROC: 5A09357 Assistance with Respiratory Ventilation, Less than 24 Consecutive Hours, Continuous Positive Airway Pressure (ICD-10-PCS; 2021-10-27)
PROC: 5A0935A Assistance with Respiratory Ventilation, Less than 24 Consecutive Hours, High Flow/Velocity Cannula (ICD-10-PCS; 2021-10-28)
PROC: 5A09357 Assistance with Respiratory Ventilation, Less than 24 Consecutive Hours, Continuous Positive Airway Pressure (ICD-10-PCS; 2021-10-28)
PROC: 5A0935A Assistance with Respiratory Ventilation, Less than 24 Consecutive Hours, High Flow/Velocity Cannula (ICD-10-PCS; 2021-10-29)
PROC: 5A09357 Assistance with Respiratory Ventilation, Less than 24 Consecutive Hours, Continuous Positive Airway Pressure (ICD-10-PCS; 2021-10-29)
PROC: 5A0935A Assistance with Respiratory Ventilation, Less than 24 Consecutive Hours, High Flow/Velocity Cannula (ICD-10-PCS; 2021-10-30)
PROC: 5A09357 Assistance with Respiratory Ventilation, Less than 24 Consecutive Hours, Continuous Positive Airway Pressure (ICD-10-PCS; 2021-10-30)
PROC: 5A0935A Assistance with Respiratory Ventilation, Less than 24 Consecutive Hours, High Flow/Velocity Cannula (ICD-10-PCS; 2021-10-31)
PROC: 5A09357 Assistance with Respiratory Ventilation, Less than 24 Consecutive Hours, Continuous Positive Airway Pressure (ICD-10-PCS; 2021-10-31)
DX: J15.29 Pneumonia due to other staphylococcus (principal); J96.21 Acute and chronic respiratory failure with hypoxia; Z99.81 Dependence on supplemental oxygen; E78.5 Hyperlipidemia, unspecified; Z66 Do not resuscitate; I48.91 Unspecified atrial fibrillation; I10 Essential (primary) hypertension; G89.4 Chronic pain syndrome; J43.9 Emphysema, unspecified; R13.10 Dysphagia, unspecified; F41.0 Panic disorder [episodic paroxysmal anxiety]; Z87.891 Personal history of nicotine dependence; Z85.118 Personal history of other malignant neoplasm of bronchus and lung; Z87.01 Personal history of pneumonia (recurrent); Z79.899 Other long term (current) drug therapy; Z79.82 Long term (current) use of aspirin; Z76.5 Malingerer [conscious simulation]
CPT/HCPCS: 36415; 36600; 71045; 71260; 80048; 80053; 80202; 81001; 82803; 82948; 83036; 83540; 83550; 83605; 83735; 84132; 84145; 85018; 85025; 87040; 87070; 87077; 87081; 87186; 92508; 92616; 93005; 94640; 94660; 94760; 94799; 96361; 96365; 96375; 97116; 97161; 97530; 99285; G0378; J0456; J0692; J0696; J1170; J1644; J1956; J2270; J2543; J2930; J3370; J7030; J7040; J7512; Q9967

== ENCOUNTER 2022-01-22 12:28 | Inpatient (IN) | payer MEDICAID ==
[~2022-01-22] VITALS: Ht 177.8 cm; Wt 80.9 kg
[~2022-01-22 12:28] MED LIST changes: -LEVO500T90 PO; +LINE600T14 PO; +SERT-434 PO
[2022-01-22] MEDS ORDERED: ipratropium/albuterol 3ml nebule NEB ONE (12:35)
[2022-01-22] MEDS ORDERED: methylPREDNISolone sod succ 125mg/2ml vial IV ONE (12:35)
[2022-01-22 13:06] LABS: BASOPHILS # (AUTO) 0.1 X10'3 (0-0.2); BASOPHILS % (AUTO) 0.4 % (0-1); EOSINOPHILS % (AUTO) 0 % (0-6); HEMATOCRIT 40.2 % (42.0-52.0); HEMOGLOBIN 13.4 g/dl (14.0-17.9); LYMPHOCYTES # (AUTO) 0.7 X10'3 (1.1-4.8); LYMPHOCYTES % (AUTO) 3.9 % (21-51); MEAN CORPUSCULAR HEMOGLOBIN 26.3 PG (27.0-31.0); MEAN CORPUSCULAR HGB CONC 33.2 g/dL (33.0-36.5); MEAN CORPUSCULAR VOLUME 79.1 FL (78-98); MEAN PLATELET VOLUME 7.7 FL (7.4-10.4); MONOCYTES # (AUTO) 1.2 X10'3 (0-0.9); NEUTROPHILS # (AUTO) 15.6 X10'3 (1.8-7.7); NEUTROPHILS % (AUTO) 88.7 % (42-75); PLATELET COUNT 179 X10'3 (140-440); RED BLOOD COUNT 5.08 X10'6 (4.70-6.10); RED CELL DISTRIBUTION WIDTH 17.2 % (11.5-14.5); WHITE BLOOD COUNT 17.6 X10'3 (4.5-11.0)
[2022-01-22 13:14] LABS: ALANINE AMINOTRANSFERASE 23 U/L (12-78); ALBUMIN 3.8 G/DL (3.4-5.0); ALBUMIN/GLOBULIN RATIO 0.8 (1.1-1.5); ALKALINE PHOSPHATASE 119 IU/L (46-116); ANION GAP 18 (8-16); ASPARTATE AMINO TRANSFERASE 17 U/L (10-37); BLOOD UREA NITROGEN 22 MG/DL (7-18); BUN/CREATININE RATIO 19.6 (5.4-32.0); CALCIUM 9.5 MG/DL (8.5-10.1); CHLORIDE 101 MMOL/L (99-107); CREATININE 1.12 MG/DL (0.60-1.10); GLUCOSE 106 MG/DL (70-104); POTASSIUM 4.4 MMOL/L (3.5-5.1); SODIUM 137 MMOL/L (135-145); TOTAL PROTEIN 8.4 G/DL (6.4-8.2); eGFR 67 ML/MIN
[2022-01-22 13:35] LABS: APTT 30 SECONDS (22-32); D-DIMER 0.44 MG/L FEU (0-0.50)
[2022-01-22 13:52] LABS: ABG BASE EXCESS 0.9 mmol/L (-2.0-2.0); ABG HCO3 19.7 mmol/L (22.0-26.0); ABG OXYGEN SATURATION 98.6 % (94-97); ABG PCO2 (T) 19.4 mmHg (35.0-48.0); ABG PO2 (T) 115.3 mmHg (75.0-100.0); ALLEN'S TEST POSITIVE; FCOHb 0.8 % (0.0-3.9); FMetHb 0.2 % (0.0-1.5); FO2Hb 97.6 % (94-97); TOTAL HEMOGLOBIN 14.2 G/dl (14.0-18.0)
[2022-01-22] MEDS ORDERED: cefepime 1GM/NS ADD-VANTAGE 100 ML IV ONE (14:10)
[2022-01-22] MEDS ORDERED: morphine 4 MG/ML inj SYRINge IV ONE (14:15)
[2022-01-22] MEDS ORDERED: ondansetron/PF 4mg/2ml inj IV ONE (14:15)
[2022-01-22] MEDS ORDERED: POTASSIUM BICARB 20meq eff tab 20 MEQ TABLET.EFF PO PRN ×2 (15:05)
[2022-01-22] MEDS ORDERED: potassium CL 10mEq/100ml bag 100 ML IV PRN (15:05)
[2022-01-22] MEDS ORDERED: magnesium 2GM in 50ml NS 50 ML IV PRN (15:05)
[2022-01-22] MEDS ORDERED: morphine 2 MG/ML inj. syringe IV PRN (15:05)
[2022-01-22] MEDS ORDERED: acetaminophen 325mg tablet PO PRN ×2 (15:05)
[2022-01-22] MEDS ORDERED: magnesium Cl slow-release 64mg tablet PO PRN (15:05)
[2022-01-22] MEDS ORDERED: magnesium 4gm in 100ml NS 100 ML IV PRN (15:05)
[2022-01-22] MEDS ORDERED: normal saline 1000ml 1,000 ML IV SCH (15:05)
[2022-01-22] MEDS ORDERED: ondansetron/PF 4mg/2ml inj IV PRN (15:05)
[2022-01-22] MEDS ORDERED: TIOT4MIS3 PO (16:57)
[2022-01-22] MEDS ORDERED: HYDR-3972 PO (16:58)
[2022-01-22] MEDS ORDERED: LOSA100T57 PO (16:59)
[2022-01-22] MEDS ORDERED: OMEP20CA16 PO (16:59)
[2022-01-22] MEDS ORDERED: ALBU2.5V10 NEB (16:59)
[2022-01-22] MEDS ORDERED: AMLO5TAB PO (17:00)
[2022-01-22] MEDS ORDERED: HYDR-3927 PO (17:01)
[2022-01-22] MEDS ORDERED: SERT-434 PO (17:01)
[2022-01-22] MEDS ORDERED: QUET25TA36 PO (17:02)
[2022-01-22] MEDS ORDERED: GABA300C PO (17:03)
[2022-01-22] MEDS ORDERED: ERGO500056 PO (17:05)
[2022-01-22] MEDS ORDERED: ONDA-103 PO (17:05)
[2022-01-22] MEDS: morphine 2 MG/ML inj. syringe IV PRN (19:18)
[2022-01-22] MEDS: K and/or MAG REPLACEMENT MC SCH (20:00)
[2022-01-22] MEDS: furosemide 40mg/4ml inj IV SCH (20:13)
[2022-01-22] MEDS: methylPREDNISolone sod succ 125mg/2ml vial IV SCH (20:14)
[2022-01-22] MEDS: heparin, porcine 5000 units/ml vial SQ SCH (20:14)
[2022-01-22 21:00] LABS: URINE AMPHETAMINE SCREEN NEGATIVE (Neg); URINE BARBITUATE SCREEN NEGATIVE (Neg); URINE BENZODIAZEPINES SCREEN NEGATIVE (Neg); URINE CANNABINOID SCREEN POSITIVE (Neg); URINE COCAINE SCREEN NEGATIVE (Neg); URINE METHADONE SCREEN NEGATIVE (Neg); URINE OPIATE SCREEN POSITIVE (Neg); URINE PHENCYCLIDINE SCREEN NEGATIVE (Neg)
[2022-01-22] MEDS ORDERED: temazepam 15mg capsule PO PRN (21:00)
[2022-01-22] MEDS: albuterol 2.5 MG/3 ML nebule NEB PRN (21:59)
--- NOTE | 2022-01-22 22:20 | NUR ---
Received report from Matthew BOYCE in the ER. Pt arrived on the unit via gurney with his clothes in a personal belongings bag. Pt was on 6 L via nasal cannula, with normal saline running at 20 mls/hr, VSS and with no signs of distress. Will continue to monitor.
[2022-01-22 23:38] VITALS: BP 126/83
[2022-01-23] MEDS ORDERED: hydrOXYzine 25 MG tablet PO PRN (00:10)
[2022-01-23] MEDS ORDERED: ondansetron 4mg rapidly disintigrating tab PO PRN (00:10)
[2022-01-23] MEDS ORDERED: albuterol 2.5 MG/3 ML nebule NEB PRN (00:10)
[2022-01-23] MEDS: morphine 2 MG/ML inj. syringe IV PRN (00:42)
[2022-01-23 02:00] VITALS: BP 135/81
[2022-01-23] MEDS: HYDROcodone/acetaminophen 10/325mg tab PO SCH ×4 (02:00→20:49)
[2022-01-23 06:00] VITALS: BP 133/87
--- NOTE | 2022-01-23 06:25 | NUR ---
Patient in room PCU 3023. I have received report from Lucinda BOYCE and had the opportunity to ask questions and assume patient care.
--- NOTE | 2022-01-23 06:42 | NUR ---
Problems reprioritized. Patient report given, questions answered & plan of care reviewed with July BOYCE.
[2022-01-23 07:27] LABS: BASOPHILS % (AUTO) 0.1 % (0-1); EOSINOPHILS % (AUTO) 0 % (0-6); HEMATOCRIT 39.2 % (42.0-52.0); HEMOGLOBIN 13.2 g/dl (14.0-17.9); LYMPHOCYTES # (AUTO) 0.6 X10'3 (1.1-4.8); MEAN CORPUSCULAR HEMOGLOBIN 26.9 PG (27.0-31.0); MEAN CORPUSCULAR HGB CONC 33.7 g/dL (33.0-36.5); MEAN CORPUSCULAR VOLUME 79.8 FL (78-98); MEAN PLATELET VOLUME 8.2 FL (7.4-10.4); MONOCYTES # (AUTO) 0.5 X10'3 (0-0.9); MONOCYTES % (AUTO) 4.1 % (2-12); NEUTROPHILS # (AUTO) 10.2 X10'3 (1.8-7.7); NEUTROPHILS % (AUTO) 90.8 % (42-75); PLATELET COUNT 168 X10'3 (140-440); RED BLOOD COUNT 4.91 X10'6 (4.70-6.10); RED CELL DISTRIBUTION WIDTH 17.6 % (11.5-14.5); WHITE BLOOD COUNT 11.2 X10'3 (4.5-11.0)
[2022-01-23 07:41] LABS: ALANINE AMINOTRANSFERASE 19 U/L (12-78); ALBUMIN 3.6 G/DL (3.4-5.0); ALBUMIN/GLOBULIN RATIO 0.8 (1.1-1.5); ALKALINE PHOSPHATASE 110 IU/L (46-116); ANION GAP 16 (8-16); ASPARTATE AMINO TRANSFERASE 17 U/L (10-37); BILIRUBIN,TOTAL 0.6 MG/DL (0.1-1.0); BLOOD UREA NITROGEN 35 MG/DL (7-18); BUN/CREATININE RATIO 23.3 (5.4-32.0); CALCIUM 9.2 MG/DL (8.5-10.1); CHLORIDE 99 MMOL/L (99-107); GLUCOSE 140 MG/DL (70-104); POTASSIUM 3.9 MMOL/L (3.5-5.1); SODIUM 137 MMOL/L (135-145); TOTAL CARBON DIOXIDE 22.3 MMOL/L (24-32); TOTAL PROTEIN 8.4 G/DL (6.4-8.2); eGFR 48 ML/MIN
[2022-01-23] MEDS ORDERED: levoFLOXACIN-Levaquin 500mg/D5 100 ML IV SCH (08:00)
[2022-01-23] MEDS: K and/or MAG REPLACEMENT MC SCH ×2 (08:00→20:00)
[2022-01-23] MEDS ORDERED: Tiotropium Br/Olodaterol HCl (Stiolto Respimat Inhal Spray) PO SCH (08:00)
[2022-01-23] MEDS: HYDROcodone/acetaminophen 5mg/325mg tablet PO PRN ×2 (10:36→17:35)
[2022-01-23] MEDS: methylPREDNISolone sod succ 125mg/2ml vial IV SCH ×2 (10:41→20:44)
[2022-01-23] MEDS: furosemide 40mg/4ml inj IV SCH ×2 (10:41→20:43)
[2022-01-23] MEDS: heparin, porcine 5000 units/ml vial SQ SCH ×2 (10:41→20:48)
[2022-01-23] MEDS: gabapentin 300mg capsule PO SCH ×2 (10:44→20:45)
[2022-01-23] MEDS: amLODIPine 5mg tablet PO SCH (10:44)
[2022-01-23] MEDS: sertraline 50mg tablet PO SCH (10:44)
[2022-01-23] MEDS: pantoprazole 40mg Tablet.DR PO SCH (10:44)
[2022-01-23] MEDS: losartan 50mg tablet PO SCH (10:45)
[2022-01-23 11:00] VITALS: BP 147/92
--- NOTE | 2022-01-23 11:42 | NUR ---
Malnutrition consult: Pt reports 2-13lb wt loss per MST. Current wt, though not scaled, is consistent w/ wt scaled wts from October of this year and August of last year per EMR. No signs of muscle or fat wasting reported, no edema noted. Currently on Heart healthy diet pending PO intake. At this time pt does not meet minimum criteria for malnutrition. Recommend liberalizing to Regular diet given no significant diet-related cardiac hx. Addendum: 01/23/22 at [address] Amended: Links added.
[2022-01-23] MEDS: azithromycin/NS 500mg/250ml 250 ML IV SCH (12:58)
[2022-01-23 15:00] VITALS: BP 109/73
[2022-01-23 18:00] VITALS: BP 104/56
--- NOTE | 2022-01-23 18:56 | NUR ---
Patient in room PCU 3023. I have received report from July BOYCE and had the opportunity to ask questions and assume patient care.
--- NOTE | 2022-01-23 18:59 | NUR ---
Problems reprioritized. Patient report given, questions answered & plan of care reviewed with Lucinda BOYCE, patient stable at transfer of care.
[2022-01-23] MEDS: albuterol 2.5 MG/3 ML nebule NEB PRN (20:18)
[2022-01-23] MEDS ORDERED: QUEtiapine 25mg tablet PO SCH (21:00)
[2022-01-23 22:00] VITALS: BP 104/77
[2022-01-24 02:00] VITALS: BP 115/64
[2022-01-24] MEDS: HYDROcodone/acetaminophen 10/325mg tab PO SCH (02:00)
[2022-01-24 06:00] VITALS: BP 132/60
--- NOTE | 2022-01-24 06:13 | NUR ---
Patient in room PCU 3023. I have received report from Lucinda BOYCE and had the opportunity to ask questions and assume patient care.
--- NOTE | 2022-01-24 06:28 | NUR ---
Problems reprioritized. Patient report given, questions answered & plan of care reviewed with July BOYCE.
[2022-01-24 06:43] LABS: BASOPHILS % (AUTO) 0.1 % (0-1); EOSINOPHILS % (AUTO) 0 % (0-6); HEMATOCRIT 43.7 % (42.0-52.0); HEMOGLOBIN 14.4 g/dl (14.0-17.9); LYMPHOCYTES # (AUTO) 0.7 X10'3 (1.1-4.8); LYMPHOCYTES % (AUTO) 4.9 % (21-51); MEAN CORPUSCULAR HEMOGLOBIN 27.1 PG (27.0-31.0); MEAN CORPUSCULAR HGB CONC 32.9 g/dL (33.0-36.5); MEAN CORPUSCULAR VOLUME 82.4 FL (78-98); MEAN PLATELET VOLUME 8.1 FL (7.4-10.4); MONOCYTES # (AUTO) 0.6 X10'3 (0-0.9); MONOCYTES % (AUTO) 4.2 % (2-12); NEUTROPHILS # (AUTO) 13.1 X10'3 (1.8-7.7); NEUTROPHILS % (AUTO) 90.8 % (42-75); PLATELET COUNT 182 X10'3 (140-440); RED CELL DISTRIBUTION WIDTH 17.6 % (11.5-14.5); WHITE BLOOD COUNT 14.5 X10'3 (4.5-11.0)
[2022-01-24 07:04] LABS: ALANINE AMINOTRANSFERASE 22 U/L (12-78); ALBUMIN 3.7 G/DL (3.4-5.0); ALBUMIN/GLOBULIN RATIO 0.7 (1.1-1.5); ALKALINE PHOSPHATASE 106 IU/L (46-116); ANION GAP 18 (8-16); ASPARTATE AMINO TRANSFERASE 16 U/L (10-37); BILIRUBIN,TOTAL 0.3 MG/DL (0.1-1.0); BLOOD UREA NITROGEN 48 MG/DL (7-18); BUN/CREATININE RATIO 31.8 (5.4-32.0); CALCIUM 9.7 MG/DL (8.5-10.1); CHLORIDE 102 MMOL/L (99-107); CREATININE 1.51 MG/DL (0.60-1.10); GLUCOSE 142 MG/DL (70-104); POTASSIUM 4.3 MMOL/L (3.5-5.1); SODIUM 141 MMOL/L (135-145); TOTAL PROTEIN 8.9 G/DL (6.4-8.2); eGFR 47 ML/MIN
[2022-01-24] MEDS: sertraline 50mg tablet PO SCH (07:39)
[2022-01-24] MEDS: gabapentin 300mg capsule PO SCH (07:39)
[2022-01-24] MEDS: pantoprazole 40mg Tablet.DR PO SCH (07:40)
[2022-01-24] MEDS: amLODIPine 5mg tablet PO SCH (07:40)
[2022-01-24 07:41] VITALS: BP_SYST 132
[2022-01-24] MEDS: losartan 50mg tablet PO SCH (07:41)
[2022-01-24] MEDS: HYDROcodone/acetaminophen 5mg/325mg tablet PO PRN (07:41)
[2022-01-24] MEDS: methylPREDNISolone sod succ 125mg/2ml vial IV SCH (07:41)
[2022-01-24] MEDS: furosemide 40mg/4ml inj IV SCH (07:42)
[2022-01-24] MEDS: heparin, porcine 5000 units/ml vial SQ SCH (07:51)
[2022-01-24] MEDS: azithromycin/NS 500mg/250ml 250 ML IV SCH (07:55)
[2022-01-24] MEDS ORDERED: LEVO500T90 PO (09:57)
[2022-01-24] MEDS ORDERED: FURO20TA4 PO (11:03)
--- NOTE | 2022-01-24 15:16 | NUR ---
Patient stable for discharge per Dr. Hart. All discharge instructions reviewed and all questions answered. New prescriptions escripted to [facility]. PIV discontinued, cannula intact. Tele discontinued. All belongings collected and sent with patient. Wheeled to lobby via nursing staff and picked up by family.
== END 2022-01-24 14:03 | disposition home or self-care (01) | DRG 720 ==
LOC: ER 12:29 → ED HOLD 15:10 → EDBEDREQ 21:06 → PCU 3S 22:40
PROVIDERS: ADMIT Internal Medicine; ATTEND Internal Medicine
DX: A41.9 Sepsis, unspecified organism (principal); J96.20 Acute and chronic respiratory failure, unspecified whether with hypoxia or hypercapnia; J18.9 Pneumonia, unspecified organism; J90 Pleural effusion, not elsewhere classified; I48.20 Chronic atrial fibrillation, unspecified; J44.0 Chronic obstructive pulmonary disease with (acute) lower respiratory infection; Z99.81 Dependence on supplemental oxygen; Z20.822 Contact with and (suspected) exposure to COVID-19; Z66 Do not resuscitate; G89.29 Other chronic pain; F41.9 Anxiety disorder, unspecified; I10 Essential (primary) hypertension; Z85.118 Personal history of other malignant neoplasm of bronchus and lung; Z90.2 Acquired absence of lung [part of]; Z87.891 Personal history of nicotine dependence; Z82.49 Family history of ischemic heart disease and other diseases of the circulatory system
CPT/HCPCS: 36415; 36600; 71045; 80053; 80305; 82803; 83605; 83880; 84145; 84484; 85018; 85025; 85379; 85610; 85730; 87040; 87081; 87502; 87503; 93308; 94640; 94760; 96374; 96375; 97161; 97530; 99285; G0378; J0456; J0692; J1644; J1940; J1956; J2270; J2405; J2930; J7030

== ENCOUNTER 2023-01-27 14:51 | Inpatient (IN) | payer MEDICAID ==
[~2023-01-27] VITALS: Ht 152.4 cm; Wt 90.5 kg
[~2023-01-27 14:51] MED LIST changes: +ALBU2.5V10 NEB; +AMLO5TAB PO; -AMLO5TAB16 PO; -ASPI-611 PO; +ERGO500056 PO; +FURO20TA4 PO; +HYDR-3927 PO; +HYDR-3972 PO; -HYDR-3973 PO; -LINE600T14 PO; -LOSA100T57 PO; +LOSA100T58 PO; -NITR0.4T48 SL; +ONDA-103 PO; -TIOT4MIS3 INH; +TIOT4MIS3 PO
[2023-01-27] MEDS ORDERED: morphine 4 MG/ML inj SYRINge IV ONE (15:00)
[2023-01-27] MEDS ORDERED: normal saline 1000ML IV soln IV ONE (15:00)
[2023-01-27 15:22] LABS: BASOPHILS % (AUTO) 0.2 % (0-1); EOSINOPHILS % (AUTO) 0.1 % (0-6); HEMATOCRIT 36.6 % (42.0-52.0); HEMOGLOBIN 11.9 g/dl (14.0-17.9); LYMPHOCYTES # (AUTO) 0.5 X10'3 (1.1-4.8); LYMPHOCYTES % (AUTO) 4.4 % (21-51); MEAN CORPUSCULAR HEMOGLOBIN 25.9 PG (27.0-31.0); MEAN CORPUSCULAR HGB CONC 32.4 g/dL (33.0-36.5); MEAN PLATELET VOLUME 7.8 FL (7.4-10.4); MONOCYTES # (AUTO) 0.8 X10'3 (0-0.9); MONOCYTES % (AUTO) 7.1 % (2-12); NEUTROPHILS # (AUTO) 10.1 X10'3 (1.8-7.7); NEUTROPHILS % (AUTO) 88.2 % (42-75); PLATELET COUNT 200 X10'3 (140-440); RED BLOOD COUNT 4.58 X10'6 (4.70-6.10); RED CELL DISTRIBUTION WIDTH 20.2 % (11.5-14.5); WHITE BLOOD COUNT 11.5 X10'3 (4.5-11.0)
[2023-01-27 15:35] LABS: ALANINE AMINOTRANSFERASE 28 U/L (12-78); ALBUMIN 2.4 G/DL (3.4-5.0); ALBUMIN/GLOBULIN RATIO 0.4 (1.1-1.5); ALKALINE PHOSPHATASE 122 IU/L (46-116); ANION GAP 15 (8-16); ASPARTATE AMINO TRANSFERASE 23 U/L (10-37); BILIRUBIN,TOTAL 0.7 MG/DL (0.1-1.0); BLOOD UREA NITROGEN 35 MG/DL (7-18); BUN/CREATININE RATIO 21.7 (10.0-20.0); CALCIUM 9.3 MG/DL (8.5-10.1); CHLORIDE 93 MMOL/L (99-107); CREATININE 1.61 MG/DL (0.60-1.10); GLUCOSE 109 MG/DL (70-104); POTASSIUM 3.6 MMOL/L (3.5-5.1); SODIUM 128 MMOL/L (135-145); TOTAL CARBON DIOXIDE 20.2 MMOL/L (24-32); TOTAL PROTEIN 7.9 G/DL (6.4-8.2); eGFR 44 ML/MIN
[2023-01-27] MEDS ORDERED: piperacillin/tazo 3.375gm/50ml 50 ML IV ONE (15:35)
[2023-01-27 15:38] LABS: MAGNESIUM 1.5 MG/DL (1.5-2.4)
[2023-01-27 15:41] LABS: ANISOCYTOSIS 3+; PLATELET ESTIMATE NORMAL
--- NOTE | 2023-01-27 16:38 | NUR ---
PT TAKEN TO CT.
[2023-01-27] MEDS ORDERED: ipratropium/albuterol 3ml nebule NEB ONE (17:00)
[2023-01-27] MEDS ORDERED: methylPREDNISolone sod succ 125mg/2ml vial IV ONE (17:00)
--- NOTE | 2023-01-27 17:33 | NUR ---
RN PAGED RT REQ RT TX [id number].
[2023-01-27] MEDS ORDERED: potassium Cl 20 mEq SR tablet PO PRN ×2 (17:45)
[2023-01-27] MEDS ORDERED: magnesium 2GM in 50ml NS 50 ML IV PRN (17:45)
[2023-01-27] MEDS ORDERED: magnesium 4gm in 100ml NS 100 ML IV PRN (17:45)
[2023-01-27] MEDS ORDERED: magnesium Cl slow-release 64mg tablet PO PRN (17:45)
[2023-01-27] MEDS ORDERED: ondansetron/PF 4mg/2ml inj IV PRN (17:45)
[2023-01-27] MEDS ORDERED: potassium Cl 40MEQ/1/2NS 520ml 520 ML IV PRN (17:45)
[2023-01-27] MEDS ORDERED: acetaminophen 325mg tablet PO PRN (17:45)
[2023-01-27 17:54] LABS: CLARITY,URINE CLEAR (Clear); COLOR,URINE YELLOW (Yellow); GLUCOSE, URINE NEGATIVE (Neg); KETONES,URINE TRACE mg/dl (Neg); LEUKOCYTE ESTERASE ,URINE NEGATIVE (Neg); NITRITES, URINE NEGATIVE (Neg); OCCULT BLOOD,URINE TRACE-INTACT (Neg); PROTEIN,URINE TRACE mg/dl (Neg)
[2023-01-27 17:55] LABS: UA COLLECTION TYPE CLN CATCH MIDSTREAM
[2023-01-27 17:58] LABS: BACTERIA,URINE NONE SEEN /HPF (Neg); MUCUS STRANDS NONE SEEN /LPF (Neg); RBC,URINE 0-2 /HPF (0-2); SQUAMOUS EPITHELIAL CELL,UR FEW /LPF (FEW); WBC,URINE 0-4 /HPF (0-4)
[2023-01-27] MEDS ORDERED: GABA300C PO (19:02)
[2023-01-27] MEDS ORDERED: AMLO5TAB16 PO (19:02)
[2023-01-27] MEDS ORDERED: MELO-102 PO (19:02)
[2023-01-27] MEDS ORDERED: HYDR-3973 PO (19:02)
[2023-01-27] MEDS ORDERED: TIOT4MIS3 PO (19:02)
[2023-01-27] MEDS ORDERED: QUET50TA24 PO (19:02)
[2023-01-27] MEDS ORDERED: OMEP20CA16 PO (19:02)
[2023-01-27] MEDS ORDERED: SERT-434 PO (19:02)
[2023-01-27] MEDS ORDERED: ALBU0.63 PO (19:02)
[2023-01-27] MEDS ORDERED: ASPI-1144 PO (19:03)
[2023-01-27] MEDS ORDERED: LOSA100T58 PO (19:04)
[2023-01-27] MEDS: normal saline 1000ml 1,000 ML IV SCH (19:26)
[2023-01-27] MEDS: K and/or MAG REPLACEMENT MC SCH (19:56)
[2023-01-27] MEDS: guaiFENesin ER 600mg tablet PO SCH (20:15)
[2023-01-27] MEDS ORDERED: HYDROcodone/acetaminophen 10/325mg tab PO ONE (20:25)
[2023-01-27 21:10] VITALS: BP 137/78
[2023-01-27 23:00] VITALS: BP 130/70
[2023-01-28] MEDS: piperacillin/tazo 3.375gm/50ml 50 ML IV SCH ×3 (00:41→16:29)
[2023-01-28 02:00] VITALS: BP 146/88
[2023-01-28] MEDS: HYDROcodone/acetaminophen 10/325mg tab PO PRN ×4 (02:29→19:16)
[2023-01-28 06:00] VITALS: BP 149/86
[2023-01-28 06:12] LABS: BASOPHILS % (AUTO) 0.1 % (0-1); EOSINOPHILS % (AUTO) 0 % (0-6); HEMATOCRIT 34.2 % (42.0-52.0); HEMOGLOBIN 11.2 g/dl (14.0-17.9); LYMPHOCYTES # (AUTO) 0.4 X10'3 (1.1-4.8); LYMPHOCYTES % (AUTO) 3.8 % (21-51); MEAN CORPUSCULAR HEMOGLOBIN 26.4 PG (27.0-31.0); MEAN CORPUSCULAR HGB CONC 32.9 g/dL (33.0-36.5); MEAN CORPUSCULAR VOLUME 80.4 FL (78-98); MEAN PLATELET VOLUME 8.2 FL (7.4-10.4); MONOCYTES # (AUTO) 0.4 X10'3 (0-0.9); MONOCYTES % (AUTO) 3.1 % (2-12); NEUTROPHILS # (AUTO) 10.7 X10'3 (1.8-7.7); PLATELET COUNT 174 X10'3 (140-440); RED BLOOD COUNT 4.25 X10'6 (4.70-6.10); RED CELL DISTRIBUTION WIDTH 20.6 % (11.5-14.5); WHITE BLOOD COUNT 11.5 X10'3 (4.5-11.0)
[2023-01-28 06:24] LABS: ALBUMIN 2.2 G/DL (3.4-5.0); ANION GAP 13 (8-16); BLOOD UREA NITROGEN 35 MG/DL (7-18); BUN/CREATININE RATIO 24.8 (10.0-20.0); CALCIUM 9.1 MG/DL (8.5-10.1); CHLORIDE 98 MMOL/L (99-107); CREATININE 1.41 MG/DL (0.60-1.10); GLUCOSE 164 MG/DL (70-104); MAGNESIUM 1.9 MG/DL (1.5-2.4); POTASSIUM 4.1 MMOL/L (3.5-5.1); SODIUM 131 MMOL/L (135-145); TOTAL CARBON DIOXIDE 20.1 MMOL/L (24-32); eGFR 51 ML/MIN
--- NOTE | 2023-01-28 06:34 | NUR ---
Patient in room PCU 3014. I have received report from Shayna and had the opportunity to ask questions and assume patient care.
[2023-01-28] MEDS: K and/or MAG REPLACEMENT MC SCH ×2 (07:21→20:00)
[2023-01-28] MEDS: guaiFENesin ER 600mg tablet PO SCH ×2 (07:36→19:16)
[2023-01-28] MEDS: enoxaparin 40mg/0.4ml syringe SUBCUT SCH (07:36)
--- NOTE | 2023-01-28 08:30 | NUR ---
Spoke with patient's sister Terrell with okay from patient. Provided update on patient's current status.
[2023-01-28 11:00] VITALS: BP 127/81
--- NOTE | 2023-01-28 12:41 | NUR ---
RE: Javier in , pt has SOB, no tx ordered, please advise, see med rec, thank you Nicolette [phone]
[2023-01-28 15:15] VITALS: BP 119/77
[2023-01-28 18:00] VITALS: BP 146/82
--- NOTE | 2023-01-28 18:31 | NUR ---
Problems reprioritized. Patient report given, questions answered & plan of care reviewed with Epifanio.
--- NOTE | 2023-01-28 18:35 | NUR ---
Patient in room PCU 3014. I have received report from ANGELA BOYCE and had the opportunity to ask questions and assume patient care.
[2023-01-28] MEDS: methylPREDNISolone sod succ/PF 40mg inj. IV SCH (19:16)
[2023-01-28] MEDS: gabapentin 300mg capsule PO SCH (21:03)
[2023-01-28] MEDS: QUEtiapine 25mg tablet PO SCH (21:03)
[2023-01-28 22:00] VITALS: BP 138/76
[2023-01-29] MEDS: piperacillin/tazo 3.375gm/50ml 50 ML IV SCH ×3 (00:44→16:47)
[2023-01-29 02:00] VITALS: BP 144/69
--- NOTE | 2023-01-29 06:38 | NUR ---
Problems reprioritized. Patient report given, questions answered & plan of care reviewed with KRISTA BOYCE.
[2023-01-29 06:56] LABS: BASOPHILS % (AUTO) 0.1 % (0-1); EOSINOPHILS % (AUTO) 0 % (0-6); HEMATOCRIT 35.6 % (42.0-52.0); HEMOGLOBIN 11.4 g/dl (14.0-17.9); LYMPHOCYTES # (AUTO) 0.5 X10'3 (1.1-4.8); LYMPHOCYTES % (AUTO) 5.6 % (21-51); MEAN CORPUSCULAR HGB CONC 32.1 g/dL (33.0-36.5); MEAN PLATELET VOLUME 8.1 FL (7.4-10.4); MONOCYTES # (AUTO) 0.4 X10'3 (0-0.9); MONOCYTES % (AUTO) 4.3 % (2-12); NEUTROPHILS # (AUTO) 8.5 X10'3 (1.8-7.7); PLATELET COUNT 203 X10'3 (140-440); RED BLOOD COUNT 4.39 X10'6 (4.70-6.10); RED CELL DISTRIBUTION WIDTH 20.7 % (11.5-14.5); WHITE BLOOD COUNT 9.4 X10'3 (4.5-11.0)
[2023-01-29 07:11] LABS: ALBUMIN 2.3 G/DL (3.4-5.0); ANION GAP 15 (8-16); BLOOD UREA NITROGEN 38 MG/DL (7-18); BUN/CREATININE RATIO 24.8 (10.0-20.0); CALCIUM 9.1 MG/DL (8.5-10.1); CHLORIDE 101 MMOL/L (99-107); CREATININE 1.53 MG/DL (0.60-1.10); GLUCOSE 125 MG/DL (70-104); MAGNESIUM 1.9 MG/DL (1.5-2.4); POTASSIUM 4.7 MMOL/L (3.5-5.1); SODIUM 137 MMOL/L (135-145); TOTAL CARBON DIOXIDE 21.3 MMOL/L (24-32); eGFR 47 ML/MIN
[2023-01-29 07:29] VITALS: BP 146/88
[2023-01-29] MEDS: K and/or MAG REPLACEMENT MC SCH ×2 (08:00→20:00)
[2023-01-29] MEDS: guaiFENesin ER 600mg tablet PO SCH ×2 (08:42→20:15)
[2023-01-29] MEDS: methylPREDNISolone sod succ/PF 40mg inj. IV SCH ×2 (08:42→20:20)
[2023-01-29] MEDS: HYDROcodone/acetaminophen 10/325mg tab PO PRN ×3 (08:43→20:15)
[2023-01-29] MEDS: gabapentin 300mg capsule PO SCH ×2 (08:43→20:15)
[2023-01-29] MEDS: enoxaparin 40mg/0.4ml syringe SUBCUT SCH (08:44)
[2023-01-29] MEDS: albuterol 2.5 MG/3 ML nebule NEB PRN (09:34)
--- NOTE | 2023-01-29 10:52 | NUR ---
Terrell called and update given.
[2023-01-29 11:00] VITALS: BP 143/83
--- NOTE | 2023-01-29 11:09 | NUR ---
O2 Sat at rest on room air:_88__% If below 89%: Recovery O2 Sat at rest on __93_LPM:__2_%:___% via N/C (mask/nasal cannula, etc..) No further documentation is necessary. If O2 Sat did not drop below 89% on room air,ambulate patient on room air. O2 Sat while ambulating on room air:_86__% Recovery O2 Sat while ambulating on __98_LPM:__2_% No further documentation is necessary. If patient does not drop below 89% while ambulating, he/she does not qualify for home O2.
[2023-01-29] MEDS: normal saline 1000ml 1,000 ML IV SCH (13:39)
--- NOTE | 2023-01-29 14:54 | NUR ---
Page Sent promotional table spacer PAGER ID: [phone] MESSAGE: [id number]. RUMA PT IS HTN WITH BP 162/90 HR 67. HOME BP MEDS WERE NOT CONTINUED. HE TAKES AMPLODIPINE 5MG DAILY AND LOSARTAN 100 MG DAILY. SANDI/ KRISTA @1953
[2023-01-29 15:03] VITALS: BP 162/90
--- NOTE | 2023-01-29 15:42 | NUR ---
Text hospitalist. She called back - MD will address med req.
--- NOTE | 2023-01-29 17:45 | NUR ---
PAGER ID: [phone] MESSAGE: Freemantaurus Herrera [phone] Please dont forget his med req! also is this pt. DNR? Because only full code orders in computer. Sandra [phone]
[2023-01-29 18:00] VITALS: BP 160/95
[2023-01-29] MEDS ORDERED: albuterol 2.5 MG/3 ML nebule NEB PRN (18:15)
[2023-01-29] MEDS ORDERED: HYDROcodone/acetaminophen 10/325mg tab PO PRN (18:15)
--- NOTE | 2023-01-29 18:28 | NUR ---
Patient in room PCU 3014. I have received report from CARLI Flores and had the opportunity to ask questions and assume patient care.
[2023-01-29] MEDS: aspirin 81mg tab.chew PO SCH (20:16)
[2023-01-29] MEDS: QUEtiapine 25mg tablet PO SCH (20:16)
[2023-01-29] MEDS: amLODIPine 5mg tablet PO SCH (20:20)
[2023-01-29] MEDS ORDERED: non-formulary drug (Quetiapine Fumarate 1 TAB) PO SCH (21:00)
[2023-01-29 23:17] VITALS: BP 145/91
[2023-01-30] MEDS: piperacillin/tazo 3.375gm/50ml 50 ML IV SCH ×2 (00:35→08:34)
[2023-01-30] MEDS: HYDROcodone/acetaminophen 10/325mg tab PO PRN ×2 (00:40→08:33)
[2023-01-30 02:50] VITALS: BP 146/95
[2023-01-30 06:00] VITALS: BP 163/93
--- NOTE | 2023-01-30 06:24 | NUR ---
Problems reprioritized. Patient report given, questions answered & plan of care reviewed with Sandra BOYCE. Pt stable at shift change.
[2023-01-30 07:19] LABS: BASOPHILS % (AUTO) 0.1 % (0-1); EOSINOPHILS % (AUTO) 0.1 % (0-6); HEMATOCRIT 37.5 % (42.0-52.0); HEMOGLOBIN 11.9 g/dl (14.0-17.9); LYMPHOCYTES # (AUTO) 0.9 X10'3 (1.1-4.8); LYMPHOCYTES % (AUTO) 9.6 % (21-51); MEAN CORPUSCULAR HEMOGLOBIN 26.1 PG (27.0-31.0); MEAN CORPUSCULAR HGB CONC 31.8 g/dL (33.0-36.5); MEAN PLATELET VOLUME 7.9 FL (7.4-10.4); MONOCYTES # (AUTO) 0.4 X10'3 (0-0.9); MONOCYTES % (AUTO) 4.8 % (2-12); NEUTROPHILS # (AUTO) 7.7 X10'3 (1.8-7.7); NEUTROPHILS % (AUTO) 85.4 % (42-75); PLATELET COUNT 223 X10'3 (140-440); RED BLOOD COUNT 4.57 X10'6 (4.70-6.10); RED CELL DISTRIBUTION WIDTH 20.7 % (11.5-14.5)
[2023-01-30 07:39] LABS: ALBUMIN 2.4 G/DL (3.4-5.0); ANION GAP 9 (8-16); BLOOD UREA NITROGEN 40 MG/DL (7-18); CALCIUM 9.1 MG/DL (8.5-10.1); CHLORIDE 101 MMOL/L (99-107); CREATININE 1.43 MG/DL (0.60-1.10); GLUCOSE 106 MG/DL (70-104); MAGNESIUM 2.1 MG/DL (1.5-2.4); POTASSIUM 5.2 MMOL/L (3.5-5.1); SODIUM 134 MMOL/L (135-145); eGFR 50 ML/MIN
[2023-01-30] MEDS: K and/or MAG REPLACEMENT MC SCH (08:00)
[2023-01-30] MEDS ORDERED: losartan 50mg tablet PO SCH (08:00)
[2023-01-30] MEDS ORDERED: pantoprazole 40mg Tablet.DR PO SCH (08:00)
[2023-01-30] MEDS ORDERED: sertraline 50mg tablet PO SCH (08:00)
[2023-01-30] MEDS: gabapentin 300mg capsule PO SCH (08:31)
[2023-01-30] MEDS: aspirin 81mg tab.chew PO SCH (08:32)
[2023-01-30] MEDS: amLODIPine 5mg tablet PO SCH (08:32)
[2023-01-30] MEDS: guaiFENesin ER 600mg tablet PO SCH (08:32)
[2023-01-30] MEDS: methylPREDNISolone sod succ/PF 40mg inj. IV SCH (08:33)
[2023-01-30] MEDS: enoxaparin 40mg/0.4ml syringe SUBCUT SCH (08:33)
[2023-01-30] MEDS: albuterol 2.5 MG/3 ML nebule NEB PRN (10:03)
--- NOTE | 2023-01-30 11:02 | NUR ---
PAGER ID: [phone] MESSAGE: To Dr. Juarez - Can you please call me? Several questions different pts. Sandra [phone]
[2023-01-30 11:06] VITALS: BP 170/105
[2023-01-30 12:07] VITALS: BP 173/98
[2023-01-30] MEDS ORDERED: hydrALAZINE 20mg/ml inj. IV ONE (12:10)
[2023-01-30 13:30] VITALS: BP 142/86
--- NOTE | 2023-01-30 14:16 | NUR ---
PAGER ID: [phone] MESSAGE: Freeman Herrera [phone] Pt. very upset. States you told him he could leave hours ago. Is he discharging? if so can you put orders in and complete? Thank you Sandra [phone]
--- NOTE | 2023-01-30 14:44 | NUR ---
PAGER ID: [phone] MESSAGE: Freeman Herrera 3014 A Can you please let me know about discharge of 3014A. He is upset and wants to know whats going on. His ride is downstairs waiting on him. Sandra [phone]
--- NOTE | 2023-01-30 14:46 | NUR ---
PAGER ID: [phone] MESSAGE: Freeman Javier [id number] Pt. very upset and wants to discharge now. Said you told him he could leave hours ago. Sandra [phone]
[2023-01-30] MEDS ORDERED: IPRA3AMP31 IH (14:55)
[2023-01-30] MEDS ORDERED: AMOX-115 PO (14:55)
[2023-01-30] MEDS ORDERED: PRED10TA23 PO (14:56)
== END 2023-01-30 16:25 | disposition home or self-care (01) | DRG 720 ==
LOC: ER 14:51 → ED HOLD 17:50 → EDBEDREQ 20:10 → PCU 3S 21:10
PROVIDERS: ADMIT Internal Medicine; ATTEND Internal Medicine
DX: A41.9 Sepsis, unspecified organism (principal); J96.20 Acute and chronic respiratory failure, unspecified whether with hypoxia or hypercapnia; N17.0 Acute kidney failure with tubular necrosis; T17.890A Other foreign object in other parts of respiratory tract causing asphyxiation, initial encounter; J18.9 Pneumonia, unspecified organism; E46 Unspecified protein-calorie malnutrition; I11.0 Hypertensive heart disease with heart failure; I50.9 Heart failure, unspecified; E87.1 Hypo-osmolality and hyponatremia; I48.91 Unspecified atrial fibrillation; J98.11 Atelectasis; X58.XXXA Exposure to other specified factors, initial encounter; J44.0 Chronic obstructive pulmonary disease with (acute) lower respiratory infection; K59.00 Constipation, unspecified; F32.A Depression, unspecified; G89.29 Other chronic pain; K21.9 Gastro-esophageal reflux disease without esophagitis; Z85.118 Personal history of other malignant neoplasm of bronchus and lung; Z90.49 Acquired absence of other specified parts of digestive tract; Z79.899 Other long term (current) drug therapy; Y93.89 Activity, other specified; Y92.89 Other specified places as the place of occurrence of the external cause; Y99.8 Other external cause status; Z68.38 Body mass index [BMI] 38.0-38.9, adult
CPT/HCPCS: 36415; 71045; 71250; 74176; 80048; 80053; 81001; 83735; 84145; 84484; 85008; 85025; 87040; 87081; 93005; 94640; 94760; 97110; 97116; 97161; 97530; 99285; G0378; J0360; J1650; J2270; J2543; J2920; J2930; J7030

== ENCOUNTER 2023-02-07 13:55 | Inpatient (IN) | payer MEDICAID ==
[~2023-02-07] VITALS: Ht 177.8 cm; Wt 85.4 kg
[~2023-02-07 13:55] MED LIST changes: +ALBU0.63 PO; -ALBU2.5V10 NEB; -AMLO5TAB PO; +AMLO5TAB16 PO; +AMOX-115 PO; +ASPI-1144 PO; -ERGO500056 PO; -FURO20TA4 PO; -HYDR-3927 PO; -HYDR-3972 PO; +HYDR-3973 PO; +IPRA3AMP31 IH; +MELO-102 PO; -ONDA-103 PO; +PRED10TA23 PO; -QUET25TA36 PO; +QUET50TA24 PO
[2023-02-07] MEDS ORDERED: normal saline 1000ML IV soln IV ONE (14:00)
[2023-02-07 14:25] LABS: BASOPHILS # (AUTO) 0.1 X10'3 (0-0.2); BASOPHILS % (AUTO) 0.4 % (0-1); EOSINOPHILS % (AUTO) 0.1 % (0-6); HEMATOCRIT 33.6 % (42.0-52.0); HEMOGLOBIN 10.8 g/dl (14.0-17.9); LYMPHOCYTES # (AUTO) 0.7 X10'3 (1.1-4.8); LYMPHOCYTES % (AUTO) 4.6 % (21-51); MEAN CORPUSCULAR HEMOGLOBIN 25.9 PG (27.0-31.0); MEAN CORPUSCULAR HGB CONC 32.1 g/dL (33.0-36.5); MEAN CORPUSCULAR VOLUME 80.8 FL (78-98); MEAN PLATELET VOLUME 7.4 FL (7.4-10.4); MONOCYTES # (AUTO) 0.7 X10'3 (0-0.9); MONOCYTES % (AUTO) 4.4 % (2-12); NEUTROPHILS # (AUTO) 13.7 X10'3 (1.8-7.7); NEUTROPHILS % (AUTO) 90.5 % (42-75); PLATELET COUNT 313 X10'3 (140-440); RED BLOOD COUNT 4.16 X10'6 (4.70-6.10); RED CELL DISTRIBUTION WIDTH 19.5 % (11.5-14.5); WHITE BLOOD COUNT 15.1 X10'3 (4.5-11.0)
[2023-02-07] MEDS ORDERED: methylPREDNISolone sod succ 125mg/2ml vial IV ONE (14:25)
[2023-02-07] MEDS ORDERED: albuterol 2.5 MG/3 ML nebule NEB ONE (14:25)
[2023-02-07] MEDS ORDERED: vancomycin/NS 1 GM ADD-VANTAGE 250 ML IV ONE (14:25)
[2023-02-07] MEDS ORDERED: cefepime 2g/NS 100ml ADVANTAGE 100 ML IV ONE (14:35)
[2023-02-07 14:46] LABS: ALANINE AMINOTRANSFERASE 13 U/L (12-78); ALBUMIN 2.4 G/DL (3.4-5.0); ALBUMIN/GLOBULIN RATIO 0.5 (1.1-1.5); ALKALINE PHOSPHATASE 101 IU/L (46-116); ANION GAP 14 (8-16); ASPARTATE AMINO TRANSFERASE 14 U/L (10-37); BILIRUBIN,TOTAL 0.3 MG/DL (0.1-1.0); BLOOD UREA NITROGEN 22 MG/DL (7-18); BUN/CREATININE RATIO 8.6 (10.0-20.0); CALCIUM 8.4 MG/DL (8.5-10.1); CHLORIDE 100 MMOL/L (99-107); CREATININE 2.56 MG/DL (0.60-1.10); GLUCOSE 95 MG/DL (70-104); MAGNESIUM 1.6 MG/DL (1.5-2.4); POTASSIUM 4.7 MMOL/L (3.5-5.1); SODIUM 133 MMOL/L (135-145); TOTAL CARBON DIOXIDE 19.1 MMOL/L (24-32); TOTAL PROTEIN 7.1 G/DL (6.4-8.2); eGFR 26 ML/MIN
[2023-02-07 14:55] LABS: ANISOCYTOSIS 2+; PLATELET ESTIMATE NORMAL
[2023-02-07] MEDS ORDERED: morphine 4 MG/ML inj SYRINge IV ONE (14:55)
[2023-02-07] MEDS ORDERED: ondansetron/PF 4mg/2ml inj IV ONE (14:55)
[2023-02-07 15:14] LABS: APTT 30 SECONDS (22-32); D-DIMER 5.02 MG/L FEU (0-0.50)
[2023-02-07 15:22] LABS: PLATELET COUNT 313 X10'3 (140-440)
[2023-02-07] MEDS ORDERED: oxyCODONE/APAP 5-325mg tablet PO ONE (16:55)
[2023-02-07] MEDS ORDERED: diphenhydrAMINE 25mg capsule PO PRN (18:10)
[2023-02-07] MEDS ORDERED: acetaminophen 325mg tablet PO PRN ×2 (18:10)
[2023-02-07] MEDS ORDERED: mag hydrox/Alum hydrox/simeth 30ml oral suspension PO PRN (18:10)
[2023-02-07] MEDS ORDERED: HYDROcodone/acetaminophen 5mg/325mg tablet PO PRN (18:10)
[2023-02-07] MEDS ORDERED: ondansetron/PF 4mg/2ml inj IV PRN (18:10)
[2023-02-07] MEDS ORDERED: magnesium hydroxide 30ml (MOM) UD suspension PO PRN (18:10)
[2023-02-07] MEDS ORDERED: morphine 2 MG/ML inj. syringe IV PRN (18:10)
[2023-02-07] MEDS ORDERED: AMOX1TAB15 PO (18:18)
[2023-02-07] MEDS: normal saline 1000ml 1,000 ML IV SCH (18:42)
[2023-02-07 18:52] LABS: C-REACTIVE PROTEIN 15.93 MG/DL (0.0-0.5)
[2023-02-07] MEDS: docusate sod 100mg capsule PO SCH (19:58)
[2023-02-07] MEDS: morphine 2 MG/ML inj. syringe IV PRN (21:58)
[2023-02-08] MEDS: HYDROcodone/acetaminophen 10/325mg tab PO PRN ×4 (01:56→22:15)
[2023-02-08] MEDS: normal saline 1000ml 1,000 ML IV SCH ×2 (04:32→14:15)
[2023-02-08] MEDS: docusate sod 100mg capsule PO SCH ×2 (06:56→20:29)
[2023-02-08] MEDS: morphine 2 MG/ML inj. syringe IV PRN ×2 (06:59→17:15)
[2023-02-08 07:23] LABS: BASOPHILS % (AUTO) 0.3 % (0-1); EOSINOPHILS % (AUTO) 0 % (0-6); HEMATOCRIT 36.1 % (42.0-52.0); HEMOGLOBIN 11.5 g/dl (14.0-17.9); LYMPHOCYTES # (AUTO) 0.7 X10'3 (1.1-4.8); LYMPHOCYTES % (AUTO) 6.3 % (21-51); MEAN CORPUSCULAR HGB CONC 31.9 g/dL (33.0-36.5); MEAN CORPUSCULAR VOLUME 81.5 FL (78-98); MEAN PLATELET VOLUME 7.7 FL (7.4-10.4); MONOCYTES # (AUTO) 0.5 X10'3 (0-0.9); MONOCYTES % (AUTO) 4.5 % (2-12); NEUTROPHILS # (AUTO) 9.4 X10'3 (1.8-7.7); NEUTROPHILS % (AUTO) 88.9 % (42-75); PLATELET COUNT 301 X10'3 (140-440); RED BLOOD COUNT 4.43 X10'6 (4.70-6.10); RED CELL DISTRIBUTION WIDTH 19.9 % (11.5-14.5); WHITE BLOOD COUNT 10.6 X10'3 (4.5-11.0)
[2023-02-08 07:29] LABS: ALBUMIN 2.3 G/DL (3.4-5.0); ANION GAP 10 (8-16); BLOOD UREA NITROGEN 22 MG/DL (7-18); BUN/CREATININE RATIO 13.3 (10.0-20.0); CALCIUM 8.6 MG/DL (8.5-10.1); CHLORIDE 103 MMOL/L (99-107); CREATININE 1.66 MG/DL (0.60-1.10); GLUCOSE 106 MG/DL (70-104); POTASSIUM 5.4 MMOL/L (3.5-5.1); SODIUM 134 MMOL/L (135-145); TOTAL CARBON DIOXIDE 20.9 MMOL/L (24-32); eGFR 42 ML/MIN
[2023-02-08] MEDS ORDERED: methylPREDNISolone sod succ/PF 40mg inj. IV ONE (08:00)
--- NOTE | 2023-02-08 08:07 | NUR ---
attempt to call report as per charge tracey the nurse in btw of giving report to other nurse so they will call the creative services writer back.
--- NOTE | 2023-02-08 08:36 | NUR ---
pt want to take his home meds with him ,stated his sister is coming today and she will take it back home.
[2023-02-08 09:30] VITALS: BP 147/90
[2023-02-08 11:00] VITALS: BP 136/78
[2023-02-08] MEDS ORDERED: gabapentin 400mg capsule PO SCH (12:00)
[2023-02-08] MEDS ORDERED: gabapentin 300mg capsule PO SCH (12:31)
[2023-02-08] MEDS ORDERED: gabapentin 300mg capsule PO ONE (13:10)
[2023-02-08 15:00] VITALS: BP 139/87
--- NOTE | 2023-02-08 17:07 | NUR ---
Called resident and notified her that the patients pain is not under control with morphine and [place] 10. Patient did not have any relief with gabapentin. I also notified her that the patient had an unexplained swelling/ throbbing to the right forearm with no explanation. IV is in the other arm. Resident stated she will contact Dr. Littlejohn and will be to the bedside in about 20 minutes
[2023-02-08] MEDS ORDERED: morphine 2 MG/ML inj. syringe IV PRN ×2 (17:22→17:23)
[2023-02-08 18:00] VITALS: BP 173/91
[2023-02-08] MEDS ORDERED: LORazepam 1 MG tablet PO ONE (18:05)
--- NOTE | 2023-02-08 18:20 | NUR ---
Received report from primary care nurse Shani BOYCE. Patient is awake and alert on 4LNC. In no apparent distress. Has completed his meal. Patient is painful at 8/10. No PRNs available at this time. Informed patient of new pain med regimen. Patient in agreeance. Requesting his home meds. Will page MD to address home med rec. Call light and items of frequent use within reach. Will continue to monitor for changes.
--- NOTE | 2023-02-08 20:15 | NUR ---
Phoned MD Diaz to report positive blood cultures. New orders obtained. Will implement.
[2023-02-08] MEDS: morphine 2 MG/ML inj. syringe IV SCH (20:28)
[2023-02-08] MEDS: gabapentin 300mg capsule PO SCH (20:29)
[2023-02-08] MEDS: clindamycin 300mg/D5W 50mL 50 ML IV SCH (21:13)
[2023-02-08 22:00] VITALS: BP 165/93
[2023-02-09] VITALS (8 sets, daily range): BP systolic 125–181; BP diastolic 73–105
[2023-02-09] MEDS: clindamycin 300mg/D5W 50mL 50 ML IV SCH ×4 (01:46→20:10)
[2023-02-09] MEDS: morphine 2 MG/ML inj. syringe IV SCH ×4 (01:46→20:09)
[2023-02-09] MEDS: normal saline 1000ml 1,000 ML IV SCH ×3 (01:46→19:21)
--- NOTE | 2023-02-09 01:59 | NUR ---
Phoned MD Diaz regarding elevated BP of 179/105. New orders obtained. Will implement.
[2023-02-09] MEDS: hydrALAZINE 20mg/ml inj. IV PRN ×2 (02:06→23:06)
[2023-02-09] MEDS: HYDROcodone/acetaminophen 10/325mg tab PO PRN ×2 (05:45→08:04)
[2023-02-09] MEDS: LORazepam 0.5 MG tablet PO PRN (05:45)
[2023-02-09 06:38] LABS: BASOPHILS % (AUTO) 0.1 % (0-1); EOSINOPHILS % (AUTO) 0 % (0-6); HEMATOCRIT 35.9 % (42.0-52.0); HEMOGLOBIN 11.4 g/dl (14.0-17.9); LYMPHOCYTES # (AUTO) 0.8 X10'3 (1.1-4.8); LYMPHOCYTES % (AUTO) 8.7 % (21-51); MEAN CORPUSCULAR HEMOGLOBIN 26.1 PG (27.0-31.0); MEAN CORPUSCULAR HGB CONC 31.7 g/dL (33.0-36.5); MEAN CORPUSCULAR VOLUME 82.3 FL (78-98); MEAN PLATELET VOLUME 7.3 FL (7.4-10.4); MONOCYTES # (AUTO) 0.5 X10'3 (0-0.9); MONOCYTES % (AUTO) 5.5 % (2-12); NEUTROPHILS % (AUTO) 85.7 % (42-75); PLATELET COUNT 295 X10'3 (140-440); RED BLOOD COUNT 4.36 X10'6 (4.70-6.10); RED CELL DISTRIBUTION WIDTH 20.1 % (11.5-14.5); WHITE BLOOD COUNT 9.3 X10'3 (4.5-11.0)
--- NOTE | 2023-02-09 06:45 | NUR ---
Reported off to Lianna BOYCE. Patient is awake and alert on 4LNC. In no apparent distress. Denies needs at this time.
[2023-02-09 06:51] LABS: ALBUMIN 2.4 G/DL (3.4-5.0); ANION GAP 10 (8-16); BLOOD UREA NITROGEN 24 MG/DL (7-18); BUN/CREATININE RATIO 17.5 (10.0-20.0); CALCIUM 8.4 MG/DL (8.5-10.1); CHLORIDE 101 MMOL/L (99-107); CREATININE 1.37 MG/DL (0.60-1.10); GLUCOSE 87 MG/DL (70-104); POTASSIUM 4.7 MMOL/L (3.5-5.1); SODIUM 134 MMOL/L (135-145); TOTAL CARBON DIOXIDE 22.9 MMOL/L (24-32); eGFR 53 ML/MIN
[2023-02-09] MEDS ORDERED: methylPREDNISolone sod succ/PF 40mg inj. IV SCH (08:00)
[2023-02-09] MEDS: docusate sod 100mg capsule PO SCH ×2 (08:00→19:19)
[2023-02-09] MEDS: gabapentin 300mg capsule PO SCH ×3 (08:03→20:10)
[2023-02-09] MEDS: HYDROmorphone inj. 0.5 MG/0.5 ML DISP.SYRIN IV PRN ×3 (12:48→23:12)
[2023-02-09] MEDS: morphine 2 MG/ML inj. syringe IV PRN (14:42)
--- NOTE | 2023-02-09 18:30 | NUR ---
Patient in room PCU 3016. I have received report from CARLI Dsouza and had the opportunity to ask questions and assume patient care.
--- NOTE | 2023-02-09 19:09 | NUR ---
Patient in room PCU 3016. I have received report from CARLI Dsouza and had the opportunity to ask questions and assume patient care.
[2023-02-09] MEDS ORDERED: clindamycin 300mg/D5W 50mL 50 ML IV SCH (20:00)
[2023-02-09] MEDS: methylPREDNISolone sod succ/PF 40mg inj. IV SCH (20:10)
[2023-02-10 02:00] VITALS: BP 148/87
[2023-02-10] MEDS: clindamycin 300mg/D5W 50mL 50 ML IV SCH ×4 (02:07→22:02)
[2023-02-10] MEDS: morphine 2 MG/ML inj. syringe IV SCH ×2 (02:08→09:34)
[2023-02-10 05:17] LABS: BASOPHILS % (AUTO) 0.2 % (0-1); EOSINOPHILS % (AUTO) 0 % (0-6); HEMATOCRIT 33.8 % (42.0-52.0); HEMOGLOBIN 10.8 g/dl (14.0-17.9); LYMPHOCYTES # (AUTO) 0.4 X10'3 (1.1-4.8); LYMPHOCYTES % (AUTO) 3.4 % (21-51); MEAN CORPUSCULAR HEMOGLOBIN 26.2 PG (27.0-31.0); MEAN CORPUSCULAR HGB CONC 31.9 g/dL (33.0-36.5); MEAN CORPUSCULAR VOLUME 82.2 FL (78-98); MEAN PLATELET VOLUME 7.5 FL (7.4-10.4); MONOCYTES # (AUTO) 0.3 X10'3 (0-0.9); MONOCYTES % (AUTO) 2.7 % (2-12); NEUTROPHILS # (AUTO) 10.4 X10'3 (1.8-7.7); NEUTROPHILS % (AUTO) 93.7 % (42-75); PLATELET COUNT 306 X10'3 (140-440); RED BLOOD COUNT 4.12 X10'6 (4.70-6.10); RED CELL DISTRIBUTION WIDTH 19.6 % (11.5-14.5); WHITE BLOOD COUNT 11.1 X10'3 (4.5-11.0)
[2023-02-10 05:50] LABS: ANION GAP 8 (8-16); BLOOD UREA NITROGEN 21 MG/DL (7-18); BUN/CREATININE RATIO 17.9 (10.0-20.0); CALCIUM 8.6 MG/DL (8.5-10.1); CHLORIDE 103 MMOL/L (99-107); CREATININE 1.17 MG/DL (0.60-1.10); GLUCOSE 136 MG/DL (70-104); POTASSIUM 5.5 MMOL/L (3.5-5.1); SODIUM 134 MMOL/L (135-145); TOTAL CARBON DIOXIDE 22.7 MMOL/L (24-32); eGFR 63 ML/MIN
[2023-02-10 05:51] LABS: ALBUMIN 2.5 G/DL (3.4-5.0)
[2023-02-10 06:00] VITALS: BP 172/90
--- NOTE | 2023-02-10 06:37 | NUR ---
Problems reprioritized. Patient report given, questions answered & plan of care reviewed with CARLI Wilkins.
--- NOTE | 2023-02-10 07:00 | NUR ---
Patient in room PCU 3016. I have received report from CARLI Nicole and had the opportunity to ask questions and assume patient care.
[2023-02-10 07:22] LABS: ANISOCYTOSIS 2+; PLATELET ESTIMATE NORMAL; STOMATOCYTES FEW; TEAR DROP CELLS FEW
[2023-02-10] MEDS: docusate sod 100mg capsule PO SCH ×2 (08:00→20:27)
[2023-02-10] MEDS: gabapentin 300mg capsule PO SCH ×3 (09:31→20:27)
[2023-02-10] MEDS: methylPREDNISolone sod succ/PF 40mg inj. IV SCH ×2 (09:40→22:02)
[2023-02-10 11:00] VITALS: BP 168/92
[2023-02-10] MEDS ORDERED: HYDROcodone/acetaminophen 10/325mg tab PO PRN (11:10)
[2023-02-10] MEDS: lisinopril 10 MG tablet PO SCH ×2 (11:29→20:27)
[2023-02-10] MEDS: HYDROcodone/acetaminophen 10/325mg tab PO PRN ×2 (11:29→16:24)
[2023-02-10] MEDS: HYDROmorphone inj. 0.5 MG/0.5 ML DISP.SYRIN IV PRN ×3 (14:09→22:01)
[2023-02-10 15:00] VITALS: BP 158/89
[2023-02-10] MEDS: hydrALAZINE 20mg/ml inj. IV PRN (15:10)
[2023-02-10 18:00] VITALS: BP 117/71
[2023-02-10] MEDS: QUEtiapine 25mg tablet PO SCH (20:28)
[2023-02-10 22:00] VITALS: BP 121/72
[2023-02-11 02:00] VITALS: BP 139/62
[2023-02-11] MEDS: clindamycin 300mg/D5W 50mL 50 ML IV SCH ×3 (03:49→14:29)
[2023-02-11] MEDS: HYDROcodone/acetaminophen 10/325mg tab PO PRN ×3 (04:55→20:22)
[2023-02-11 05:34] LABS: BASOPHILS % (AUTO) 0.1 % (0-1); EOSINOPHILS % (AUTO) 0 % (0-6); HEMATOCRIT 30.9 % (42.0-52.0); HEMOGLOBIN 10.1 g/dl (14.0-17.9); LYMPHOCYTES # (AUTO) 0.4 X10'3 (1.1-4.8); LYMPHOCYTES % (AUTO) 6.6 % (21-51); MEAN CORPUSCULAR HEMOGLOBIN 26.7 PG (27.0-31.0); MEAN CORPUSCULAR HGB CONC 32.6 g/dL (33.0-36.5); MEAN CORPUSCULAR VOLUME 81.7 FL (78-98); MEAN PLATELET VOLUME 7.4 FL (7.4-10.4); MONOCYTES # (AUTO) 0.3 X10'3 (0-0.9); MONOCYTES % (AUTO) 4.3 % (2-12); NEUTROPHILS # (AUTO) 5.2 X10'3 (1.8-7.7); PLATELET COUNT 245 X10'3 (140-440); RED BLOOD COUNT 3.78 X10'6 (4.70-6.10); RED CELL DISTRIBUTION WIDTH 19.8 % (11.5-14.5); WHITE BLOOD COUNT 5.8 X10'3 (4.5-11.0)
[2023-02-11 05:49] LABS: ALBUMIN 2.6 G/DL (3.4-5.0); ANION GAP 8 (8-16); BLOOD UREA NITROGEN 25 MG/DL (7-18); BUN/CREATININE RATIO 19.4 (10.0-20.0); CALCIUM 8.7 MG/DL (8.5-10.1); CHLORIDE 103 MMOL/L (99-107); CREATININE 1.29 MG/DL (0.60-1.10); GLUCOSE 124 MG/DL (70-104); POTASSIUM 5.2 MMOL/L (3.5-5.1); SODIUM 135 MMOL/L (135-145); TOTAL CARBON DIOXIDE 24.4 MMOL/L (24-32); eGFR 57 ML/MIN
[2023-02-11 06:00] VITALS: BP 126/81
[2023-02-11] MEDS: methylPREDNISolone sod succ/PF 40mg inj. IV SCH ×2 (08:31→22:29)
[2023-02-11] MEDS: gabapentin 300mg capsule PO SCH ×3 (08:43→20:21)
[2023-02-11] MEDS: docusate sod 100mg capsule PO SCH ×2 (08:43→20:22)
[2023-02-11] MEDS: lisinopril 10 MG tablet PO SCH ×2 (08:43→20:22)
[2023-02-11] MEDS: HYDROmorphone inj. 0.5 MG/0.5 ML DISP.SYRIN IV PRN ×3 (08:50→17:43)
--- NOTE | 2023-02-11 09:17 | NUR ---
Patient in room PCU 3016. I have received report from Tre HOWARD and had the opportunity to ask questions and assume patient care.
[2023-02-11 11:00] VITALS: BP 137/84
[2023-02-11 15:00] VITALS: BP 142/78
--- NOTE | 2023-02-11 17:06 | NUR ---
AGREE WITH WAFER FAB OPERATOR AM ASSESSMENT EXCEPT WHERE ADDITIONS/CHANGES MADE
[2023-02-11 18:00] VITALS: BP 176/93
[2023-02-11] MEDS: QUEtiapine 25mg tablet PO SCH (20:22)
[2023-02-11] MEDS: LORazepam 0.5 MG tablet PO PRN (22:38)
[2023-02-12] MEDS: HYDROcodone/acetaminophen 10/325mg tab PO PRN ×4 (00:22→12:46)
[2023-02-12 01:26] VITALS: BP 103/74
--- NOTE | 2023-02-12 05:22 | NUR ---
AGREE WITH IMPACT HAMMER OPERATOR ASSESSMENT
[2023-02-12 06:00] VITALS: BP 149/80
[2023-02-12 06:54] LABS: BASOPHILS % (AUTO) 0.1 % (0-1); EOSINOPHILS % (AUTO) 0.2 % (0-6); HEMATOCRIT 31.4 % (42.0-52.0); HEMOGLOBIN 10.1 g/dl (14.0-17.9); LYMPHOCYTES % (AUTO) 17.4 % (21-51); MEAN CORPUSCULAR HEMOGLOBIN 26.4 PG (27.0-31.0); MEAN CORPUSCULAR HGB CONC 32.2 g/dL (33.0-36.5); MEAN PLATELET VOLUME 6.8 FL (7.4-10.4); MONOCYTES # (AUTO) 0.6 X10'3 (0-0.9); MONOCYTES % (AUTO) 9.6 % (2-12); NEUTROPHILS # (AUTO) 4.4 X10'3 (1.8-7.7); NEUTROPHILS % (AUTO) 72.7 % (42-75); PLATELET COUNT 231 X10'3 (140-440); RED BLOOD COUNT 3.83 X10'6 (4.70-6.10); RED CELL DISTRIBUTION WIDTH 19.6 % (11.5-14.5)
[2023-02-12 07:01] LABS: ALBUMIN 2.7 G/DL (3.4-5.0); ANION GAP 9 (8-16); BLOOD UREA NITROGEN 34 MG/DL (7-18); BUN/CREATININE RATIO 23.9 (10.0-20.0); CHLORIDE 104 MMOL/L (99-107); CREATININE 1.42 MG/DL (0.60-1.10); GLUCOSE 89 MG/DL (70-104); POTASSIUM 4.7 MMOL/L (3.5-5.1); SODIUM 138 MMOL/L (135-145); TOTAL CARBON DIOXIDE 25.5 MMOL/L (24-32); eGFR 51 ML/MIN
[2023-02-12] MEDS: methylPREDNISolone sod succ/PF 40mg inj. IV SCH (07:24)
[2023-02-12] MEDS: lisinopril 10 MG tablet PO SCH (08:33)
[2023-02-12] MEDS: gabapentin 300mg capsule PO SCH ×2 (08:33→12:44)
[2023-02-12] MEDS: docusate sod 100mg capsule PO SCH (08:33)
--- NOTE | 2023-02-12 09:36 | NUR ---
Initial: Pt admit for BLE rash and KIRT. Currently on a heart healthy diet with improving PO intake, documented with average 50% PO intake of the first six meals however up to average 98% PO intake of the most recent seven meals (since dinner 02/09) meeting estimated nutrient needs. LBM 02/10 per EMR. Pt receiving routine Colace BID and has additional PRN bowel care available. No nutrition intervention implemented at this time. Will continue to follow and make recommendations as appropriate. Recommendations: 1) Continue heart healthy diet 2) Routine bowel care 3) Scaled weight this admit; subsequent weekly scaled weights Addendum: 02/12/23 at [address] Amended: Links added.
[2023-02-12 11:00] VITALS: BP 156/94
[2023-02-12] MEDS ORDERED: HYDR-3965 PO (13:37)
[2023-02-12] MEDS ORDERED: PRED10TA23 PO (13:37)
--- NOTE | 2023-02-12 13:57 | NUR ---
Bart IV and went over discharge packet with patient. He stated understanding and reports he has a doctor appt set up with his primary physician on 02/13/23. Patient discharged at 1345. He took all his belongings and was taken in a wheelchair to [employer] parking lot where he left in a private vehicle with family member.
[2023-02-12 16:44] LABS: HBSAG SCREEN Negative (Negative)
[2023-02-13 05:37] LABS: HEPATITIS C VIRUS ANTIBODY Non Reactive (Non Reactive)
== END 2023-02-12 13:45 | disposition home or self-care (01) | DRG 720 ==
LOC: ER 13:56 → ED HOLD 18:16 → UNDOADMIN 18:20 → ED HOLD 18:20 → PCU 3S 02-08 08:57
PROVIDERS: ADMIT Internal Medicine; ATTEND Internal Medicine
DX: A41.9 Sepsis, unspecified organism (principal); D69.2 Other nonthrombocytopenic purpura; J18.9 Pneumonia, unspecified organism; J96.11 Chronic respiratory failure with hypoxia; J44.0 Chronic obstructive pulmonary disease with (acute) lower respiratory infection; I48.91 Unspecified atrial fibrillation; R65.20 Severe sepsis without septic shock; G89.29 Other chronic pain; G47.00 Insomnia, unspecified; I10 Essential (primary) hypertension; F32.A Depression, unspecified; Z79.891 Long term (current) use of opiate analgesic; Z79.899 Other long term (current) drug therapy; Z85.118 Personal history of other malignant neoplasm of bronchus and lung; Z80.0 Family history of malignant neoplasm of digestive organs; Z87.891 Personal history of nicotine dependence; Z82.49 Family history of ischemic heart disease and other diseases of the circulatory system; Z90.49 Acquired absence of other specified parts of digestive tract
CPT/HCPCS: 36415; 71045; 71250; 80048; 80053; 83605; 83735; 83880; 84145; 85008; 85025; 85379; 85384; 85610; 85651; 85730; 86038; 86140; 86803; 87040; 87077; 87081; 87186; 87340; 87522; 93971; 94640; 94760; 97116; 97161; 97530; 99285; A4615; G0378; J0360; J0692; J1170; J2270; J2405; J2920; J2930; J3370; J3490; J7030; J7040; Q0163

== ENCOUNTER 2023-05-06 10:09 | Inpatient (IN) | payer MEDICAID ==
[~2023-05-06] VITALS: Ht 152.4 cm; Wt 88.5 kg
[~2023-05-06 10:09] MED LIST changes: -AMLO5TAB16 PO; -AMOX-115 PO; -IPRA3AMP31 IH; -PRED10TA23 PO
[2023-05-06 10:25] LABS: BASOPHILS % (AUTO) 0.1 % (0-1); EOSINOPHILS % (AUTO) 0.3 % (0-6); HEMATOCRIT 33.5 % (42.0-52.0); HEMOGLOBIN 10.9 g/dl (14.0-17.9); LYMPHOCYTES # (AUTO) 1.2 X10'3 (1.1-4.8); LYMPHOCYTES % (AUTO) 11.4 % (21-51); MEAN CORPUSCULAR HEMOGLOBIN 26.8 PG (27.0-31.0); MEAN CORPUSCULAR HGB CONC 32.5 g/dL (33.0-36.5); MEAN CORPUSCULAR VOLUME 82.4 FL (78-98); MEAN PLATELET VOLUME 7.4 FL (7.4-10.4); MONOCYTES # (AUTO) 0.8 X10'3 (0-0.9); MONOCYTES % (AUTO) 7.8 % (2-12); NEUTROPHILS # (AUTO) 8.8 X10'3 (1.8-7.7); NEUTROPHILS % (AUTO) 80.4 % (42-75); PLATELET COUNT 162 X10'3 (140-440); RED BLOOD COUNT 4.06 X10'6 (4.70-6.10); RED CELL DISTRIBUTION WIDTH 16.5 % (11.5-14.5); WHITE BLOOD COUNT 10.9 X10'3 (4.5-11.0)
[2023-05-06] MEDS ORDERED: normal saline 1000ml 1,000 ML IV ONE (10:35)
[2023-05-06 10:42] LABS: ALANINE AMINOTRANSFERASE 15 U/L (12-78); ALBUMIN 2.5 G/DL (3.4-5.0); ALBUMIN/GLOBULIN RATIO 0.7 (1.1-1.5); ALKALINE PHOSPHATASE 100 IU/L (46-116); ANION GAP 9 (8-16); ASPARTATE AMINO TRANSFERASE 14 U/L (10-37); BILIRUBIN,TOTAL 0.4 MG/DL (0.1-1.0); BLOOD UREA NITROGEN 30 MG/DL (7-18); BUN/CREATININE RATIO 10.5 (10.0-20.0); CALCIUM 8.3 MG/DL (8.5-10.1); CHLORIDE 97 MMOL/L (99-107); CREATININE 2.86 MG/DL (0.60-1.10); GLUCOSE 81 MG/DL (70-104); POTASSIUM 3.2 MMOL/L (3.5-5.1); SODIUM 130 MMOL/L (135-145); TOTAL CARBON DIOXIDE 23.6 MMOL/L (24-32); TOTAL PROTEIN 6.3 G/DL (6.4-8.2); eCRCL 19 ML/MIN; eGFR 23 ML/MIN
[2023-05-06 10:51] LABS: D-DIMER 0.75 MG/L FEU (0-0.50); PRO BRAIN NATRIURETIC PEPTIDE 3443 PG/ML (0-125)
--- NOTE | 2023-05-06 12:30 | NUR ---
PT OFF TO CT.
[2023-05-06] MEDS ORDERED: potassium Cl 20 mEq SR tablet PO STA (13:21)
[2023-05-06] MEDS ORDERED: acetaminophen 325mg tablet PO PRN (14:15)
[2023-05-06] MEDS ORDERED: magnesium 4gm in 100ml NS 100 ML IV PRN (14:15)
[2023-05-06] MEDS ORDERED: potassium Cl 20 mEq SR tablet PO PRN ×2 (14:15)
[2023-05-06] MEDS ORDERED: ondansetron/PF 4mg/2ml inj IV PRN (14:15)
[2023-05-06] MEDS ORDERED: magnesium Cl slow-release 64mg tablet PO PRN (14:15)
[2023-05-06] MEDS ORDERED: potassium Cl 40MEQ/1/2NS 520ml 520 ML IV PRN (14:15)
[2023-05-06] MEDS ORDERED: magnesium 2GM in 50ml NS 50 ML IV PRN (14:15)
[2023-05-06] MEDS ORDERED: HYDR-3965 PO (14:30)
[2023-05-06] MEDS ORDERED: ALBU2.5V10 NEB (14:30)
[2023-05-06] MEDS ORDERED: GABA300C PO (14:30)
[2023-05-06] MEDS ORDERED: TIOT4MIS3 PO (14:32)
[2023-05-06] MEDS ORDERED: SERT-434 PO (14:32)
[2023-05-06] MEDS ORDERED: QUET50TA24 PO (14:32)
[2023-05-06] MEDS ORDERED: CHOL5000 PO (14:32)
[2023-05-06] MEDS ORDERED: MELO-102 PO (14:32)
[2023-05-06] MEDS ORDERED: LOSA100T58 PO (14:32)
[2023-05-06] MEDS ORDERED: OMEP20CA16 PO (14:32)
[2023-05-06] MEDS ORDERED: ASPI-1144 PO (14:32)
[2023-05-06] MEDS ORDERED: AMLO5TAB16 PO (14:32)
[2023-05-06] MEDS ORDERED: ONDA4TAB12 PO (14:34)
[2023-05-06] MEDS: normal saline 1000ml 1,000 ML IV SCH (14:38)
[2023-05-06] MEDS ORDERED: traMADol 50MG tablet PO ONE (17:10)
--- NOTE | 2023-05-06 17:25 | NUR ---
Received report from DIAMANTE Danielle RN.
--- NOTE | 2023-05-06 17:28 | NUR ---
REPORT CALLED TO ANITA JACOBS ON PCU. PT TO BE TRANSFERRED UPSTAIRS VIA [facility].
[2023-05-06 17:45] VITALS: BP 121/66; PULSE 87; RESP 17; TEMP 98.5; O2SAT 98
--- NOTE | 2023-05-06 17:45 | NUR ---
Patient arrived to unit via gurney ambulated from doorway to bed. No complaints noted at this time. Call light is in reach and BLL
[2023-05-06] MEDS: traMADol 50MG tablet PO SCH (20:00)
[2023-05-06] MEDS: K and/or MAG REPLACEMENT MC SCH (20:00)
[2023-05-06] MEDS ORDERED: PERFLUTREN PROTEIN-A MICROSPHR (Optison) 0.22 MG/ML 3ML VIAL IV ONE (20:00)
[2023-05-06] MEDS: QUEtiapine 25mg tablet PO SCH (20:01)
[2023-05-06] MEDS: HYDROcodone/acetaminophen 5mg/325mg tablet PO PRN (20:51)
[2023-05-06] MEDS ORDERED: temazepam 15mg capsule PO PRN (21:00)
[2023-05-06 22:00] VITALS: BP 116/68; PULSE 76; RESP 16; TEMP 96; O2SAT 99
[2023-05-07] VITALS (8 sets, daily range): BP systolic 118–174; BP diastolic 71–98; PULSE 68–73; RESP 17–20; TEMP 97–98.1; O2SAT 99–100
[2023-05-07] MEDS: normal saline 1000ml 1,000 ML IV SCH ×3 (00:15→17:40)
[2023-05-07] MEDS: traMADol 50MG tablet PO SCH ×4 (02:00→20:34)
--- NOTE | 2023-05-07 06:30 | NUR ---
Patient in room PCU 3023. I have received report from Tre HOWARD and had the opportunity to ask questions and assume patient care.
[2023-05-07 07:41] LABS: BASOPHILS % (AUTO) 0.3 % (0-1); EOSINOPHILS % (AUTO) 0.8 % (0-6); HEMATOCRIT 33.9 % (42.0-52.0); LYMPHOCYTES # (AUTO) 0.8 X10'3 (1.1-4.8); LYMPHOCYTES % (AUTO) 16.5 % (21-51); MEAN CORPUSCULAR HEMOGLOBIN 26.6 PG (27.0-31.0); MEAN CORPUSCULAR HGB CONC 32.3 g/dL (33.0-36.5); MEAN CORPUSCULAR VOLUME 82.4 FL (78-98); MEAN PLATELET VOLUME 7.7 FL (7.4-10.4); MONOCYTES # (AUTO) 0.3 X10'3 (0-0.9); MONOCYTES % (AUTO) 6.8 % (2-12); NEUTROPHILS # (AUTO) 3.7 X10'3 (1.8-7.7); NEUTROPHILS % (AUTO) 75.6 % (42-75); PLATELET COUNT 121 X10'3 (140-440); RED BLOOD COUNT 4.12 X10'6 (4.70-6.10); RED CELL DISTRIBUTION WIDTH 17.1 % (11.5-14.5); WHITE BLOOD COUNT 4.9 X10'3 (4.5-11.0)
[2023-05-07] MEDS: K and/or MAG REPLACEMENT MC SCH ×2 (08:00→20:00)
[2023-05-07 08:04] LABS: ANION GAP 8 (8-16); CHLORIDE 104 MMOL/L (99-107); GLUCOSE 88 MG/DL (70-104); POTASSIUM 4.2 MMOL/L (3.5-5.1); SODIUM 136 MMOL/L (135-145); TOTAL CARBON DIOXIDE 23.6 MMOL/L (24-32)
[2023-05-07 08:05] LABS: ALBUMIN 2.5 G/DL (3.4-5.0); BLOOD UREA NITROGEN 23 MG/DL (7-18); BUN/CREATININE RATIO 13.5 (10.0-20.0); CALCIUM 8.6 MG/DL (8.5-10.1); CREATININE 1.71 MG/DL (0.60-1.10); MAGNESIUM 1.9 MG/DL (1.5-2.4); eCRCL 32 ML/MIN; eGFR 41 ML/MIN
[2023-05-07] MEDS: HYDROcodone/acetaminophen 5mg/325mg tablet PO PRN ×2 (09:04→17:38)
--- NOTE | 2023-05-07 11:56 | NUR ---
Patient's sister called and asked for a update. Gave update with patient's permission.
--- NOTE | 2023-05-07 15:16 | NUR ---
PAGER ID: [phone] MESSAGE: [phone] Javier Patient is wondering if he will be discharging today. Thank you Amanda HOWARD [phone]
--- NOTE | 2023-05-07 17:04 | NUR ---
AGREE WITH FOREST ECONOMIST AM ASSESSMENT
--- NOTE | 2023-05-07 18:32 | NUR ---
Problems reprioritized. Patient report given, questions answered & plan of care reviewed with Claudette BOYCE.
--- NOTE | 2023-05-07 20:00 | NUR ---
pt refused orthostatic vital signs at this time. Will continue to try and get them throughout the shift. Addendum: 05/08/23 at 0053 by Claudette Mac RN Amended: Links added.
--- NOTE | 2023-05-07 20:00 | NUR ---
pt refused orthostatics at this time. Will continue to try throughout the shift.
[2023-05-07] MEDS: QUEtiapine 25mg tablet PO SCH (20:34)
[2023-05-08 01:35] LABS: BASOPHILS % (AUTO) 0.5 % (0-1); EOSINOPHILS # (AUTO) 0.1 X10'3 (0-0.9); EOSINOPHILS % (AUTO) 1.3 % (0-6); HEMATOCRIT 34.4 % (42.0-52.0); HEMOGLOBIN 11.1 g/dl (14.0-17.9); LYMPHOCYTES % (AUTO) 21.6 % (21-51); MEAN CORPUSCULAR HEMOGLOBIN 26.7 PG (27.0-31.0); MEAN CORPUSCULAR HGB CONC 32.1 g/dL (33.0-36.5); MEAN PLATELET VOLUME 7.8 FL (7.4-10.4); MONOCYTES # (AUTO) 0.3 X10'3 (0-0.9); MONOCYTES % (AUTO) 7.5 % (2-12); NEUTROPHILS # (AUTO) 3.1 X10'3 (1.8-7.7); NEUTROPHILS % (AUTO) 69.1 % (42-75); PLATELET COUNT 134 X10'3 (140-440); RED BLOOD COUNT 4.15 X10'6 (4.70-6.10); RED CELL DISTRIBUTION WIDTH 16.5 % (11.5-14.5); WHITE BLOOD COUNT 4.5 X10'3 (4.5-11.0)
[2023-05-08] MEDS: traMADol 50MG tablet PO SCH ×2 (01:41→07:41)
[2023-05-08 03:44] VITALS: BP 145/96; PULSE 66; RESP 20; TEMP 97; O2SAT 100
[2023-05-08 03:45] VITALS: BP_SYST 145; BP_SYST 152; BP_SYST 163; BP_DIAS 88; BP_DIAS 91; BP_DIAS 96; PULSE 66; PULSE 69; PULSE 71
[2023-05-08] MEDS: normal saline 1000ml 1,000 ML IV SCH (03:52)
--- NOTE | 2023-05-08 06:09 | NUR ---
Problems reprioritized. Patient report given, questions answered & plan of care reviewed with Taylor BOYCE. Pt stable at shift change.
[2023-05-08 07:01] VITALS: BP 141/91; PULSE 76; RESP 18; TEMP 97.1; O2SAT 100
[2023-05-08 07:41] LABS: ALBUMIN 2.5 G/DL (3.4-5.0); ANION GAP 7 (8-16); BLOOD UREA NITROGEN 15 MG/DL (7-18); BUN/CREATININE RATIO 12.5 (10.0-20.0); CALCIUM 8.9 MG/DL (8.5-10.1); CHLORIDE 105 MMOL/L (99-107); GLUCOSE 91 MG/DL (70-104); MAGNESIUM 1.7 MG/DL (1.5-2.4); POTASSIUM 4.3 MMOL/L (3.5-5.1); SODIUM 134 MMOL/L (135-145); TOTAL CARBON DIOXIDE 21.9 MMOL/L (24-32); eCRCL 45 ML/MIN; eGFR 61 ML/MIN
[2023-05-08] MEDS: K and/or MAG REPLACEMENT MC SCH (07:44)
[2023-05-08 08:33] VITALS: RESP 18; O2SAT 100
[2023-05-08 08:51] VITALS: BP_SYST 158; BP_SYST 163; BP_DIAS 91; BP_DIAS 92; PULSE 74; PULSE 79
--- NOTE | 2023-05-08 12:32 | NUR ---
iv and tele removed, dc paperwork reviewed
== END 2023-05-08 12:23 | disposition home or self-care (01) | DRG 207 ==
LOC: ER 10:10 → ED HOLD 14:19 → EDBEDREQ 15:59 → PCU 3S 18:00
PROVIDERS: ADMIT Internal Medicine; ATTEND Internal Medicine
DX: I95.2 Hypotension due to drugs (principal); N17.0 Acute kidney failure with tubular necrosis; J96.21 Acute and chronic respiratory failure with hypoxia; D63.8 Anemia in other chronic diseases classified elsewhere; E87.1 Hypo-osmolality and hyponatremia; E86.9 Volume depletion, unspecified; I48.91 Unspecified atrial fibrillation; I12.9 Hypertensive chronic kidney disease with stage 1 through stage 4 chronic kidney disease, or unspecified chronic kidney disease; Z60.2 Problems related to living alone; E87.6 Hypokalemia; J44.9 Chronic obstructive pulmonary disease, unspecified; N18.9 Chronic kidney disease, unspecified; Z80.0 Family history of malignant neoplasm of digestive organs; Z85.118 Personal history of other malignant neoplasm of bronchus and lung; Z87.891 Personal history of nicotine dependence
CPT/HCPCS: 36415; 70450; 71045; 71250; 74176; 80048; 80053; 82948; 83605; 83735; 83880; 84484; 85025; 85379; 86885; 86900; 86901; 87040; 87081; 93005; 93306; 97161; 97535; 99285; G0378; J7030

== ENCOUNTER 2023-05-13 13:22 | Inpatient (IN) | payer MEDICAID ==
[~2023-05-13] VITALS: Ht 177.8 cm; Wt 81.8 kg
[~2023-05-13 13:22] MED LIST changes: -ALBU0.63 PO; +ALBU2.5V10 NEB; +AMLO5TAB16 PO; +CHOL5000 PO; +HYDR-3965 PO; -HYDR-3973 PO; -MELO-102 PO; +ONDA4TAB12 PO
[2023-05-13] MEDS ORDERED: nitroGLYCERIN 0.4mg SUBLingual tab SL PRN ×2 (13:30→16:15)
[2023-05-13] MEDS ORDERED: aspirin 81mg tab.chew PO ONE (13:30)
[2023-05-13 13:45] LABS: BASOPHILS % (AUTO) 0.2 % (0-1); EOSINOPHILS % (AUTO) 0.1 % (0-6); HEMATOCRIT 35.4 % (42.0-52.0); HEMOGLOBIN 11.4 g/dl (14.0-17.9); LYMPHOCYTES # (AUTO) 1.4 X10'3 (1.1-4.8); LYMPHOCYTES % (AUTO) 7.2 % (21-51); MEAN CORPUSCULAR HEMOGLOBIN 25.8 PG (27.0-31.0); MEAN CORPUSCULAR HGB CONC 32.1 g/dL (33.0-36.5); MEAN CORPUSCULAR VOLUME 80.4 FL (78-98); MEAN PLATELET VOLUME 7.9 FL (7.4-10.4); MONOCYTES # (AUTO) 1.3 X10'3 (0-0.9); MONOCYTES % (AUTO) 6.9 % (2-12); NEUTROPHILS # (AUTO) 16.2 X10'3 (1.8-7.7); NEUTROPHILS % (AUTO) 85.6 % (42-75); PLATELET COUNT 264 X10'3 (140-440); RED BLOOD COUNT 4.41 X10'6 (4.70-6.10); RED CELL DISTRIBUTION WIDTH 16.3 % (11.5-14.5); WHITE BLOOD COUNT 18.9 X10'3 (4.5-11.0)
[2023-05-13 14:35] LABS: ALANINE AMINOTRANSFERASE 18 U/L (12-78); ALBUMIN 2.5 G/DL (3.4-5.0); ALBUMIN/GLOBULIN RATIO 0.5 (1.1-1.5); ALKALINE PHOSPHATASE 120 IU/L (46-116); ANION GAP 16 (8-16); ASPARTATE AMINO TRANSFERASE 15 U/L (10-37); BILIRUBIN,TOTAL 0.4 MG/DL (0.1-1.0); BLOOD UREA NITROGEN 9 MG/DL (7-18); BUN/CREATININE RATIO 8.7 (10.0-20.0); CALCIUM 8.7 MG/DL (8.5-10.1); CHLORIDE 100 MMOL/L (99-107); CREATININE 1.03 MG/DL (0.60-1.10); GLUCOSE 111 MG/DL (70-104); PRO BRAIN NATRIURETIC PEPTIDE 4300 PG/ML (0-125); SODIUM 135 MMOL/L (135-145); TOTAL CARBON DIOXIDE 19.3 MMOL/L (24-32); TOTAL PROTEIN 7.1 G/DL (6.4-8.2); eCRCL 77 ML/MIN; eGFR 73 ML/MIN
--- NOTE | 2023-05-13 14:54 | NUR ---
LAB CALLED [facility] 3.0, INFORMED DR. ROBERSON
[2023-05-13] MEDS ORDERED: POTASSIUM BICARB 20meq eff tab 20 MEQ TABLET.EFF PO SCH (15:30)
[2023-05-13] MEDS ORDERED: POTASSIUM BICARB 20meq eff tab 20 MEQ TABLET.EFF PO ONE (15:30)
[2023-05-13] MEDS ORDERED: potassium Cl 20 mEq SR tablet PO PRN ×2 (16:15)
[2023-05-13] MEDS ORDERED: aminophylline 250mg/10ml inj. IV PRN (16:15)
[2023-05-13] MEDS ORDERED: furosemide 10 MG/1 ML 10ml inj IV ONE (16:15)
[2023-05-13] MEDS ORDERED: magnesium Cl slow-release 64mg tablet PO PRN (16:15)
[2023-05-13] MEDS ORDERED: metoprolol tartrate 1mg/ml inj IV PRN (16:15)
[2023-05-13] MEDS ORDERED: regadenoson 0.4mg/5ml syringe IV PRN (16:15)
[2023-05-13] MEDS ORDERED: magnesium hydroxide 30ml (MOM) UD suspension PO PRN (16:15)
[2023-05-13] MEDS ORDERED: acetaminophen 325mg tablet PO PRN ×2 (16:15)
[2023-05-13] MEDS ORDERED: magnesium 4gm in 100ml NS 100 ML IV PRN (16:15)
[2023-05-13] MEDS ORDERED: PERFLUTREN PROTEIN-A MICROSPHR (Optison) 0.22 MG/ML 3ML VIAL IV ONE (16:15)
[2023-05-13] MEDS ORDERED: potassium Cl 40MEQ/1/2NS 520ml 520 ML IV PRN (16:15)
[2023-05-13] MEDS ORDERED: albuterol 2.5 MG/3 ML nebule NEB PRN (16:45)
[2023-05-13] MEDS ORDERED: albuterol 2.5 MG/3 ML nebule ONE (16:56)
[2023-05-13 16:58] VITALS: PULSE 94; PULSE 95; RESP 22; RESP 26; O2SAT 98
[2023-05-13 17:10] LABS: AMYLASE 64 U/L (25-115)
[2023-05-13 17:12] LABS: LIPASE 12 U/L (16-77)
--- NOTE | 2023-05-13 17:19 | NUR ---
ED BED 6--WBC 18.1 DO YOU WANT ABX NOW? [id number]
[2023-05-13] MEDS: CefTRIAXone/D5W-Rocephin 1gm 50 ML IV SCH (17:37)
--- NOTE | 2023-05-13 18:21 | NUR ---
PER DR NOVOA GIVE LASIX DESPITE POTASSIUM LEVEL IT HAS BEEN REPLACED. WILL CONTINUE TO REPLACE PER PROTOCOL
[2023-05-13] MEDS: mag hydrox/Alum hydrox/simeth 30ml oral suspension PO PRN ×2 (18:37→23:13)
[2023-05-13] MEDS: ondansetron/PF 4mg/2ml inj IV PRN (18:37)
[2023-05-13] MEDS: morphine 2 MG/ML inj. syringe IV PRN ×2 (18:49→23:16)
[2023-05-13] MEDS ORDERED: CHOLECALCIFEROL PO SCH (19:05)
[2023-05-13] MEDS ORDERED: HYDROcodone/acetaminophen 5mg/325mg tablet PO PRN (19:05)
[2023-05-13] MEDS: albuterol 2.5 MG/3 ML nebule NEB SCH (19:22)
[2023-05-13 19:24] VITALS: PULSE 96; RESP 16; O2SAT 97
[2023-05-13] MEDS ORDERED: ipratropium 0.5 MG/2.5ML nebule NEB PRN (19:25)
[2023-05-13 19:30] VITALS: PULSE 98; RESP 21
[2023-05-13] MEDS: HYDROcodone/acetaminophen 5mg/325mg tablet PO PRN (19:49)
[2023-05-13] MEDS: gabapentin 300mg capsule PO SCH (19:50)
[2023-05-13] MEDS: sertraline 50mg tablet PO SCH (19:50)
[2023-05-13] MEDS: methylPREDNISolone sod succ 125mg/2ml vial IV SCH (19:51)
[2023-05-13] MEDS: ipratropium 0.5 MG/2.5ML nebule NEB SCH (20:00)
[2023-05-13] MEDS: docusate sod 100mg capsule PO SCH (20:00)
[2023-05-13] MEDS: azithromycin/NS 500mg/250ml 250 ML IV SCH (20:10)
[2023-05-13 20:25] LABS: BILIRUBIN,URINE NEGATIVE (Neg); CLARITY,URINE CLEAR (Clear); COLOR,URINE YELLOW (Yellow); GLUCOSE, URINE NEGATIVE (Neg); KETONES,URINE NEGATIVE (Neg); LEUKOCYTE ESTERASE ,URINE NEGATIVE (Neg); NITRITES, URINE NEGATIVE (Neg); OCCULT BLOOD,URINE MODERATE (Neg); PH,URINE 6.5 (4.8-8.0); PROTEIN,URINE TRACE mg/dl (Neg); UROBILINOGEN,URINE 0.2 E.U/dL (0.2-1.0)
[2023-05-13 20:29] LABS: UA COLLECTION TYPE CLN CATCH MIDSTREAM
[2023-05-13 20:33] LABS: BACTERIA,URINE FEW /HPF (Neg); HYALINE CASTS 0-3 /LPF (NEGATIVE); MUCUS STRANDS MANY /LPF (Neg); SQUAMOUS EPITHELIAL CELL,UR FEW /LPF (FEW); WBC,URINE 0-4 /HPF (0-4)
[2023-05-13 20:36] LABS: TRANSITIONAL EPI CELLS,URINE FEW /HPF
[2023-05-13] MEDS: QUEtiapine 25mg tablet PO SCH (21:02)
--- NOTE | 2023-05-13 22:37 | NUR ---
RT called for AB results [id number].
[2023-05-13 23:00] VITALS: BP 151/96; PULSE 88; RESP 18; TEMP 98.7; O2SAT 94
--- NOTE | 2023-05-13 23:00 | NUR ---
RECEIVED PT FROM ER VIA [facility] FOLLOWING VERBAL REPORT FROM LÓPEZ
[2023-05-13 23:30] VITALS: RESP 22; O2SAT 99
[2023-05-14] VITALS (26 sets, daily range): BP systolic 119–161; BP diastolic 73–90; PULSE 76–98; RESP 12–28; TEMP 97–98.7; O2SAT 96–100
[2023-05-14] MEDS: HYDROcodone/acetaminophen 5mg/325mg tablet PO PRN ×5 (00:23→22:47)
[2023-05-14] MEDS: ipratropium 0.5 MG/2.5ML nebule NEB SCH ×4 (01:50→19:48)
[2023-05-14] MEDS: albuterol 2.5 MG/3 ML nebule NEB SCH ×4 (01:50→19:47)
[2023-05-14] MEDS: morphine 2 MG/ML inj. syringe IV PRN ×4 (03:55→19:08)
[2023-05-14 05:59] LABS: ABG BASE EXCESS 2.5 mmol/L (-2.0-2.0); ABG HCO3 23.9 mmol/L (22.0-26.0); ABG OXYGEN SATURATION 96.7 % (94-97); ABG PCO2 (T) 28.6 mmHg (35.0-48.0); ABG PH (T) 7.541 (7.340-7.440); ABG PO2 (T) 84.2 mmHg (75.0-100.0); ALLEN'S TEST POSITIVE; FCOHb 0.4 % (0.0-3.9); FHHb 3.3 % (0.0-5.0); FLOW 5 L/min; FMetHb 0.2 % (0.0-1.5); FO2Hb 96.1 % (94-97); MODE NASAL CANNULA; PATIENT TEMPERATURE 37.6
--- NOTE | 2023-05-14 06:23 | NUR ---
Problems reprioritized. Patient report given, questions answered & plan of care reviewed with YISSEL.
--- NOTE | 2023-05-14 06:26 | NUR ---
Patient in room PCU 3023. I have received report from CARLI Farfan and had the opportunity to ask questions and assume patient care.
--- NOTE | 2023-05-14 06:29 | NUR ---
Patient in room PCU 3023. I have received report from CARLI Farfan and had the opportunity to ask questions and assume patient care.
[2023-05-14 06:38] LABS: BASOPHILS % (AUTO) 0.1 % (0-1); EOSINOPHILS % (AUTO) 0 % (0-6); HEMATOCRIT 34.3 % (42.0-52.0); HEMOGLOBIN 11.1 g/dl (14.0-17.9); LYMPHOCYTES # (AUTO) 0.4 X10'3 (1.1-4.8); LYMPHOCYTES % (AUTO) 4.2 % (21-51); MEAN CORPUSCULAR HEMOGLOBIN 26.3 PG (27.0-31.0); MEAN CORPUSCULAR HGB CONC 32.5 g/dL (33.0-36.5); MEAN PLATELET VOLUME 8.1 FL (7.4-10.4); MONOCYTES # (AUTO) 0.2 X10'3 (0-0.9); MONOCYTES % (AUTO) 2.4 % (2-12); NEUTROPHILS # (AUTO) 9.8 X10'3 (1.8-7.7); NEUTROPHILS % (AUTO) 93.3 % (42-75); PLATELET COUNT 197 X10'3 (140-440); RED BLOOD COUNT 4.24 X10'6 (4.70-6.10); RED CELL DISTRIBUTION WIDTH 16.5 % (11.5-14.5); WHITE BLOOD COUNT 10.5 X10'3 (4.5-11.0)
[2023-05-14 06:54] LABS: ALANINE AMINOTRANSFERASE 21 U/L (12-78); ALBUMIN 2.5 G/DL (3.4-5.0); ALBUMIN/GLOBULIN RATIO 0.5 (1.1-1.5); ALKALINE PHOSPHATASE 123 IU/L (46-116); ANION GAP 8 (8-16); ASPARTATE AMINO TRANSFERASE 17 U/L (10-37); BILIRUBIN,TOTAL 0.3 MG/DL (0.1-1.0); BLOOD UREA NITROGEN 14 MG/DL (7-18); BUN/CREATININE RATIO 11.3 (10.0-20.0); CALCIUM 9.3 MG/DL (8.5-10.1); CHLORIDE 100 MMOL/L (99-107); CREATININE 1.24 MG/DL (0.60-1.10); GLUCOSE 159 MG/DL (70-104); MAGNESIUM 2.4 MG/DL (1.5-2.4); POTASSIUM 4.4 MMOL/L (3.5-5.1); SODIUM 135 MMOL/L (135-145); TOTAL CARBON DIOXIDE 27.4 MMOL/L (24-32); TOTAL PROTEIN 7.3 G/DL (6.4-8.2); eCRCL 64 ML/MIN; eGFR 59 ML/MIN
[2023-05-14] MEDS: gabapentin 300mg capsule PO SCH ×2 (07:22→20:50)
[2023-05-14] MEDS: sertraline 50mg tablet PO SCH ×2 (07:23→20:51)
[2023-05-14] MEDS: pantoprazole 40mg Tablet.DR PO SCH (07:23)
[2023-05-14] MEDS: docusate sod 100mg capsule PO SCH ×2 (07:23→20:00)
[2023-05-14] MEDS: methylPREDNISolone sod succ 125mg/2ml vial IV SCH ×2 (07:24→20:56)
[2023-05-14] MEDS: CefTRIAXone/D5W-Rocephin 1gm 50 ML IV SCH (07:25)
[2023-05-14] MEDS: Stiolto Respimat Inhal Spray PO SCH (08:00)
[2023-05-14] MEDS: losartan 50mg tablet PO SCH (08:00)
[2023-05-14] MEDS: aspirin 81mg tab.chew PO SCH (08:00)
[2023-05-14] MEDS: furosemide 10 MG/1 ML 10ml inj IV SCH (08:00)
[2023-05-14] MEDS ORDERED: CefTRIAXone/D5W-Rocephin 1gm 50 ML IV SCH (08:00)
[2023-05-14] MEDS: azithromycin/NS 500mg/250ml 250 ML IV SCH (08:20)
[2023-05-14] MEDS: mag hydrox/Alum hydrox/simeth 30ml oral suspension PO PRN ×2 (08:22→13:18)
--- NOTE | 2023-05-14 10:00 | NUR ---
Patient left to NUC MED.
--- NOTE | 2023-05-14 11:33 | NUR ---
Pt returned back to room. Dr. Hart in to see patient. Patient still painful but Dr. Hart states wants to see results of nicol scan before making changes to pain med.
--- NOTE | 2023-05-14 12:05 | NUR ---
PAGER ID: [phone] MESSAGE: FREDI ON [phone], THE [facility]EN SCAN REPORT IS AVAILABLE ON [id number], THANK YOU. (73 character message out of a maximum of 240) CLOSE [X] SEND ANOTHER PAGE Thank you for visiting [facility] promotional table spacer promotional table spacer
[2023-05-14] MEDS: ondansetron/PF 4mg/2ml inj IV PRN ×2 (13:19→19:08)
--- NOTE | 2023-05-14 18:29 | NUR ---
Problems reprioritized. Patient report given, questions answered & plan of care reviewed with CARLI Farfan.
--- NOTE | 2023-05-14 18:29 | NUR ---
Problems reprioritized. Patient report given, questions answered & plan of care reviewed with CARLI Farfan.
--- NOTE | 2023-05-14 18:30 | NUR ---
Patient in room PCU 3023. I have received report from YISSEL and had the opportunity to ask questions and assume patient care. ASSUMED CARE OF PT WITH RN STUDENT JURGEN Olivera
[2023-05-14] MEDS: QUEtiapine 25mg tablet PO SCH (20:51)
--- NOTE | 2023-05-14 23:51 | NUR ---
Student documentation: I have reviewed interventions, assessments performed and documented by Susi Davis [facility].
[2023-05-15] VITALS (14 sets, daily range): BP systolic 119–162; BP diastolic 83–92; PULSE 70–88; RESP 14–18; TEMP 97–97.7; O2SAT 96–100
[2023-05-15] MEDS: morphine 2 MG/ML inj. syringe IV PRN (02:08)
[2023-05-15] MEDS: albuterol 2.5 MG/3 ML nebule NEB SCH (02:39)
[2023-05-15] MEDS: ipratropium 0.5 MG/2.5ML nebule NEB SCH (02:39)
[2023-05-15] MEDS: HYDROcodone/acetaminophen 5mg/325mg tablet PO PRN ×3 (03:22→12:42)
--- NOTE | 2023-05-15 06:27 | NUR ---
Problems reprioritized. Patient report given, questions answered & plan of care reviewed with YISSEL. Student documentation: I have reviewed and agree with all interventions, assessments performed and documented by JURGEN Olivera
--- NOTE | 2023-05-15 06:27 | NUR ---
Student Medication Administration: For this medication-pass time frame, all medication were reviewed, dispensed, administered and documented per hospital policy by JURGEN Olivera
--- NOTE | 2023-05-15 06:40 | NUR ---
Patient in room PCU 3023. I have received report from CARLI Farfan and had the opportunity to ask questions and assume patient care.
[2023-05-15] MEDS: aspirin 81mg tab.chew PO SCH (07:11)
[2023-05-15] MEDS: pantoprazole 40mg Tablet.DR PO SCH (07:12)
[2023-05-15] MEDS: losartan 50mg tablet PO SCH (07:12)
[2023-05-15] MEDS: gabapentin 300mg capsule PO SCH (07:12)
[2023-05-15] MEDS: sertraline 50mg tablet PO SCH (07:12)
[2023-05-15] MEDS: furosemide 10 MG/1 ML 10ml inj IV SCH (07:14)
[2023-05-15] MEDS: methylPREDNISolone sod succ 125mg/2ml vial IV SCH (07:14)
[2023-05-15] MEDS: CefTRIAXone/D5W-Rocephin 1gm 50 ML IV SCH (07:14)
[2023-05-15 07:31] LABS: BASOPHILS % (AUTO) 0.1 % (0-1); EOSINOPHILS % (AUTO) 0 % (0-6); HEMOGLOBIN 11.4 g/dl (14.0-17.9); LYMPHOCYTES # (AUTO) 0.5 X10'3 (1.1-4.8); MEAN CORPUSCULAR HEMOGLOBIN 25.9 PG (27.0-31.0); MEAN CORPUSCULAR HGB CONC 31.7 g/dL (33.0-36.5); MEAN CORPUSCULAR VOLUME 81.7 FL (78-98); MONOCYTES # (AUTO) 0.3 X10'3 (0-0.9); MONOCYTES % (AUTO) 2.9 % (2-12); PLATELET COUNT 225 X10'3 (140-440); RED BLOOD COUNT 4.41 X10'6 (4.70-6.10); RED CELL DISTRIBUTION WIDTH 16.2 % (11.5-14.5); WHITE BLOOD COUNT 11.9 X10'3 (4.5-11.0)
[2023-05-15] MEDS: ipratropium/albuterol 3ml nebule NEB SCH ×2 (07:32→15:50)
[2023-05-15 07:42] LABS: ALANINE AMINOTRANSFERASE 16 U/L (12-78); ALBUMIN 2.6 G/DL (3.4-5.0); ALBUMIN/GLOBULIN RATIO 0.6 (1.1-1.5); ALKALINE PHOSPHATASE 114 IU/L (46-116); ANION GAP 6 (8-16); ASPARTATE AMINO TRANSFERASE 23 U/L (10-37); BILIRUBIN,TOTAL 0.2 MG/DL (0.1-1.0); BLOOD UREA NITROGEN 24 MG/DL (7-18); BUN/CREATININE RATIO 18.5 (10.0-20.0); CALCIUM 9.4 MG/DL (8.5-10.1); CHLORIDE 101 MMOL/L (99-107); GLUCOSE 138 MG/DL (70-104); MAGNESIUM 2.4 MG/DL (1.5-2.4); POTASSIUM 4.4 MMOL/L (3.5-5.1); SODIUM 134 MMOL/L (135-145); TOTAL PROTEIN 7.2 G/DL (6.4-8.2); eCRCL 61 ML/MIN; eGFR 56 ML/MIN
[2023-05-15] MEDS: docusate sod 100mg capsule PO SCH (08:00)
[2023-05-15] MEDS: Stiolto Respimat Inhal Spray PO SCH (08:00)
[2023-05-15] MEDS: azithromycin/NS 500mg/250ml 250 ML IV SCH (08:27)
[2023-05-15] MEDS: mag hydrox/Alum hydrox/simeth 30ml oral suspension PO PRN (08:37)
[2023-05-15] MEDS ORDERED: LEVO750T68 PO (10:36)
--- NOTE | 2023-05-15 10:55 | NUR ---
patient stating he is in pain. Resident Peyton states no morphine as he will be dc today. patient states he is anxious and is asking for ativan. Call to resident Peyton again and she states no ativan as he needs to work with PT.
--- NOTE | 2023-05-15 12:02 | NUR ---
pt ambulated 150ft. pt states that has been his normal lately.
--- NOTE | 2023-05-15 17:44 | NUR ---
Patient DC with all personal belonging, escorted by wheelchair, sister waiting for patient down in the lobby with portable oxygen tank. Patient was alert and oriented x4. Patient showed no signs of distress.
--- NOTE | 2023-05-15 17:46 | NUR ---
Student documentation: I have reviewed and agree with all interventions, assessments performed and documented by SN Glory. Student Medication Administration: For this medication-pass time frame, all medication were reviewed, dispensed, administered and documented per hospital policy by SN Glory.
[2023-05-15] MEDS ORDERED: methylPREDNISolone sod succ/PF 40mg inj. IV SCH (20:00)
== END 2023-05-15 17:26 | disposition home or self-care (01) | DRG 194 ==
LOC: ER 13:23 → ED HOLD 16:42 → PCU 3S 22:50
PROVIDERS: ADMIT Family Medicine; ATTEND Family Medicine
PROC: 4A02XM4 Measurement of Cardiac Total Activity, External Approach (ICD-10-PCS; principal; 2023-05-14)
PROC: 3E073KZ Introduction of Other Diagnostic Substance into Coronary Artery, Percutaneous Approach (ICD-10-PCS; 2023-05-14)
DX: I11.0 Hypertensive heart disease with heart failure (principal); D69.6 Thrombocytopenia, unspecified; J18.9 Pneumonia, unspecified organism; J96.10 Chronic respiratory failure, unspecified whether with hypoxia or hypercapnia; I48.91 Unspecified atrial fibrillation; I50.9 Heart failure, unspecified; D72.829 Elevated white blood cell count, unspecified; Z20.822 Contact with and (suspected) exposure to COVID-19; R10.9 Unspecified abdominal pain; D64.9 Anemia, unspecified; E87.6 Hypokalemia; J44.9 Chronic obstructive pulmonary disease, unspecified; G89.29 Other chronic pain; F10.90 Alcohol use, unspecified, uncomplicated; Z79.82 Long term (current) use of aspirin; Z85.118 Personal history of other malignant neoplasm of bronchus and lung; Z79.899 Other long term (current) drug therapy; Z87.891 Personal history of nicotine dependence; Z80.0 Family history of malignant neoplasm of digestive organs
CPT/HCPCS: 36415; 36600; 71045; 74176; 78452; 80053; 81001; 82150; 82803; 82948; 83605; 83690; 83735; 83880; 84145; 84484; 85018; 85025; 85651; 87040; 87070; 87081; 87502; 87503; 87811; 93017; 93308; 94640; 94760; 96374; 99285; A9500; G0378; J0456; J0696; J1940; J2270; J2405; J2785; J2930